=== PATIENT | female | born 1935 | race Caucasian/White ===

== ENCOUNTER 2016-11-11 18:53 | Emergency (ER) | payer OTHER ==
[2016-11-11] MEDS ORDERED: Bacitracin 500 Units/gm Oint Foilpak UD ONE ×2 (19:14→19:21)
[2016-11-11] MEDS ORDERED: Bacitracin 500 Units/gm Oint Foilpak UD TOP ONE (19:16)
--- NOTE | 2016-11-11 19:16 | C.PDOC ---
Chief Complaint (Nursing): Lower Extremity Problem/Injury Past Medical History Vital Signs: Last Vital Signs Temp 98.1 F 11/11/16 18:56 Pulse 83 11/11/16 18:56 Resp 18 11/11/16 18:56 BP 174/55 H 11/11/16 18:56 Pulse Ox 94 L 11/11/16 18:56 - Medical History PMH: Asthma, Dementia, Diabetes, HTN, Parkinson's Disease - [facility] Procedures TETANUS TOXOID ADMINIST (07/25/14) Family History: States: Unknown Family Hx - Social History Hx Tobacco Use: No Hx Alcohol Use: No Hx Substance Use: No - Immunization History Hx Tetanus Toxoid Vaccination: Yes Hx Influenza Vaccination: Yes Hx Pneumococcal Vaccination: Yes ED Course And Treatment O2 Sat by Pulse Oximetry: 94
--- NOTE | 2016-11-11 19:17 | C.PDOC ---
History Of Present Illness 81 y/o female presents to ED with complaints of pain and swelling to left foot. Patient states a frozen chicken fell on top of left foot and sustained a laceration to 2nd toe. Patient denies fever, chills, n/v/d, weakness, numbness or any other complaints at this time. Chief Complaint (Nursing): Lower Extremity Problem/Injury History Per: Patient History/Exam Limitations: no limitations Onset/Duration Of Symptoms: Hrs Current Symptoms Are (Timing): Still Present - Knee Description Of Injury: Struck With Object Past Medical History Reviewed: Historical Data, Nursing Documentation, Vital Signs Vital Signs: Last Vital Signs Temp 98.1 F 11/11/16 18:56 Pulse 83 11/11/16 18:56 Resp 18 11/11/16 18:56 BP 174/55 H 11/11/16 18:56 Pulse Ox 94 L 11/11/16 19:20 - Medical History PMH: Asthma, Dementia, Diabetes, HTN, Parkinson's Disease - [facility] Procedures TETANUS TOXOID ADMINIST (07/25/14) Family History: States: Unknown Family Hx - Social History Hx Tobacco Use: No Hx Alcohol Use: No Hx Substance Use: No - Immunization History Hx Tetanus Toxoid Vaccination: Yes Hx Influenza Vaccination: Yes Hx Pneumococcal Vaccination: Yes Review Of Systems Except As Marked, All Systems Reviewed And Found Negative. Constitutional: Negative for: Fever, Chills Gastrointestinal: Negative for: Nausea, Vomiting, Diarrhea Musculoskeletal: Positive for: Foot Pain Skin: Negative for: Rash Neurological: Negative for: Weakness, Numbness Physical Exam - Physical Exam Appears: Non-toxic, No Acute Distress Skin: Normal Color, Warm Head: Atraumatic, Normacephalic Oral Mucosa: Moist Extremity: Capillary Refill (<2 seconds), Swelling (left 2nd toe swelling), Other (laceration to left 2nd toe ) Neurological/Psych: Oriented x3, Normal Motor, Normal Sensation, Normal Reflexes ED Course And Treatment O2 Sat by Pulse Oximetry: 94 (RA) Disposition Counseled Patient/Family Regarding: Diagnosis - Disposition Referrals: Edna Boo MD [Staff Provider] - [facility] [Outside] Disposition: HOME/ ROUTINE Disposition Time: 20:05 Condition: STABLE Additional Instructions: HEEL WALK. ELEVATION Prescriptions: Amoxicillin [Amoxil 500 mg Cap] 500 mg PO TID #20 cap Ibuprofen [Motrin] 1 tab PO TIDPC PRN #30 tab PRN Reason: Pain Instructions: Toe Fracture (ED), Crush Injury (ED) - POA Present On Arrival: None - Clinical Impression Clinical Impression: Crush injury, toe, Injury of toe on left foot - Scribe Statement The provider has reviewed the documentation as recorded by the Scribhelen Lau All medical record entries made by the Hungibe were at my direction and personally dictated by me. I have reviewed the chart and agree that the record accurately reflects my personal performance of the history, physical exam, medical decision making, and the department course for this patient. I have also personally directed, reviewed, and agree with the discharge instructions and disposition.
[2016-11-11] MEDS ORDERED: Amoxicillin-Clav 500-125 mg Tab PO ONE (20:08)
[2016-11-11 20:29] VITALS: BP 160/84; PULSE 79; RESP 20; TEMP 97; O2SAT 96
--- NOTE | 2016-11-12 09:07 | RAD ---
PROCEDURE: Left Foot Radiographs. HISTORY: injury/ bleeding COMPARISON: None. FINDINGS: BONES: No suspect fracture. The medial sesamoid appears bipartite- developmental variant type. Posterior calcaneal spur - Achilles tendon insertional enthesophyte JOINTS: First metatarsal-phalangeal joint osteoarthrosis with subchondral cystic changes SOFT TISSUES: Diffuse soft tissue swelling lower leg and foot- at minimum lymphedema. Atherosclerotic vascular calcifications OTHER FINDINGS: None. IMPRESSION: No fracture. Diffuse soft tissue swelling. Lymphedema (inferred) and atherosclerotic vascular disease
== END 2016-11-11 20:28 | disposition home or self-care (01) ==
LOC: C.ER 18:53
DX: S97.122A Crushing injury of left lesser toe(s), initial encounter (principal); W22.8XXA Striking against or struck by other objects, initial encounter

== ENCOUNTER 2018-07-12 10:19 | Inpatient (IN) | payer OTHER ==
[2018-07-12] MEDS ORDERED: Sodium Chloride 0.9% 1,000 ML IV SCH (11:00)
--- NOTE | 2018-07-12 11:30 | C.PDOC ---
History Of Present Illness 82 y/o female,w/ PMhx of HTN, diabetes, HLD, and b/l LE edema, presents to the ER for evaluation of productive cough with clear sputum, chills, body aches, night sweats which have been present for the past 3 days. Patient is also com plaining of nausea and vomiting for the past 3 days. Patient states that she had 2 episodes of non-bilious non-bloody vomiting. Denies having fever,sore throat, neck stiffness, CP, SOB, abdominal pain, back pain, dark/bloody stools, diarrhea, constipation, dysuria and hematuria. Time Seen by Provider: 07/12/18 10:34 Chief Complaint (Nursing): GI Problem History Per: Patient History/Exam Limitations: no limitations Onset/Duration Of Symptoms: Days Current Symptoms Are (Timing): Still Present Severity: Moderate Past Medical History Reviewed: Historical Data, Nursing Documentation, Vital Signs Vital Signs: Last Vital Signs Temp 99.1 F 07/12/18 10:21 Pulse 85 07/12/18 10:21 Resp 20 07/12/18 10:21 BP 122/71 07/12/18 10:21 Pulse Ox 96 07/12/18 10:21 - Medical History PMH: Asthma, Dementia, Diabetes, HTN, Parkinson's Disease Other Surgeries: Hx of surgeries - [facility] Procedures TETANUS TOXOID ADMINIST (07/25/14) Family History: States: No Known Family Hx - Social History Hx Tobacco Use: No Hx Alcohol Use: No Hx Substance Use: No - Immunization History Hx Tetanus Toxoid Vaccination: Yes Hx Influenza Vaccination: Yes Hx Pneumococcal Vaccination: Yes Review Of Systems Constitutional: Positive for: Chills, Sweats, Malaise. Negative for: Fever Eyes: Negative for: Pain, Vision Change, Conjunctivae Inflammation ENT: Negative for: Ear Pain, Ear Discharge, Nose Pain, Nose Discharge, Nose Congestion, Mouth Pain, Throat Pain Cardiovascular: Negative for: Chest Pain, Palpitations, Orthopnea, Paroxysmal Noc. Dyspnea, Edema, Light Headedness Respiratory: Positive for: Cough. Negative for: Shortness of Breath, Hemoptysis, SOB with Excertion, Pleuritic Pain, Sputum Gastrointestinal: Positive for: Nausea, Vomiting. Negative for: Abdominal Pain, Diarrhea, Constipation, Melena, Hematochezia Genitourinary: Negative for: Dysuria, Hematuria Musculoskeletal: Negative for: Neck Pain Skin: Negative for: Rash, Lesions, Jaundice Neurological: Negative for: Weakness, Numbness, Incoordination, Change in Speech, Confusion, Altered Mental Status Physical Exam - Physical Exam Appears: Non-toxic, No Acute Distress Skin: Warm, Dry Head: Atraumatic, Normacephalic Eye(s): bilateral: Normal Inspection, PERRL, EOMI Ear(s): Bilateral: Normal Nose: Normal Oral Mucosa: Moist Tongue: Normal Appearing Lips: Normal Appearing Teeth: Normal Dentition Gingiva: Normal Appearing Throat: Normal, No Erythema, No Exudate Neck: Trachea Midline, Supple, Other (no meningeal signs) Chest: Symmetrical Cardiovascular: Rhythm Regular, No Rhythm Irregular, No Murmur, No JVD Respiratory: Normal Breath Sounds, No Decreased Breath Sounds, No Accessory Muscle Use, No Rales, No Rhonchi, No Wheezing Gastrointestinal/Abdominal: Normal Exam, Soft, No Tenderness, No Mass, No Distention, No Guarding, No Rebound Back: Normal Inspection, No CVA Tenderness, No Vertebral Tenderness Extremity: Normal ROM, No Tenderness, No Pedal Edema, No Swelling Extremity: Bilateral: Atraumatic, Normal Color And Temperature Neurological/Psych: Oriented x3, Normal Speech, Normal Cognition, No Cerebellar Signs, Normal Motor Gait: Steady ED Course And Treatment - Laboratory Results Result Diagrams: 07/12/18 11:28 07/12/18 11:28 O2 Sat by Pulse Oximetry: 96 (RA) Pulse Ox Interpretation: Normal Medical Decision Making Medical Decision Makin82 y/o female,w/PMhx of HTN, diabetes, hypercholesterolemia, and lower extremity lymph edema, presents to the ER for evaluation of productive cough with clear sputum,chills, body aches, night sweats which have been present for the past 3 days. Likely viral uri vs flu vs PNA. Pending imaging and labs Impression: Pneumonia vs. Viral URI Plan: --Labs --UA --ECG --CXR --IV Fluids --Zofran UV EKG: NSR 81 bpm no STEMI 1151 edema vs pna on XRay pending labs, pt in nad fluids d/c no crackles on exam. No LE edema 1229 MARY, no baseline creatnine Given CURB65 of 2 and DM, will likely obs avelox ordered UA unremarkable appreciate consult w/ Dr. Boo, to obs to his service pt agreeable ti plan abd remains non-ttp Disposition - Disposition Disposition: HOSPITALIZED Disposition Time: 12:28 Condition: STABLE - Clinical Impression Clinical Impression: Pneumonia, MARY (acute kidney injury) - Scribe Statement The provider has reviewed the documentation as recorded by the Scribe Corina Kaur Provider Attestation: All medical record entries made by the Scribe were at my direction and personally dictated by me. I have reviewed the chart and agree that the record accurately reflects my personal performance of the history, physical exam, medical decision making, and the department course for this patient. I have also personally directed, reviewed, and agree with the discharge instructions and disposition.
[2018-07-12] MEDS ORDERED: Sodium Chloride 0.9% 1,000 ML ONE (11:31)
[2018-07-12 11:33] LABS: BASO % 0.4 % (0.0-2.0); EOS # 0.4 K/uL (0.0-0.7); EOS % 4.5 % (0.0-4.0); HEMOGLOBIN 13.1 g/dL (11.0-16.0); LYMPH # 1.2 K/uL (1.0-4.3); LYMPH % 13.6 % (20.0-40.0); MEAN CELL VOLUME 89.8 fL (81.0-99.0); MEAN CORPUSCULAR HEMOGLOBIN 29.5 pg (27.0-31.0); MEAN CORPUSCULAR HGB CONC 32.9 g/dL (33.0-37.0); MEAN PLATELET VOLUME 9.7 fL (7.2-11.7); MONO # 0.8 K/uL (0.0-0.8); MONO % 9.5 % (0.0-10.0); NEUT # 6.2 K/uL (1.8-7.0); RBC 4.42 Mil/uL (3.80-5.20); WHITE BLOOD COUNT 8.7 K/uL (4.8-10.8)
[2018-07-12 11:38] LABS: VENOUS BLOOD GAS BASE EXCESS 7.7 mmol/L (0.0-2.0); VENOUS BLOOD GAS PCO2 46 mmHg (40-60); VENOUS BLOOD GAS PO2 44 mm/Hg (30-55); VENOUS BLOOD PH 7.46 (7.32-7.43)
--- NOTE | 2018-07-12 11:45 | RAD ---
HISTORY: cough, chills COMPARISON: Chest x-ray performed 01/16/16 TECHNIQUE: Chest PA and lateral FINDINGS: Examination limited by habitus. LUNGS: Biapical pleural thickening. Suspect mild superimposed infection or edema in the setting of chronic interstitial prominence. Patchy left lower lobe atelectasis or pneumonia. PLEURA: No significant pleural effusion identified. No definite pneumothorax . CARDIOVASCULAR: Cardiomegaly. Dense atherosclerotic calcifications of the aorta. OSSEOUS STRUCTURES: Degenerative changes. Kyphosis. Osseous demineralization. VISUALIZED UPPER ABDOMEN: Unremarkable. OTHER FINDINGS: None. IMPRESSION: Biapical pleural thickening. Suspect mild superimposed infection or edema in the setting of chronic interstitial prominence. Patchy left lower lobe atelectasis or pneumonia.
[2018-07-12 11:54] LABS: CALCIUM 9.5 mg/dl (8.6-10.4)
[2018-07-12 12:08] LABS: ALBUMIN 4.4 g/dL (3.5-5.0); TROPONIN I 0.02 ng/mL (0.00-0.120)
[2018-07-12 12:18] LABS: SQUAMOUS EPITHIAL 1 /hpf (0-5); URINE BILIRUBIN NEGATIVE (NEGATIVE); URINE BLOOD NEGATIVE (NEGATIVE); URINE CLARITY Clear (Clear); URINE COLOR Yellow (YELLOW); URINE GLUCOSE (UA) NORMAL (Normal); URINE LEUKOCYTE ESTERASE NEG Leu/uL (Negative); URINE PROTEIN NEGATIVE (NEGATIVE); URINE UROBILINOGEN NORMAL mg/dL (0.2-1.0)
[2018-07-12] MEDS ORDERED: Moxifloxacin IV 400mg/250ml NS 400 MG/250 ML BAG IVPB ONE ×2 (12:26→12:47)
--- NOTE | 2018-07-12 12:36 | CP.PCM.HP ---
History of Present Illness - History of Present Illness History of Present Illness: COMPREHENSIVE CONSULT HPI82 y/o female,w/ PMhx of HTN, diabetes, hypercholesterolemia, and lower extremity lymph edema, presents to the ER for evaluation of productive cough wi th clear sputum, chills, body aches, night sweats which have been present for the past 3 days. Patient is also complaining of nausea and vomiting for the past 3 days. Patient states that she had 2 episodes of non-bilious non-bloody vomiting. PAST HIST. H/O T2DM , NOT CONTROLLED DUE TO NON COMPLIANT DIET , RENAL INSUFFICIENCY , ANXIETY AND TREMORS PERSONAL HIST: Smoking. N Alcohol. N Allergy N Travel_- . FAMILY HIST : ROS : Constitutional:POS FOR FEVER CHILLS AND MALAISE Eyes: Negative for redness, swelling, itching, discharge, vision changes, blurry vision, double vision, glaucoma, cataracts, Ears: Negative for hearing loss, ringing, , tinnitus, vertigo Nose: POS: URT CONGESTION Throat: Negative for throat clearing, sore throat, hoarseness, difficulty swallowing and difficulty speaking. Respiratory: Negative for hemoptysis, snoring at night, Cardiovascular: Negative for chest pain, palpitations, orthopnea, PND, Edema of legs, leg cramps, angina, claudication, , irregular heartbeat, Neurology: Negative for irritability, muscle weakness, numbness and tingling, seizures, tremors, migraines, slurred speech, syncope, memory loss, mood art es, recurrent headaches Gastrointestinal: Negative for difficulty swallowing, diarrhea, constipation, black stools, rectal bleeding, changes in bowel habits, abdominal pain Genitourinary: Negative for frequent urination, hematuria, discharge, incontinence, urinary retention, frequent UTI, Psychiatric: Negative for depression, anxiety/panic, suicidal tendencies, Musculoskeletal: Negative for swollen joints, back pain, , neck pain, morning stiffness of joints, . Skin: Negative for rash, ulcers, itching, dry skin and pigmented lesions. P/E: Constitutional: Appears stated age and in no apparent distress. Head: Normocephalic. Ears: External ear canals patent without inflammation. Tympanic membranes intact with normal light reflex and landmark. Eyes: Pupils are central, bilaterally equal, symmetrical and reacts to light with normal movements and no icterus or pallor. Nose: External nares are patent. Mucosa is pink Mouth-Throat: Good general appearance and condition. No post-pharyngeal/oropharyngeal erythema and tonsillar hypertrophy. Good dental hygiene. Neck-Lymphatic: Neck is supple with normal ROM, no thyromegaly, lymph nodes or masses. JVD is normal with no carotid bruit. Lungs SONDRA CREPTS Cardiovascular: S1 and S2 are normal with no murmurs, gallops and rub. GI Exam: No hepatomegaly. Abdomen is soft and non-tender. No Organomegaly , masses or hernias are evident and bowel sounds are normal and active. Neurology: Higher function and all cranial nerves intact, with no gross motor or sensory deficit. Superficial and deep reflexes are normal with downwards planters. No cerebellar deficit with normal gait. Musculoskeletal: No tender spots with normal curvature of the spine with no swelling or restricted ROM of the small and large joints. Extremities: Homans sign absent. Intact pulses with no pitting edema, calf tenderness or skin color changes. Skin: No rash, eruptions or abnormal skin pigmentation LAB/RADIOLOGY: ASSESMENT : SONDRA PNEUMONIA T2DM DEHYDRATION PLAN: IV AB /FLUIDS Past Patient History - Past Social History Smoking Status: Never Smoked - CARDIAC Hx Hypertension: Yes - PULMONARY Hx Asthma: Yes - NEUROLOGICAL Hx Dementia: Yes Hx Parkinson's Disease: Yes - ENDOCRINE/METABOLIC Hx Endocrine Disorders: Yes Hx Diabetes Mellitus Type 1: Yes - PSYCHIATRIC Hx Substance Use: No - SURGICAL HISTORY Hx Surgeries: Yes Hx Cataract Extraction: Yes Hx Eye Surgery: Yes - ANESTHESIA Hx Anesthesia: No Hx Anesthesia Reactions: No Meds Allergies/Adverse Reactions: Allergies Allergy/AdvReac Type Severity Reaction Status Date / Time No Known Allergies Allergy Verified 07/12/18 10:23 Results - Vital Signs Recent Vital Signs: Last Vital Signs Temp 99.1 F 07/12/18 10:21 Pulse 85 07/12/18 10:21 Resp 20 07/12/18 10:21 BP 122/71 07/12/18 10:21 Pulse Ox 96 07/12/18 12:30 - Labs Result Diagrams: 07/12/18 11:28 07/12/18 11:28 Labs: Laboratory Results - last 24 hr 07/12/18 07/12/18 07/12/18 11:28 11:28 11:28 WBC 8.7 RBC 4.42 Hgb 13.1 Hct 39.7 MCV 89.8 MCH 29.5 MCHC 32.9 L RDW 14.0 Plt Count 202 MPV 9.7 Neut % (Auto) 72.0 Lymph % (Auto) 13.6 L [place] % (Auto) 9.5 Eos % (Auto) 4.5 H Baso % (Auto) 0.4 Neut # (Auto) 6.2 Lymph # (Auto) 1.2 [place] # (Auto) 0.8 Eos # (Auto) 0.4 Baso # (Auto) 0.0 pO2 VBG pH VBG pCO2 VBG HCO3 VBG Total CO2 VBG O2 Sat (Calc) VBG Base Excess VBG Potassium Glucose Lactate Sodium 137 Potassium 4.9 Chloride 97 L Carbon Dioxide 26 Anion Gap 19 BUN 50 H Creatinine 1.5 H Est GFR ( Amer) 40 Est GFR (Non-Af Amer) 33 Random Glucose 209 H Calcium 9.5 Magnesium 1.9 Total Bilirubin 1.2 AST 61 H ALT 14 Alkaline Phosphatase 59 Total Creatine Kinase 156 H Troponin I 0.0200 NT-Pro-B Natriuret Pep 169 Total Protein 8.7 H Albumin 4.4 Globulin 4.3 H Albumin/Globulin Ratio 1.0 Lipase 35 Venous Blood Potassium Urine Color Urine Clarity Urine pH Ur Specific [place] Urine Protein Urine Glucose (UA) Urine Ketones Urine Blood Urine Nitrate Urine Bilirubin Urine Urobilinogen Ur Leukocyte Esterase Urine WBC (Auto) Urine RBC (Auto) Ur Squamous Epith Cells Hyaline Casts Influenza Typ A,B (EIA) Negative for flu a/b 07/12/18 07/12/18 11:30 11:55 WBC RBC Hgb Hct MCV MCH MCHC RDW Plt Count MPV Neut % (Auto) Lymph % (Auto) [place] % (Auto) Eos % (Auto) Baso % (Auto) Neut # (Auto) Lymph # (Auto) [place] # (Auto) Eos # (Auto) Baso # (Auto) pO2 44 VBG pH 7.46 H VBG pCO2 46 VBG HCO3 30.5 VBG Total CO2 34.1 H VBG O2 Sat (Calc) 84.6 H VBG Base Excess 7.7 H VBG Potassium 3.8 Glucose 201 H Lactate 1.8 Sodium 139.0 Potassium Chloride 101.0 Carbon Dioxide Anion Gap BUN Creatinine Est GFR ( Amer) Est GFR (Non-Af Amer) Random Glucose Calcium Magnesium Total Bilirubin AST ALT Alkaline Phosphatase Total Creatine Kinase Troponin I NT-Pro-B Natriuret Pep Total Protein Albumin Globulin Albumin/Globulin Ratio Lipase Venous Blood Potassium 3.8 Urine Color Yellow Urine Clarity Clear Urine pH 6.0 Ur Specific [place] 1.009 Urine Protein Negative Urine Glucose (UA) Normal Urine Ketones Negative Urine Blood Negative Urine Nitrate Negative Urine Bilirubin Negative Urine Urobilinogen Normal Ur Leukocyte Esterase Neg Urine WBC (Auto) 1 Urine RBC (Auto) 1 Ur Squamous Epith Cells 1 Hyaline Casts 6-10 H Influenza Typ A,B (EIA)
[2018-07-12] MEDS: Sodium Chloride 0.45% 1,000 ML IV SCH (13:00)
[2018-07-12] MEDS: (Novolin R) Insulin Human Regular 100 units/ml vial SC SCH ×2 (17:30→21:36)
[2018-07-12] MEDS: Albuterol-Ipratrop 3 mg / 0.5 (3 ml) UD INH SCH (19:44)
[2018-07-13] MEDS: Albuterol-Ipratrop 3 mg / 0.5 (3 ml) UD INH SCH ×4 (03:18→19:54)
[2018-07-13] MEDS: Sodium Chloride 0.45% 1,000 ML IV SCH ×3 (03:59→23:01)
[2018-07-13] MEDS: (Novolin R) Insulin Human Regular 100 units/ml vial SC SCH ×4 (08:27→21:32)
[2018-07-13 09:16] VITALS: RESP 20
[2018-07-13] MEDS: Aspirin 325 mg EC Tablets PO SCH (10:16)
--- NOTE | 2018-07-13 11:55 | CP.PCM.PN ---
Subjective - Date & Time of Evaluation Date of Evaluation: 07/13/18 Time of Evaluation: 11:53 - Subjective Subjective: CHIEF COMPLAINTS TODAY : MILD COUGH AND WHITE EXPECTORATION ROS. HEENT : N. Resp : No hemoptysis Cardio : No anginal CP, PND, orthopnea, palpitation GI : No abd.pain, n/v ,diarrhea or GI bleeding . PROJECT ANALYST : No headache, vertigo, focal deficit. Musculoskel : No joint swelling , Derm : No rash Psych : Normal affect. Ext : No swelling ,calf pain PE. Pt. is alert awake in no distress. V.S As noted in the chart Head ,ear nose,throat and eyes : Normal. Neck : Supple with normal carotids. Lungs: Clear air entry. BASAL CRACKLES Heart : S1 & S2 normal with S4. No murmur. Abd : Soft non tender with normal bowel sounds. Neuro : Moves all ext. with no localized deficit. Ext : No edema with intact pulses.Non tender calves Derm : No rashes or decubitus ulcer. LABS/RADIOLOGY: ASSESSMENT/PLAN : IV AB ID EVAL Objective - Vital Signs/Intake and Output Vital Signs (last 24 hours): Temp Pulse Resp BP Pulse Ox 97.8 F 81 20 129/61 95 07/13/18 08:00 07/13/18 08:00 07/13/18 08:00 07/13/18 08:00 07/13/18 08:00 - Medications Medications: Current Medications Albuterol/Ipratropium (Duoneb 3 Mg/0.5 Mg (3 Ml) Ud) 3 ml INH RQ6 [facility] Last Admin: 07/13/18 07:37 Dose: 3 ml Aspirin (Ecotrin) 325 mg PO DAILY [facility] Last Admin: 07/13/18 10:16 Dose: 325 mg Carbidopa/Levodopa (Sinemet) 1 tab PO BID [facility] Last Admin: 07/13/18 10:16 Dose: 1 tab Heparin Sodium (Porcine) (Heparin) 5,000 units SC Q12 [facility] Last Admin: 07/13/18 10:17 Dose: 5,000 units Sodium Chloride (Sodium Chloride 0.45%) 1,000 mls @ 80 mls/hr IV .[id number] [facility] Last Admin: 07/13/18 03:59 Dose: 80 mls/hr Ceftriaxone Sodium 1 gm/ (Sodium Chloride) 100 mls @ 100 mls/hr IVPB DAILY [facility]; Protocol Last Admin: 07/13/18 10:14 Dose: 100 mls/hr Insulin Human Regular (Novolin R) 0 unit SC ACHS [facility]; Protocol Last Admin: 07/13/18 08:27 Dose: 3 units Lisinopril (Zestril) 2.5 mg PO DAILY [facility] Last Admin: 07/13/18 10:16 Dose: 2.5 mg Pregabalin (Lyrica) 75 mg PO BID [facility] Last Admin: 07/13/18 10:16 Dose: 75 mg Rosuvastatin Calcium (Crestor) 5 mg PO HS [facility] Last Admin: 07/12/18 21:35 Dose: 5 mg Sitagliptin Phosphate (Januvia) 50 mg PO DAILY [facility] Last Admin: 07/13/18 10:16 Dose: 50 mg - Labs Labs: 07/12/18 11:28 07/12/18 11:28
--- NOTE | 2018-07-13 12:43 | CARD ---
APPROVED REPORT Date of service: 07/12/2018 EKG Measurement Heart [id number] <Conclusion> Normal sinus rhythm Left axis deviation Minimal voltage criteria for LVH, may be normal variant Abnormal ECG
--- NOTE | 2018-07-13 14:16 | CP.PCM.CON ---
History of Present Illness - History of Present Illness History of Present Illness: INFECTIOUS DISEASE CONSULT; HPI; 82-year-old [place]orran-speaking female with history of bronchial asthma, hypertension, diabetes mellitus, hypercholesterolemia , parkinsonism was admitted on 07/12/18 by the emergency room because of increasing productive cough with clear sputum, chills body aches and night sweats which have been present for the past 3 days prior to admission. Patient also complained of nausea and vomiting for the past 3 days. She had episodes off nonbilious nonbloody vomiting. A rapid flu antigen test was negative. Patient was placed on IV ceftriaxone by the private M.Brinda and received one dose off Zosyn in the ER. Patient still congested and unable to complete full sentences. She has cough while speaking short sentences. Infectious disease consultation requested by PMD for pneumonia /and exacerbation of bronchial asthma. NO HISTORY OF TRAVEL OR SICK CONTACTS. PATIENT UP-TO-DATE ON VACCINATION PER CHART. PMH: Asthma, Dementia, Diabetes, HTN, Parkinson's Disease Other Surgeries: Hx of surgeries - [facility] Procedures TETANUS TOXOID ADMINIST (07/25/14) Family History: States: No Known Family Hx - Social History Hx Tobacco Use: No Hx Alcohol Use: No Hx Substance Use: No - Immunization History Hx Tetanus Toxoid Vaccination: Yes Hx Influenza Vaccination: Yes Hx Pneumococcal Vaccination: Yes ALLERGY; NKA Review of Systems - Constitutional Constitutional: Chills, Malaise, Night Sweats, Weakness. absent: Fever - EENT Eyes: absent: Change in Vision Ears: absent: Ear Discharge, Ear Pain Nose/Mouth/Throat: absent: Hoarsness, Mouth Lesions, Odynophagia - Cardiovascular Cardiovascular: Edema (LOWER EXTREMITIES). absent: Chest Pain - Respiratory Respiratory: Cough (PRODUCTIVE, WHITISH SPUTUM). absent: Hemoptysis, Pain with Coughing - Gastrointestinal Gastrointestinal: Nausea. absent: Abdominal Pain - Genitourinary Genitourinary: absent: Dysuria, Freq UTI - Integumentary Integumentary: absent: Rash - Neurological Neurological: absent: Headaches - Endocrine Endocrine: Excessive Sweating - Hematologic/Lymphatic Hematologic: As Per HPI. absent: Easy Bruising, Lymphadenopathy Past Patient History - Past Social History Smoking Status: Never Smoked - CARDIAC Hx Hypertension: Yes - PULMONARY Hx Asthma: Yes - NEUROLOGICAL Hx Dementia: Yes Hx Parkinson's Disease: Yes - ENDOCRINE/METABOLIC Hx Endocrine Disorders: Yes Hx Diabetes Mellitus Type 1: Yes - PSYCHIATRIC Hx Substance Use: No - SURGICAL HISTORY Hx Surgeries: Yes Hx Cataract Extraction: Yes Hx Eye Surgery: Yes - ANESTHESIA Hx Anesthesia: No Hx Anesthesia Reactions: No Meds Allergies/Adverse Reactions: Allergies Allergy/AdvReac Type Severity Reaction Status Date / Time No Known Allergies Allergy Verified 07/12/18 10:23 - Medications Medications: Current Medications Albuterol/Ipratropium (Duoneb 3 Mg/0.5 Mg (3 Ml) Ud) 3 ml INH RQ6 [facility] Last Admin: 07/13/18 14:09 Dose: 3 ml Aspirin (Ecotrin) 325 mg PO DAILY [facility] Last Admin: 07/13/18 10:16 Dose: 325 mg Carbidopa/Levodopa (Sinemet) 1 tab PO BID [facility] Last Admin: 07/13/18 10:16 Dose: 1 tab Heparin Sodium (Porcine) (Heparin) 5,000 units SC Q12 [facility] Last Admin: 07/13/18 10:17 Dose: 5,000 units Sodium Chloride (Sodium Chloride 0.45%) 1,000 mls @ 80 mls/hr IV .[id number] [facility] Last Admin: 07/13/18 03:59 Dose: 80 mls/hr Ceftriaxone Sodium 1 gm/ (Sodium Chloride) 100 mls @ 100 mls/hr IVPB DAILY [facility]; Protocol Last Admin: 07/13/18 10:14 Dose: 100 mls/hr Insulin Human Regular (Novolin R) 0 unit SC ACHS [facility]; Protocol Last Admin: 07/13/18 12:22 Dose: 10 units Lisinopril (Zestril) 2.5 mg PO DAILY [facility] Last Admin: 07/13/18 10:16 Dose: 2.5 mg Pregabalin (Lyrica) 75 mg PO BID [facility] Last Admin: 07/13/18 10:16 Dose: 75 mg Rosuvastatin Calcium (Crestor) 5 mg PO HS [facility] Last Admin: 07/12/18 21:35 Dose: 5 mg Sitagliptin Phosphate (Januvia) 50 mg PO DAILY [facility] Last Admin: 07/13/18 10:16 Dose: 50 mg Physical Exam - Constitutional Appears: No Acute Distress - Head Exam Head Exam: NORMAL INSPECTION - Eye Exam Eye Exam: EOMI, PERRL - ENT Exam ENT Exam: Normal Oropharynx - Neck Exam Neck exam: Positive for: Normal Inspection. Negative for: Lymphadenopathy, Meningismus, Thyromegaly - Respiratory Exam Respiratory Exam: Prolonged Expiratory Phase, Wheezes (BILATERALLY.), NORMAL BREATHING PATTERN - Cardiovascular Exam Cardiovascular Exam: REGULAR RHYTHM, +S1, +S2 - GI/Abdominal Exam GI & Abdominal Exam: Normal Bowel Sounds, Soft. absent: Tenderness - Extremities Exam Extremities exam: Positive for: pedal edema, pedal pulses present (2+ EDEMA). Negative for: calf tenderness - Neurological Exam Neurological exam: Alert, CN II-XII Intact, Reflexes Normal - Psychiatric Exam Psychiatric exam: Normal Mood - Skin Skin Exam: Normal Color, Warm Results - Vital Signs Recent Vital Signs: Last Vital Signs Temp 97.8 F 07/13/18 08:00 Pulse 81 07/13/18 08:00 Resp 20 07/13/18 08:00 BP 129/61 07/13/18 08:00 Pulse Ox 95 07/13/18 08:00 - Labs Result Diagrams: 07/12/18 11:28 07/12/18 11:28 Labs: Laboratory Results - last 24 hr 07/12/18 07/12/18 07/13/18 16:13 21:10 07:13 POC Glucose (mg/dL) 83 180 H 246 H 07/13/18 11:09 POC Glucose (mg/dL) 417 H* - Imaging and Cardiology Chest x-ray Status: Report reviewed by me (CHRONIC INTERSTITIAL PROMINANCE WITH PATCHY LLL/PNEUMONIA VERSUS ATELECTASIS. bIAPICAL PLEURAL THICK.) Assessment & Plan (1) Pneumonia Status: Acute (2) Exacerbation of asthma Status: Acute (3) MARY (acute kidney injury) Status: Acute (4) Diabetes mellitus Status: Acute (5) Parkinsonism Status: Acute - Assessment and Plan (Free Text) Plan: PLAN; PANCULTURES ATYPICAL TITERS. INFLUENZA A AND B ANTIBODY SEROLOGY. PERTUSSIS SEROLOGY . CONTINUE ZOSYN 2.25 G iv EVERY 8 HOURLY 07/13/18 ADD iv ZITHROMAX 500 MG iv PIGGYBACK EVERY d DAILY 07/13/18. DROPLET PRECAUTIONS. fOLLOW-UP BLOOD CULTURES/SPUTUM CULTURES. WILL ADJUST ANTIBIOTICS ACCORDINGLY. WILL FOLLOW ALONG WITH YOU . THANK YOU.
--- NOTE | 2018-07-13 14:20 | CARD ---
APPROVED REPORT Date of service: 07/13/2018 EXAM: Two-dimensional and M-mode echocardiogram with Doppler and color Doppler. Other Information Quality : Technically LimitedRhythm : Technically limited study due to body habitus. INDICATION Peripheral Edema Congestive Heart Failure RISK FACTORS Hypertension Hyperlipidemia Diabetes 2D DIMENSIONS IVSd1.2 (0.7-1.1cm)LVDd4.2 (3.9-5.9cm) PWd1.4 (0.7-1.1cm)LA Rbvscp33 (18-58mL) LVDs2.3 (2.5-4.0cm)FS (%) 45.3 % LVEF (%)77.0 (>50%)LVEF (Sorto's)71.54 % M-Mode DIMENSIONS RVDd1.40 (2.1-3.2cm)Left Atrium (MM)3.79 (2.5-4.0cm) IVSd1.29 (0.7-1.1cm)Aortic Root3.09 (2.2-3.7cm) LVDd4.28 (4.0-5.6cm)Aortic Cusp Exc.1.94 (1.5-2.0cm) PWd1.33 (0.7-1.1cm)FS (%) 41 % LVDs2.54 (2.0-3.8cm)LVEF (%)72 (>50%) Mitral Valve MV E Ydkxzpmn168.1cm/sMV A Rudszgta645.8cm/sE/A ratio0.7 TDI Lateral E' Peak V5.13cm/sMedial E' Peak V5.19cm/sE/Lateral E'21.7 E/Medial E'21.4 LEFT VENTRICLE The left ventricle is normal size. There is normal left ventricular wall thickness. The left ventricular function is normal. The left ventricular ejection fraction is within the normal range. No regional wall motion abnormalities noted. The left ventricular diastolic function is normal. No left ventricle thrombus noted on this study. There is no ventricular septal defect visualized. There is no left ventricular aneurysm. There is no mass noted in the left ventricle. RIGHT VENTRICLE The right ventricle is normal size. There is normal right ventricular wall thickness. The right ventricular systolic function is normal. ATRIA The left atrium size is normal. The right atrium size is normal. The interatrial septum is intact with no evidence for an atrial septal defect. AORTIC VALVE The aortic valve is normal in structure and function. No aortic regurgitation is present. There is no aortic valvular stenosis. There is no aortic valvular vegetation. MITRAL VALVE The mitral valve is normal in structure and function. Mitral annular calcification is mild to moderate. There is no evidence of mitral valve prolapse. There is no mitral valve stenosis. Mitral regurgitation is mild. TRICUSPID VALVE The tricuspid valve is normal in structure and function. There is no tricuspid valve regurgitation noted. There is no tricuspid valve prolapse or vegetation. There is no tricuspid valve stenosis. PULMONIC VALVE The pulmonary valve is normal in structure and function. There is no pulmonic valvular regurgitation. There is no pulmonic valvular stenosis. GREAT VESSELS The aortic root is normal in size. The ascending aorta is normal in size. The pulmonary artery is normal. The IVC is normal in size and collapses >50% with inspiration. PERICARDIAL EFFUSION The pericardium appears normal. There is no pleural effusion. <Conclusion> The left ventricular function is normal. The left ventricular ejection fraction is within the normal range. No regional wall motion abnormalities noted.
[2018-07-13] MEDS: Azithromycin 500 MG in Sodium Chloride 0.9% 250 ML IVPB SCH (16:40)
[2018-07-13] MEDS: Piperacill/Tazo 2.25gm in Dex 2.25 GM/50 ML BAG IVPB SCH (17:48)
[2018-07-13] MEDS: (Lantus) Insulin Glargine, Recombinant SC SCH (21:32)
[2018-07-14] MEDS: Albuterol-Ipratrop 3 mg / 0.5 (3 ml) UD INH SCH ×3 (01:21→19:28)
[2018-07-14] MEDS: Piperacill/Tazo 2.25gm in Dex 2.25 GM/50 ML BAG IVPB SCH ×3 (01:26→17:53)
[2018-07-14] MEDS: Sodium Chloride 0.45% 1,000 ML IV SCH ×3 (03:00→16:58)
[2018-07-14 08:03] LABS: BASO # 0.1 K/uL (0.0-0.2); BASO % 1.2 % (0.0-2.0); EOS # 0.7 K/uL (0.0-0.7); EOS % 10.8 % (0.0-4.0); LYMPH # 1.1 K/uL (1.0-4.3); LYMPH % 17.2 % (20.0-40.0); MEAN CELL VOLUME 90.4 fL (81.0-99.0); MEAN CORPUSCULAR HEMOGLOBIN 30.1 pg (27.0-31.0); MEAN CORPUSCULAR HGB CONC 33.3 g/dL (33.0-37.0); MEAN PLATELET VOLUME 9.7 fL (7.2-11.7); MONO # 0.5 K/uL (0.0-0.8); MONO % 8.9 % (0.0-10.0); NEUT # 3.8 K/uL (1.8-7.0); NEUT % 61.9 % (50.0-75.0); NRBC % 0.1 % (0.0-2.0); RBC 3.99 Mil/uL (3.80-5.20); RED CELL DISTRIBUTION WIDTH 13.8 % (11.5-14.5); WHITE BLOOD COUNT 6.1 K/uL (4.8-10.8)
[2018-07-14 08:32] LABS: ALB/GLOB RATIO 1.1 (1.0-2.1); ALBUMIN 3.6 g/dL (3.5-5.0); BILIRUBIN,DIRECT 0.5 mg/dL (0.0-0.4); CALCIUM 8.7 mg/dl (8.6-10.4)
[2018-07-14] MEDS: (Novolin R) Insulin Human Regular 100 units/ml vial SC SCH ×4 (09:14→22:26)
[2018-07-14] MEDS: Aspirin 325 mg EC Tablets PO SCH (09:31)
[2018-07-14] MEDS: Azithromycin 500 MG in Sodium Chloride 0.9% 250 ML IVPB SCH (09:32)
--- NOTE | 2018-07-14 12:08 | CP.PCM.PN ---
Subjective - Date & Time of Evaluation Date of Evaluation: 07/14/18 Time of Evaluation: 12:08 - Subjective Subjective: CHIEF COMPLAINTS TODAY : MILD COUGH AND WHITE EXPECTORATION ROS. HEENT : N. Resp : No hemoptysis Cardio : No anginal CP, PND, orthopnea, palpitation GI : No abd.pain, n/v ,diarrhea or GI bleeding . 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 Musculoskel : No joint swelling , Derm : No rash Psych : Normal affect. Ext : No swelling ,calf pain PE. Pt. is alert awake in no distress. V.S As noted in the chart Head ,ear nose,throat and eyes : Normal. Neck : Supple with normal carotids. Lungs: Clear air entry. BASAL CRACKLES Heart : S1 & S2 normal with S4. No murmur. Abd : Soft non tender with normal bowel sounds. Neuro : Moves all ext. with no localized deficit. Ext : No edema with intact pulses.Non tender calves Derm : No rashes or decubitus ulcer. LABS/RADIOLOGY: ASSESSMENT/PLAN : IV AB Objective - Vital Signs/Intake and Output Vital Signs (last 24 hours): Temp Pulse Resp BP Pulse Ox 97.6 F 71 20 117/65 97 07/14/18 08:00 07/14/18 08:00 07/14/18 08:00 07/14/18 08:00 07/14/18 08:00 Intake and Output: 07/14/18 07/14/18 11:59 23:59 Intake Total 1000 Balance 1000 - Medications Medications: Current Medications Albuterol/Ipratropium (Duoneb 3 Mg/0.5 Mg (3 Ml) Ud) 3 ml INH RQ6 [facility] Last Admin: 07/14/18 07:39 Dose: 3 ml Aspirin (Ecotrin) 325 mg PO DAILY [facility] Last Admin: 07/14/18 09:31 Dose: 325 mg Carbidopa/Levodopa (Sinemet) 1 tab PO BID [facility] Last Admin: 07/14/18 09:32 Dose: 1 tab Heparin Sodium (Porcine) (Heparin) 5,000 units SC Q12 [facility] Last Admin: 07/14/18 09:32 Dose: 5,000 units Sodium Chloride (Sodium Chloride 0.45%) 1,000 mls @ 80 mls/hr IV .[id number] [facility] Last Admin: 07/14/18 03:00 Dose: Not Given Azithromycin 500 mg/ Sodium (Chloride) 250 mls @ 250 mls/hr IVPB DAILY [facility]; Protocol Last Admin: 07/14/18 09:32 Dose: 250 mls/hr Piperacillin Sod/Tazobactam Sod (Zosyn 2.25 Gm Iv Premix) 2.25 gm in 50 mls @ 100 mls/hr IVPB Q8H [facility]; Protocol Last Admin: 07/14/18 09:32 Dose: 100 mls/hr Insulin Glargine (Lantus) 20 unit SC [facility] Last Admin: 07/13/18 21:32 Dose: 20 u Insulin Human Regular (Novolin R) 0 unit SC [facility]; Protocol Last Admin: 07/14/18 09:14 Dose: 8 units Lisinopril (Zestril) 2.5 mg PO DAILY [facility] Last Admin: 07/14/18 09:32 Dose: 2.5 mg Pregabalin (Lyrica) 75 mg PO BID [facility] Last Admin: 07/14/18 09:31 Dose: 75 mg Rosuvastatin Calcium (Crestor) 5 mg PO [facility] Last Admin: 07/13/18 21:31 Dose: 5 mg Sitagliptin Phosphate (Januvia) 50 mg PO DAILY [facility] Last Admin: 07/14/18 09:31 Dose: 50 mg - Labs Labs: 07/14/18 07:33 07/14/18 07:34
--- NOTE | 2018-07-14 20:46 | CP.PCM.PN ---
Subjective - Date & Time of Evaluation Date of Evaluation: 07/14/18 Time of Evaluation: 20:46 - Subjective Subjective: CHIEF COMPLAINTS TODAY : afebrile,VSS +VE COUGH IN WHOOPS. +VE WHEEZING ROS. HEENT : N. Resp : No hemoptysis Cardio : No anginal CP, PND, orthopnea, palpitation GI : No abd.pain, n/v ,diarrhea or GI bleeding . VMWARE ARCHITECT : No headache, vertigo, focal deficit. Musculoskel : No joint swelling , Derm : No rash Psych : Normal affect. Ext : No swelling ,calf pain PE. Pt. is alert awake in no distress. V.S As noted in the chart Head ,ear nose,throat and eyes : Normal. Neck : Supple with normal carotids. Lungs: Clear air entry. BASAL CRACKLE, / EXPIRATORY WHEEZE Heart : S1 & S2 normal with S4. No murmur. Abd : Soft non tender with normal bowel sounds. Neuro : Moves all ext. with no localized deficit. Ext : No edema with intact pulses.Non tender calves Derm : No rashes or decubitus ulcer. LABS/RADIOLOGY: REVIEWED. LEGIONELLA PNEUMOBILIA ANTIGEN NEGATIVE. Objective - Vital Signs/Intake and Output Vital Signs (last 24 hours): Temp Pulse Resp BP Pulse Ox 98.2 F 79 20 116/67 97 07/14/18 16:08 07/14/18 16:08 07/14/18 16:08 07/14/18 16:08 07/14/18 16:08 Intake and Output: 07/14/18 07/15/18 18:59 06:59 Intake Total 1180 Balance 1180 - Medications Medications: Current Medications Albuterol/Ipratropium (Duoneb 3 Mg/0.5 Mg (3 Ml) Ud) 3 ml INH RQ6 [facility] Last Admin: 07/14/18 19:28 Dose: 3 ml Aspirin (Ecotrin) 325 mg PO DAILY [facility] Last Admin: 07/14/18 09:31 Dose: 325 mg Carbidopa/Levodopa (Sinemet) 1 tab PO BID [facility] Last Admin: 07/14/18 17:52 Dose: 1 tab Heparin Sodium (Porcine) (Heparin) 5,000 units SC Q12 [facility] Last Admin: 07/14/18 09:32 Dose: 5,000 units Sodium Chloride (Sodium Chloride 0.45%) 1,000 mls @ 80 mls/hr IV .[id number] [facility] Last Admin: 07/14/18 16:58 Dose: 80 mls/hr Azithromycin 500 mg/ Sodium (Chloride) 250 mls @ 250 mls/hr IVPB DAILY [facility]; Protocol Last Admin: 07/14/18 09:32 Dose: 250 mls/hr Piperacillin Sod/Tazobactam Sod (Zosyn 2.25 Gm Iv Premix) 2.25 gm in 50 mls @ 100 mls/hr IVPB Q8H [facility]; Protocol Last Admin: 07/14/18 17:53 Dose: 100 mls/hr Insulin Glargine (Lantus) 20 unit SC HS [facility] Last Admin: 07/13/18 21:32 Dose: 20 u Insulin Human Regular (Novolin R) 0 unit SC ACHS [facility]; Protocol Last Admin: 07/14/18 17:52 Dose: 2 units Lisinopril (Zestril) 2.5 mg PO DAILY [facility] Last Admin: 07/14/18 09:32 Dose: 2.5 mg Pregabalin (Lyrica) 75 mg PO BID [facility] Last Admin: 07/14/18 17:48 Dose: 75 mg Rosuvastatin Calcium (Crestor) 5 mg PO HS [facility] Last Admin: 07/13/18 21:31 Dose: 5 mg Sitagliptin Phosphate (Januvia) 50 mg PO DAILY [facility] Last Admin: 07/14/18 09:31 Dose: 50 mg - Labs Labs: 07/14/18 07:33 07/14/18 07:34 Assessment and Plan (1) Pneumonia Status: Acute (2) Exacerbation of asthma Status: Acute (3) MARY (acute kidney injury) Status: Acute (4) Diabetes mellitus Status: Acute (5) Parkinsonism Status: Acute - Assessment and Plan (Free Text) Plan: CONTINUE ZOSYN 2.25 G iv EVERY 8 HOURLY 07/13/18 ADD iv ZITHROMAX 500 MG iv PIGGYBACK EVERY d DAILY 07/13/18. F/U ATYPICAL TITERS. INFLUENZA A AND B ANTIBODY SEROLOGY.-P PERTUSSIS SEROLOGY-P DROPLET PRECAUTIONS. fOLLOW-UP BLOOD CULTURES/SPUTUM CULTURES. CASE DISCUSSED W STAFF / RN ROSSY.
[2018-07-14] MEDS: (Lantus) Insulin Glargine, Recombinant SC SCH (22:25)
[2018-07-15] MEDS: Albuterol-Ipratrop 3 mg / 0.5 (3 ml) UD INH SCH ×4 (01:10→20:59)
[2018-07-15] MEDS: Piperacill/Tazo 2.25gm in Dex 2.25 GM/50 ML BAG IVPB SCH ×3 (02:01→17:11)
[2018-07-15] MEDS: Sodium Chloride 0.45% 1,000 ML IV SCH ×2 (03:15→06:50)
[2018-07-15 08:25] LABS: BASO # 0.1 K/uL (0.0-0.2); BASO % 1.4 % (0.0-2.0); EOS # 0.8 K/uL (0.0-0.7); EOS % 13.1 % (0.0-4.0); HEMOGLOBIN 11.8 g/dL (11.0-16.0); LYMPH # 1.1 K/uL (1.0-4.3); LYMPH % 19.6 % (20.0-40.0); MEAN CELL VOLUME 90.4 fL (81.0-99.0); MEAN CORPUSCULAR HEMOGLOBIN 29.8 pg (27.0-31.0); MEAN PLATELET VOLUME 9.9 fL (7.2-11.7); MONO # 0.5 K/uL (0.0-0.8); MONO % 8.2 % (0.0-10.0); NEUT # 3.4 K/uL (1.8-7.0); NEUT % 57.7 % (50.0-75.0); RBC 3.96 Mil/uL (3.80-5.20); RED CELL DISTRIBUTION WIDTH 13.8 % (11.5-14.5); WHITE BLOOD COUNT 5.9 K/uL (4.8-10.8)
[2018-07-15 08:40] LABS: ALB/GLOB RATIO 1.1 (1.0-2.1); ALBUMIN 3.6 g/dL (3.5-5.0); CALCIUM 8.6 mg/dl (8.6-10.4)
[2018-07-15] MEDS: Aspirin 325 mg EC Tablets PO SCH (09:01)
[2018-07-15] MEDS: (Novolin R) Insulin Human Regular 100 units/ml vial SC SCH ×4 (09:02→21:11)
[2018-07-15] MEDS: Azithromycin 500 MG in Sodium Chloride 0.9% 250 ML IVPB SCH (09:03)
--- NOTE | 2018-07-15 11:00 | CP.PCM.PN ---
Subjective - Date & Time of Evaluation Date of Evaluation: 07/15/18 Time of Evaluation: 10:59 - Subjective Subjective: CHIEF COMPLAINTS TODAY : MILD COUGH AND WHITE EXPECTORATION PT. ON ISOLATION DUE TO ? PERTRUSIS ROS. HEENT : N. Resp : No hemoptysis Cardio : No anginal CP, PND, orthopnea, palpitation GI : No abd.pain, n/v ,diarrhea or GI bleeding . 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 Musculoskel : No joint swelling , Derm : No rash Psych : Normal affect. Ext : No swelling ,calf pain PE. Pt. is alert awake in no distress. V.S As noted in the chart Head ,ear nose,throat and eyes : Normal. Neck : Supple with normal carotids. Lungs: Clear air entry. BASAL CRACKLES Heart : S1 & S2 normal with S4. No murmur. Abd : Soft non tender with normal bowel sounds. Neuro : Moves all ext. with no localized deficit. Ext : No edema with intact pulses.Non tender calves Derm : No rashes or decubitus ulcer. LABS/RADIOLOGY: ASSESSMENT/PLAN : IV AB Objective - Vital Signs/Intake and Output Vital Signs (last 24 hours): Temp Pulse Resp BP Pulse Ox 97.9 F 71 20 136/70 96 07/15/18 07:59 07/15/18 07:59 07/15/18 07:59 07/15/18 07:59 07/15/18 07:59 Intake and Output: 07/14/18 07/15/18 23:59 11:59 Intake Total 2230 840 Balance 2230 840 - Medications Medications: Current Medications Albuterol/Ipratropium (Duoneb 3 Mg/0.5 Mg (3 Ml) Ud) 3 ml INH RQ6 [facility] Last Admin: 07/15/18 08:36 Dose: 3 ml Aspirin (Ecotrin) 325 mg PO DAILY [facility] Last Admin: 07/15/18 09:01 Dose: 325 mg Carbidopa/Levodopa (Sinemet) 1 tab PO BID [facility] Last Admin: 07/15/18 09:01 Dose: 1 tab Heparin Sodium (Porcine) (Heparin) 5,000 units SC Q12 [facility] Last Admin: 07/15/18 09:02 Dose: 5,000 units Sodium Chloride (Sodium Chloride 0.45%) 1,000 mls @ 80 mls/hr IV .[id number] [facility] Last Admin: 07/15/18 06:50 Dose: 80 mls/hr Azithromycin 500 mg/ Sodium (Chloride) 250 mls @ 250 mls/hr IVPB DAILY [facility]; Protocol Last Admin: 07/15/18 09:03 Dose: 250 mls/hr Piperacillin Sod/Tazobactam Sod (Zosyn 2.25 Gm Iv Premix) 2.25 gm in 50 mls @ 100 mls/hr IVPB Q8H [facility]; Protocol Last Admin: 07/15/18 02:01 Dose: 100 mls/hr Insulin Glargine (Lantus) 20 unit SC [facility] Last Admin: 07/14/18 22:25 Dose: 20 u Insulin Human Regular (Novolin R) 0 unit SC [facility]; Protocol Last Admin: 07/15/18 09:02 Dose: 4 units Lisinopril (Zestril) 2.5 mg PO DAILY [facility] Last Admin: 07/15/18 09:01 Dose: 2.5 mg Pregabalin (Lyrica) 75 mg PO BID [facility] Last Admin: 07/15/18 09:01 Dose: 75 mg Rosuvastatin Calcium (Crestor) 5 mg PO HS [facility] Last Admin: 07/14/18 22:25 Dose: 5 mg Sitagliptin Phosphate (Januvia) 50 mg PO DAILY [facility] Last Admin: 07/15/18 09:01 Dose: 50 mg - Labs Labs: 07/15/18 08:15 07/15/18 08:15
--- NOTE | 2018-07-15 20:33 | CP.PCM.PN ---
Subjective - Date & Time of Evaluation Date of Evaluation: 07/15/18 Time of Evaluation: 20:33 - Subjective Subjective: CHIEF COMPLAINTS TODAY : afebrile,VSS +VE COUGH IN WHOOPS. +VE WHEEZING ROS. HEENT : N. Resp : No hemoptysis Cardio : No anginal CP, PND, orthopnea, palpitation GI : No abd.pain, n/v ,diarrhea or GI bleeding . 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 Musculoskel : No joint swelling , Derm : No rash Psych : Normal affect. Ext : No swelling ,calf pain PE. Pt. is alert awake in no distress. V.S As noted in the chart Head ,ear nose,throat and eyes : Normal. Neck : Supple with normal carotids. Lungs: Clear air entry. BASAL CRACKLE, / EXPIRATORY WHEEZE Heart : S1 & S2 normal with S4. No murmur. Abd : Soft non tender with normal bowel sounds. Neuro : Moves all ext. with no localized deficit. Ext : No edema with intact pulses.Non tender calves Derm : No rashes or decubitus ulcer. LABS/RADIOLOGY: REVIEWED. MYCOPLASMA IGM -VE LEGIONELLA PNEUMOBILIA ANTIGEN NEGATIVE. Objective - Vital Signs/Intake and Output Vital Signs (last 24 hours): Temp Pulse Resp BP Pulse Ox 97.4 F L 77 20 125/65 97 07/15/18 16:00 07/15/18 16:00 07/15/18 16:00 07/15/18 16:00 07/15/18 16:00 - Medications Medications: Current Medications Albuterol/Ipratropium (Duoneb 3 Mg/0.5 Mg (3 Ml) Ud) 3 ml INH RQ6 [facility] Last Admin: 07/15/18 14:04 Dose: 3 ml Aspirin (Ecotrin) 325 mg PO DAILY [facility] Last Admin: 07/15/18 09:01 Dose: 325 mg Carbidopa/Levodopa (Sinemet) 1 tab PO BID [facility] Last Admin: 07/15/18 17:11 Dose: 1 tab Heparin Sodium (Porcine) (Heparin) 5,000 units SC Q12 [facility] Last Admin: 07/15/18 09:02 Dose: 5,000 units Azithromycin 500 mg/ Sodium (Chloride) 250 mls @ 250 mls/hr IVPB DAILY [facility]; Protocol Last Admin: 07/15/18 09:03 Dose: 250 mls/hr Piperacillin Sod/Tazobactam Sod (Zosyn 2.25 Gm Iv Premix) 2.25 gm in 50 mls @ 100 mls/hr IVPB Q8H [facility]; Protocol Last Admin: 07/15/18 17:11 Dose: 100 mls/hr Insulin Glargine (Lantus) 20 unit SC HS [facility] Last Admin: 07/14/18 22:25 Dose: 20 u Insulin Human Regular (Novolin R) 0 unit SC [facility]; Protocol Last Admin: 07/15/18 17:11 Dose: 3 units Lisinopril (Zestril) 2.5 mg PO DAILY [facility] Last Admin: 07/15/18 09:01 Dose: 2.5 mg Pregabalin (Lyrica) 75 mg PO BID [facility] Last Admin: 07/15/18 17:11 Dose: 75 mg Rosuvastatin Calcium (Crestor) 5 mg PO HS [facility] Last Admin: 07/14/18 22:25 Dose: 5 mg Sitagliptin Phosphate (Januvia) 50 mg PO DAILY [facility] Last Admin: 07/15/18 09:01 Dose: 50 mg - Labs Labs: 07/15/18 08:15 07/15/18 08:15 Assessment and Plan (1) Pneumonia Status: Acute (2) Exacerbation of asthma Status: Acute (3) MARY (acute kidney injury) Status: Acute (4) Diabetes mellitus Status: Acute (5) Parkinsonism Status: Acute - Assessment and Plan (Free Text) Plan: CONTINUE ZOSYN 2.25 G iv EVERY 8 HOURLY 07/13/18 CONTINUE iv ZITHROMAX 500 MG iv PIGGYBACK EVERY d DAILY 07/13/18. F/U ATYPICAL TITERS. INFLUENZA A AND B ANTIBODY SEROLOGY.-P PERTUSSIS SEROLOGY-P DROPLET PRECAUTIONS. CASE DISCUSSED WITH THE STAFF.
[2018-07-15] MEDS: (Lantus) Insulin Glargine, Recombinant SC SCH (21:19)
[2018-07-16] MEDS: Piperacill/Tazo 2.25gm in Dex 2.25 GM/50 ML BAG IVPB SCH ×3 (01:04→17:55)
[2018-07-16] MEDS: Albuterol-Ipratrop 3 mg / 0.5 (3 ml) UD INH SCH ×3 (02:24→19:37)
[2018-07-16 07:27] LABS: BASO # 0.1 K/uL (0.0-0.2); BASO % 1.1 % (0.0-2.0); EOS # 0.7 K/uL (0.0-0.7); EOS % 12.2 % (0.0-4.0); HEMOGLOBIN 11.9 g/dL (11.0-16.0); LYMPH # 1.4 K/uL (1.0-4.3); LYMPH % 23.2 % (20.0-40.0); MEAN CELL VOLUME 90.1 fL (81.0-99.0); MEAN CORPUSCULAR HEMOGLOBIN 30.6 pg (27.0-31.0); MEAN CORPUSCULAR HGB CONC 33.9 g/dL (33.0-37.0); MEAN PLATELET VOLUME 9.8 fL (7.2-11.7); MONO # 0.7 K/uL (0.0-0.8); MONO % 10.9 % (0.0-10.0); NEUT # 3.2 K/uL (1.8-7.0); NEUT % 52.6 % (50.0-75.0); RBC 3.88 Mil/uL (3.80-5.20); RED CELL DISTRIBUTION WIDTH 13.9 % (11.5-14.5)
[2018-07-16] MEDS: (Novolin R) Insulin Human Regular 100 units/ml vial SC SCH ×4 (07:30→22:13)
[2018-07-16 08:01] LABS: ALB/GLOB RATIO 1.1 (1.0-2.1); ALBUMIN 3.3 g/dL (3.5-5.0); CALCIUM 9.1 mg/dl (8.6-10.4)
[2018-07-16] MEDS: Aspirin 325 mg EC Tablets PO SCH (09:22)
[2018-07-16] MEDS: Azithromycin 500 MG in Sodium Chloride 0.9% 250 ML IVPB SCH (09:26)
--- NOTE | 2018-07-16 12:41 | CP.PCM.PN ---
Subjective - Date & Time of Evaluation Date of Evaluation: 07/16/18 Time of Evaluation: 12:41 - Subjective Subjective: CHIEF COMPLAINTS TODAY : MILD COUGH AND WHITE EXPECTORATION PT. ON ISOLATION DUE TO ? PERTRUSIS ROS. HEENT : N. Resp : No hemoptysis Cardio : No anginal CP, PND, orthopnea, palpitation GI : No abd.pain, n/v ,diarrhea or GI bleeding . 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 Musculoskel : No joint swelling , Derm : No rash Psych : Normal affect. Ext : No swelling ,calf pain PE. Pt. is alert awake in no distress. V.S As noted in the chart Head ,ear nose,throat and eyes : Normal. Neck : Supple with normal carotids. Lungs: Clear air entry. BASAL CRACKLES Heart : S1 & S2 normal with S4. No murmur. Abd : Soft non tender with normal bowel sounds. Neuro : Moves all ext. with no localized deficit. Ext : No edema with intact pulses.Non tender calves Derm : No rashes or decubitus ulcer. LABS/RADIOLOGY: ASSESSMENT/PLAN : IV AB Objective - Vital Signs/Intake and Output Vital Signs (last 24 hours): Temp Pulse Resp BP Pulse Ox 97.6 F 71 20 165/66 H 96 07/16/18 08:00 07/16/18 08:00 07/16/18 08:00 07/16/18 08:00 07/16/18 08:00 - Medications Medications: Current Medications Albuterol/Ipratropium (Duoneb 3 Mg/0.5 Mg (3 Ml) Ud) 3 ml INH RQ6 [facility] Last Admin: 07/16/18 10:00 Dose: Not Given Aspirin (Ecotrin) 325 mg PO DAILY [facility] Last Admin: 07/16/18 09:22 Dose: 325 mg Carbidopa/Levodopa (Sinemet) 1 tab PO BID [facility] Last Admin: 07/16/18 09:24 Dose: 1 tab Azithromycin 500 mg/ Sodium (Chloride) 250 mls @ 250 mls/hr IVPB DAILY [facility]; Protocol Last Admin: 07/16/18 09:26 Dose: 250 mls/hr Piperacillin Sod/Tazobactam Sod (Zosyn 2.25 Gm Iv Premix) 2.25 gm in 50 mls @ 100 mls/hr IVPB Q8H [facility]; Protocol Last Admin: 07/16/18 09:27 Dose: 100 mls/hr Insulin Glargine (Lantus) 20 unit SC HS [facility] Last Admin: 07/15/18 21:19 Dose: 20 u Insulin Human Regular (Novolin R) 0 unit SC ACHS [facility]; Protocol Last Admin: 07/16/18 07:30 Dose: 4 units Lisinopril (Zestril) 2.5 mg PO DAILY [facility] Last Admin: 07/16/18 09:25 Dose: 2.5 mg Pregabalin (Lyrica) 75 mg PO BID [facility] Last Admin: 07/16/18 09:23 Dose: 75 mg Rosuvastatin Calcium (Crestor) 5 mg PO HS [facility] Last Admin: 07/15/18 21:18 Dose: 5 mg Sitagliptin Phosphate (Januvia) 50 mg PO DAILY [facility] Last Admin: 07/16/18 09:23 Dose: 50 mg - Labs Labs: 07/16/18 07:10 07/16/18 07:10
[2018-07-16] MEDS: (Lantus) Insulin Glargine, Recombinant SC SCH (22:12)
--- NOTE | 2018-07-16 23:08 | CP.PCM.PN ---
Subjective - Date & Time of Evaluation Date of Evaluation: 07/16/18 Time of Evaluation: 23:08 - Subjective Subjective: CHIEF COMPLAINTS TODAY : afebrile,VSS LESS COUGH / AND CONGESTION +VE WHEEZING ROS. HEENT : N. Resp : No hemoptysis Cardio : No anginal CP, PND, orthopnea, palpitation GI : No abd.pain, n/v ,diarrhea or GI bleeding . TALENT AGENT : No headache, vertigo, focal deficit. Musculoskel : No joint swelling , Derm : No rash Psych : Normal affect. Ext : No swelling ,calf pain PE. Pt. is alert awake in no distress. V.S As noted in the chart Head ,ear nose,throat and eyes : Normal. Neck : Supple with normal carotids. Lungs: Clear air entry. BASAL CRACKLE, / EXPIRATORY WHEEZE Heart : S1 & S2 normal with S4. No murmur. Abd : Soft non tender with normal bowel sounds. Neuro : Moves all ext. with no localized deficit. Ext : No edema with intact pulses.Non tender calves Derm : No rashes or decubitus ulcer. LABS/RADIOLOGY: REVIEWED. MYCOPLASMA IGM -VE LEGIONELLA PNEUMOBILIA ANTIGEN NEGATIVE. Objective - Vital Signs/Intake and Output Vital Signs (last 24 hours): Temp Pulse Resp BP Pulse Ox 98.5 F 71 20 117/80 96 07/16/18 15:00 07/16/18 15:00 07/16/18 15:00 07/16/18 15:00 07/16/18 15:00 - Medications Medications: Current Medications Albuterol/Ipratropium (Duoneb 3 Mg/0.5 Mg (3 Ml) Ud) 3 ml INH RQ6 [facility] Last Admin: 07/16/18 19:37 Dose: 3 ml Aspirin (Ecotrin) 325 mg PO DAILY [facility] Last Admin: 07/16/18 09:22 Dose: 325 mg Carbidopa/Levodopa (Sinemet) 1 tab PO BID [facility] Last Admin: 07/16/18 17:52 Dose: 1 tab Azithromycin 500 mg/ Sodium (Chloride) 250 mls @ 250 mls/hr IVPB DAILY [facility]; Protocol Last Admin: 07/16/18 09:26 Dose: 250 mls/hr Piperacillin Sod/Tazobactam Sod (Zosyn 2.25 Gm Iv Premix) 2.25 gm in 50 mls @ 100 mls/hr IVPB Q8H [facility]; Protocol Last Admin: 07/16/18 17:55 Dose: 100 mls/hr Insulin Glargine (Lantus) 20 unit SC [facility] Last Admin: 07/16/18 22:12 Dose: 20 u Insulin Human Regular (Novolin R) 0 unit SC [facility]; Protocol Last Admin: 07/16/18 22:13 Dose: Not Given Lisinopril (Zestril) 2.5 mg PO DAILY [facility] Last Admin: 07/16/18 09:25 Dose: 2.5 mg Pregabalin (Lyrica) 75 mg PO BID [facility] Last Admin: 07/16/18 17:53 Dose: 75 mg Rosuvastatin Calcium (Crestor) 5 mg PO [facility] Last Admin: 07/16/18 22:12 Dose: 5 mg Sitagliptin Phosphate (Januvia) 50 mg PO DAILY [facility] Last Admin: 07/16/18 09:23 Dose: 50 mg - Labs Labs: 07/16/18 07:10 07/16/18 07:10 Assessment and Plan (1) Pneumonia Status: Acute (2) Exacerbation of asthma Status: Acute (3) MARY (acute kidney injury) Status: Acute (4) Diabetes mellitus Status: Acute (5) Parkinsonism Status: Acute - Assessment and Plan (Free Text) Plan: CONTINUE ZOSYN 2.25 G iv EVERY 8 HOURLY 07/13/18 CONTINUE iv ZITHROMAX 500 MG iv PIGGYBACK EVERY d DAILY 07/13/18. F/U ATYPICAL TITERS. INFLUENZA A AND B ANTIBODY SEROLOGY.-P PERTUSSIS SEROLOGY-P DROPLET PRECAUTIONS. CASE DISCUSSED WITH THE STAFF.
[2018-07-17] MEDS: Piperacill/Tazo 2.25gm in Dex 2.25 GM/50 ML BAG IVPB SCH ×3 (01:03→18:00)
[2018-07-17] MEDS: Albuterol-Ipratrop 3 mg / 0.5 (3 ml) UD INH SCH ×3 (02:01→19:53)
[2018-07-17] MEDS: (Novolin R) Insulin Human Regular 100 units/ml vial SC SCH ×4 (08:12→21:36)
[2018-07-17 08:51] LABS: BASO # 0.1 K/uL (0.0-0.2); BASO % 1.3 % (0.0-2.0); EOS # 0.7 K/uL (0.0-0.7); EOS % 10.2 % (0.0-4.0); HEMOGLOBIN 11.8 g/dL (11.0-16.0); LYMPH # 1.6 K/uL (1.0-4.3); MEAN CELL VOLUME 90.6 fL (81.0-99.0); MEAN CORPUSCULAR HEMOGLOBIN 30.1 pg (27.0-31.0); MEAN CORPUSCULAR HGB CONC 33.3 g/dL (33.0-37.0); MONO # 0.7 K/uL (0.0-0.8); MONO % 10.5 % (0.0-10.0); NEUT # 3.5 K/uL (1.8-7.0); RBC 3.92 Mil/uL (3.80-5.20); RED CELL DISTRIBUTION WIDTH 14.2 % (11.5-14.5); WHITE BLOOD COUNT 6.6 K/uL (4.8-10.8)
[2018-07-17 09:06] LABS: ALB/GLOB RATIO 1.2 (1.0-2.1); ALBUMIN 3.6 g/dL (3.5-5.0); CALCIUM 9.1 mg/dl (8.6-10.4)
[2018-07-17] MEDS: Aspirin 325 mg EC Tablets PO SCH (09:52)
[2018-07-17] MEDS: Azithromycin 500 MG in Sodium Chloride 0.9% 250 ML IVPB SCH (10:32)
--- NOTE | 2018-07-17 12:27 | CP.PCM.PN ---
Subjective - Date & Time of Evaluation Date of Evaluation: 07/17/18 Time of Evaluation: 12:27 - Subjective Subjective: CHIEF COMPLAINTS TODAY : MILD COUGH AND WHITE EXPECTORATION PT. ON ISOLATION DUE TO ? PERTRUSIS ROS. HEENT : N. Resp : No hemoptysis Cardio : No anginal CP, PND, orthopnea, palpitation GI : No abd.pain, n/v ,diarrhea or GI bleeding . 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 Musculoskel : No joint swelling , Derm : No rash Psych : Normal affect. Ext : No swelling ,calf pain PE. Pt. is alert awake in no distress. V.S As noted in the chart Head ,ear nose,throat and eyes : Normal. Neck : Supple with normal carotids. Lungs: Clear air entry. BASAL CRACKLES Heart : S1 & S2 normal with S4. No murmur. Abd : Soft non tender with normal bowel sounds. Neuro : Moves all ext. with no localized deficit. Ext : No edema with intact pulses.Non tender calves Derm : No rashes or decubitus ulcer. LABS/RADIOLOGY: ASSESSMENT/PLAN : IV AB Objective - Vital Signs/Intake and Output Vital Signs (last 24 hours): Temp Pulse Resp BP Pulse Ox 98.2 F 63 20 160/74 H 96 07/17/18 08:19 07/17/18 08:19 07/17/18 08:19 07/17/18 08:19 07/17/18 08:19 - Medications Medications: Current Medications Albuterol/Ipratropium (Duoneb 3 Mg/0.5 Mg (3 Ml) Ud) 3 ml INH RQ6 [facility] Last Admin: 07/17/18 08:26 Dose: 3 ml Aspirin (Ecotrin) 325 mg PO DAILY [facility] Last Admin: 07/17/18 09:52 Dose: 325 mg Carbidopa/Levodopa (Sinemet) 1 tab PO BID [facility] Last Admin: 07/17/18 09:52 Dose: 1 tab Azithromycin 500 mg/ Sodium (Chloride) 250 mls @ 250 mls/hr IVPB DAILY [facility]; Protocol Last Admin: 07/17/18 10:32 Dose: 250 mls/hr Piperacillin Sod/Tazobactam Sod (Zosyn 2.25 Gm Iv Premix) 2.25 gm in 50 mls @ 100 mls/hr IVPB Q8H [facility]; Protocol Last Admin: 07/17/18 09:49 Dose: 100 mls/hr Insulin Glargine (Lantus) 20 unit SC HS [facility] Last Admin: 07/16/18 22:12 Dose: 20 u Insulin Human Regular (Novolin R) 0 unit SC ACHS [facility]; Protocol Last Admin: 07/17/18 08:12 Dose: 3 units Lisinopril (Zestril) 2.5 mg PO DAILY [facility] Last Admin: 07/17/18 09:52 Dose: 2.5 mg Pregabalin (Lyrica) 75 mg PO BID [facility] Last Admin: 07/17/18 09:52 Dose: 75 mg Rosuvastatin Calcium (Crestor) 5 mg PO HS [facility] Last Admin: 07/16/18 22:12 Dose: 5 mg Sitagliptin Phosphate (Januvia) 50 mg PO DAILY [facility] Last Admin: 07/17/18 09:52 Dose: 50 mg - Labs Labs: 07/17/18 08:25 07/17/18 08:25
[2018-07-17] MEDS: (Lantus) Insulin Glargine, Recombinant SC SCH (21:37)
--- NOTE | 2018-07-17 22:59 | CP.PCM.PN ---
Subjective - Date & Time of Evaluation Date of Evaluation: 07/17/18 Time of Evaluation: 22:59 - Subjective Subjective: CHIEF COMPLAINTS TODAY : afebrile,VSS LESS COUGH / AND CONGESTION LESS WHEEZE PT ON DROPLET PRECAUTIONS FOR ? PERTUSSIS. ROS. HEENT : N. Resp : No hemoptysis Cardio : No anginal CP, PND, orthopnea, palpitation GI : No abd.pain, n/v ,diarrhea or GI bleeding . TECHNOLOGY DIRECTOR : No headache, vertigo, focal deficit. Musculoskel : No joint swelling , Derm : No rash Psych : Normal affect. Ext : No swelling ,calf pain PE. Pt. is alert awake in no distress. V.S As noted in the chart Head ,ear nose,throat and eyes : Normal. Neck : Supple with normal carotids. Lungs: Clear air entry. BASAL CRACKLE, / EXPIRATORY WHEEZE Heart : S1 & S2 normal with S4. No murmur. Abd : Soft non tender with normal bowel sounds. Neuro : Moves all ext. with no localized deficit. Ext : No edema with intact pulses.Non tender calves Derm : No rashes or decubitus ulcer. LABS/RADIOLOGY: REVIEWED. ALL CULTURES NEGATIVE TO DATE mrsa SCREEN NEGATIVE. MYCOPLASMA IGM -VE LEGIONELLA PNEUMOBILIA ANTIGEN NEGATIVE. Objective - Vital Signs/Intake and Output Vital Signs (last 24 hours): Temp Pulse Resp BP Pulse Ox 98.1 F 66 20 150/70 96 07/17/18 15:00 07/17/18 15:00 07/17/18 15:00 07/17/18 15:00 07/17/18 15:00 Intake and Output: 07/17/18 07/18/18 18:59 06:59 Intake Total 600 Output Total 600 Balance 0 - Medications Medications: Current Medications Aspirin (Ecotrin) 325 mg PO DAILY [facility] Last Admin: 07/17/18 09:52 Dose: 325 mg Carbidopa/Levodopa (Sinemet) 1 tab PO BID [facility] Last Admin: 07/17/18 17:28 Dose: 1 tab Azithromycin 500 mg/ Sodium (Chloride) 250 mls @ 250 mls/hr IVPB DAILY [facility]; Protocol Last Admin: 07/17/18 10:32 Dose: 250 mls/hr Piperacillin Sod/Tazobactam Sod (Zosyn 2.25 Gm Iv Premix) 2.25 gm in 50 mls @ 100 mls/hr IVPB Q8H [facility]; Protocol Last Admin: 07/17/18 18:00 Dose: 100 mls/hr Insulin Glargine (Lantus) 20 unit SC [facility] Last Admin: 07/17/18 21:37 Dose: 30 u Insulin Human Regular (Novolin R) 0 unit SC [facility]; Protocol Last Admin: 07/17/18 21:36 Dose: Not Given Lisinopril (Zestril) 2.5 mg PO DAILY [facility] Last Admin: 07/17/18 09:52 Dose: 2.5 mg Pregabalin (Lyrica) 75 mg PO BID [facility] Last Admin: 07/17/18 17:24 Dose: 75 mg Rosuvastatin Calcium (Crestor) 5 mg PO HS [facility] Last Admin: 07/17/18 21:36 Dose: 5 mg Sitagliptin Phosphate (Januvia) 50 mg PO DAILY [facility] Last Admin: 07/17/18 09:52 Dose: 50 mg - Labs Labs: 07/17/18 08:25 07/17/18 08:25 Assessment and Plan (1) Pneumonia Status: Acute (2) Exacerbation of asthma Status: Acute (3) MARY (acute kidney injury) Status: Acute (4) Diabetes mellitus Status: Acute (5) Parkinsonism Status: Acute - Assessment and Plan (Free Text) Plan: F/U CHEST X-RAY IN A.M. PORTABLE. CONTINUE ZOSYN 2.25 G iv EVERY 8 HOURLY 07/13/18 CONTINUE iv ZITHROMAX 500 MG iv PIGGYBACK EVERY d DAILY 07/13/18. F/U ATYPICAL TITERS. INFLUENZA A AND B ANTIBODY SEROLOGY.-P PERTUSSIS SEROLOGY-P PATIENT WILL NEED dtAp IN AM DROPLET PRECAUTIONS. CASE DISCUSSED WITH THE STAFF.
[2018-07-18] MEDS: Piperacill/Tazo 2.25gm in Dex 2.25 GM/50 ML BAG IVPB SCH ×3 (01:35→17:33)
[2018-07-18 07:54] LABS: ALB/GLOB RATIO 1.1 (1.0-2.1); ALBUMIN 3.3 g/dL (3.5-5.0)
[2018-07-18] MEDS: (Novolin R) Insulin Human Regular 100 units/ml vial SC SCH ×4 (08:22→21:58)
[2018-07-18] MEDS: Aspirin 325 mg EC Tablets PO SCH (09:44)
--- NOTE | 2018-07-18 10:26 | RAD ---
Date of service: 07/18/2018 HISTORY: LLL PNEUMONIA. COMPARISON: 07/12/2018 FINDINGS: LUNGS: No active pulmonary disease. PLEURA: No significant pleural effusion identified, no pneumothorax apparent. CARDIOVASCULAR: No aortic atherosclerotic calcification present. Normal cardiac size. No pulmonary vascular congestion. OSSEOUS STRUCTURES: Old healed fracture left 7th posterior rib VISUALIZED UPPER ABDOMEN: Normal. OTHER FINDINGS: None. IMPRESSION: No active disease.
[2018-07-18] MEDS ORDERED: Tdap Vaccine 0.5 ml Vial (10-64 yrs) IM ONE (10:30)
[2018-07-18] MEDS: Azithromycin 500 MG in Sodium Chloride 0.9% 250 ML IVPB SCH (11:10)
--- NOTE | 2018-07-18 11:53 | CP.PCM.PN ---
Subjective - Date & Time of Evaluation Date of Evaluation: 07/18/18 Time of Evaluation: 11:52 - Subjective Subjective: CHIEF COMPLAINTS TODAY : MILD COUGH AND WHITE EXPECTORATION ROS. HEENT : N. Resp : No hemoptysis Cardio : No anginal CP, PND, orthopnea, palpitation GI : No abd.pain, n/v ,diarrhea or GI bleeding . 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 Musculoskel : No joint swelling , Derm : No rash Psych : Normal affect. Ext : No swelling ,calf pain PE. Pt. is alert awake in no distress. V.S As noted in the chart Head ,ear nose,throat and eyes : Normal. Neck : Supple with normal carotids. Lungs: Clear air entry. BASAL CRACKLES Heart : S1 & S2 normal with S4. No murmur. Abd : Soft non tender with normal bowel sounds. Neuro : Moves all ext. with no localized deficit. Ext : No edema with intact pulses.Non tender calves Derm : No rashes or decubitus ulcer. LABS/RADIOLOGY: CXR IS NEG , H. PERTUSSIS ISNEG ASSESSMENT/PLAN : D/W ID FOR DC Objective - Vital Signs/Intake and Output Vital Signs (last 24 hours): Temp Pulse Resp BP Pulse Ox 98 F 66 20 150/64 96 07/18/18 08:10 07/18/18 08:10 07/18/18 08:10 07/18/18 08:10 07/18/18 08:10 Intake and Output: 07/17/18 07/18/18 23:59 11:59 Intake Total 600 Output Total 600 Balance 0 - Medications Medications: Current Medications Aspirin (Ecotrin) 325 mg PO DAILY [facility] Last Admin: 07/18/18 09:44 Dose: 325 mg Carbidopa/Levodopa (Sinemet) 1 tab PO BID [facility] Last Admin: 07/18/18 09:45 Dose: 1 tab Azithromycin 500 mg/ Sodium (Chloride) 250 mls @ 250 mls/hr IVPB DAILY [facility]; Protocol Last Admin: 07/18/18 11:10 Dose: 250 mls/hr Piperacillin Sod/Tazobactam Sod (Zosyn 2.25 Gm Iv Premix) 2.25 gm in 50 mls @ 100 mls/hr IVPB Q8H [facility]; Protocol Last Admin: 07/18/18 09:43 Dose: 100 mls/hr Insulin Glargine (Lantus) 20 unit SC [facility] Last Admin: 07/17/18 21:37 Dose: 30 u Insulin Human Regular (Novolin R) 0 unit SC [facility]; Protocol Last Admin: 07/18/18 11:38 Dose: 3 units Lisinopril (Zestril) 2.5 mg PO DAILY [facility] Last Admin: 07/18/18 09:44 Dose: 2.5 mg Pregabalin (Lyrica) 75 mg PO BID [facility] Last Admin: 07/18/18 09:45 Dose: 75 mg Rosuvastatin Calcium (Crestor) 5 mg PO [facility] Last Admin: 07/17/18 21:36 Dose: 5 mg Sitagliptin Phosphate (Januvia) 50 mg PO DAILY [facility] Last Admin: 07/18/18 09:45 Dose: 50 mg - Labs Labs: 07/17/18 08:25 07/18/18 07:15
[2018-07-18 12:21] LABS: BASO # 0.1 K/uL (0.0-0.2); EOS # 0.7 K/uL (0.0-0.7); EOS % 8.4 % (0.0-4.0); HEMOGLOBIN 12.1 g/dL (11.0-16.0); LYMPH # 1.3 K/uL (1.0-4.3); LYMPH % 16.5 % (20.0-40.0); MEAN CELL VOLUME 90.3 fL (81.0-99.0); MEAN CORPUSCULAR HEMOGLOBIN 30.5 pg (27.0-31.0); MEAN CORPUSCULAR HGB CONC 33.8 g/dL (33.0-37.0); MEAN PLATELET VOLUME 9.7 fL (7.2-11.7); MONO # 0.6 K/uL (0.0-0.8); MONO % 7.9 % (0.0-10.0); NEUT # 5.3 K/uL (1.8-7.0); NEUT % 66.2 % (50.0-75.0); RBC 3.95 Mil/uL (3.80-5.20); RED CELL DISTRIBUTION WIDTH 13.8 % (11.5-14.5); WHITE BLOOD COUNT 7.9 K/uL (4.8-10.8)
[2018-07-18] MEDS: (Lantus) Insulin Glargine, Recombinant SC SCH (21:56)
--- NOTE | 2018-07-18 22:21 | CP.PCM.PN ---
Subjective - Date & Time of Evaluation Date of Evaluation: 07/18/18 Time of Evaluation: 22:20 - Subjective Subjective: CHIEF COMPLAINTS TODAY : afebrile,VSS doing well ROS. HEENT : N. Resp : No hemoptysis Cardio : No anginal CP, PND, orthopnea, palpitation GI : No abd.pain, n/v ,diarrhea or GI bleeding . 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 Musculoskel : No joint swelling , Derm : No rash Psych : Normal affect. Ext : No swelling ,calf pain PE. Pt. is alert awake in no distress. V.S As noted in the chart Head ,ear nose,throat and eyes : Normal. Neck : Supple with normal carotids. Lungs: Clear air entry. Heart : S1 & S2 normal with S4. No murmur. Abd : Soft non tender with normal bowel sounds. Neuro : Moves all ext. with no localized deficit. Ext : No edema with intact pulses.Non tender calves Derm : No rashes or decubitus ulcer. LABS/RADIOLOGY: REVIEWED. bordetella -pertussis PCR -VE BORDETELLA PARAPERTUSSIS PCR -VE ALL CULTURES NEGATIVE TO DATE mrsa SCREEN NEGATIVE. MYCOPLASMA IGM -VE LEGIONELLA PNEUMOBILIA ANTIGEN NEGATIVE. Objective - Vital Signs/Intake and Output Vital Signs (last 24 hours): Temp Pulse Resp BP Pulse Ox 98.5 F 65 20 183/77 H 96 07/18/18 16:00 07/18/18 16:00 07/18/18 16:00 07/18/18 16:00 07/18/18 16:00 Intake and Output: 07/18/18 07/19/18 18:59 06:59 Intake Total 600 300 Output Total 500 Balance 600 -200 - Medications Medications: Current Medications Aspirin (Ecotrin) 325 mg PO DAILY [facility]S [facility] Last Admin: 07/18/18 09:44 Dose: 325 mg Carbidopa/Levodopa (Sinemet) 1 tab PO BID [facility] Last Admin: 07/18/18 17:33 Dose: 1 tab Azithromycin 500 mg/ Sodium (Chloride) 250 mls @ 250 mls/hr IVPB DAILY [facility]; Protocol Last Admin: 07/18/18 11:10 Dose: 250 mls/hr Piperacillin Sod/Tazobactam Sod (Zosyn 2.25 Gm Iv Premix) 2.25 gm in 50 mls @ 100 mls/hr IVPB Q8H [facility]S [facility]; Protocol Last Admin: 07/18/18 17:33 Dose: 100 mls/hr Insulin Glargine (Lantus) 20 unit SC HS [facility] Last Admin: 07/18/18 21:56 Dose: 20 u Insulin Human Regular (Novolin R) 0 unit SC ACHS [facility]S [facility]; Protocol Last Admin: 07/18/18 21:58 Dose: 2 units Lisinopril (Zestril) 2.5 mg PO DAILY [facility]S [facility] Last Admin: 07/18/18 09:44 Dose: 2.5 mg Pregabalin (Lyrica) 75 mg PO BID [facility] Last Admin: 07/18/18 17:33 Dose: 75 mg Rosuvastatin Calcium (Crestor) 5 mg PO HS [facility]S [facility] Last Admin: 07/18/18 21:56 Dose: 5 mg Sitagliptin Phosphate (Januvia) 50 mg PO DAILY [facility] Last Admin: 07/18/18 09:45 Dose: 50 mg - Labs Labs: 07/18/18 12:11 07/18/18 07:15 Assessment and Plan (1) Pneumonia Status: Acute (2) Exacerbation of asthma Status: Acute (3) MARY (acute kidney injury) Status: Acute (4) Diabetes mellitus Status: Acute (5) Parkinsonism Status: Acute - Assessment and Plan (Free Text) Plan: F/U CHEST X-RAY IN A.M. PORTABLE. CONTINUE ZOSYN 2.25 G iv EVERY 8 HOURLY 07/13/18 CONTINUE iv ZITHROMAX 500 MG iv PIGGYBACK EVERY d DAILY 07/13/18. PERTUSSIS SEROLOGY -VE PATIENT WILL NEED dtAp (ORDERED ) DC DROPLET PRECAUTIONS. IF CXR -VE MAY DC PT .
[2018-07-19 00:53] VITALS: PULSE 62; O2SAT 95
[2018-07-19] MEDS: Piperacill/Tazo 2.25gm in Dex 2.25 GM/50 ML BAG IVPB SCH ×2 (01:50→10:07)
[2018-07-19] MEDS: (Novolin R) Insulin Human Regular 100 units/ml vial SC SCH (07:32)
[2018-07-19 07:51] VITALS: BP 149/73; TEMP 98.1
[2018-07-19 07:54] LABS: BASO # 0.1 K/uL (0.0-0.2); BASO % 1.1 % (0.0-2.0); EOS # 0.7 K/uL (0.0-0.7); EOS % 9.8 % (0.0-4.0); HEMOGLOBIN 11.8 g/dL (11.0-16.0); LYMPH # 1.3 K/uL (1.0-4.3); LYMPH % 18.6 % (20.0-40.0); MEAN CELL VOLUME 89.6 fL (81.0-99.0); MEAN CORPUSCULAR HEMOGLOBIN 30.6 pg (27.0-31.0); MEAN CORPUSCULAR HGB CONC 34.2 g/dL (33.0-37.0); MEAN PLATELET VOLUME 9.9 fL (7.2-11.7); MONO # 0.6 K/uL (0.0-0.8); MONO % 8.3 % (0.0-10.0); NEUT # 4.4 K/uL (1.8-7.0); NEUT % 62.2 % (50.0-75.0); RBC 3.85 Mil/uL (3.80-5.20); RED CELL DISTRIBUTION WIDTH 13.9 % (11.5-14.5); WHITE BLOOD COUNT 7.1 K/uL (4.8-10.8)
[2018-07-19 08:28] LABS: ALB/GLOB RATIO 1.1 (1.0-2.1); ALBUMIN 3.4 g/dL (3.5-5.0); CALCIUM 9.3 mg/dl (8.6-10.4)
[2018-07-19] MEDS: Aspirin 325 mg EC Tablets PO SCH (10:10)
--- NOTE | 2018-07-19 12:17 | CP.PCM.DIS ---
Provider - Provider Date of Admission: 07/14/18 17:50 Attending physician: Edna Boo MD Consults: 07/13/18 11:52 Infectious Disease Consult Routine Comment: Consulting Provider: Natalie Augustin Consulting Physician: Natalie Augustin Reason for Consult: PNEUMONIA 07/14/18 22:19 Inpatient [facility] [facility] [employer] Referral Routine Comment: Physician Instructions: Reason For Exam: h/o copd Time Spent in preparation of Discharge (in minutes): 35 Hospital Course - Lab Results Lab Results: Micro Results 07/12/18 12:26 Blood Blood Culture - Final NO GROWTH AFTER 5 DAYS 07/12/18 12:26 Blood Gram Stain - Final TEST NOT PERFORMED 07/12/18 12:26 Blood Blood Culture - Final NO GROWTH AFTER 5 DAYS 07/12/18 12:26 Blood Gram Stain - Final TEST NOT PERFORMED 07/13/18 20:48 Naris MRSA Culture (Admit) - Final MRSA NOT DETECTED 07/12/18 14:00 Urine,Clean Catch Urine Culture - Final No Growth (<1,000 CFU/ML) Most Recent Lab Values WBC 7.1 K/uL (4.8-10.8) 07/19/18 07:46 RBC 3.85 Mil/uL (3.80-5.20) 07/19/18 07:46 Hgb 11.8 g/dL (11.0-16.0) 07/19/18 07:46 Hct 34.5 % (34.0-47.0) 07/19/18 07:46 MCV 89.6 fL (81.0-99.0) 07/19/18 07:46 MCH 30.6 pg (27.0-31.0) 07/19/18 07:46 MCHC 34.2 g/dL (33.0-37.0) 07/19/18 07:46 RDW 13.9 % (11.5-14.5) 07/19/18 07:46 Plt Count 193 K/uL (130-400) 07/19/18 07:46 MPV 9.9 fL (7.2-11.7) 07/19/18 07:46 Neut % (Auto) 62.2 % (50.0-75.0) 07/19/18 07:46 Lymph % (Auto) 18.6 % (20.0-40.0) L 07/19/18 07:46 [place] % (Auto) 8.3 % (0.0-10.0) 07/19/18 07:46 Eos % (Auto) 9.8 % (0.0-4.0) H 07/19/18 07:46 Baso % (Auto) 1.1 % (0.0-2.0) 07/19/18 07:46 Neut # (Auto) 4.4 K/uL (1.8-7.0) 07/19/18 07:46 Lymph # (Auto) 1.3 K/uL (1.0-4.3) 07/19/18 07:46 [place] # (Auto) 0.6 K/uL (0.0-0.8) 07/19/18 07:46 Eos # (Auto) 0.7 K/uL (0.0-0.7) 07/19/18 07:46 Baso # (Auto) 0.1 K/uL (0.0-0.2) 07/19/18 07:46 ESR 35 mm/hr (0-20) H 07/14/18 07:33 pO2 44 mm/Hg (30-55) 07/12/18 11:30 VBG pH 7.46 (7.32-7.43) H 07/12/18 11:30 VBG pCO2 46 mmHg (40-60) 07/12/18 11:30 VBG HCO3 30.5 mmol/L 07/12/18 11:30 VBG Total CO2 34.1 mmol/L (22-28) H 07/12/18 11:30 VBG O2 Sat (Calc) 84.6 % (40-65) H 07/12/18 11:30 VBG Base Excess 7.7 mmol/L (0.0-2.0) H 07/12/18 11:30 VBG Potassium 3.8 mmol/L (3.6-5.2) 07/12/18 11:30 Sodium 139.0 mmol/l (132-148) 07/12/18 11:30 Chloride 101.0 mmol/L (98-107) 07/12/18 11:30 Glucose 201 mg/dl (65-105) H 07/12/18 11:30 Lactate 1.8 mmol/L (0.7-2.1) 07/12/18 11:30 Sodium 137 mmol/L (132-148) 07/19/18 07:46 Potassium 4.2 mmol/L (3.6-5.2) 07/19/18 07:46 Chloride 103 mmol/L (98-107) 07/19/18 07:46 Carbon Dioxide 28 mmol/L (22-30) 07/19/18 07:46 Anion Gap 9 (10-20) L 07/19/18 07:46 BUN 23 mg/dL (7-17) H 07/19/18 07:46 Creatinine 1.4 mg/dL (0.7-1.2) H 07/19/18 07:46 Est GFR ( Amer) 44 07/19/18 07:46 Est GFR (Non-Af Amer) 36 07/19/18 07:46 POC Glucose (mg/dL) 241 mg/dL (65-110) H 07/19/18 07:08 Random Glucose 245 mg/dL (65-105) H D 07/19/18 07:46 Hemoglobin A1c 7.2 % (4.2-6.5) H 07/14/18 07:33 Calcium 9.3 mg/dl (8.6-10.4) 07/19/18 07:46 Magnesium 1.9 mg/dL (1.6-2.3) 07/12/18 11:28 Total Bilirubin 0.2 mg/dL (0.2-1.3) 07/19/18 07:46 Direct Bilirubin 0.5 mg/dL (0.0-0.4) H 07/14/18 07:34 AST 30 U/L (14-36) 07/19/18 07:46 ALT 15 U/L (9-52) 07/19/18 07:46 Alkaline Phosphatase 61 U/L (38-126) 07/19/18 07:46 Total Creatine Kinase 156 U/L (30-135) H 07/12/18 11:28 Troponin I 0.0200 ng/mL (0.00-0.120) 07/12/18 11:28 C-React Prot High Sens 3.01 mg/L (1.00-3.00) H 07/14/18 07:34 NT-Pro-B Natriuret Pep 169 pg/mL (0-900) 07/12/18 11:28 Total Protein 6.5 g/dL (6.3-8.3) 07/19/18 07:46 Albumin 3.4 g/dL (3.5-5.0) L 07/19/18 07:46 Globulin 3.1 gm/dL (2.2-3.9) 07/19/18 07:46 Albumin/Globulin Ratio 1.1 (1.0-2.1) 07/19/18 07:46 Lipase 35 U/L (23-300) 07/12/18 11:28 Venous Blood Potassium 3.8 mmol/L (3.6-5.2) 07/12/18 11:30 Urine Color Yellow (YELLOW) 07/12/18 11:55 Urine Clarity Clear (Clear) 07/12/18 11:55 Urine pH 6.0 (5.0-8.0) 07/12/18 11:55 Ur Specific White Post 1.009 (1.003-1.030) 07/12/18 11:55 Urine Protein Negative mg/dL (NEGATIVE) 07/12/18 11:55 Urine Glucose (UA) Normal mg/dL (Normal) 07/12/18 11:55 Urine Ketones Negative mg/dL (NEGATIVE) 07/12/18 11:55 Urine Blood Negative (NEGATIVE) 07/12/18 11:55 Urine Nitrate Negative (NEGATIVE) 07/12/18 11:55 Urine Bilirubin Negative (NEGATIVE) 07/12/18 11:55 Urine Urobilinogen Normal mg/dL (0.2-1.0) 07/12/18 11:55 Ur Leukocyte Esterase Neg Tano/uL (Negative) 07/12/18 11:55 Urine WBC (Auto) 1 /hpf (0-5) 07/12/18 11:55 Urine RBC (Auto) 1 /hpf (0-3) 07/12/18 11:55 Ur Squamous Epith Cells 1 /hpf (0-5) 07/12/18 11:55 Hyaline Casts 6-10 /lpf (0-2) H 07/12/18 11:55 Bordetella pertussis Spec Source Swab 07/14/18 15:00 B. pertussis DNA (PCR) Not detected (Not Detected) 07/14/18 15:00 B.parapertussis DNA PCR Not detected (Not Detected) 07/14/18 15:00 Influenza Typ A,B (EIA) Negative for flu a/b (NEGATIVE) 07/12/18 11:28 Ur L.pneumophila Ag Negative (NEGATIVE) 07/13/18 20:48 - Hospital Course Hospital Course: HPI82 y/o female,w/ PMhx of HTN, diabetes, hypercholesterolemia, and lower extremity lymph edema, presents to the ER for evaluation of productive cough with clear sputum, chills, body aches, night sweats which have been present for the past 3 days. Patient is also complaining of nausea and vomiting for the past 3 days. Patient states that she had 2 episodes of non-bilious non-bloody vomiting. ID CONSULTED ON IV ROCEPHIN PT IMPROVED AND CXR CLEARED UP H PERTUSSIS WAS NEG Discharge Exam - Head Exam Head Exam: NORMAL INSPECTION Discharge Plan - Discharge Medications Prescriptions: SITagliptin [Januvia] 50 mg PO DAILY #30 tab - Follow Up Plan Condition: STABLE Disposition: HOME/ ROUTINE Instructions: Pneumonia in Adults, Community-Acquired Pneumonia in Adults Referrals: Natalie Augustin MD [Staff Provider] - Edna Boo MD [Staff Provider] -
--- NOTE | 2018-07-19 17:05 | CP.PCM.PN ---
Subjective - Date & Time of Evaluation Date of Evaluation: 07/19/18 Time of Evaluation: 11:00 - Subjective Subjective: alert, awake, no sob or chest pains. Objective - Vital Signs/Intake and Output Vital Signs (last 24 hours): Temp Pulse Resp BP Pulse Ox 98.1 F 62 20 149/73 95 07/19/18 07:00 07/19/18 07:00 07/19/18 07:00 07/19/18 07:00 07/19/18 07:00 Intake and Output: 07/19/18 07/19/18 06:59 18:59 Intake Total 530 Output Total 500 Balance 30 - Labs Labs: 07/19/18 07:46 07/19/18 07:46 Assessment and Plan - Assessment and Plan (Free Text) Assessment: Patient admitted with cough, pneumonia, seen and examined. Alert and responsive, out of bed, ambulates with assistance. Lungs clear, no cough or congestion noted. Cleared by DR Augustin, discussed with DR Boo, plan to discharge home today. Advised to follow up with PMD in 1 week. Home care, home PT arranged.
== END 2018-07-19 11:09 | disposition home or self-care (01) | DRG 194 ==
LOC: C.ER 10:19 → C.9E 12:30 → C.3T 12:56 → OBSVTOIN 07-14 17:50
PROVIDERS: ADMIT Internal Medicine Cardiovascular Disease; ATTEND Internal Medicine Cardiovascular Disease
DX: J18.9 Pneumonia, unspecified organism (principal); J45.901 Unspecified asthma with (acute) exacerbation; N17.9 Acute kidney failure, unspecified; E78.5 Hyperlipidemia, unspecified; E86.0 Dehydration; F03.90 Unspecified dementia, unspecified severity, without behavioral disturbance, psychotic disturbance, mood disturbance, and anxiety; G20 Parkinson's disease; I10 Essential (primary) hypertension; Z79.4 Long term (current) use of insulin; Z91.19 Patient's noncompliance with other medical treatment and regimen; E10.9 Type 1 diabetes mellitus without complications

== ENCOUNTER 2018-08-30 09:14 | Inpatient (IN) | payer OTHER ==
--- NOTE | 2018-08-30 09:35 | C.PDOC ---
History Of Present Illness 82 y/o female with a PMHx of asthma and diabetes presents via ambulance for evaluation of altered mental status. Per EMS, the patient lives alone and has two home makers. Last seen normal at 4:00pm yesterday. This morning the home sharad so arrived and patient did not answer the door, so 911 was called and entry forced. winemaker and EMS found patient in bed, awake but shaking, not responding to her name. winemaker at bedside states patient is altered, and she is usually verbal and able to ambulate independently. She reports patient does not shake at baseline, only during episodes of hypoglycemia. EMS states that upon their arrival, BS was 45 and patient was given glucagon x1 (no IV access). BS then improved to 65 but patient remained altered and was given 2nd glucagon. On arrival, BS is 152. Rectal temp is 96F. Per EMS patient may have hx of dementia, neighbors on the scene stated patient is sometimes found wandering the street. Time Seen by Provider: 08/30/18 09:15 Chief Complaint (Nursing): Altered Mental Status History Per: Patient History/Exam Limitations: Clinical Condition (nonverbal) Onset Of Symptoms: Cannot Confirm Onset Current Symptoms Are (Timing): Still Present Exacerbating Factor(s): Diabetic Past Medical History Reviewed: Historical Data, Nursing Documentation, Vital Signs - Medical History PMH: Asthma, Dementia, Diabetes, HTN, Parkinson's Disease - [facility] Procedures TETANUS TOXOID ADMINIST (07/25/14) Family History: States: Unknown Family Hx - Social History Hx Tobacco Use: No Hx Alcohol Use: No Hx Substance Use: No - Immunization History Hx Tetanus Toxoid Vaccination: Yes Hx Influenza Vaccination: Yes Hx Pneumococcal Vaccination: Yes Review Of Systems Review Of Systems: ROS cannot be obtained secondary to pt's inabilty to answer questions. Physical Exam - Physical Exam Appears: Other (Awake, Nonverbal, Not following commands or responding to questions) Skin: Pale, No Rash, Other (Cool to touch) Head: Atraumatic, Normacephalic Eye(s): bilateral: Normal Inspection, PERRL Nose: Normal Oral Mucosa: Moist, Drooling Neck: Supple Chest: Symmetrical Cardiovascular: Rhythm Regular Respiratory: Other (Tachypneic, but moving air; Puffing respirations noted, +Gurgling sound in the upper airways, possibly consistent with aspiration) Gastrointestinal/Abdominal: Soft, No Tenderness, No Distention Extremity: Swelling (+1 pitting edema), Other (Resting tremor noted) Extremity: Bilateral: Atraumatic, Other (Moving all extremities) Pulses: Left Dorsalis Pedis: Normal, Right Dorsalis Pedis: Normal Neurological/Psych: Other (Aphasia, Responsive only to noxious stimuli) Gait: Unable To Assess ED Course And Treatment - Laboratory Results Result Diagrams: 08/30/18 11:25 08/30/18 10:00 - CT Scan/US Head CT Other Rad Studies (CT/US): Read By Radiologist, Radiology Report Reviewed CT/US Interpretation: PROCEDURE: CT HEAD WITHOUT CONTRAST. HISTORY: Code Stroke. COMPARISON: None available. TECHNIQUE: Axial computed tomography images were obtained through the head/brain without intravenous contrast. Radiation dose: Total exam DLP = 0.0 mGy-cm. This CT exam was performed using one or more of the following dose reduction techniques: Automated exposure contr ol, adjustment of the mA and/or kV according to patient size, and/or use of iterative reconstruction technique. FINDINGS: Images severely degraded by patient motion and streak artifact. HEMORRHAGE: No intracranial hemorrhage. BRAIN: Diffuse atrophy with prominence of the ventricles and sulci noted. No mass effect or edema. Intracranial atherosclerosis. Calcifications along the left subdural space, likely post infectious/postinflammatory. Scattered periventricular and subcortical white matter hypodensities, which are nonspecific, but often seen with chronic microvascular ischemic disease. Please note that MRI with diffusion imaging is more sensitive in the detection of acute ischemic event. VENTRICLES: No hydrocephalus. CALVARIUM: Unremarkable. PARANASAL SINUSES: Unremarkable as visualized. No significant inflammatory changes. MASTOID AIR CELLS: Unremarkable as visualized. No inflammatory changes. OTHER FINDINGS: None. IMPRESSION: Suboptimal evaluation with images severely degraded by patient motion. Generalized atrophy. Nonspecific white matter changes. Dense intracranial calcifications. Calcifications noted along the left subdural space, likely post infectious/postinflammatory. Findings discussed with Dr. Napoles on 08/30/18 at 10:39 a.m. Head/Neck CTA Other Rad Studies (CT/US): Read By Radiologist, Radiology Report Reviewed CT/US Interpretation: Accession No. : [id number]. Patient Name / ID : SALOMÓN CHAIREZ / [id number]. Exam Date : 08/30/2018 10:26:32 ( Approved ). Study Comment : Sex / Age : F / 82Y. Creator : Aiyana Mcdonnell. Dictator : Daysi Mcfarlane MD. Probate Clerk : Impregnator Operator : Daysi Mcfarlane MD. Approver2 : Report Date : 08/30/2018 10:39:58. My Comment : . Date of service: 08/30/2018. PROCEDURE: CTA HEAD AND NECK WITH CONTRAST. HISTORY: aphasia. COMPARISON: None available. TECHNIQUE: Initial noncontrast head CT was performed. Subsequently, CT angiogram of the head and neck were performed after the intravenous administration of 80 mL of Omnipaque 350. Contiguous 1.5 mm thick images were obtained in the axial plane of the neck. 2-D coronal and sagittal MPR images were obtained. Imaging postprocessing was performed with 3-D images also obtained. A delayed contrast head CT was also obtained. This CT exam was performed using one or more of the following dose reduction techniques: Automated exposure control, adjustment of the mA and/or kV according to patient size, and/or use of iterative reconstruction technique. Contrast dose: 100 mL Visipaque 320. Radiation dose: Total exam DLP = 644.54 mGy-cm. FINDINGS: HEAD: There are coarse atherosclerotic calcifications in the cavernous carotid arteries. Right: The intracranial internal carotid artery, and anterior and middle cerebral arteries are widely patent. Left: The intracranial internal carotid artery, and anterior and middle cerebral arteries are widely patent. Posterior circulation: The visualized intracranial vertebral arteries, basilar artery and posterior cerebral arteries are widely patent. There is origin of bilateral posterior cerebral arteries, an anatomic variant. There is no endoluminal filling defect to suggest thrombus. There is no intracranial saccular aneurysm. NECK: There is a 2 vessel aortic arch with common origin of the innominate and left common carotid arteries.. There is no stenosis at the origins of the great vessels at the level of the aortic arch. There are coarse atherosclerotic calcifications in the aortic arch and at the origin of the great vessels. There are coarse atherosclerotic calcifications in the carotid bulb and proximal internal carotid arteries. There are eccentric soft plaques in the left proximal internal carotid artery. Right Carotid: On the right, the common carotid, internal carotid and external carotid arteries are widely patent. There is no hemodynamically significant stenosis in the internal carotid artery by NASCET criteria. Left Carotid: On the left, the common carotid, internal carotid and external carotid arteries are widely patent. There is no hemodynamically significant stenosis in the internal carotid artery by NASCET criteria. The vertebral arteries are widely patent. The visualized soft tissues of the neck are normal. The visualized brain and cervical spine are within normal limits. The lung apices are clear. IMPRESSION: 1. No evidence of endoluminal thrombus,occlusion or definite significant stenosis in the intracranial arteries. 2. No evidence of hemodynamically significant stenosis in the internal carotid arteries. 3. Patent bilateral vertebral arteries. NIHSS Stroke Scale - Date/Time Evaluation Performed Date Performed: 08/30/18 Time Performed: 09:15 When Was NIHSS Performed: Baseline - How Severe is the Stoke Level of Consciousness: 2=Obtunded LOC to Questions: 2=Neither correct LOC to commands: 2=Neither correct Best Gaze: 0=Normal Visual: 0=No visual loss Facial: 0=Normal Motor Arm - Left: 0=No drift Motor Arm - Right: 0=No drift Motor Leg - Left: 0=No drift Motor Leg - Right: 0=No drift Limb Ataxia: 0=Absent Sensory: 0=Normal Best Language: 0=No aphasia Dysarthia: 2=Severe, near unintelligible or worse Extinction & Inattention (Neglect): 0=Normal, no object Score: 8 Medical Decision Making Medical Decision Making: Initial Impression: Altered mental status, r/o sepsis and r/o stroke Initial Plan: 9:45am Code Stroke called. Will obtain stat Head CT. Ordered blood work, VBG, EKG, CXR, CTA Head/Neck, and stroke team consult. NS IV fluids infusing at slow rate. 2 mg IV Ativan given. 10:[address] Ang, radiologist, CT limited due to patient motion. 11:00 CTA resulted, and is negative. Spoke with Dr. Disla, discussed possible seizure s/p hypoglycemic episode, recommends ordering 24 hr EEG. Patient met SIRS criteria upon arrival (with tachycardia, hypothermia, and lactate of 2.2) and was started on antibiotics. However, there is no clear indication of infection. No pneumonia, UTI, decubiti, or rash. 12:25 Rectal temp is now 101.1 F Patient is already receiving IV Rocephin. [place] Tylenol given. Discussed with Dr. Boo, who agrees to hospitalize patient. Requesting ICU evaluation as patient is still altered. Patient is obtunded, reacting only to noxious stimuli. Differential dx includes: Stroke, but unlikely due to negative CTA Seizure, most likely secondary to hypoglycemia Sepsis, patient now spiking fever and persistently altered 12:[address] Capone, who will come to evaluate the patient in the ED. Patient upgraded to the ICU as blood sugar keeps dropping. 16:00 Dr. Disla at bedside, patient appears to now have a slight facial droop on the left and slight weakness on the left. Additionally pt appears much more awake and is following some commands. Disposition Discussed With Dr.: Goran Capone Doctor Will See Patient In The: Hospital - Disposition Disposition: HOSPITALIZED Disposition Time: 14:00 Condition: GUARDED - POA Core Measure Indicators: Code Stroke - Clinical Impression Clinical Impression: Altered mental status - Scribe Statement The provider has reviewed the documentation as recorded by the Meche Peterson Provider Attestation: All medical record entries made by the Hungibhelen were at my direction and personally dictated by me. I have reviewed the chart and agree that the record accurately reflects my personal performance of the history, physical exam, me dical decision making, and the department course for this patient. I have also personally directed, reviewed, and agree with the discharge instructions and disposition. Decision To Admit - Pt Status Changed To: Hospital Disposition Of: Inpatient - Admit Certification Admit to Inpatient:: After my assessment, the patient will require hospitalization for at least two midnights. This is because of the severity of symptoms shown, intensity of services needed, and/or the medical risk in this pa tient being treated as an outpatient. - InPatient: Physician Admission Certification:: AMS, hypoglycemia, possible seizure, fever - . Bed Request Type: ICU Admitting Physician: Edna Boo Patient Diagnosis: Altered mental status
[2018-08-30] MEDS ORDERED: Sodium Chloride 0.9% 1,000 ML IV SCH (09:45)
[2018-08-30] MEDS ORDERED: Iodixanol 320 MG/ML 100 ML BOTTLE IV ONE (09:55)
[2018-08-30 10:05] LABS: VENOUS BLOOD GAS BASE EXCESS 0.4 mmol/L (0.0-2.0); VENOUS BLOOD GAS PCO2 55 mmHg (40-60); VENOUS BLOOD GAS PO2 27 mm/Hg (30-55); VENOUS BLOOD PH 7.31 (7.32-7.43)
[2018-08-30 10:19] LABS: PROTHROMBIN TIME 11.4 SECONDS (9.7-12.2)
[2018-08-30 10:30] LABS: ALB/GLOB RATIO 1.3 (1.0-2.1); ALBUMIN 4.2 g/dL (3.5-5.0); CALCIUM 9.2 mg/dl (8.6-10.4)
[2018-08-30 10:37] LABS: TROPONIN I 0.022 ng/mL (0.00-0.120)
--- NOTE | 2018-08-30 10:48 | CT ---
Date of service: 08/30/2018 PROCEDURE: CT HEAD WITHOUT CONTRAST. HISTORY: Code Stroke COMPARISON: None available. TECHNIQUE: Axial computed tomography images were obtained through the head/brain without intravenous contrast. Radiation dose: Total exam DLP = 0.0 mGy-cm. This CT exam was performed using one or more of the following dose reduction techniques: Automated exposure control, adjustment of the mA and/or kV according to patient size, and/or use of iterative reconstruction technique. FINDINGS: Images severely degraded by patient motion and streak artifact. HEMORRHAGE: No intracranial hemorrhage. BRAIN: Diffuse atrophy with prominence of the ventricles and sulci noted. No mass effect or edema. Intracranial atherosclerosis. Calcifications along the left subdural space, likely post infectious/postinflammatory. Scattered periventricular and subcortical white matter hypodensities, which are nonspecific, but often seen with chronic microvascular ischemic disease. Please note that MRI with diffusion imaging is more sensitive in the detection of acute ischemic event. VENTRICLES: No hydrocephalus. CALVARIUM: Unremarkable. PARANASAL SINUSES: Unremarkable as visualized. No significant inflammatory changes. MASTOID AIR CELLS: Unremarkable as visualized. No inflammatory changes. OTHER FINDINGS: None. IMPRESSION: Suboptimal evaluation with images severely degraded by patient motion. Generalized atrophy. Nonspecific white matter changes. Dense intracranial calcifications. Calcifications noted along the left subdural space, likely post infectious/postinflammatory. Findings discussed with Dr. Napoles on 08/30/18 at 10:39 a.m..
--- NOTE | 2018-08-30 10:59 | CT ---
Date of service: 08/30/2018 PROCEDURE: CTA HEAD AND NECK WITH CONTRAST HISTORY: aphasia COMPARISON: None available. TECHNIQUE: Initial noncontrast head CT was performed. Subsequently, CT angiogram of the head and neck were performed after the intravenous administration of 80 mL of Omnipaque 350. Contiguous 1.5mm thick images were obtained in the axial plane of the neck. 2-D coronal and sagittal MPR images were obtained. Imaging postprocessing was performed with 3-D images also obtained. A delayed contrast head CT was also obtained. This CT exam was performed using one or more of the following dose reduction techniques: Automated exposure control, adjustment of the mA and/or kV according to patient size, and/or use of iterative reconstruction technique. Contrast dose: 100 mL Visipaque 320 Radiation dose: Total exam DLP = 644.54 mGy-cm. FINDINGS: HEAD: There are coarse atherosclerotic calcifications in the cavernous carotid arteries. Right: The intracranial internal carotid artery, and anterior and middle cerebral arteries are widely patent. Left: The intracranial internal carotid artery, and anterior and middle cerebral arteries are widely patent. Posterior circulation: The visualized intracranial vertebral arteries, basilar artery and posterior cerebral arteries are widely patent. There is origin of bilateral posterior cerebral arteries, an anatomic variant. There is no endoluminal filling defect to suggest thrombus. There is no intracranial saccular aneurysm. NECK: There is a 2 vessel aortic arch with common origin of the innominate and left common carotid arteries.. There is no stenosis at the origins of the great vessels at the level of the aortic arch. There are coarse atherosclerotic calcifications in the aortic arch and at the origin of the great vessels. There are coarse atherosclerotic calcifications in the carotid bulb and proximal internal carotid arteries. There are eccentric soft plaques in the left proximal internal carotid artery. Right Carotid: On the right, the common carotid, internal carotid and external carotid arteries are widely patent. There is no hemodynamically significant stenosis in the internal carotid artery by NASCET criteria. Left Carotid: On the left, the common carotid, internal carotid and external carotid arteries are widely patent. There is no hemodynamically significant stenosis in the internal carotid artery by NASCET criteria. The vertebral arteries are widely patent. The visualized soft tissues of the neck are normal. The visualized brain and cervical spine are within normal limits. The lung apices are clear. IMPRESSION: 1. No evidence of endoluminal thrombus,occlusion or definite significant stenosis in the intracranial arteries. 2. No evidence of hemodynamically significant stenosis in the internal carotid arteries. 3. Patent bilateral vertebral arteries.
[2018-08-30 11:10] VITALS: BMI 36.1
[2018-08-30] MEDS ORDERED: Sodium Chloride 0.9% 1,000 ML ONE (11:20)
[2018-08-30] MEDS ORDERED: cefTRIAXone IV 1 gm in Dextros 50 ML IVPB STA (11:22)
[2018-08-30 11:29] LABS: BASO % 0.4 % (0.0-2.0); EOS % 0.3 % (0.0-4.0); HEMOGLOBIN 13.1 g/dL (11.0-16.0); LYMPH # 0.7 K/uL (1.0-4.3); LYMPH % 6.8 % (20.0-40.0); MEAN CELL VOLUME 90.6 fL (81.0-99.0); MEAN CORPUSCULAR HEMOGLOBIN 30.2 pg (27.0-31.0); MEAN CORPUSCULAR HGB CONC 33.3 g/dL (33.0-37.0); MEAN PLATELET VOLUME 9.6 fL (7.2-11.7); MONO # 0.5 K/uL (0.0-0.8); MONO % 4.9 % (0.0-10.0); NEUT # 9.3 K/uL (1.8-7.0); NEUT % 87.6 % (50.0-75.0); PLATELET COUNT 203 K/uL (130-400); RBC 4.33 Mil/uL (3.80-5.20); RED CELL DISTRIBUTION WIDTH 14.5 % (11.5-14.5); WHITE BLOOD COUNT 10.6 K/uL (4.8-10.8)
[2018-08-30 12:01] LABS: SQUAMOUS EPITHIAL < 1 /hpf (0-5); URINE BILIRUBIN NEGATIVE (NEGATIVE); URINE BLOOD NEGATIVE (NEGATIVE); URINE CLARITY Clear (Clear); URINE COLOR Yellow (YELLOW); URINE GLUCOSE (UA) NORMAL (Normal); URINE LEUKOCYTE ESTERASE NEG Leu/uL (Negative); URINE PROTEIN NEGATIVE (NEGATIVE); URINE UROBILINOGEN NORMAL mg/dL (0.2-1.0)
[2018-08-30 12:27] LABS: BANDS 9 % (0-2); LYMPHOCYTE 5 % (20-40); MONOCYTE 5 % (0-10); NEUTROPHIL 80 % (50-75); PLATELET ESTIMATE NORMAL (NORMAL); REACTIVE LYMPHOCYTES 1 % (0-0); TOTAL CELLS COUNTED 100
[2018-08-30 14:09] LABS: VENOUS BLOOD GAS PCO2 49 mmHg (40-60); VENOUS BLOOD GAS PO2 36 mm/Hg (30-55); VENOUS BLOOD PH 7.38 (7.32-7.43)
[2018-08-30] MEDS ORDERED: Dextrose 50% SYRINGE Inj (50 ml) IV STA ×2 (14:51→18:16)
--- NOTE | 2018-08-30 15:00 | RAD ---
Date of service: 08/30/2018 HISTORY: Code Stroke COMPARISON: 07/18/2018 and 07/12/2018 TECHNIQUE: 1 view obtained. FINDINGS: LUNGS: Left lateral pleural thickening and chronic appearing left lateral old healed rib fracture deformities. No interval dense consolidation. PLEURA: Chronic appearing left lateral pleural thickening. Some concomitant bilateral superolateral pleural thickening also suspect. No pneumothorax seen. Each costophrenic angle tip is clipped. Small minimal pleural effusions not excluded. CARDIOVASCULAR: There is presence of aortic atherosclerotic calcification on x-ray. Mild cardiomegaly mild moderate pulmonary venous congestion probably slightly increased since prior exam. OSSEOUS STRUCTURES: No significant abnormalities. VISUALIZED UPPER ABDOMEN: Normal. OTHER FINDINGS: None. IMPRESSION: Mild cardiomegaly and mild-moderate pulmonary venous congestion. Old healed left lateral rib fracture deformities. Contiguous extensive left lateral pleural thickening suspect. Additional bilateral superolateral pleural thickening
--- NOTE | 2018-08-30 15:16 | CP.PCM.HP ---
History of Present Illness - History of Present Illness History of Present Illness: PT WAS FOUND ON FLOOR AND CONFUSED WITH SUGAR OF 40 PT RESPONDED PARTIALLY WITH D50 SINCE ADMISSION PT HAS PERIODS OF AGITATION AND CONFUSION INITIAL NEURO AND CARDIAC W/U IS NEG , PENDING MRI PT HAS POORLY CONTROLLED DM DUE TO NON COMPLIANCE WITH MEDS/DIET RECENTLY ADMITTED IN FOR PNEUMONIA CARDIAC W/P IN PAST IS NEG PT HAS BASELINE TREMORS WHICH HAS RESPONDED WITH SINEMET Present on Admission - Present on Admission Any Indicators Present on Admission: No Review of Systems - Review of Systems Systems not reviewed;Unavailable: Altered Mental Status All systems: reviewed and no additional remarkable complaints except (CONFUSED) Past Patient History - Past Medical History & Family History Past Medical History?: Yes - Past Social History Smoking Status: Never Smoked - CARDIAC Hx Hypertension: Yes - PULMONARY Hx Asthma: Yes - NEUROLOGICAL Hx Dementia: Yes Hx Parkinson's Disease: Yes - ENDOCRINE/METABOLIC Hx Endocrine Disorders: Yes Hx Diabetes Mellitus Type 1: Yes - MUSCULOSKELETAL/RHEUMATOLOGICAL Hx Falls: Yes - PSYCHIATRIC Hx Substance Use: No - SURGICAL HISTORY Hx Surgeries: Yes Hx Cataract Extraction: Yes Hx Eye Surgery: Yes - ANESTHESIA Hx Anesthesia: Yes Hx Anesthesia Reactions: No Meds Allergies/Adverse Reactions: Allergies Allergy/AdvReac Type Severity Reaction Status Date / Time No Known Allergies Allergy Verified 07/12/18 10:23 Physical Exam - Constitutional Appears: Agitated, Confused - Eye Exam Eye Exam: EOMI, Normal appearance, PERRL - Neck Exam Neck exam: Positive for: Normal Inspection - Respiratory Exam Respiratory Exam: Rhonchi - Cardiovascular Exam Cardiovascular Exam: REGULAR RHYTHM - GI/Abdominal Exam GI & Abdominal Exam: Normal Bowel Sounds, Soft. absent: Tenderness - Back Exam Back exam: absent: CVA tenderness (L), CVA tenderness (R) - Neurological Exam Neurological exam: Altered - Psychiatric Exam Psychiatric exam: Agitated Results - Vital Signs Recent Vital Signs: Last Vital Signs Temp 100.2 F H 08/30/18 14:49 Pulse 82 08/30/18 14:59 Resp 13 08/30/18 14:59 BP 107/52 L 08/30/18 14:59 Pulse Ox 100 08/30/18 14:59 - Labs Result Diagrams: 08/31/18 05:41 08/31/18 05:41 Labs: Laboratory Results - last 24 hr 08/30/18 08/30/18 08/30/18 09:18 10:00 10:00 WBC RBC Hgb Hct MCV MCH MCHC RDW Plt Count MPV Neut % (Auto) Lymph % (Auto) [place] % (Auto) Eos % (Auto) Baso % (Auto) Neut # (Auto) Lymph # (Auto) [place] # (Auto) Eos # (Auto) Baso # (Auto) Neutrophils % (Manual) Band Neutrophils % Lymphocytes % (Manual) Reactive Lymphs % Monocytes % (Manual) Platelet Estimate RBC Morphology PT 11.4 INR 1.0 APTT 35.0 H pO2 VBG pH VBG pCO2 VBG HCO3 VBG Total CO2 VBG O2 Sat (Calc) VBG Base Excess VBG Potassium Glucose Lactate Sodium 140 Potassium 5.4 H Chloride 100 Carbon Dioxide 27 Anion Gap 18 BUN 41 H Creatinine 1.1 Est GFR ( Amer) 58 Est GFR (Non-Af Amer) 48 POC Glucose (mg/dL) 152 H Random Glucose 187 H D Hemoglobin A1c Calcium 9.2 Phosphorus 4.4 Magnesium 2.0 Total Bilirubin 0.4 AST 45 H D ALT 10 Alkaline Phosphatase 73 Total Creatine Kinase 139 H Troponin I 0.0220 NT-Pro-B Natriuret Pep 288 Total Protein 7.6 Albumin 4.2 Globulin 3.3 Albumin/Globulin Ratio 1.3 Triglycerides 86 Cholesterol 157 LDL Cholesterol Direct 90 HDL Cholesterol 56 Venous Blood Potassium Urine Color Urine Clarity Urine pH Ur Specific [place] Urine Protein Urine Glucose (UA) Urine Ketones Urine Blood Urine Nitrate Urine Bilirubin Urine Urobilinogen Ur Leukocyte Esterase Urine WBC (Auto) Urine RBC (Auto) Ur Squamous Epith Cells Blood Type Antibody Screen 08/30/18 08/30/18 08/30/18 10:00 10:01 10:42 WBC RBC Hgb Hct MCV MCH MCHC RDW Plt Count MPV Neut % (Auto) Lymph % (Auto) [place] % (Auto) Eos % (Auto) Baso % (Auto) Neut # (Auto) Lymph # (Auto) [place] # (Auto) Eos # (Auto) Baso # (Auto) Neutrophils % (Manual) Band Neutrophils % Lymphocytes % (Manual) Reactive Lymphs % Monocytes % (Manual) Platelet Estimate RBC Morphology PT INR APTT pO2 27 L VBG pH 7.31 L VBG pCO2 55 VBG HCO3 23.8 VBG Total CO2 29.4 H VBG O2 Sat (Calc) 53.4 VBG Base Excess 0.4 VBG Potassium 4.9 Glucose 177 H Lactate 2.2 H Sodium 139.0 Potassium Chloride 103.0 Carbon Dioxide Anion Gap BUN Creatinine Est GFR ( Amer) Est GFR (Non-Af Amer) POC Glucose (mg/dL) 218 H Random Glucose Hemoglobin A1c 7.1 H Calcium Phosphorus Magnesium Total Bilirubin AST ALT Alkaline Phosphatase Total Creatine Kinase Troponin I NT-Pro-B Natriuret Pep Total Protein Albumin Globulin Albumin/Globulin Ratio Triglycerides Cholesterol LDL Cholesterol Direct HDL Cholesterol Venous Blood Potassium 4.9 Urine Color Urine Clarity Urine pH Ur Specific [place] Urine Protein Urine Glucose (UA) Urine Ketones Urine Blood Urine Nitrate Urine Bilirubin Urine Urobilinogen Ur Leukocyte Esterase Urine WBC (Auto) Urine RBC (Auto) Ur Squamous Epith Cells Blood Type Antibody Screen 08/30/18 08/30/18 08/30/18 10:54 11:25 11:51 WBC 10.6 RBC 4.33 Hgb 13.1 Hct 39.2 MCV 90.6 MCH 30.2 MCHC 33.3 RDW 14.5 Plt Count 203 MPV 9.6 Neut % (Auto) 87.6 H Lymph % (Auto) 6.8 L [place] % (Auto) 4.9 Eos % (Auto) 0.3 Baso % (Auto) 0.4 Neut # (Auto) 9.3 H Lymph # (Auto) 0.7 L [place] # (Auto) 0.5 Eos # (Auto) 0.0 Baso # (Auto) 0.0 Neutrophils % (Manual) 80 H Band Neutrophils % 9 H Lymphocytes % (Manual) 5 L Reactive Lymphs % 1 H Monocytes % (Manual) 5 Platelet Estimate Normal RBC Morphology Normal PT INR APTT pO2 VBG pH VBG pCO2 VBG HCO3 VBG Total CO2 VBG O2 Sat (Calc) VBG Base Excess VBG Potassium Glucose Lactate Sodium Potassium Chloride Carbon Dioxide Anion Gap BUN Creatinine Est GFR ( Amer) Est GFR (Non-Af Amer) POC Glucose (mg/dL) Random Glucose Hemoglobin A1c Calcium Phosphorus Magnesium Total Bilirubin AST ALT Alkaline Phosphatase Total Creatine Kinase Troponin I NT-Pro-B Natriuret Pep Total Protein Albumin Globulin Albumin/Globulin Ratio Triglycerides Cholesterol LDL Cholesterol Direct HDL Cholesterol Venous Blood Potassium Urine Color Yellow Urine Clarity Clear Urine pH 6.0 Ur Specific [place] 1.042 H Urine Protein Negative Urine Glucose (UA) Normal Urine Ketones Trace Urine Blood Negative Urine Nitrate Negative Urine Bilirubin Negative Urine Urobilinogen Normal Ur Leukocyte Esterase Neg Urine WBC (Auto) < 1 Urine RBC (Auto) 1 Ur Squamous Epith Cells < 1 Blood Type O NEGATIVE Antibody Screen Negative 08/30/18 14:00 WBC RBC Hgb Hct MCV MCH MCHC RDW Plt Count MPV Neut % (Auto) Lymph % (Auto) [place] % (Auto) Eos % (Auto) Baso % (Auto) Neut # (Auto) Lymph # (Auto) [place] # (Auto) Eos # (Auto) Baso # (Auto) Neutrophils % (Manual) Band Neutrophils % Lymphocytes % (Manual) Reactive Lymphs % Monocytes % (Manual) Platelet Estimate RBC Morphology PT INR APTT pO2 36 VBG pH 7.38 VBG pCO2 49 VBG HCO3 26.5 VBG Total CO2 30.5 H VBG O2 Sat (Calc) 76.0 H VBG Base Excess 3.0 H VBG Potassium 4.7 Glucose 65 Lactate 0.9 Sodium 141.0 Potassium Chloride 108.0 H Carbon Dioxide Anion Gap BUN Creatinine Est GFR ( Amer) Est GFR (Non-Af Amer) POC Glucose (mg/dL) Random Glucose Hemoglobin A1c Calcium Phosphorus Magnesium Total Bilirubin AST ALT Alkaline Phosphatase Total Creatine Kinase Troponin I NT-Pro-B Natriuret Pep Total Protein Albumin Globulin Albumin/Globulin Ratio Triglycerides Cholesterol LDL Cholesterol Direct HDL Cholesterol Venous Blood Potassium 4.7 Urine Color Urine Clarity Urine pH Ur Specific [place] Urine Protein Urine Glucose (UA) Urine Ketones Urine Blood Urine Nitrate Urine Bilirubin Urine Urobilinogen Ur Leukocyte Esterase Urine WBC (Auto) Urine RBC (Auto) Ur Squamous Epith Cells Blood Type Antibody Screen Assessment & Plan (1) Acute encephalopathy Status: Acute (2) Altered mental status Status: Acute (3) Diabetes mellitus Status: Acute
--- NOTE | 2018-08-30 16:15 | CP.PCM.CON ---
History of Present Illness - History of Present Illness History of Present Illness: Neurology Consult Note: Consultation requested by Dr. Napoles Mrs. Mcdonnell is an 82-year-old woman with a past medical history of asthma, DM, blindness, who was found by her cafeteria helper yesterday morning with confusion and altered mental status. EMS was called and arrived to find her serum glucose in the low 40's. She was given glucose and brought to the ED. She continued to be lethargic and it has been difficult to control her glucose due to recurrent hypoglycemia. Today, when I saw the patient, she seems to be more alert and fo llows simple commands, but has some slight left lower extremity weakness and a subtle left facial droop. Non-contrast CT scan of the head did not show any acute findings. Review of Systems - Review of Systems Systems not reviewed;Unavailable: Altered Mental Status Past Patient History - Past Medical History & Family History Past Medical History?: Yes - Past Social History Smoking Status: Never Smoked - CARDIAC Hx Hypertension: Yes - PULMONARY Hx Asthma: Yes - NEUROLOGICAL Hx Dementia: Yes Hx Parkinson's Disease: Yes - ENDOCRINE/METABOLIC Hx Endocrine Disorders: Yes Hx Diabetes Mellitus Type 1: Yes - MUSCULOSKELETAL/RHEUMATOLOGICAL Hx Falls: Yes - PSYCHIATRIC Hx Substance Use: No - SURGICAL HISTORY Hx Surgeries: Yes Hx Cataract Extraction: Yes Hx Eye Surgery: Yes - ANESTHESIA Hx Anesthesia: Yes Hx Anesthesia Reactions: No Meds Allergies/Adverse Reactions: Allergies Allergy/AdvReac Type Severity Reaction Status Date / Time No Known Allergies Allergy Verified 07/12/18 10:23 - Medications Medications: Current Medications Sodium Chloride (Sodium Chloride 0.9%) 1,000 mls @ 100 mls/hr IV .Q10H LUIGI Last Admin: 08/30/18 11:10 Dose: 100 mls/hr Physical Exam - Constitutional Appears: Well - Head Exam Head Exam: ATRAUMATIC, NORMAL INSPECTION, NORMOCEPHALIC - Eye Exam Additional comments: Blind, difficult to assess - ENT Exam ENT Exam: Mucous Membranes Dry - Neck Exam Neck exam: Positive for: Normal Inspection - Respiratory Exam Respiratory Exam: Clear to Auscultation Bilateral, NORMAL BREATHING PATTERN - Cardiovascular Exam Cardiovascular Exam: REGULAR RHYTHM, +S1, +S2 - GI/Abdominal Exam GI & Abdominal Exam: Normal Bowel Sounds, Soft. absent: Tenderness - Extremities Exam Extremities exam: Positive for: normal inspection - Back Exam Back exam: NORMAL INSPECTION - Neurological Exam Neurological exam: Alert, Altered, CN II-XII Intact, Normal Gait, Reflexes Normal Additional comments: Non-verbal, but follows simple commands. Slight left facial droop, left arm strength is 4/5 proximally and 3/5 distally, left lower extremity drift but is antigravity, right lower extremity is normal as is right upper extremity. Reflexes are normal. - Psychiatric Exam Psychiatric exam: Normal Affect, Normal Mood - Skin Skin Exam: Dry, Intact, Normal Color, Warm Results - Vital Signs Recent Vital Signs: Last Vital Signs Temp 100.2 F H 08/30/18 14:49 Pulse 72 08/30/18 16:00 Resp 15 08/30/18 16:00 BP 116/43 L 08/30/18 16:00 Pulse Ox 98 08/30/18 16:00 - Labs Result Diagrams: 08/30/18 11:25 08/30/18 10:00 Labs: Laboratory Results - last 24 hr 08/30/18 08/30/18 08/30/18 09:18 10:00 10:00 WBC RBC Hgb Hct MCV MCH MCHC RDW Plt Count MPV Neut % (Auto) Lymph % (Auto) [place] % (Auto) Eos % (Auto) Baso % (Auto) Neut # (Auto) Lymph # (Auto) [place] # (Auto) Eos # (Auto) Baso # (Auto) Neutrophils % (Manual) Band Neutrophils % Lymphocytes % (Manual) Reactive Lymphs % Monocytes % (Manual) Platelet Estimate RBC Morphology PT 11.4 INR 1.0 APTT 35.0 H pO2 VBG pH VBG pCO2 VBG HCO3 VBG Total CO2 VBG O2 Sat (Calc) VBG Base Excess VBG Potassium Glucose Lactate Sodium 140 Potassium 5.4 H Chloride 100 Carbon Dioxide 27 Anion Gap 18 BUN 41 H Creatinine 1.1 Est GFR ( Amer) 58 Est GFR (Non-Af Amer) 48 POC Glucose (mg/dL) 152 H Random Glucose 187 H D Hemoglobin A1c Calcium 9.2 Phosphorus 4.4 Magnesium 2.0 Total Bilirubin 0.4 AST 45 H D ALT 10 Alkaline Phosphatase 73 Total Creatine Kinase 139 H Troponin I 0.0220 NT-Pro-B Natriuret Pep 288 Total Protein 7.6 Albumin 4.2 Globulin 3.3 Albumin/Globulin Ratio 1.3 Triglycerides 86 Cholesterol 157 LDL Cholesterol Direct 90 HDL Cholesterol 56 Venous Blood Potassium Urine Color Urine Clarity Urine pH Ur Specific [place] Urine Protein Urine Glucose (UA) Urine Ketones Urine Blood Urine Nitrate Urine Bilirubin Urine Urobilinogen Ur Leukocyte Esterase Urine WBC (Auto) Urine RBC (Auto) Ur Squamous Epith Cells Blood Type Antibody Screen 08/30/18 08/30/18 08/30/18 10:00 10:01 10:42 WBC RBC Hgb Hct MCV MCH MCHC RDW Plt Count MPV Neut % (Auto) Lymph % (Auto) [place] % (Auto) Eos % (Auto) Baso % (Auto) Neut # (Auto) Lymph # (Auto) [place] # (Auto) Eos # (Auto) Baso # (Auto) Neutrophils % (Manual) Band Neutrophils % Lymphocytes % (Manual) Reactive Lymphs % Monocytes % (Manual) Platelet Estimate RBC Morphology PT INR APTT pO2 27 L VBG pH 7.31 L VBG pCO2 55 VBG HCO3 23.8 VBG Total CO2 29.4 H VBG O2 Sat (Calc) 53.4 VBG Base Excess 0.4 VBG Potassium 4.9 Glucose 177 H Lactate 2.2 H Sodium 139.0 Potassium Chloride 103.0 Carbon Dioxide Anion Gap BUN Creatinine Est GFR ( Amer) Est GFR (Non-Af Amer) POC Glucose (mg/dL) 218 H Random Glucose Hemoglobin A1c 7.1 H Calcium Phosphorus Magnesium Total Bilirubin AST ALT Alkaline Phosphatase Total Creatine Kinase Troponin I NT-Pro-B Natriuret Pep Total Protein Albumin Globulin Albumin/Globulin Ratio Triglycerides Cholesterol LDL Cholesterol Direct HDL Cholesterol Venous Blood Potassium 4.9 Urine Color Urine Clarity Urine pH Ur Specific [place] Urine Protein Urine Glucose (UA) Urine Ketones Urine Blood Urine Nitrate Urine Bilirubin Urine Urobilinogen Ur Leukocyte Esterase Urine WBC (Auto) Urine RBC (Auto) Ur Squamous Epith Cells Blood Type Antibody Screen 08/30/18 08/30/18 08/30/18 10:54 11:25 11:51 WBC 10.6 RBC 4.33 Hgb 13.1 Hct 39.2 MCV 90.6 MCH 30.2 MCHC 33.3 RDW 14.5 Plt Count 203 MPV 9.6 Neut % (Auto) 87.6 H Lymph % (Auto) 6.8 L [place] % (Auto) 4.9 Eos % (Auto) 0.3 Baso % (Auto) 0.4 Neut # (Auto) 9.3 H Lymph # (Auto) 0.7 L [place] # (Auto) 0.5 Eos # (Auto) 0.0 Baso # (Auto) 0.0 Neutrophils % (Manual) 80 H Band Neutrophils % 9 H Lymphocytes % (Manual) 5 L Reactive Lymphs % 1 H Monocytes % (Manual) 5 Platelet Estimate Normal RBC Morphology Normal PT INR APTT pO2 VBG pH VBG pCO2 VBG HCO3 VBG Total CO2 VBG O2 Sat (Calc) VBG Base Excess VBG Potassium Glucose Lactate Sodium Potassium Chloride Carbon Dioxide Anion Gap BUN Creatinine Est GFR ( Amer) Est GFR (Non-Af Amer) POC Glucose (mg/dL) Random Glucose Hemoglobin A1c Calcium Phosphorus Magnesium Total Bilirubin AST ALT Alkaline Phosphatase Total Creatine Kinase Troponin I NT-Pro-B Natriuret Pep Total Protein Albumin Globulin Albumin/Globulin Ratio Triglycerides Cholesterol LDL Cholesterol Direct HDL Cholesterol Venous Blood Potassium Urine Color Yellow Urine Clarity Clear Urine pH 6.0 Ur Specific [place] 1.042 H Urine Protein Negative Urine Glucose (UA) Normal Urine Ketones Trace Urine Blood Negative Urine Nitrate Negative Urine Bilirubin Negative Urine Urobilinogen Normal Ur Leukocyte Esterase Neg Urine WBC (Auto) < 1 Urine RBC (Auto) 1 Ur Squamous Epith Cells < 1 Blood Type O NEGATIVE Antibody Screen Negative 08/30/18 08/30/18 08/30/18 14:00 14:50 15:17 WBC RBC Hgb Hct MCV MCH MCHC RDW Plt Count MPV Neut % (Auto) Lymph % (Auto) [place] % (Auto) Eos % (Auto) Baso % (Auto) Neut # (Auto) Lymph # (Auto) [place] # (Auto) Eos # (Auto) Baso # (Auto) Neutrophils % (Manual) Band Neutrophils % Lymphocytes % (Manual) Reactive Lymphs % Monocytes % (Manual) Platelet Estimate RBC Morphology PT INR APTT pO2 36 VBG pH 7.38 VBG pCO2 49 VBG HCO3 26.5 VBG Total CO2 30.5 H VBG O2 Sat (Calc) 76.0 H VBG Base Excess 3.0 H VBG Potassium 4.7 Glucose 65 Lactate 0.9 Sodium 141.0 Potassium Chloride 108.0 H Carbon Dioxide Anion Gap BUN Creatinine Est GFR ( Amer) Est GFR (Non-Af Amer) POC Glucose (mg/dL) 53 L 162 H Random Glucose Hemoglobin A1c Calcium Phosphorus Magnesium Total Bilirubin AST ALT Alkaline Phosphatase Total Creatine Kinase Troponin I NT-Pro-B Natriuret Pep Total Protein Albumin Globulin Albumin/Globulin Ratio Triglycerides Cholesterol LDL Cholesterol Direct HDL Cholesterol Venous Blood Potassium 4.7 Urine Color Urine Clarity Urine pH Ur Specific [place] Urine Protein Urine Glucose (UA) Urine Ketones Urine Blood Urine Nitrate Urine Bilirubin Urine Urobilinogen Ur Leukocyte Esterase Urine WBC (Auto) Urine RBC (Auto) Ur Squamous Epith Cells Blood Type Antibody Screen Assessment & Plan (1) Acute encephalopathy Assessment and Plan: This is likely due to hypoglycemia, but may be the result of ischemia or seizure. I recommend the followin. EEG for 1 hour as well as an MRI of the brain without contrast. 2. Echocardiogram. 3. Admit to ICU for management of serum glucose. 4. Give aspirin 300 mg FL, normal saline at 100 mL/hr, permissive HTN (only treat BP higher than 220/110 mm Hg). 5. Check serum HbA1c, lipid panel, B12, folate, vitamin D levels. 6. Case management consult Thank you for this consultation. Status: Acute NIHSS Stroke Scale - Date/Time Evaluation Performed Date Performed: 08/30/18 Time Performed: 09:15 - How Severe is the Stroke Level of Consciousness: 1=Drowsy LOC to Questions: 2=Neither correct LOC to commands: 2=Neither correct Best Gaze: 0=Normal Visual: 0=No visual loss Facial: 0=Normal Motor Arm - Left: 1=Drift noted before 10 sec Motor Arm - Right: 0=No drift Motor Leg - Left: 2=Falls before 5 sec Motor Leg - Right: 0=No drift Limb Ataxia: 0=Absent Sensory: 0=Normal Best Language: 0=No aphasia Dysarthia: 2=Severe, near unintelligible or worse Extinction & Inattention (Neglect): 0=Normal, no object Score: 10
[2018-08-30] MEDS ORDERED: Dextrose 5%/0.9% NS 1,000 ML IV ONE (17:48)
--- NOTE | 2018-08-30 18:01 | CP.PCM.CON ---
<Rancho Arevalo - Last Filed: 08/30/18 17:53> History of Present Illness - History of Present Illness History of Present Illness: PGY-1 ICU Consult Note for Dr. Capone Patient is 82 yo F with PMHx HTN, DM, HLD, and chronic LE lymphedema who presents with AMS. History obtained per ED staff as patient is not verbal/resonsive to questioning. Patient was found by homemaker to be altered and not responding. Patient usually verbal and ambulates at baseline. Patient noted in ED to be hypoglycemic and was given glucagon x2. Patient evaluated by ICU as patient continued to be altered and was continuously hypoglycemic despite d50/glucagon. Patient remained in ICU for several hours with no improvement in mental status. Further history unable to be obtained as patient is altered at present. Review of Systems - Review of Systems Systems not reviewed;Unavailable: Altered Mental Status Past Patient History - Past Medical History & Family History Past Medical History?: Yes - Past Social History Smoking Status: Never Smoked - CARDIAC Hx Hypertension: Yes - PULMONARY Hx Asthma: Yes - NEUROLOGICAL Hx Dementia: Yes Hx Parkinson's Disease: Yes - ENDOCRINE/METABOLIC Hx Endocrine Disorders: Yes Hx Diabetes Mellitus Type 1: Yes - MUSCULOSKELETAL/RHEUMATOLOGICAL Hx Falls: Yes - PSYCHIATRIC Hx Substance Use: No - SURGICAL HISTORY Hx Surgeries: Yes Hx Cataract Extraction: Yes Hx Eye Surgery: Yes - ANESTHESIA Hx Anesthesia: Yes Hx Anesthesia Reactions: No Meds Allergies/Adverse Reactions: Allergies Allergy/AdvReac Type Severity Reaction Status Date / Time No Known Allergies Allergy Verified 07/12/18 10:23 - Medications Medications: Current Medications Aspirin (Aspirin Supp) 300 mg MS DAILY LUIGI Dextrose/Sodium Chloride (Dextrose 5%/0.9% Ns 1000 Ml) 1,000 mls @ 100 mls/hr IV .Q10H ONE Stop: 08/31/18 03:47 Ceftriaxone Sodium 1 gm/ (Sodium Chloride) 100 mls @ 100 mls/hr IVPB Q12H LUIGI; Protocol Physical Exam - Constitutional Appears: No Acute Distress, Agitated, Confused - Head Exam Head Exam: ATRAUMATIC, NORMOCEPHALIC - Eye Exam Eye Exam: EOMI - ENT Exam ENT Exam: Mucous Membranes Moist - Respiratory Exam Respiratory Exam: Clear to Auscultation Bilateral. absent: Rhonchi, Wheezes - Cardiovascular Exam Cardiovascular Exam: REGULAR RHYTHM, +S1, +S2 - Neurological Exam Additional comments: confused, muttering noises but not words - Psychiatric Exam Psychiatric exam: Agitated - Skin Skin Exam: Dry, Intact Results - Vital Signs Recent Vital Signs: Last Vital Signs Temp 98.9 F 08/30/18 16:23 Pulse 72 08/30/18 16:00 Resp 15 08/30/18 16:00 BP 116/43 L 08/30/18 16:00 Pulse Ox 98 08/30/18 16:00 - Labs Result Diagrams: 08/30/18 11:25 08/30/18 10:00 Labs: Laboratory Results - last 24 hr 08/30/18 08/30/18 08/30/18 09:18 10:00 10:00 WBC RBC Hgb Hct MCV MCH MCHC RDW Plt Count MPV Neut % (Auto) Lymph % (Auto) Sac % (Auto) Eos % (Auto) Baso % (Auto) Neut # (Auto) Lymph # (Auto) Sac # (Auto) Eos # (Auto) Baso # (Auto) Neutrophils % (Manual) Band Neutrophils % Lymphocytes % (Manual) Reactive Lymphs % Monocytes % (Manual) Platelet Estimate RBC Morphology PT 11.4 INR 1.0 APTT 35.0 H pO2 VBG pH VBG pCO2 VBG HCO3 VBG Total CO2 VBG O2 Sat (Calc) VBG Base Excess VBG Potassium Glucose Lactate Sodium 140 Potassium 5.4 H Chloride 100 Carbon Dioxide 27 Anion Gap 18 BUN 41 H Creatinine 1.1 Est GFR ( Amer) 58 Est GFR (Non-Af Amer) 48 POC Glucose (mg/dL) 152 H Random Glucose 187 H D Hemoglobin A1c Calcium 9.2 Phosphorus 4.4 Magnesium 2.0 Total Bilirubin 0.4 AST 45 H D ALT 10 Alkaline Phosphatase 73 Total Creatine Kinase 139 H Troponin I 0.0220 NT-Pro-B Natriuret Pep 288 Total Protein 7.6 Albumin 4.2 Globulin 3.3 Albumin/Globulin Ratio 1.3 Triglycerides 86 Cholesterol 157 LDL Cholesterol Direct 90 HDL Cholesterol 56 Venous Blood Potassium Urine Color Urine Clarity Urine pH Ur Specific [place] Urine Protein Urine Glucose (UA) Urine Ketones Urine Blood Urine Nitrate Urine Bilirubin Urine Urobilinogen Ur Leukocyte Esterase Urine WBC (Auto) Urine RBC (Auto) Ur Squamous Epith Cells Blood Type Antibody Screen 08/30/18 08/30/18 08/30/18 10:00 10:01 10:42 WBC RBC Hgb Hct MCV MCH MCHC RDW Plt Count MPV Neut % (Auto) Lymph % (Auto) Sac % (Auto) Eos % (Auto) Baso % (Auto) Neut # (Auto) Lymph # (Auto) Sac # (Auto) Eos # (Auto) Baso # (Auto) Neutrophils % (Manual) Band Neutrophils % Lymphocytes % (Manual) Reactive Lymphs % Monocytes % (Manual) Platelet Estimate RBC Morphology PT INR APTT pO2 27 L VBG pH 7.31 L VBG pCO2 55 VBG HCO3 23.8 VBG Total CO2 29.4 H VBG O2 Sat (Calc) 53.4 VBG Base Excess 0.4 VBG Potassium 4.9 Glucose 177 H Lactate 2.2 H Sodium 139.0 Potassium Chloride 103.0 Carbon Dioxide Anion Gap BUN Creatinine Est GFR ( Amer) Est GFR (Non-Af Amer) POC Glucose (mg/dL) 218 H Random Glucose Hemoglobin A1c 7.1 H Calcium Phosphorus Magnesium Total Bilirubin AST ALT Alkaline Phosphatase Total Creatine Kinase Troponin I NT-Pro-B Natriuret Pep Total Protein Albumin Globulin Albumin/Globulin Ratio Triglycerides Cholesterol LDL Cholesterol Direct HDL Cholesterol Venous Blood Potassium 4.9 Urine Color Urine Clarity Urine pH Ur Specific [place] Urine Protein Urine Glucose (UA) Urine Ketones Urine Blood Urine Nitrate Urine Bilirubin Urine Urobilinogen Ur Leukocyte Esterase Urine WBC (Auto) Urine RBC (Auto) Ur Squamous Epith Cells Blood Type Antibody Screen 08/30/18 08/30/18 08/30/18 10:54 11:25 11:51 WBC 10.6 RBC 4.33 Hgb 13.1 Hct 39.2 MCV 90.6 MCH 30.2 MCHC 33.3 RDW 14.5 Plt Count 203 MPV 9.6 Neut % (Auto) 87.6 H Lymph % (Auto) 6.8 L Sac % (Auto) 4.9 Eos % (Auto) 0.3 Baso % (Auto) 0.4 Neut # (Auto) 9.3 H Lymph # (Auto) 0.7 L Sac # (Auto) 0.5 Eos # (Auto) 0.0 Baso # (Auto) 0.0 Neutrophils % (Manual) 80 H Band Neutrophils % 9 H Lymphocytes % (Manual) 5 L Reactive Lymphs % 1 H Monocytes % (Manual) 5 Platelet Estimate Normal RBC Morphology Normal PT INR APTT pO2 VBG pH VBG pCO2 VBG HCO3 VBG Total CO2 VBG O2 Sat (Calc) VBG Base Excess VBG Potassium Glucose Lactate Sodium Potassium Chloride Carbon Dioxide Anion Gap BUN Creatinine Est GFR ( Amer) Est GFR (Non-Af Amer) POC Glucose (mg/dL) Random Glucose Hemoglobin A1c Calcium Phosphorus Magnesium Total Bilirubin AST ALT Alkaline Phosphatase Total Creatine Kinase Troponin I NT-Pro-B Natriuret Pep Total Protein Albumin Globulin Albumin/Globulin Ratio Triglycerides Cholesterol LDL Cholesterol Direct HDL Cholesterol Venous Blood Potassium Urine Color Yellow Urine Clarity Clear Urine pH 6.0 Ur Specific [place] 1.042 H Urine Protein Negative Urine Glucose (UA) Normal Urine Ketones Trace Urine Blood Negative Urine Nitrate Negative Urine Bilirubin Negative Urine Urobilinogen Normal Ur Leukocyte Esterase Neg Urine WBC (Auto) < 1 Urine RBC (Auto) 1 Ur Squamous Epith Cells < 1 Blood Type O NEGATIVE Antibody Screen Negative 08/30/18 08/30/18 08/30/18 14:00 14:50 15:17 WBC RBC Hgb Hct MCV MCH MCHC RDW Plt Count MPV Neut % (Auto) Lymph % (Auto) Sac % (Auto) Eos % (Auto) Baso % (Auto) Neut # (Auto) Lymph # (Auto) Sac # (Auto) Eos # (Auto) Baso # (Auto) Neutrophils % (Manual) Band Neutrophils % Lymphocytes % (Manual) Reactive Lymphs % Monocytes % (Manual) Platelet Estimate RBC Morphology PT INR APTT pO2 36 VBG pH 7.38 VBG pCO2 49 VBG HCO3 26.5 VBG Total CO2 30.5 H VBG O2 Sat (Calc) 76.0 H VBG Base Excess 3.0 H VBG Potassium 4.7 Glucose 65 Lactate 0.9 Sodium 141.0 Potassium Chloride 108.0 H Carbon Dioxide Anion Gap BUN Creatinine Est GFR ( Amer) Est GFR (Non-Af Amer) POC Glucose (mg/dL) 53 L 162 H Random Glucose Hemoglobin A1c Calcium Phosphorus Magnesium Total Bilirubin AST ALT Alkaline Phosphatase Total Creatine Kinase Troponin I NT-Pro-B Natriuret Pep Total Protein Albumin Globulin Albumin/Globulin Ratio Triglycerides Cholesterol LDL Cholesterol Direct HDL Cholesterol Venous Blood Potassium 4.7 Urine Color Urine Clarity Urine pH Ur Specific [place] Urine Protein Urine Glucose (UA) Urine Ketones Urine Blood Urine Nitrate Urine Bilirubin Urine Urobilinogen Ur Leukocyte Esterase Urine WBC (Auto) Urine RBC (Auto) Ur Squamous Epith Cells Blood Type Antibody Screen 08/30/18 16:58 WBC RBC Hgb Hct MCV MCH MCHC RDW Plt Count MPV Neut % (Auto) Lymph % (Auto) Sac % (Auto) Eos % (Auto) Baso % (Auto) Neut # (Auto) Lymph # (Auto) Sac # (Auto) Eos # (Auto) Baso # (Auto) Neutrophils % (Manual) Band Neutrophils % Lymphocytes % (Manual) Reactive Lymphs % Monocytes % (Manual) Platelet Estimate RBC Morphology PT INR APTT pO2 VBG pH VBG pCO2 VBG HCO3 VBG Total CO2 VBG O2 Sat (Calc) VBG Base Excess VBG Potassium Glucose Lactate Sodium Potassium Chloride Carbon Dioxide Anion Gap BUN Creatinine Est GFR ( Amer) Est GFR (Non-Af Amer) POC Glucose (mg/dL) 75 Random Glucose Hemoglobin A1c Calcium Phosphorus Magnesium Total Bilirubin AST ALT Alkaline Phosphatase Total Creatine Kinase Troponin I NT-Pro-B Natriuret Pep Total Protein Albumin Globulin Albumin/Globulin Ratio Triglycerides Cholesterol LDL Cholesterol Direct HDL Cholesterol Venous Blood Potassium Urine Color Urine Clarity Urine pH Ur Specific [place] Urine Protein Urine Glucose (UA) Urine Ketones Urine Blood Urine Nitrate Urine Bilirubin Urine Urobilinogen Ur Leukocyte Esterase Urine WBC (Auto) Urine RBC (Auto) Ur Squamous Epith Cells Blood Type Antibody Screen Assessment & Plan - Assessment and Plan (Free Text) Assessment: 82 y/o F with PMHx asthma, DM who presents with AMS and persistent hypoglycemia Neuro -Neuro consulted, Dr. Disla --ML 2/2 hypoglycemia, but r/o seizure, ischemia --1 hour cont EEG - f/u --MRI brain w/o contrast - f/u --echo - f/u --ASA 300 pr --Fluids @ 100 --Permissive HTN --HB A1c, lipid panel, b12, folate, vit D -Ativan 2mg Q6 prn for agitation -Q2 neurochecks Endo Hypoglycemia -Accuchecks Q6 -D10 NS @ 100 -D50 prn Pulm -Maintain spO2>92% -Breathing comfortably on room air PPx -Heparin 5000 U SC Q12 -Protonix 40 mg IV daily Assessment and plan d/w Dr. Liborio Arevalo, PGY-1 <Goran Capone - Last Filed: 08/30/18 18:57> Meds - Medications Medications: Current Medications Aspirin (Aspirin Supp) 300 mg MS DAILY LUIGI Dextrose (Dextrose 50% Inj) 0 ml IV STAT PRN; Protocol PRN Reason: Hypoglycemia Protocol Dextrose (Glutose 15) 0 gm PO ONCE PRN; Protocol PRN Reason: Hypoglycemia Protocol Glucagon (Glucagen Diagnostic Kit) 0 mg IM STAT PRN; Protocol PRN Reason: Hypoglycemia Protocol Heparin Sodium (Porcine) (Heparin) 5,000 units SC Q12 LUIGI Ceftriaxone Sodium 1 gm/ (Sodium Chloride) 100 mls @ 100 mls/hr IVPB Q12H LUIGI; Protocol Dextrose (Dextrose 5% In Water 1000 Ml) 1,000 mls @ 0 mls/hr IV .Q0M PRN; Protocol PRN Reason: Hypoglycemia Protocol Dextrose (Dextrose 10% In Water) 1,000 mls @ 75 mls/hr IV .[id number] LUIGI Last Admin: 08/30/18 18:48 Dose: 75 mls/hr Pantoprazole Sodium (Protonix Inj) 40 mg IVP DAILY LUIGI Results - Vital Signs Recent Vital Signs: Last Vital Signs Temp 98.9 F 08/30/18 16:23 Pulse 77 08/30/18 17:50 Resp 10 L 08/30/18 17:50 BP 116/43 L 08/30/18 16:00 Pulse Ox 99 08/30/18 17:50 - Labs Result Diagrams: 08/30/18 11:25 08/30/18 10:00 Labs: Laboratory Results - last 24 hr 08/30/18 08/30/18 08/30/18 09:18 10:00 10:00 WBC RBC Hgb Hct MCV MCH MCHC RDW Plt Count MPV Neut % (Auto) Lymph % (Auto) Sac % (Auto) Eos % (Auto) Baso % (Auto) Neut # (Auto) Lymph # (Auto) Sac # (Auto) Eos # (Auto) Baso # (Auto) Neutrophils % (Manual) Band Neutrophils % Lymphocytes % (Manual) Reactive Lymphs % Monocytes % (Manual) Platelet Estimate RBC Morphology PT 11.4 INR 1.0 APTT 35.0 H pO2 VBG pH VBG pCO2 VBG HCO3 VBG Total CO2 VBG O2 Sat (Calc) VBG Base Excess VBG Potassium Glucose Lactate Sodium 140 Potassium 5.4 H Chloride 100 Carbon Dioxide 27 Anion Gap 18 BUN 41 H Creatinine 1.1 Est GFR ( Amer) 58 Est GFR (Non-Af Amer) 48 POC Glucose (mg/dL) 152 H Random Glucose 187 H D Hemoglobin A1c Calcium 9.2 Phosphorus 4.4 Magnesium 2.0 Total Bilirubin 0.4 AST 45 H D ALT 10 Alkaline Phosphatase 73 Total Creatine Kinase 139 H Troponin I 0.0220 NT-Pro-B Natriuret Pep 288 Total Protein 7.6 Albumin 4.2 Globulin 3.3 Albumin/Globulin Ratio 1.3 Triglycerides 86 Cholesterol 157 LDL Cholesterol Direct 90 HDL Cholesterol 56 Venous Blood Potassium Urine Color Urine Clarity Urine pH Ur Specific [place] Urine Protein Urine Glucose (UA) Urine Ketones Urine Blood Urine Nitrate Urine Bilirubin Urine Urobilinogen Ur Leukocyte Esterase Urine WBC (Auto) Urine RBC (Auto) Ur Squamous Epith Cells Blood Type Antibody Screen 08/30/18 08/30/18 08/30/18 10:00 10:01 10:42 WBC RBC Hgb Hct MCV MCH MCHC RDW Plt Count MPV Neut % (Auto) Lymph % (Auto) Sac % (Auto) Eos % (Auto) Baso % (Auto) Neut # (Auto) Lymph # (Auto) Sac # (Auto) Eos # (Auto) Baso # (Auto) Neutrophils % (Manual) Band Neutrophils % Lymphocytes % (Manual) Reactive Lymphs % Monocytes % (Manual) Platelet Estimate RBC Morphology PT INR APTT pO2 27 L VBG pH 7.31 L VBG pCO2 55 VBG HCO3 23.8 VBG Total CO2 29.4 H VBG O2 Sat (Calc) 53.4 VBG Base Excess 0.4 VBG Potassium 4.9 Glucose 177 H Lactate 2.2 H Sodium 139.0 Potassium Chloride 103.0 Carbon Dioxide Anion Gap BUN Creatinine Est GFR ( Amer) Est GFR (Non-Af Amer) POC Glucose (mg/dL) 218 H Random Glucose Hemoglobin A1c 7.1 H Calcium Phosphorus Magnesium Total Bilirubin AST ALT Alkaline Phosphatase Total Creatine Kinase Troponin I NT-Pro-B Natriuret Pep Total Protein Albumin Globulin Albumin/Globulin Ratio Triglycerides Cholesterol LDL Cholesterol Direct HDL Cholesterol Venous Blood Potassium 4.9 Urine Color Urine Clarity Urine pH Ur Specific [place] Urine Protein Urine Glucose (UA) Urine Ketones Urine Blood Urine Nitrate Urine Bilirubin Urine Urobilinogen Ur Leukocyte Esterase Urine WBC (Auto) Urine RBC (Auto) Ur Squamous Epith Cells Blood Type Antibody Screen 08/30/18 08/30/18 08/30/18 10:54 11:25 11:51 WBC 10.6 RBC 4.33 Hgb 13.1 Hct 39.2 MCV 90.6 MCH 30.2 MCHC 33.3 RDW 14.5 Plt Count 203 MPV 9.6 Neut % (Auto) 87.6 H Lymph % (Auto) 6.8 L Sac % (Auto) 4.9 Eos % (Auto) 0.3 Baso % (Auto) 0.4 Neut # (Auto) 9.3 H Lymph # (Auto) 0.7 L Sac # (Auto) 0.5 Eos # (Auto) 0.0 Baso # (Auto) 0.0 Neutrophils % (Manual) 80 H Band Neutrophils % 9 H Lymphocytes % (Manual) 5 L Reactive Lymphs % 1 H Monocytes % (Manual) 5 Platelet Estimate Normal RBC Morphology Normal PT INR APTT pO2 VBG pH VBG pCO2 VBG HCO3 VBG Total CO2 VBG O2 Sat (Calc) VBG Base Excess VBG Potassium Glucose Lactate Sodium Potassium Chloride Carbon Dioxide Anion Gap BUN Creatinine Est GFR ( Amer) Est GFR (Non-Af Amer) POC Glucose (mg/dL) Random Glucose Hemoglobin A1c Calcium Phosphorus Magnesium Total Bilirubin AST ALT Alkaline Phosphatase Total Creatine Kinase Troponin I NT-Pro-B Natriuret Pep Total Protein Albumin Globulin Albumin/Globulin Ratio Triglycerides Cholesterol LDL Cholesterol Direct HDL Cholesterol Venous Blood Potassium Urine Color Yellow Urine Clarity Clear Urine pH 6.0 Ur Specific [place] 1.042 H Urine Protein Negative Urine Glucose (UA) Normal Urine Ketones Trace Urine Blood Negative Urine Nitrate Negative Urine Bilirubin Negative Urine Urobilinogen Normal Ur Leukocyte Esterase Neg Urine WBC (Auto) < 1 Urine RBC (Auto) 1 Ur Squamous Epith Cells < 1 Blood Type O NEGATIVE Antibody Screen Negative 08/30/18 08/30/18 08/30/18 14:00 14:50 15:17 WBC RBC Hgb Hct MCV MCH MCHC RDW Plt Count MPV Neut % (Auto) Lymph % (Auto) Sac % (Auto) Eos % (Auto) Baso % (Auto) Neut # (Auto) Lymph # (Auto) Sac # (Auto) Eos # (Auto) Baso # (Auto) Neutrophils % (Manual) Band Neutrophils % Lymphocytes % (Manual) Reactive Lymphs % Monocytes % (Manual) Platelet Estimate RBC Morphology PT INR APTT pO2 36 VBG pH 7.38 VBG pCO2 49 VBG HCO3 26.5 VBG Total CO2 30.5 H VBG O2 Sat (Calc) 76.0 H VBG Base Excess 3.0 H VBG Potassium 4.7 Glucose 65 Lactate 0.9 Sodium 141.0 Potassium Chloride 108.0 H Carbon Dioxide Anion Gap BUN Creatinine Est GFR ( Amer) Est GFR (Non-Af Amer) POC Glucose (mg/dL) 53 L 162 H Random Glucose Hemoglobin A1c Calcium Phosphorus Magnesium Total Bilirubin AST ALT Alkaline Phosphatase Total Creatine Kinase Troponin I NT-Pro-B Natriuret Pep Total Protein Albumin Globulin Albumin/Globulin Ratio Triglycerides Cholesterol LDL Cholesterol Direct HDL Cholesterol Venous Blood Potassium 4.7 Urine Color Urine Clarity Urine pH Ur Specific [place] Urine Protein Urine Glucose (UA) Urine Ketones Urine Blood Urine Nitrate Urine Bilirubin Urine Urobilinogen Ur Leukocyte Esterase Urine WBC (Auto) Urine RBC (Auto) Ur Squamous Epith Cells Blood Type Antibody Screen 08/30/18 16:58 WBC RBC Hgb Hct MCV MCH MCHC RDW Plt Count MPV Neut % (Auto) Lymph % (Auto) Sac % (Auto) Eos % (Auto) Baso % (Auto) Neut # (Auto) Lymph # (Auto) Sac # (Auto) Eos # (Auto) Baso # (Auto) Neutrophils % (Manual) Band Neutrophils % Lymphocytes % (Manual) Reactive Lymphs % Monocytes % (Manual) Platelet Estimate RBC Morphology PT INR APTT pO2 VBG pH VBG pCO2 VBG HCO3 VBG Total CO2 VBG O2 Sat (Calc) VBG Base Excess VBG Potassium Glucose Lactate Sodium Potassium Chloride Carbon Dioxide Anion Gap BUN Creatinine Est GFR ( Amer) Est GFR (Non-Af Amer) POC Glucose (mg/dL) 75 Random Glucose Hemoglobin A1c Calcium Phosphorus Magnesium Total Bilirubin AST ALT Alkaline Phosphatase Total Creatine Kinase Troponin I NT-Pro-B Natriuret Pep Total Protein Albumin Globulin Albumin/Globulin Ratio Triglycerides Cholesterol LDL Cholesterol Direct HDL Cholesterol Venous Blood Potassium Urine Color Urine Clarity Urine pH Ur Specific [place] Urine Protein Urine Glucose (UA) Urine Ketones Urine Blood Urine Nitrate Urine Bilirubin Urine Urobilinogen Ur Leukocyte Esterase Urine WBC (Auto) Urine RBC (Auto) Ur Squamous Epith Cells Blood Type Antibody Screen Attending/Attestation - Attestation I have personally seen and examined this patient.: Yes I have fully participated in the care of the patient.: Yes I have reviewed all pertinent clinical information: Yes Notes (Text): 08/30/18 18:55 Patient seen and examined 82-year-old female admitted to intensive care unit for hypoglycemia and change in mental status Hypoglycemia rule out secondary to oral hypoglycemic agents Patient started on D10, Accu-Chek every 2 hours Seen by neurology MRI of head IV antibiotics for possible sepsis Culture and sensitivity Continue ICU observation
[2018-08-30] MEDS ORDERED: Dextrose 50% SYRINGE Inj (50 ml) ONE (18:15)
[2018-08-30] MEDS ORDERED: Dextrose 50% SYRINGE Inj (50 ml) IV PRN (18:16)
[2018-08-30] MEDS ORDERED: Glucagon Recombinant 1 mg Inj IM PRN (18:16)
--- NOTE | 2018-08-30 18:49 | PCM.SEPTIC ---
Sepsis Progress Note - Reassessment Type Reassessment Type: Non-invasive reassessment - Non Invasive Reassessment Were the most recent vital sign reviewed: Yes Vital Sign (Latest): Temp Pulse Resp BP Pulse Ox 98.9 F 77 10 L 116/43 L 99 08/30/18 16:23 08/30/18 17:50 08/30/18 17:50 08/30/18 16:00 08/30/18 17:50 Cardiovascular: Yes: Regular Rate, Rhythm Respiratory: Yes: Normal Breath Sounds Capillary Refill: Normal (Less than 2 sec) Pulses: Normal Radial, Normal Dorsalis Pedis, Normal Posterior Tibialis Skin: Normal Color, Dry
[2018-08-30 20:04] LABS: FOLATE > 20.0 ng/mL
[2018-08-31 05:50] LABS: BASO % 0.6 % (0.0-2.0); EOS # 0.6 K/uL (0.0-0.7); EOS % 7.1 % (0.0-4.0); HEMOGLOBIN 12.6 g/dL (11.0-16.0); LYMPH # 1.7 K/uL (1.0-4.3); LYMPH % 20.2 % (20.0-40.0); MEAN CELL VOLUME 90.7 fL (81.0-99.0); MEAN CORPUSCULAR HEMOGLOBIN 29.7 pg (27.0-31.0); MEAN CORPUSCULAR HGB CONC 32.8 g/dL (33.0-37.0); MEAN PLATELET VOLUME 9.4 fL (7.2-11.7); MONO % 12.4 % (0.0-10.0); NEUT # 4.9 K/uL (1.8-7.0); NEUT % 59.7 % (50.0-75.0); RBC 4.25 Mil/uL (3.80-5.20); RED CELL DISTRIBUTION WIDTH 14.7 % (11.5-14.5); WHITE BLOOD COUNT 8.2 K/uL (4.8-10.8)
[2018-08-31 06:10] LABS: ALB/GLOB RATIO 1.1 (1.0-2.1); ALBUMIN 3.8 g/dL (3.5-5.0); ALT/SGPT 34 U/L (9-52); AST/SGOT 71 U/L (14-36); BLOOD UREA NITROGEN 27 mg/dL (7-17); CALCIUM 9.2 mg/dl (8.6-10.4); GFR NON-AFRICAN AMERICAN 53
--- NOTE | 2018-08-31 11:30 | CARD ---
APPROVED REPORT Date of service: 08/30/2018 EKG Measurement Heart [id number] <Conclusion> sinus tach Left axis deviation Nonspecific ST and T wave abnormality Abnormal ECG
--- NOTE | 2018-08-31 12:27 | PCM.EEG ---
Electroencephalogram Report - Electroencephalogram Report Procedure Date: 08/30/18 Medication: ASA, Ceftriaxone, Haldol Interpretation: Medications: None listed Technical Information: This was a 16-channel EEG, 1-channel EKG , performed using an [employer] machine., electrodes were applied according to the 10/20 international placement system, impedances were less than 5 K Ohm. Start; 13;03 End; 13;23 Total 19 min and 56 sec. Test was of overall poor technical quality. Clinical Information: Alter mental status EEG Detail: During resting wakefulness there was a poorly developed symmetric posterior dominant rhythm at 7 Hz, 30-50 uV, which was partially reactive to eye opening and closing. Drowsiness (13;15) was associated with fragmentation of the posterior dominant rhythm and with slow roving eye movements. Sleep was not seen. Hyperventilation was not performed. Photic stimulation was performed and there were no changes in the record. ECG was associated with a normal sinus rhythm. Impression: This is an abnormal EEG record that demonstrate the presence of a mild non specific diffuse disturbance of cortical activity, this is in keeping with a diffuse forbes matter dysfunction. These findings do not support a specific etiology. No seizures, no interictal activity.
--- NOTE | 2018-08-31 12:53 | CP.PCM.PN ---
Subjective - Date & Time of Evaluation Date of Evaluation: 08/31/18 Time of Evaluation: 12:51 - Subjective Subjective: PT AGITATED AND RESTLESS MRI PENDING Objective - Vital Signs/Intake and Output Vital Signs (last 24 hours): Temp Pulse Resp BP Pulse Ox 98.8 F 88 19 116/43 L 96 08/31/18 11:44 08/31/18 11:44 08/31/18 11:44 08/31/18 11:44 08/31/18 11:44 Intake and Output: 08/31/18 08/31/18 11:59 23:59 Intake Total 250 Balance 250 - Medications Medications: Current Medications Aspirin (Aspirin Supp) 300 mg ME DAILY [facility] Last Admin: 08/31/18 09:51 Dose: 300 mg Dextrose (Dextrose 50% Inj) 0 ml IV STAT PRN; Protocol PRN Reason: Hypoglycemia Protocol Dextrose (Glutose 15) 0 gm PO ONCE PRN; Protocol PRN Reason: Hypoglycemia Protocol Glucagon (Glucagen Diagnostic Kit) 0 mg IM STAT PRN; Protocol PRN Reason: Hypoglycemia Protocol Haloperidol Lactate (Haldol) 1 mg IVP ONCE PRN PRN Reason: Agitation Heparin Sodium (Porcine) (Heparin) 5,000 units SC Q12 LUIGI Last Admin: 08/31/18 09:51 Dose: 5,000 units Ceftriaxone Sodium 1 gm/ (Sodium Chloride) 100 mls @ 100 mls/hr IVPB Q12H LUIGI; Protocol Last Admin: 08/31/18 06:50 Dose: 100 mls/hr Dextrose (Dextrose 5% In Water 1000 Ml) 1,000 mls @ 0 mls/hr IV .Q0M PRN; Protocol PRN Reason: Hypoglycemia Protocol Pantoprazole Sodium (Protonix Inj) 40 mg IVP DAILY [facility] Last Admin: 08/31/18 09:51 Dose: 40 mg - Labs Labs: 08/31/18 05:41 08/31/18 05:41 PT 11.4 SECONDS (9.7-12.2) 08/30/18 10:00 INR 1.0 08/30/18 10:00 APTT 35.0 SECONDS (21-34) H 08/30/18 10:00 Assessment and Plan (1) Acute encephalopathy Status: Acute (2) Altered mental status Status: Acute (3) Diabetes mellitus Status: Acute
--- NOTE | 2018-08-31 13:17 | CP.CCUPN ---
<Rancho Arevalo - Last Filed: 08/31/18 13:11> CCU Subjective - Physician Review Subjective (Free Text): 08/31/18 13:18 PGY-1 ICU Progress Note for Dr. Capone Patient seen and evaluated at bedside. No acute events overnight. Hypoglycemia improved however patient remains altered and agitated. Patient to go for MRI, likely will require mild sedation in order to tolerate procedure. CCU Objective - Vital Signs / Intake & Output Vital Signs (Last 4 hours): Vital Signs Temp Pulse Resp BP Pulse Ox 08/31/18 11:44 98.8 F 88 19 116/43 L 96 08/31/18 11:09 90 20 116/43 L 08/31/18 11:00 89 25 H 08/31/18 10:30 90 13 Intake and Output (Last 8hrs): Intake & Output 08/30/18 08/31/18 08/31/18 22:59 06:59 14:59 Intake Total 500 325 Balance 500 325 Weight 86 lb 189 lb 9.561 oz Intake: Intake, IV Amount 500 325 Left Forearm 100 Right Antecubital 400 325 - Physical Exam Head: Positive for: Atraumatic, Normocephalic Pupils: Positive for: PERRL Mouth: Positive for: Moist Mucous Membranes Respiratory/Chest: Positive for: Clear to Auscultation. Negative for: Respiratory Distress Cardiovascular: Positive for: Regular Rate and Rhythm, Normal S1, S2 Abdomen: Negative for: Tenderness, Distention Neurological: Positive for: Other (Confused/altered) Skin: Positive for: Warm, Dry - Medications Active Medications: Active Medications Generic Name Dose Route Start Last Admin Trade Name Freq PRN Reason Stop Dose Admin Aspirin 300 mg 08/31/18 10:00 08/31/18 09:51 Aspirin Supp [place] 300 mg DAILY LUIGI Administration Dextrose 0 ml 08/30/18 18:16 Dextrose 50% Inj IV STAT PRN Hypoglycemia Protocol Protocol Dextrose 0 gm 08/30/18 18:16 Glutose 15 PO ONCE PRN Hypoglycemia Protocol Protocol Glucagon 0 mg 08/30/18 18:16 Glucagen Diagnostic Kit IM STAT PRN Hypoglycemia Protocol Protocol Haloperidol Lactate 1 mg 08/31/18 09:11 Haldol IVP ONCE PRN Agitation Heparin Sodium (Porcine) 5,000 units 08/30/18 22:00 08/31/18 09:51 Heparin SC 5,000 units Q12 LUIGI Administration Ceftriaxone Sodium 1 gm/ 100 mls @ 100 mls/hr 08/30/18 19:00 08/31/18 06:50 Sodium Chloride IVPB 100 mls/hr Q12H LUIGI Administration Protocol Dextrose 1,000 mls @ 0 mls/hr 08/30/18 18:16 Dextrose 5% In Water 1000 Ml IV .Q0M PRN Hypoglycemia Protocol Protocol Per Protocol Pantoprazole Sodium 40 mg 08/31/18 10:00 08/31/18 09:51 Protonix Inj IVP 40 mg DAILY LUIGI Administration - Patient Studies Lab Studies: Microbiology Studies 08/30/18 11:51 Urine Culture - Final Urine,Catheterized No Growth (<1,000 CFU/ML) 08/30/18 12:05 Blood Culture - Preliminary Blood NO GROWTH AFTER 24 HOURS 08/30/18 12:05 Blood Culture - Preliminary Blood NO GROWTH AFTER 24 HOURS Lab Studies 08/31/18 08/31/18 08/31/18 Range/Units 05:48 05:41 05:41 WBC 8.2 (4.8-10.8) K/uL RBC 4.25 (3.80-5.20) Mil/uL Hgb 12.6 (11.0-16.0) g/dL Hct 38.6 (34.0-47.0) % MCV 90.7 (81.0-99.0) fL MCH 29.7 (27.0-31.0) pg MCHC 32.8 L (33.0-37.0) g/dL RDW 14.7 H (11.5-14.5) % Plt Count 185 (130-400) K/uL MPV 9.4 (7.2-11.7) fL Neut % (Auto) 59.7 (50.0-75.0) % Lymph % (Auto) 20.2 (20.0-40.0) % [place] % (Auto) 12.4 H (0.0-10.0) % Eos % (Auto) 7.1 H (0.0-4.0) % Baso % (Auto) 0.6 (0.0-2.0) % Neut # (Auto) 4.9 (1.8-7.0) K/uL Lymph # (Auto) 1.7 (1.0-4.3) K/uL [place] # (Auto) 1.0 H (0.0-0.8) K/uL Eos # (Auto) 0.6 (0.0-0.7) K/uL Baso # (Auto) 0.0 (0.0-0.2) K/uL pO2 (30-55) mm/Hg VBG pH (7.32-7.43) VBG pCO2 (40-60) mmHg VBG HCO3 mmol/L VBG Total CO2 (22-28) mmol/L VBG O2 Sat (Calc) (40-65) % VBG Base Excess (0.0-2.0) mmol/L VBG Potassium (3.6-5.2) mmol/L Sodium 141 (132-148) mmol/l Chloride 105 (98-107) mmol/L Glucose (65-105) mg/dl Lactate (0.7-2.1) mmol/L Potassium 4.5 (3.6-5.2) mmol/L Carbon Dioxide 29 (22-30) mmol/L Anion Gap 12 (10-20) BUN 27 H (7-17) mg/dL Creatinine 1.0 (0.7-1.2) mg/dL Est GFR ( Amer) > 60 Est GFR (Non-Af Amer) 53 POC Glucose (mg/dL) 170 H (65-110) mg/dL Random Glucose 158 H (65-105) mg/dL Calcium 9.2 (8.6-10.4) mg/dl Phosphorus 2.9 (2.5-4.5) mg/dL Magnesium 2.1 (1.6-2.3) mg/dL Total Bilirubin 0.6 (0.2-1.3) mg/dL AST 71 H D (14-36) U/L ALT 34 (9-52) U/L Alkaline Phosphatase 61 (38-126) U/L Total Protein 7.2 (6.3-8.3) g/dL Albumin 3.8 (3.5-5.0) g/dL Globulin 3.4 (2.2-3.9) gm/dL Albumin/Globulin Ratio 1.1 (1.0-2.1) Vitamin B12 (239-931) pg/mL Folate ng/mL Venous Blood Potassium (3.6-5.2) mmol/L 08/31/18 08/31/18 08/30/18 Range/Units 03:59 02:10 23:49 WBC (4.8-10.8) K/uL RBC (3.80-5.20) Mil/uL Hgb (11.0-16.0) g/dL Hct (34.0-47.0) % MCV (81.0-99.0) fL MCH (27.0-31.0) pg MCHC (33.0-37.0) g/dL RDW (11.5-14.5) % Plt Count (130-400) K/uL MPV (7.2-11.7) fL Neut % (Auto) (50.0-75.0) % Lymph % (Auto) (20.0-40.0) % [place] % (Auto) (0.0-10.0) % Eos % (Auto) (0.0-4.0) % Baso % (Auto) (0.0-2.0) % Neut # (Auto) (1.8-7.0) K/uL Lymph # (Auto) (1.0-4.3) K/uL [place] # (Auto) (0.0-0.8) K/uL Eos # (Auto) (0.0-0.7) K/uL Baso # (Auto) (0.0-0.2) K/uL pO2 (30-55) mm/Hg VBG pH (7.32-7.43) VBG pCO2 (40-60) mmHg VBG HCO3 mmol/L VBG Total CO2 (22-28) mmol/L VBG O2 Sat (Calc) (40-65) % VBG Base Excess (0.0-2.0) mmol/L VBG Potassium (3.6-5.2) mmol/L Sodium (132-148) mmol/l Chloride (98-107) mmol/L Glucose (65-105) mg/dl Lactate (0.7-2.1) mmol/L Potassium (3.6-5.2) mmol/L Carbon Dioxide (22-30) mmol/L Anion Gap (10-20) BUN (7-17) mg/dL Creatinine (0.7-1.2) mg/dL Est GFR ( Amer) Est GFR (Non-Af Amer) POC Glucose (mg/dL) 194 H 195 H 161 H (65-110) mg/dL Random Glucose (65-105) mg/dL Calcium (8.6-10.4) mg/dl Phosphorus (2.5-4.5) mg/dL Magnesium (1.6-2.3) mg/dL Total Bilirubin (0.2-1.3) mg/dL AST (14-36) U/L ALT (9-52) U/L Alkaline Phosphatase (38-126) U/L Total Protein (6.3-8.3) g/dL Albumin (3.5-5.0) g/dL Globulin (2.2-3.9) gm/dL Albumin/Globulin Ratio (1.0-2.1) Vitamin B12 (239-931) pg/mL Folate ng/mL Venous Blood Potassium (3.6-5.2) mmol/L 08/30/18 08/30/18 08/30/18 Range/Units 21:50 19:31 18:47 WBC (4.8-10.8) K/uL RBC (3.80-5.20) Mil/uL Hgb (11.0-16.0) g/dL Hct (34.0-47.0) % MCV (81.0-99.0) fL MCH (27.0-31.0) pg MCHC (33.0-37.0) g/dL RDW (11.5-14.5) % Plt Count (130-400) K/uL MPV (7.2-11.7) fL Neut % (Auto) (50.0-75.0) % Lymph % (Auto) (20.0-40.0) % [place] % (Auto) (0.0-10.0) % Eos % (Auto) (0.0-4.0) % Baso % (Auto) (0.0-2.0) % Neut # (Auto) (1.8-7.0) K/uL Lymph # (Auto) (1.0-4.3) K/uL [place] # (Auto) (0.0-0.8) K/uL Eos # (Auto) (0.0-0.7) K/uL Baso # (Auto) (0.0-0.2) K/uL pO2 (30-55) mm/Hg VBG pH (7.32-7.43) VBG pCO2 (40-60) mmHg VBG HCO3 mmol/L VBG Total CO2 (22-28) mmol/L VBG O2 Sat (Calc) (40-65) % VBG Base Excess (0.0-2.0) mmol/L VBG Potassium (3.6-5.2) mmol/L Sodium (132-148) mmol/l Chloride (98-107) mmol/L Glucose (65-105) mg/dl Lactate (0.7-2.1) mmol/L Potassium (3.6-5.2) mmol/L Carbon Dioxide (22-30) mmol/L Anion Gap (10-20) BUN (7-17) mg/dL Creatinine (0.7-1.2) mg/dL Est GFR ( Amer) Est GFR (Non-Af Amer) POC Glucose (mg/dL) 164 H 159 H (65-110) mg/dL Random Glucose (65-105) mg/dL Calcium (8.6-10.4) mg/dl Phosphorus (2.5-4.5) mg/dL Magnesium (1.6-2.3) mg/dL Total Bilirubin (0.2-1.3) mg/dL AST (14-36) U/L ALT (9-52) U/L Alkaline Phosphatase (38-126) U/L Total Protein (6.3-8.3) g/dL Albumin (3.5-5.0) g/dL Globulin (2.2-3.9) gm/dL Albumin/Globulin Ratio (1.0-2.1) Vitamin B12 324 (239-931) pg/mL Folate > 20.0 ng/mL Venous Blood Potassium (3.6-5.2) mmol/L 08/30/18 08/30/18 08/30/18 Range/Units 18:34 18:05 18:02 WBC (4.8-10.8) K/uL RBC (3.80-5.20) Mil/uL Hgb (11.0-16.0) g/dL Hct (34.0-47.0) % MCV (81.0-99.0) fL MCH (27.0-31.0) pg MCHC (33.0-37.0) g/dL RDW (11.5-14.5) % Plt Count (130-400) K/uL MPV (7.2-11.7) fL Neut % (Auto) (50.0-75.0) % Lymph % (Auto) (20.0-40.0) % [place] % (Auto) (0.0-10.0) % Eos % (Auto) (0.0-4.0) % Baso % (Auto) (0.0-2.0) % Neut # (Auto) (1.8-7.0) K/uL Lymph # (Auto) (1.0-4.3) K/uL [place] # (Auto) (0.0-0.8) K/uL Eos # (Auto) (0.0-0.7) K/uL Baso # (Auto) (0.0-0.2) K/uL pO2 (30-55) mm/Hg VBG pH (7.32-7.43) VBG pCO2 (40-60) mmHg VBG HCO3 mmol/L VBG Total CO2 (22-28) mmol/L VBG O2 Sat (Calc) (40-65) % VBG Base Excess (0.0-2.0) mmol/L VBG Potassium (3.6-5.2) mmol/L Sodium (132-148) mmol/l Chloride (98-107) mmol/L Glucose (65-105) mg/dl Lactate (0.7-2.1) mmol/L Potassium (3.6-5.2) mmol/L Carbon Dioxide (22-30) mmol/L Anion Gap (10-20) BUN (7-17) mg/dL Creatinine (0.7-1.2) mg/dL Est GFR ( Amer) Est GFR (Non-Af Amer) POC Glucose (mg/dL) 170 H 51 L 49 L (65-110) mg/dL Random Glucose (65-105) mg/dL Calcium (8.6-10.4) mg/dl Phosphorus (2.5-4.5) mg/dL Magnesium (1.6-2.3) mg/dL Total Bilirubin (0.2-1.3) mg/dL AST (14-36) U/L ALT (9-52) U/L Alkaline Phosphatase (38-126) U/L Total Protein (6.3-8.3) g/dL Albumin (3.5-5.0) g/dL Globulin (2.2-3.9) gm/dL Albumin/Globulin Ratio (1.0-2.1) Vitamin B12 (239-931) pg/mL Folate ng/mL Venous Blood Potassium (3.6-5.2) mmol/L 08/30/18 08/30/18 08/30/18 Range/Units 16:58 15:17 14:50 WBC (4.8-10.8) K/uL RBC (3.80-5.20) Mil/uL Hgb (11.0-16.0) g/dL Hct (34.0-47.0) % MCV (81.0-99.0) fL MCH (27.0-31.0) pg MCHC (33.0-37.0) g/dL RDW (11.5-14.5) % Plt Count (130-400) K/uL MPV (7.2-11.7) fL Neut % (Auto) (50.0-75.0) % Lymph % (Auto) (20.0-40.0) % [place] % (Auto) (0.0-10.0) % Eos % (Auto) (0.0-4.0) % Baso % (Auto) (0.0-2.0) % Neut # (Auto) (1.8-7.0) K/uL Lymph # (Auto) (1.0-4.3) K/uL [place] # (Auto) (0.0-0.8) K/uL Eos # (Auto) (0.0-0.7) K/uL Baso # (Auto) (0.0-0.2) K/uL pO2 (30-55) mm/Hg VBG pH (7.32-7.43) VBG pCO2 (40-60) mmHg VBG HCO3 mmol/L VBG Total CO2 (22-28) mmol/L VBG O2 Sat (Calc) (40-65) % VBG Base Excess (0.0-2.0) mmol/L VBG Potassium (3.6-5.2) mmol/L Sodium (132-148) mmol/l Chloride (98-107) mmol/L Glucose (65-105) mg/dl Lactate (0.7-2.1) mmol/L Potassium (3.6-5.2) mmol/L Carbon Dioxide (22-30) mmol/L Anion Gap (10-20) BUN (7-17) mg/dL Creatinine (0.7-1.2) mg/dL Est GFR ( Amer) Est GFR (Non-Af Amer) POC Glucose (mg/dL) 75 162 H 53 L (65-110) mg/dL Random Glucose (65-105) mg/dL Calcium (8.6-10.4) mg/dl Phosphorus (2.5-4.5) mg/dL Magnesium (1.6-2.3) mg/dL Total Bilirubin (0.2-1.3) mg/dL AST (14-36) U/L ALT (9-52) U/L Alkaline Phosphatase (38-126) U/L Total Protein (6.3-8.3) g/dL Albumin (3.5-5.0) g/dL Globulin (2.2-3.9) gm/dL Albumin/Globulin Ratio (1.0-2.1) Vitamin B12 (239-931) pg/mL Folate ng/mL Venous Blood Potassium (3.6-5.2) mmol/L 08/30/18 08/30/18 Range/Units 14:00 10:42 WBC (4.8-10.8) K/uL RBC (3.80-5.20) Mil/uL Hgb (11.0-16.0) g/dL Hct (34.0-47.0) % MCV (81.0-99.0) fL MCH (27.0-31.0) pg MCHC (33.0-37.0) g/dL RDW (11.5-14.5) % Plt Count (130-400) K/uL MPV (7.2-11.7) fL Neut % (Auto) (50.0-75.0) % Lymph % (Auto) (20.0-40.0) % [place] % (Auto) (0.0-10.0) % Eos % (Auto) (0.0-4.0) % Baso % (Auto) (0.0-2.0) % Neut # (Auto) (1.8-7.0) K/uL Lymph # (Auto) (1.0-4.3) K/uL [place] # (Auto) (0.0-0.8) K/uL Eos # (Auto) (0.0-0.7) K/uL Baso # (Auto) (0.0-0.2) K/uL pO2 36 (30-55) mm/Hg VBG pH 7.38 (7.32-7.43) VBG pCO2 49 (40-60) mmHg VBG HCO3 26.5 mmol/L VBG Total CO2 30.5 H (22-28) mmol/L VBG O2 Sat (Calc) 76.0 H (40-65) % VBG Base Excess 3.0 H (0.0-2.0) mmol/L VBG Potassium 4.7 (3.6-5.2) mmol/L Sodium 141.0 (132-148) mmol/l Chloride 108.0 H (98-107) mmol/L Glucose 65 (65-105) mg/dl Lactate 0.9 (0.7-2.1) mmol/L Potassium (3.6-5.2) mmol/L Carbon Dioxide (22-30) mmol/L Anion Gap (10-20) BUN (7-17) mg/dL Creatinine (0.7-1.2) mg/dL Est GFR ( Amer) Est GFR (Non-Af Amer) POC Glucose (mg/dL) 218 H (65-110) mg/dL Random Glucose (65-105) mg/dL Calcium (8.6-10.4) mg/dl Phosphorus (2.5-4.5) mg/dL Magnesium (1.6-2.3) mg/dL Total Bilirubin (0.2-1.3) mg/dL AST (14-36) U/L ALT (9-52) U/L Alkaline Phosphatase (38-126) U/L Total Protein (6.3-8.3) g/dL Albumin (3.5-5.0) g/dL Globulin (2.2-3.9) gm/dL Albumin/Globulin Ratio (1.0-2.1) Vitamin B12 (239-931) pg/mL Folate ng/mL Venous Blood Potassium 4.7 (3.6-5.2) mmol/L Laboratory Results - last 24 hr 08/30/18 08/30/18 08/30/18 10:42 14:00 14:50 WBC RBC Hgb Hct MCV MCH MCHC RDW Plt Count MPV Neut % (Auto) Lymph % (Auto) [place] % (Auto) Eos % (Auto) Baso % (Auto) Neut # (Auto) Lymph # (Auto) [place] # (Auto) Eos # (Auto) Baso # (Auto) pO2 36 VBG pH 7.38 VBG pCO2 49 VBG HCO3 26.5 VBG Total CO2 30.5 H VBG O2 Sat (Calc) 76.0 H VBG Base Excess 3.0 H VBG Potassium 4.7 Sodium 141.0 Chloride 108.0 H Glucose 65 Lactate 0.9 Potassium Carbon Dioxide Anion Gap BUN Creatinine Est GFR ( Amer) Est GFR (Non-Af Amer) POC Glucose (mg/dL) 218 H 53 L Random Glucose Calcium Phosphorus Magnesium Total Bilirubin AST ALT Alkaline Phosphatase Total Protein Albumin Globulin Albumin/Globulin Ratio Vitamin B12 Folate Venous Blood Potassium 4.7 08/30/18 08/30/18 08/30/18 15:17 16:58 18:02 WBC RBC Hgb Hct MCV MCH MCHC RDW Plt Count MPV Neut % (Auto) Lymph % (Auto) [place] % (Auto) Eos % (Auto) Baso % (Auto) Neut # (Auto) Lymph # (Auto) [place] # (Auto) Eos # (Auto) Baso # (Auto) pO2 VBG pH VBG pCO2 VBG HCO3 VBG Total CO2 VBG O2 Sat (Calc) VBG Base Excess VBG Potassium Sodium Chloride Glucose Lactate Potassium Carbon Dioxide Anion Gap BUN Creatinine Est GFR ( Amer) Est GFR (Non-Af Amer) POC Glucose (mg/dL) 162 H 75 49 L Random Glucose Calcium Phosphorus Magnesium Total Bilirubin AST ALT Alkaline Phosphatase Total Protein Albumin Globulin Albumin/Globulin Ratio Vitamin B12 Folate Venous Blood Potassium 08/30/18 08/30/18 08/30/18 18:05 18:34 18:47 WBC RBC Hgb Hct MCV MCH MCHC RDW Plt Count MPV Neut % (Auto) Lymph % (Auto) [place] % (Auto) Eos % (Auto) Baso % (Auto) Neut # (Auto) Lymph # (Auto) [place] # (Auto) Eos # (Auto) Baso # (Auto) pO2 VBG pH VBG pCO2 VBG HCO3 VBG Total CO2 VBG O2 Sat (Calc) VBG Base Excess VBG Potassium Sodium Chloride Glucose Lactate Potassium Carbon Dioxide Anion Gap BUN Creatinine Est GFR ( Amer) Est GFR (Non-Af Amer) POC Glucose (mg/dL) 51 L 170 H Random Glucose Calcium Phosphorus Magnesium Total Bilirubin AST ALT Alkaline Phosphatase Total Protein Albumin Globulin Albumin/Globulin Ratio Vitamin B12 324 Folate > 20.0 Venous Blood Potassium 08/30/18 08/30/18 08/30/18 19:31 21:50 23:49 WBC RBC Hgb Hct MCV MCH MCHC RDW Plt Count MPV Neut % (Auto) Lymph % (Auto) [place] % (Auto) Eos % (Auto) Baso % (Auto) Neut # (Auto) Lymph # (Auto) [place] # (Auto) Eos # (Auto) Baso # (Auto) pO2 VBG pH VBG pCO2 VBG HCO3 VBG Total CO2 VBG O2 Sat (Calc) VBG Base Excess VBG Potassium Sodium Chloride Glucose Lactate Potassium Carbon Dioxide Anion Gap BUN Creatinine Est GFR ( Amer) Est GFR (Non-Af Amer) POC Glucose (mg/dL) 159 H 164 H 161 H Random Glucose Calcium Phosphorus Magnesium Total Bilirubin AST ALT Alkaline Phosphatase Total Protein Albumin Globulin Albumin/Globulin Ratio Vitamin B12 Folate Venous Blood Potassium 08/31/18 08/31/18 08/31/18 02:10 03:59 05:41 WBC 8.2 RBC 4.25 Hgb 12.6 Hct 38.6 MCV 90.7 MCH 29.7 MCHC 32.8 L RDW 14.7 H Plt Count 185 MPV 9.4 Neut % (Auto) 59.7 Lymph % (Auto) 20.2 [place] % (Auto) 12.4 H Eos % (Auto) 7.1 H Baso % (Auto) 0.6 Neut # (Auto) 4.9 Lymph # (Auto) 1.7 [place] # (Auto) 1.0 H Eos # (Auto) 0.6 Baso # (Auto) 0.0 pO2 VBG pH VBG pCO2 VBG HCO3 VBG Total CO2 VBG O2 Sat (Calc) VBG Base Excess VBG Potassium Sodium Chloride Glucose Lactate Potassium Carbon Dioxide Anion Gap BUN Creatinine Est GFR ( Amer) Est GFR (Non-Af Amer) POC Glucose (mg/dL) 195 H 194 H Random Glucose Calcium Phosphorus Magnesium Total Bilirubin AST ALT Alkaline Phosphatase Total Protein Albumin Globulin Albumin/Globulin Ratio Vitamin B12 Folate Venous Blood Potassium 08/31/18 08/31/18 05:41 05:48 WBC RBC Hgb Hct MCV MCH MCHC RDW Plt Count MPV Neut % (Auto) Lymph % (Auto) [place] % (Auto) Eos % (Auto) Baso % (Auto) Neut # (Auto) Lymph # (Auto) [place] # (Auto) Eos # (Auto) Baso # (Auto) pO2 VBG pH VBG pCO2 VBG HCO3 VBG Total CO2 VBG O2 Sat (Calc) VBG Base Excess VBG Potassium Sodium 141 Chloride 105 Glucose Lactate Potassium 4.5 Carbon Dioxide 29 Anion Gap 12 BUN 27 H Creatinine 1.0 Est GFR ( Amer) > 60 Est GFR (Non-Af Amer) 53 POC Glucose (mg/dL) 170 H Random Glucose 158 H Calcium 9.2 Phosphorus 2.9 Magnesium 2.1 Total Bilirubin 0.6 AST 71 H D ALT 34 Alkaline Phosphatase 61 Total Protein 7.2 Albumin 3.8 Globulin 3.4 Albumin/Globulin Ratio 1.1 Vitamin B12 Folate Venous Blood Potassium Radiology Impressions: Radiology Impressions Chest X-Ray 08/30/18 09:45 IMPRESSION: Mild cardiomegaly and mild-moderate pulmonary venous congestion. Old healed left lateral rib fracture deformities. Contiguous extensive left lateral pleural thickening suspect. Additional bilateral superolateral pleural thickening Fingerstick Blood Sugar Results: 173 Review of Systems - Review of Systems Systems not reviewed;Unavailable: Altered Mental Status Assessment/Plan - Assessment and Plan (Free Text) Assessment: 82 y/o F with PMHx asthma, DM who presents with AMS and persistent hypoglycemia Neuro -Neuro consulted, Dr. 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 No seizure activity. --MRI brain w/o contrast - f/u --echo - f/u --ASA 300 pr --Fluids @ 100 --Permissive HTN --HB A1c, lipid panel, b12, folate, vit D ----A1C 7.1 ----Lipid panel, b12, folate WNL -Ativan 2mg Q6 prn for agitation -Q2 neurochecks -CTA H/N 08/30 - No evidence of thrombus or significant stenosis. Patent carotids and vertebral Aa. -CT head w/o 08/30 - Nonspecific white matter changes, diffuse atrophy, subdural calcifications suspect post-infectious. Endo Hypoglycemia -Accuchecks Q8 -D10 NS @ 100 -D50 prn -A1C 7.1 Pulm -Maintain spO2>92% -Breathing comfortably on room air PPx -Heparin 5000 U SC Q12 -Protonix 40 mg IV daily Assessment and plan d/w Dr. Liborio Arevalo, PGY-1 <Goran Capone S - Last Filed: 08/31/18 16:04> CCU Subjective - Physician Review Critical Care Time Spent (in minutes): 35 CCU Objective - Vital Signs / Intake & Output Intake and Output (Last 8hrs): Intake & Output 08/31/18 08/31/18 08/31/18 06:59 14:59 22:59 Intake Total 325 Balance 325 Weight 189 lb 9.561 oz Intake: Intake, IV Amount 325 Right Antecubital 325 - Medications Active Medications: Active Medications Generic Name Dose Route Start Last Admin Trade Name Freq PRN Reason Stop Dose Admin Aspirin 300 mg 08/31/18 10:00 08/31/18 09:51 Aspirin Supp [place] 300 mg DAILY LUIGI Administration Dextrose 0 ml 08/30/18 18:16 Dextrose 50% Inj IV STAT PRN Hypoglycemia Protocol Protocol Dextrose 0 gm 08/30/18 18:16 Glutose 15 PO ONCE PRN Hypoglycemia Protocol Protocol Glucagon 0 mg 08/30/18 18:16 Glucagen Diagnostic Kit IM STAT PRN Hypoglycemia Protocol Protocol Haloperidol Lactate 1 mg 08/31/18 09:11 Haldol IVP ONCE PRN Agitation Heparin Sodium (Porcine) 5,000 units 08/30/18 22:00 08/31/18 09:51 Heparin SC 5,000 units Q12 LUIGI Administration Ceftriaxone Sodium 1 gm/ 100 mls @ 100 mls/hr 08/30/18 19:00 08/31/18 06:50 Sodium Chloride IVPB 100 mls/hr Q12H LUIGI Administration Protocol Dextrose 1,000 mls @ 0 mls/hr 08/30/18 18:16 Dextrose 5% In Water 1000 Ml IV .Q0M PRN Hypoglycemia Protocol Protocol Per Protocol Dextrose/Sodium Chloride 1,000 mls @ 100 mls/hr 08/31/18 16:00 Dextrose 5%/0.45% Ns 1000 Ml IV .Q10H LUIGI Pantoprazole Sodium 40 mg 08/31/18 10:00 08/31/18 09:51 Protonix Inj IVP 40 mg DAILY LUIGI Administration - Patient Studies Lab Studies: Microbiology Studies 08/30/18 11:51 Urine Culture - Final Urine,Catheterized No Growth (<1,000 CFU/ML) 08/30/18 12:05 Blood Culture - Preliminary Blood NO GROWTH AFTER 24 HOURS 08/30/18 12:05 Blood Culture - Preliminary Blood NO GROWTH AFTER 24 HOURS Lab Studies 08/31/18 08/31/18 08/31/18 Range/Units 05:48 05:41 05:41 WBC 8.2 (4.8-10.8) K/uL RBC 4.25 (3.80-5.20) Mil/uL Hgb 12.6 (11.0-16.0) g/dL Hct 38.6 (34.0-47.0) % MCV 90.7 (81.0-99.0) fL MCH 29.7 (27.0-31.0) pg MCHC 32.8 L (33.0-37.0) g/dL RDW 14.7 H (11.5-14.5) % Plt Count 185 (130-400) K/uL MPV 9.4 (7.2-11.7) fL Neut % (Auto) 59.7 (50.0-75.0) % Lymph % (Auto) 20.2 (20.0-40.0) % [place] % (Auto) 12.4 H (0.0-10.0) % Eos % (Auto) 7.1 H (0.0-4.0) % Baso % (Auto) 0.6 (0.0-2.0) % Neut # (Auto) 4.9 (1.8-7.0) K/uL Lymph # (Auto) 1.7 (1.0-4.3) K/uL [place] # (Auto) 1.0 H (0.0-0.8) K/uL Eos # (Auto) 0.6 (0.0-0.7) K/uL Baso # (Auto) 0.0 (0.0-0.2) K/uL Sodium 141 (132-148) mmol/L Potassium 4.5 (3.6-5.2) mmol/L Chloride 105 (98-107) mmol/L Carbon Dioxide 29 (22-30) mmol/L Anion Gap 12 (10-20) BUN 27 H (7-17) mg/dL Creatinine 1.0 (0.7-1.2) mg/dL Est GFR ( Amer) > 60 Est GFR (Non-Af Amer) 53 POC Glucose (mg/dL) 170 H (65-110) mg/dL Random Glucose 158 H (65-105) mg/dL Calcium 9.2 (8.6-10.4) mg/dl Phosphorus 2.9 (2.5-4.5) mg/dL Magnesium 2.1 (1.6-2.3) mg/dL Total Bilirubin 0.6 (0.2-1.3) mg/dL AST 71 H D (14-36) U/L ALT 34 (9-52) U/L Alkaline Phosphatase 61 (38-126) U/L Total Protein 7.2 (6.3-8.3) g/dL Albumin 3.8 (3.5-5.0) g/dL Globulin 3.4 (2.2-3.9) gm/dL Albumin/Globulin Ratio 1.1 (1.0-2.1) Vitamin B12 (239-931) pg/mL Folate ng/mL 08/31/18 08/31/18 08/30/18 Range/Units 03:59 02:10 23:49 WBC (4.8-10.8) K/uL RBC (3.80-5.20) Mil/uL Hgb (11.0-16.0) g/dL Hct (34.0-47.0) % MCV (81.0-99.0) fL MCH (27.0-31.0) pg MCHC (33.0-37.0) g/dL RDW (11.5-14.5) % Plt Count (130-400) K/uL MPV (7.2-11.7) fL Neut % (Auto) (50.0-75.0) % Lymph % (Auto) (20.0-40.0) % [place] % (Auto) (0.0-10.0) % Eos % (Auto) (0.0-4.0) % Baso % (Auto) (0.0-2.0) % Neut # (Auto) (1.8-7.0) K/uL Lymph # (Auto) (1.0-4.3) K/uL [place] # (Auto) (0.0-0.8) K/uL Eos # (Auto) (0.0-0.7) K/uL Baso # (Auto) (0.0-0.2) K/uL Sodium (132-148) mmol/L Potassium (3.6-5.2) mmol/L Chloride (98-107) mmol/L Carbon Dioxide (22-30) mmol/L Anion Gap (10-20) BUN (7-17) mg/dL Creatinine (0.7-1.2) mg/dL Est GFR ( Amer) Est GFR (Non-Af Amer) POC Glucose (mg/dL) 194 H 195 H 161 H (65-110) mg/dL Random Glucose (65-105) mg/dL Calcium (8.6-10.4) mg/dl Phosphorus (2.5-4.5) mg/dL Magnesium (1.6-2.3) mg/dL Total Bilirubin (0.2-1.3) mg/dL AST (14-36) U/L ALT (9-52) U/L Alkaline Phosphatase (38-126) U/L Total Protein (6.3-8.3) g/dL Albumin (3.5-5.0) g/dL Globulin (2.2-3.9) gm/dL Albumin/Globulin Ratio (1.0-2.1) Vitamin B12 (239-931) pg/mL Folate ng/mL 08/30/18 08/30/18 08/30/18 Range/Units 21:50 19:31 18:47 WBC (4.8-10.8) K/uL RBC (3.80-5.20) Mil/uL Hgb (11.0-16.0) g/dL Hct (34.0-47.0) % MCV (81.0-99.0) fL MCH (27.0-31.0) pg MCHC (33.0-37.0) g/dL RDW (11.5-14.5) % Plt Count (130-400) K/uL MPV (7.2-11.7) fL Neut % (Auto) (50.0-75.0) % Lymph % (Auto) (20.0-40.0) % [place] % (Auto) (0.0-10.0) % Eos % (Auto) (0.0-4.0) % Baso % (Auto) (0.0-2.0) % Neut # (Auto) (1.8-7.0) K/uL Lymph # (Auto) (1.0-4.3) K/uL [place] # (Auto) (0.0-0.8) K/uL Eos # (Auto) (0.0-0.7) K/uL Baso # (Auto) (0.0-0.2) K/uL Sodium (132-148) mmol/L Potassium (3.6-5.2) mmol/L Chloride (98-107) mmol/L Carbon Dioxide (22-30) mmol/L Anion Gap (10-20) BUN (7-17) mg/dL Creatinine (0.7-1.2) mg/dL Est GFR ( Amer) Est GFR (Non-Af Amer) POC Glucose (mg/dL) 164 H 159 H (65-110) mg/dL Random Glucose (65-105) mg/dL Calcium (8.6-10.4) mg/dl Phosphorus (2.5-4.5) mg/dL Magnesium (1.6-2.3) mg/dL Total Bilirubin (0.2-1.3) mg/dL AST (14-36) U/L ALT (9-52) U/L Alkaline Phosphatase (38-126) U/L Total Protein (6.3-8.3) g/dL Albumin (3.5-5.0) g/dL Globulin (2.2-3.9) gm/dL Albumin/Globulin Ratio (1.0-2.1) Vitamin B12 324 (239-931) pg/mL Folate > 20.0 ng/mL 04/30/19 04/30/19 04/30/19 Range/Units 18:34 18:05 18:02 WBC (4.8-10.8) K/uL RBC (3.80-5.20) Mil/uL Hgb (11.0-16.0) g/dL Hct (34.0-47.0) % MCV (81.0-99.0) fL MCH (27.0-31.0) pg MCHC (33.0-37.0) g/dL RDW (11.5-14.5) % Plt Count (130-400) K/uL MPV (7.2-11.7) fL Neut % (Auto) (50.0-75.0) % Lymph % (Auto) (20.0-40.0) % [place] % (Auto) (0.0-10.0) % Eos % (Auto) (0.0-4.0) % Baso % (Auto) (0.0-2.0) % Neut # (Auto) (1.8-7.0) K/uL Lymph # (Auto) (1.0-4.3) K/uL [place] # (Auto) (0.0-0.8) K/uL Eos # (Auto) (0.0-0.7) K/uL Baso # (Auto) (0.0-0.2) K/uL Sodium (132-148) mmol/L Potassium (3.6-5.2) mmol/L Chloride (98-107) mmol/L Carbon Dioxide (22-30) mmol/L Anion Gap (10-20) BUN (7-17) mg/dL Creatinine (0.7-1.2) mg/dL Est GFR ( Amer) Est GFR (Non-Af Amer) POC Glucose (mg/dL) 170 H 51 L 49 L (65-110) mg/dL Random Glucose (65-105) mg/dL Calcium (8.6-10.4) mg/dl Phosphorus (2.5-4.5) mg/dL Magnesium (1.6-2.3) mg/dL Total Bilirubin (0.2-1.3) mg/dL AST (14-36) U/L ALT (9-52) U/L Alkaline Phosphatase (38-126) U/L Total Protein (6.3-8.3) g/dL Albumin (3.5-5.0) g/dL Globulin (2.2-3.9) gm/dL Albumin/Globulin Ratio (1.0-2.1) Vitamin B12 (239-931) pg/mL Folate ng/mL 08/30/18 Range/Units 16:58 WBC (4.8-10.8) K/uL RBC (3.80-5.20) Mil/uL Hgb (11.0-16.0) g/dL Hct (34.0-47.0) % MCV (81.0-99.0) fL MCH (27.0-31.0) pg MCHC (33.0-37.0) g/dL RDW (11.5-14.5) % Plt Count (130-400) K/uL MPV (7.2-11.7) fL Neut % (Auto) (50.0-75.0) % Lymph % (Auto) (20.0-40.0) % King[place]isher % (Auto) (0.0-10.0) % Eos % (Auto) (0.0-4.0) % Baso % (Auto) (0.0-2.0) % Neut # (Auto) (1.8-7.0) K/uL Lymph # (Auto) (1.0-4.3) K/uL [place]isher # (Auto) (0.0-0.8) K/uL Eos # (Auto) (0.0-0.7) K/uL Baso # (Auto) (0.0-0.2) K/uL Sodium (132-148) mmol/L Potassium (3.6-5.2) mmol/L Chloride (98-107) mmol/L Carbon Dioxide (22-30) mmol/L Anion Gap (10-20) BUN (7-17) mg/dL Creatinine (0.7-1.2) mg/dL Est GFR ( Amer) Est GFR (Non-Af Amer) POC Glucose (mg/dL) 75 (65-110) mg/dL Random Glucose (65-105) mg/dL Calcium (8.6-10.4) mg/dl Phosphorus (2.5-4.5) mg/dL Magnesium (1.6-2.3) mg/dL Total Bilirubin (0.2-1.3) mg/dL AST (14-36) U/L ALT (9-52) U/L Alkaline Phosphatase (38-126) U/L Total Protein (6.3-8.3) g/dL Albumin (3.5-5.0) g/dL Globulin (2.2-3.9) gm/dL Albumin/Globulin Ratio (1.0-2.1) Vitamin B12 (239-931) pg/mL Folate ng/mL Laboratory Results - last 24 hr 08/30/18 08/30/18 08/30/18 16:58 18:02 18:05 WBC RBC Hgb Hct MCV MCH MCHC RDW Plt Count MPV Neut % (Auto) Lymph % (Auto) King[place]isher % (Auto) Eos % (Auto) Baso % (Auto) Neut # (Auto) Lymph # (Auto) [place] # (Auto) Eos # (Auto) Baso # (Auto) Sodium Potassium Chloride Carbon Dioxide Anion Gap BUN Creatinine Est GFR ( Amer) Est GFR (Non-Af Amer) POC Glucose (mg/dL) 75 49 L 51 L Random Glucose Calcium Phosphorus Magnesium Total Bilirubin AST ALT Alkaline Phosphatase Total Protein Albumin Globulin Albumin/Globulin Ratio Vitamin B12 Folate 08/30/18 08/30/18 08/30/18 18:34 18:47 19:31 WBC RBC Hgb Hct MCV MCH MCHC RDW Plt Count MPV Neut % (Auto) Lymph % (Auto) [place] % (Auto) Eos % (Auto) Baso % (Auto) Neut # (Auto) Lymph # (Auto) [place] # (Auto) Eos # (Auto) Baso # (Auto) Sodium Potassium Chloride Carbon Dioxide Anion Gap BUN Creatinine Est GFR ( Amer) Est GFR (Non-Af Amer) POC Glucose (mg/dL) 170 H 159 H Random Glucose Calcium Phosphorus Magnesium Total Bilirubin AST ALT Alkaline Phosphatase Total Protein Albumin Globulin Albumin/Globulin Ratio Vitamin B12 324 Folate > 20.0 08/30/18 08/30/18 08/31/18 21:50 23:49 02:10 WBC RBC Hgb Hct MCV MCH MCHC RDW Plt Count MPV Neut % (Auto) Lymph % (Auto) [place] % (Auto) Eos % (Auto) Baso % (Auto) Neut # (Auto) Lymph # (Auto) [place] # (Auto) Eos # (Auto) Baso # (Auto) Sodium Potassium Chloride Carbon Dioxide Anion Gap BUN Creatinine Est GFR ( Amer) Est GFR (Non-Af Amer) POC Glucose (mg/dL) 164 H 161 H 195 H Random Glucose Calcium Phosphorus Magnesium Total Bilirubin AST ALT Alkaline Phosphatase Total Protein Albumin Globulin Albumin/Globulin Ratio Vitamin B12 Folate 08/31/18 08/31/18 08/31/18 03:59 05:41 05:41 WBC 8.2 RBC 4.25 Hgb 12.6 Hct 38.6 MCV 90.7 MCH 29.7 MCHC 32.8 L RDW 14.7 H Plt Count 185 MPV 9.4 Neut % (Auto) 59.7 Lymph % (Auto) 20.2 King[place]isher % (Auto) 12.4 H Eos % (Auto) 7.1 H Baso % (Auto) 0.6 Neut # (Auto) 4.9 Lymph # (Auto) 1.7 [place] # (Auto) 1.0 H Eos # (Auto) 0.6 Baso # (Auto) 0.0 Sodium 141 Potassium 4.5 Chloride 105 Carbon Dioxide 29 Anion Gap 12 BUN 27 H Creatinine 1.0 Est GFR ( Amer) > 60 Est GFR (Non-Af Amer) 53 POC Glucose (mg/dL) 194 H Random Glucose 158 H Calcium 9.2 Phosphorus 2.9 Magnesium 2.1 Total Bilirubin 0.6 AST 71 H D ALT 34 Alkaline Phosphatase 61 Total Protein 7.2 Albumin 3.8 Globulin 3.4 Albumin/Globulin Ratio 1.1 Vitamin B12 Folate 08/31/18 05:48 WBC RBC Hgb Hct MCV MCH MCHC RDW Plt Count MPV Neut % (Auto) Lymph % (Auto) King[place]isher % (Auto) Eos % (Auto) Baso % (Auto) Neut # (Auto) Lymph # (Auto) [place] # (Auto) Eos # (Auto) Baso # (Auto) Sodium Potassium Chloride Carbon Dioxide Anion Gap BUN Creatinine Est GFR ( Amer) Est GFR (Non-Af Amer) POC Glucose (mg/dL) 170 H Random Glucose Calcium Phosphorus Magnesium Total Bilirubin AST ALT Alkaline Phosphatase Total Protein Albumin Globulin Albumin/Globulin Ratio Vitamin B12 Folate Attending/Attestation - Attestation I have personally seen and examined this patient.: Yes I have fully participated in the care of the patient.: Yes I have reviewed all pertinent clinical information: Yes Notes (Text): 08/31/18 16:03 Patient seen and examined in the intensive care unit. Case discussed with housestaff in the morning rounds. Patient remains agitated and restless Received Ativan last night Repeat CAT scan of the head tomorrow Off D10 with normoglycemia Seen by neurology Continue antibiotics
--- NOTE | 2018-08-31 14:13 | CP.PCM.PN ---
Subjective - Date & Time of Evaluation Date of Evaluation: 08/31/18 Time of Evaluation: 14:12 - Subjective Subjective: Neuro Follow-Up Note: Mrs. Mcdonnell was evaluated this afternoon in the ICU. Son present at bedside. Pt is awake but is agitated; rolling back and forth in the bed and mumbling incomprehensible words/sounds. Pt is moving all extremities today. Able to follow only 1 command during my exam. ROS is unobtainable 2/2 pt's current condition. Objective - Vital Signs/Intake and Output Vital Signs (last 24 hours): Temp Pulse Resp BP Pulse Ox 98.8 F 88 19 116/43 L 96 08/31/18 11:44 08/31/18 11:44 08/31/18 11:44 08/31/18 11:44 08/31/18 11:44 Intake and Output: 08/31/18 08/31/18 06:59 18:59 Intake Total 725 Balance 725 - Medications Medications: Current Medications Aspirin (Aspirin Supp) 300 mg [place] DAILY [facility] Last Admin: 08/31/18 09:51 Dose: 300 mg Dextrose (Dextrose 50% Inj) 0 ml IV STAT PRN; Protocol PRN Reason: Hypoglycemia Protocol Dextrose (Glutose 15) 0 gm PO ONCE PRN; Protocol PRN Reason: Hypoglycemia Protocol Glucagon (Glucagen Diagnostic Kit) 0 mg IM STAT PRN; Protocol PRN Reason: Hypoglycemia Protocol Haloperidol Lactate (Haldol) 1 mg IVP ONCE PRN PRN Reason: Agitation Heparin Sodium (Porcine) (Heparin) 5,000 units SC Q12 [facility] Last Admin: 08/31/18 09:51 Dose: 5,000 units Ceftriaxone Sodium 1 gm/ (Sodium Chloride) 100 mls @ 100 mls/hr IVPB Q12H [facility]; Protocol Last Admin: 08/31/18 06:50 Dose: 100 mls/hr Dextrose (Dextrose 5% In Water 1000 Ml) 1,000 mls @ 0 mls/hr IV .Q0M PRN; Protocol PRN Reason: Hypoglycemia Protocol Pantoprazole Sodium (Protonix Inj) 40 mg IVP DAILY [facility] Last Admin: 08/31/18 09:51 Dose: 40 mg - Labs Labs: 08/31/18 05:41 08/31/18 05:41 PT 11.4 SECONDS (9.7-12.2) 08/30/18 10:00 INR 1.0 08/30/18 10:00 APTT 35.0 SECONDS (21-34) H 08/30/18 10:00 - Constitutional Appears: Agitated - Head Exam Head Exam: ATRAUMATIC, NORMAL INSPECTION, NORMOCEPHALIC - Eye Exam Eye Exam: EOMI, Normal appearance, PERRL. absent: Nystagmus Pupil Exam: NORMAL ACCOMODATION, PERRL - ENT Exam ENT Exam: Mucous Membranes Moist - Neck Exam Neck Exam: Full ROM, Normal Inspection - Respiratory Exam Respiratory Exam: NORMAL BREATHING PATTERN - Cardiovascular Exam Cardiovascular Exam: REGULAR RHYTHM - GI/Abdominal Exam GI & Abdominal Exam: Soft. absent: Tenderness - Extremities Exam Extremities Exam: Full ROM. absent: Calf Tenderness, Pedal Edema Additional comments: moves all extremities; equal strength b/l - Back Exam Back Exam: Full ROM, NORMAL INSPECTION - Neurological Exam Neurological Exam: Altered, Awake. absent: Oriented x3 Neuro motor strength exam: Left Upper Extremity: 5 (distal 5/5), Right Upper Extremity: 5 (distal 5/5), Left Lower Extremity: 5 (distal 5/5), Right Lower Extremity: 5 (distal 5/5) Additional comments: Pt is awake; agitated; disoriented; mumbles incomprehensible words/noises. There is a slight left facial droop. Pt is only able to follow 1 command: mother tester hands. Motor: able to move all extremities, equal strength throughout. Unable to accurately assess sensation, though seems to be intact. No tremors or abnormal movements. Toes upgoing b/l Reflexes +1 b/l - Psychiatric Exam Psychiatric exam: Agitated. absent: Normal Affect, Normal Mood Additional comments: only follows 1 command mumbles incomprehensible words - Skin Additional comments: multiple bruises on BUE Assessment and Plan (1) Acute encephalopathy Assessment & Plan: Imaging reviewed: -CTA Head and Neck (08/30/18): 1. No evidence of endoluminal thrombus,occlusion or definite significant stenosis in the intracranial arteries. 2. No evidence of hemodynamically significant stenosis in the internal carotid arteries. 3. Patent bilateral vertebral arteries. -EEG (08/31/18): This is an abnormal EEG record that demonstrate the presence of a mild non specific diffuse disturbance of cortical activity, this is in keeping with a diffuse forbes matter dysfunction. These findings do not support a specific etiology. No seizures, no interictal activity. -CT Head (08/30/18): Suboptimal evaluation with images severely degraded by patient motion. Generalized atrophy. Nonspecific white matter changes. Dense intracranial calcifications. Calcifications noted along the left subdural space, likely post infectious/post inflammatory. -MRI Brain ordered---pt may not be able to tolerate this procedure due to agitation. -Repeat non-contrast CT Head tomorrow morning to re-evaluate for possible stroke or other acute intracranial changes--will f/u with results. -ECHO ordered---will f/u with results. -Continue ASA as ordered. -Continue BS control. -Discussed with ICU team and pt's son. -Notify neuro team of any acute changes in pt's condition. Grisel Quinn, KUNAL, BRIDGE WORKER d/w Dr. Disla Status: Acute
[2018-08-31] MEDS: Dextrose 5%/0.45% NS 1,000 ML IV SCH (16:00)
[2018-09-01] MEDS: Dextrose 5%/0.45% NS 1,000 ML IV SCH ×2 (03:00→12:00)
[2018-09-01 06:13] LABS: BASO # 0.1 K/uL (0.0-0.2); BASO % 0.8 % (0.0-2.0); EOS # 0.4 K/uL (0.0-0.7); EOS % 6.1 % (0.0-4.0); HEMOGLOBIN 12.1 g/dL (11.0-16.0); LYMPH % 14.1 % (20.0-40.0); MEAN CELL VOLUME 90.7 fL (81.0-99.0); MEAN CORPUSCULAR HEMOGLOBIN 30.9 pg (27.0-31.0); MEAN PLATELET VOLUME 9.6 fL (7.2-11.7); MONO # 0.8 K/uL (0.0-0.8); MONO % 10.3 % (0.0-10.0); NEUT % 68.7 % (50.0-75.0); NRBC % 0.1 % (0.0-2.0); RBC 3.9 Mil/uL (3.80-5.20); RED CELL DISTRIBUTION WIDTH 14.2 % (11.5-14.5); WHITE BLOOD COUNT 7.3 K/uL (4.8-10.8)
[2018-09-01 06:24] LABS: ALB/GLOB RATIO 1.2 (1.0-2.1); ALBUMIN 3.9 g/dL (3.5-5.0); ALT/SGPT 34 U/L (9-52); AST/SGOT 89 U/L (14-36); BLOOD UREA NITROGEN 23 mg/dL (7-17); CALCIUM 9.1 mg/dl (8.6-10.4); GFR NON-AFRICAN AMERICAN 53
--- NOTE | 2018-09-01 09:32 | CT ---
Date of service: 09/01/2018 PROCEDURE: CT HEAD WITHOUT CONTRAST. HISTORY: re-eval for stroke/other intracranial changes; AMS COMPARISON: 08/30/2018 TECHNIQUE: Axial computed tomography images were obtained through the head/brain without intravenous contrast. Radiation dose: Total exam DLP = 2023.01 mGy-cm. This CT exam was performed using one or more of the following dose reduction techniques: Automated exposure control, adjustment of the mA and/or kV according to patient size, and/or use of iterative reconstruction technique. FINDINGS: Examination limited due to patient motion artifact despite repeated attempts at imaging. The posterior fossa is particularly obscured. HEMORRHAGE: No intracranial hemorrhage. BRAIN: No mass effect or edema. Moderate patchy and confluent periventricular and deep white matter lucency consistent with chronic microvascular white matter ischemic change. No evidence of acute infarct. Please note that there is calcification along the left frontal dura possibly the result of prior hemorrhage or infection. This does not represent an acute process. VENTRICLES: Unremarkable. No hydrocephalus. CALVARIUM: Unremarkable. PARANASAL SINUSES: Unremarkable as visualized. No significant inflammatory changes. MASTOID AIR CELLS: Unremarkable as visualized. No inflammatory changes. OTHER FINDINGS: None. IMPRESSION: No evidence of acute infarct. Chronic white matter ischemic change. Left frontal dural calcification, likely post infectious/inflammatory or post hemorrhagic. Limited examination.
--- NOTE | 2018-09-01 12:51 | CP.PCM.PN ---
Subjective - Date & Time of Evaluation Date of Evaluation: 09/01/18 Time of Evaluation: 12:50 - Subjective Subjective: RESTLESS AND AGITED RESISTANT TO SEDATIVES MOVES ALL EXT AFEBRILE . SEPTIC W/U NEG WILL ATTEMPT MRI Objective - Vital Signs/Intake and Output Vital Signs (last 24 hours): Temp Pulse Resp BP Pulse Ox 99.1 F 89 17 146/51 L 91 L 09/01/18 07:35 09/01/18 10:18 09/01/18 10:18 09/01/18 10:18 09/01/18 10:18 Intake and Output: 09/01/18 09/01/18 11:59 23:59 Intake Total 400 Balance 400 - Medications Medications: Current Medications Aspirin (Aspirin Supp) 300 mg [place] DAILY [facility] Last Admin: 09/01/18 10:11 Dose: 300 mg Dextrose (Dextrose 50% Inj) 0 ml IV STAT PRN; Protocol PRN Reason: Hypoglycemia Protocol Dextrose (Glutose 15) 0 gm PO ONCE PRN; Protocol PRN Reason: Hypoglycemia Protocol Glucagon (Glucagen Diagnostic Kit) 0 mg IM STAT PRN; Protocol PRN Reason: Hypoglycemia Protocol Haloperidol Lactate (Haldol) 1 mg IVP ONCE PRN PRN Reason: Agitation Last Admin: 09/01/18 08:40 Dose: 1 mg Heparin Sodium (Porcine) (Heparin) 5,000 units SC Q12 [facility] Last Admin: 09/01/18 10:11 Dose: 5,000 units Ceftriaxone Sodium 1 gm/ (Sodium Chloride) 100 mls @ 100 mls/hr IVPB Q12H [facility]; Protocol Last Admin: 09/01/18 06:30 Dose: 100 mls/hr Dextrose (Dextrose 5% In Water 1000 Ml) 1,000 mls @ 0 mls/hr IV .Q0M PRN; Protocol PRN Reason: Hypoglycemia Protocol Dextrose/Sodium Chloride (Dextrose 5%/0.45% Ns 1000 Ml) 1,000 mls @ 100 mls/hr IV .Q10H [facility] Last Admin: 09/01/18 03:00 Dose: Not Given Pantoprazole Sodium (Protonix Inj) 40 mg IVP DAILY [facility] Last Admin: 09/01/18 10:10 Dose: 40 mg - Labs Labs: 09/01/18 06:06 09/01/18 06:06 PT 11.4 SECONDS (9.7-12.2) 08/30/18 10:00 INR 1.0 08/30/18 10:00 APTT 35.0 SECONDS (21-34) H 08/30/18 10:00 Assessment and Plan (1) Acute encephalopathy Status: Acute (2) Altered mental status Status: Acute (3) Diabetes mellitus Status: Acute
--- NOTE | 2018-09-01 15:01 | CP.PCM.PN ---
Subjective - Date & Time of Evaluation Date of Evaluation: 09/01/18 Time of Evaluation: 14:59 - Subjective Subjective: Neuro Follow-Up Note: Mrs. Mcdonnell was evaluated this afternoon at bedside. Today she is awake, alert, able to respond to me by shaking and nodding her head, and follows commands. She does not appear confused, though unable to accurately assess orientation due to her not being verbal with me. She mumbles a few incomprehensible words during my time with her. She denies any pain or complaints. ROS is unremarkable. Objective - Vital Signs/Intake and Output Vital Signs (last 24 hours): Temp Pulse Resp BP Pulse Ox 99.0 F 90 16 149/64 95 09/01/18 12:00 09/01/18 14:17 09/01/18 14:17 09/01/18 14:18 09/01/18 14:17 Intake and Output: 09/01/18 09/01/18 06:59 18:59 Intake Total 150 750 Output Total 1 Balance 149 750 - Medications Medications: Current Medications Aspirin (Aspirin Supp) 300 mg IN DAILY [facility] Last Admin: 09/01/18 10:11 Dose: 300 mg Dextrose (Dextrose 50% Inj) 0 ml IV STAT PRN; Protocol PRN Reason: Hypoglycemia Protocol Dextrose (Glutose 15) 0 gm PO ONCE PRN; Protocol PRN Reason: Hypoglycemia Protocol Glucagon (Glucagen Diagnostic Kit) 0 mg IM STAT PRN; Protocol PRN Reason: Hypoglycemia Protocol Haloperidol Lactate (Haldol) 1 mg IVP ONCE PRN PRN Reason: Agitation Last Admin: 09/01/18 08:40 Dose: 1 mg Heparin Sodium (Porcine) (Heparin) 5,000 units SC Q12 [facility] Last Admin: 09/01/18 10:11 Dose: 5,000 units Ceftriaxone Sodium 1 gm/ (Sodium Chloride) 100 mls @ 100 mls/hr IVPB Q12H [facility]; Protocol Last Admin: 09/01/18 06:30 Dose: 100 mls/hr Dextrose (Dextrose 5% In Water 1000 Ml) 1,000 mls @ 0 mls/hr IV .Q0M PRN; Prot ocol PRN Reason: Hypoglycemia Protocol Dextrose/Sodium Chloride (Dextrose 5%/0.45% Ns 1000 Ml) 1,000 mls @ 100 mls/hr IV .Q10H [facility] Last Admin: 09/01/18 12:00 Dose: Not Given Pantoprazole Sodium (Protonix Inj) 40 mg IVP DAILY [facility] Last Admin: 09/01/18 10:10 Dose: 40 mg - Labs Labs: 09/01/18 06:06 09/01/18 06:06 PT 11.4 SECONDS (9.7-12.2) 08/30/18 10:00 INR 1.0 08/30/18 10:00 APTT 35.0 SECONDS (21-34) H 08/30/18 10:00 - Constitutional Appears: No Acute Distress - Head Exam Head Exam: ATRAUMATIC, NORMAL INSPECTION, NORMOCEPHALIC - Eye Exam Eye Exam: EOMI, Normal appearance. absent: Nystagmus Pupil Exam: NORMAL ACCOMODATION - ENT Exam ENT Exam: Mucous Membranes Moist - Neck Exam Neck Exam: Full ROM, Normal Inspection - Respiratory Exam Respiratory Exam: NORMAL BREATHING PATTERN - GI/Abdominal Exam GI & Abdominal Exam: Soft. absent: Tenderness - Extremities Exam Extremities Exam: Full ROM. absent: Calf Tenderness, Pedal Edema - Back Exam Back Exam: Full ROM - Neurological Exam Neurological Exam: Alert, Awake, Reflexes Normal Neuro motor strength exam: Left Upper Extremity: 5 (distal 5/5), Right Upper Extremity: 5 (distal 5/5), Left Lower Extremity: 5 (distal 5/5), Right Lower Extremity: 5 (distal 5/5) Additional comments: Pt is awake, alert; unable to assess orientation; she is able to follow commands and nods/shakes her head in response to questions; mumbles a few incomprehensible words to me. There is still a slight left facial droop. No motor or sensory deficits. No tremors or abnormal movements. Reflexes +1 b/l - Psychiatric Exam Additional comments: not agitated today - Skin Additional comments: multiple bruises on BUE Assessment and Plan (1) Acute encephalopathy Assessment & Plan: Imaging reviewed: -CT head (repeat; 09/01/18): No evidence of acute infarct. Chronic white matter ischemic change. Left frontal dural calcification, likely post infectious/inflammatory or post hemorrhagic. Limited examination. -CTA Head and Neck (08/30/18): 1. No evidence of endoluminal thrombus,occlusion or definite significant stenosis in the intracranial arteries. 2. No evidence of hemodynamically significant stenosis in the internal carotid arteries. 3. Patent bilateral vertebral arteries. -EEG (5/1/19): This is an abnormal EEG record that demonstrate the presence of a mild non specific diffuse disturbance of cortical activity, this is in keeping with a diffuse forbes matter dysfunction. These findings do not support a specific etiology. No seizures, no interictal activity. -CT Head (08/30/18): Suboptimal evaluation with images severely degraded by patient motion. Generalized atrophy. Nonspecific white matter changes. Dense intracranial calcifications. Calcifications noted along the left subdural space, likely post infectious/post inflammatory. -MRI Brain recommended but was unable to be completed 2/2 pt's agitation. -ECHO ordered---will f/u with results. -Continue ASA as ordered. -Continue BS control. -Notify neuro team of any acute changes in pt's condition. Grisel Quinn, KUNAL, SLEEPING CAR SERVICE ATTENDANT d/w Dr. Disla Status: Acute
[2018-09-01] MEDS: Sodium Chloride 0.45% 1,000 ML IV SCH (23:49)
[2018-09-02 09:45] LABS: BASO # 0.1 K/uL (0.0-0.2); EOS # 0.6 K/uL (0.0-0.7); EOS % 7.3 % (0.0-4.0); HEMOGLOBIN 11.8 g/dL (11.0-16.0); LYMPH # 1.2 K/uL (1.0-4.3); MEAN CELL VOLUME 90.7 fL (81.0-99.0); MEAN CORPUSCULAR HEMOGLOBIN 31.4 pg (27.0-31.0); MEAN CORPUSCULAR HGB CONC 34.7 g/dL (33.0-37.0); MONO # 0.8 K/uL (0.0-0.8); MONO % 9.8 % (0.0-10.0); NEUT # 5.4 K/uL (1.8-7.0); NEUT % 66.9 % (50.0-75.0); NRBC % 0.3 % (0.0-2.0); RBC 3.75 Mil/uL (3.80-5.20); RED CELL DISTRIBUTION WIDTH 14.4 % (11.5-14.5); WHITE BLOOD COUNT 8.1 K/uL (4.8-10.8)
[2018-09-02] MEDS: (Novolin R) Insulin Human Regular 100 units/ml vial SC SCH ×4 (10:14→22:06)
--- NOTE | 2018-09-02 11:14 | CP.PCM.PN ---
Subjective - Date & Time of Evaluation Date of Evaluation: 09/02/18 Time of Evaluation: 11:13 - Subjective Subjective: PT'S MENTAL STATUS IS CLEARING UP WITH NO NEURO DEFICIT WILL ATTEMPT MRI HEAD WHEN FULLY LUCID SEPTIC W/U NEG Objective - Vital Signs/Intake and Output Vital Signs (last 24 hours): Temp Pulse Resp BP Pulse Ox 98.5 F 88 20 182/76 H 95 09/02/18 07:00 09/02/18 07:00 09/02/18 07:00 09/02/18 07:00 09/02/18 07:00 Intake and Output: 09/01/18 09/02/18 23:59 11:59 Intake Total 1100 800 Balance 1100 800 - Medications Medications: Current Medications Aspirin (Aspirin Supp) 300 mg [place] DAILY [facility] Last Admin: 09/02/18 10:14 Dose: 300 mg Dextrose (Dextrose 50% Inj) 0 ml IV STAT PRN; Protocol PRN Reason: Hypoglycemia Protocol Dextrose (Glutose 15) 0 gm PO ONCE PRN; Protocol PRN Reason: Hypoglycemia Protocol Glucagon (Glucagen Diagnostic Kit) 0 mg IM STAT PRN; Protocol PRN Reason: Hypoglycemia Protocol Haloperidol Lactate (Haldol) 1 mg IVP ONCE PRN PRN Reason: Agitation Last Admin: 09/01/18 08:40 Dose: 1 mg Heparin Sodium (Porcine) (Heparin) 5,000 units SC Q12 [facility] Last Admin: 09/02/18 10:14 Dose: 5,000 units Ceftriaxone Sodium 1 gm/ (Sodium Chloride) 100 mls @ 100 mls/hr IVPB Q12H [facility]; Protocol Last Admin: 09/02/18 06:34 Dose: 100 mls/hr Dextrose (Dextrose 5% In Water 1000 Ml) 1,000 mls @ 0 mls/hr IV .Q0M PRN; Protocol PRN Reason: Hypoglycemia Protocol Sodium Chloride (Sodium Chloride 0.45%) 1,000 mls @ 50 mls/hr IV .Q20H [facility] Last Admin: 09/01/18 23:49 Dose: 50 mls/hr Insulin Human Regular (Novolin R) 0 unit SC ACHS [facility]; Protocol Last Admin: 09/02/18 10:14 Dose: Not Given Pantoprazole Sodium (Protonix Inj) 40 mg IVP DAILY [facility] Last Admin: 09/02/18 10:13 Dose: 40 mg - Labs Labs: 09/02/18 09:42 09/01/18 06:06 PT 11.4 SECONDS (9.7-12.2) 08/30/18 10:00 INR 1.0 08/30/18 10:00 APTT 35.0 SECONDS (21-34) H 08/30/18 10:00 Assessment and Plan (1) Acute encephalopathy Status: Acute (2) Altered mental status Status: Acute (3) Diabetes mellitus Status: Acute
--- NOTE | 2018-09-02 15:29 | CP.PCM.PN ---
Subjective - Date & Time of Evaluation Date of Evaluation: 09/02/18 Time of Evaluation: 15:26 - Subjective Subjective: Neuro Follow-Up Note: Mrs. Mcdonnell was evaluated this afternoon at bedside. She was asleep but easily arousable to voice and light touch. She is still able to follow commands. She was able to verbally respond to some of my questions today, though speech is still not clear. I still had difficulty assessing her orientation x3; unsure if she is confused at this time. Pe rmy conversation with her son on Wednesday, she is not confused and able to hold a conversation normally. She denies any pain or complaints. ROS is unremarkable. Objective - Vital Signs/Intake and Output Vital Signs (last 24 hours): Temp Pulse Resp BP Pulse Ox 98.5 F 88 20 182/76 H 95 09/02/18 07:00 09/02/18 07:00 09/02/18 07:00 09/02/18 07:00 09/02/18 07:00 Intake and Output: 09/02/18 09/02/18 06:59 18:59 Intake Total 1600 900 Balance 1600 900 - Medications Medications: Current Medications Aspirin (Aspirin Supp) 300 mg LA DAILY [facility] Last Admin: 09/02/18 10:14 Dose: 300 mg Dextrose (Dextrose 50% Inj) 0 ml IV STAT PRN; Protocol PRN Reason: Hypoglycemia Protocol Dextrose (Glutose 15) 0 gm PO ONCE PRN; Protocol PRN Reason: Hypoglycemia Protocol Glucagon (Glucagen Diagnostic Kit) 0 mg IM STAT PRN; Protocol PRN Reason: Hypoglycemia Protocol Haloperidol Lactate (Haldol) 1 mg IVP ONCE PRN PRN Reason: Agitation Last Admin: 09/01/18 08:40 Dose: 1 mg Heparin Sodium (Porcine) (Heparin) 5,000 units SC Q12 [facility] Last Admin: 09/02/18 10:14 Dose: 5,000 units Ceftriaxone Sodium 1 gm/ (Sodium Chloride) 100 mls @ 100 mls/hr IVPB Q12H [facility]; Protocol Last Admin: 09/02/18 06:34 Dose: 100 mls/hr Dextrose (Dextrose 5% In Water 1000 Ml) 1,000 mls @ 0 mls/hr IV .Q0M PRN; Pro tocol PRN Reason: Hypoglycemia Protocol Sodium Chloride (Sodium Chloride 0.45%) 1,000 mls @ 50 mls/hr IV .Q20H [facility] Last Admin: 09/01/18 23:49 Dose: 50 mls/hr Insulin Human Regular (Novolin R) 0 unit SC ACHS [facility]; Protocol Last Admin: 09/02/18 11:55 Dose: Not Given Pantoprazole Sodium (Protonix Inj) 40 mg IVP DAILY [facility] Last Admin: 09/02/18 10:13 Dose: 40 mg - Labs Labs: 09/02/18 09:42 09/01/18 06:06 PT 11.4 SECONDS (9.7-12.2) 08/30/18 10:00 INR 1.0 08/30/18 10:00 APTT 35.0 SECONDS (21-34) H 08/30/18 10:00 - Constitutional Appears: No Acute Distress - Head Exam Head Exam: ATRAUMATIC, NORMAL INSPECTION, NORMOCEPHALIC - Eye Exam Eye Exam: EOMI, Normal appearance, PERRL. absent: Nystagmus Pupil Exam: NORMAL ACCOMODATION, PERRL - ENT Exam ENT Exam: Mucous Membranes Moist - Neck Exam Neck Exam: Full ROM, Normal Inspection - Respiratory Exam Respiratory Exam: NORMAL BREATHING PATTERN - GI/Abdominal Exam GI & Abdominal Exam: Soft. absent: Tenderness - Extremities Exam Extremities Exam: Full ROM. absent: Calf Tenderness, Pedal Edema - Back Exam Back Exam: Full ROM - Neurological Exam Neurological Exam: Altered Neuro motor strength exam: Left Upper Extremity: 5, Right Upper Extremity: 5, Left Lower Extremity: 5, Right Lower Extremity: 5 Additional comments: Pt was asleep but easily arousable to voice and light touch. Follows commands though did not answer my questions regarding time, place, person. She was able to verbally respond to some of my questions today but her speech was still not clear. There is still a slight left facial droop. No motor or sensory deficits. Moves all extremities well. No tremors or abnormal movements. Reflexes +1 b/l - Psychiatric Exam Psychiatric exam: absent: Agitated - Skin Additional comments: Multiple healing bruises to BUE Assessment and Plan (1) Acute encephalopathy Assessment & Plan: Imaging reviewed: -CT head (repeat; 09/01/18): No evidence of acute infarct. Chronic white matter ischemic change. Left frontal dural calcification, likely post infectious/inflammatory or post hemorrhagic. Limited examination. -CTA Head and Neck (08/30/18): 1. No evidence of endoluminal thrombus,occlusion or definite significant stenosis in the intracranial arteries. 2. No evidence of hemodynamically significant stenosis in the internal carotid arteries. 3. Patent bilateral vertebral arteries. -EEG (08/31/18): This is an abnormal EEG record that demonstrate the presence of a mild non specific diffuse disturbance of cortical activity, this is in keeping with a diffuse forbes matter dysfunction. These findings do not support a specific etiology. No seizures, no interictal activity. -CT Head (08/30/18): Suboptimal evaluation with images severely degraded by patient motion. Generalized atrophy. Nonspecific white matter changes. Dense intracranial calcifications. Calcifications noted along the left subdural space, likely post infectious/post inflammatory. -MRI Brain recommended but was unable to be completed 2/2 pt's agitation. If pt remains in this encephalopathic state, it may be beneficial to have it completed. -ECHO ordered and cancelled, as it was completed in July 2018. No wall abnormalities detected then and EF was within normal ranges 9see report in [facility]). -Continue ASA as ordered. May switch to PO once pt is able to safely tolerate PO. -Continue risk factor management. -Continue rehab services. -Notify neuro team of any acute changes in pt's condition. Grisel Quinn, KUNAL, [employer] d/w Dr. Disla Status: Acute
[2018-09-02] MEDS: Dextrose 5%/0.45% NS 1,000 ML IV SCH (17:20)
[2018-09-02] MEDS: Sodium Chloride 0.45% 1,000 ML IV SCH (19:50)
[2018-09-03 08:45] LABS: BASO # 0.1 K/uL (0.0-0.2); BASO % 0.9 % (0.0-2.0); EOS # 0.4 K/uL (0.0-0.7); HEMOGLOBIN 11.7 g/dL (11.0-16.0); LYMPH # 1.1 K/uL (1.0-4.3); LYMPH % 12.8 % (20.0-40.0); MEAN CELL VOLUME 90.4 fL (81.0-99.0); MEAN CORPUSCULAR HEMOGLOBIN 31.3 pg (27.0-31.0); MEAN CORPUSCULAR HGB CONC 34.6 g/dL (33.0-37.0); MONO # 0.7 K/uL (0.0-0.8); MONO % 8.9 % (0.0-10.0); NEUT % 72.4 % (50.0-75.0); NRBC % 0.1 % (0.0-2.0); RBC 3.75 Mil/uL (3.80-5.20); RED CELL DISTRIBUTION WIDTH 14.1 % (11.5-14.5); WHITE BLOOD COUNT 8.3 K/uL (4.8-10.8)
[2018-09-03 09:01] LABS: ALB/GLOB RATIO 1.1 (1.0-2.1); ALBUMIN 3.4 g/dL (3.5-5.0); ALT/SGPT 33 U/L (9-52); AST/SGOT 49 U/L (14-36); BLOOD UREA NITROGEN 19 mg/dL (7-17); GFR NON-AFRICAN AMERICAN > 60
[2018-09-03] MEDS: (Novolin R) Insulin Human Regular 100 units/ml vial SC SCH ×4 (10:03→22:00)
--- NOTE | 2018-09-03 11:59 | CP.PCM.PN ---
Subjective - Date & Time of Evaluation Date of Evaluation: 09/03/18 Time of Evaluation: 11:59 - Subjective Subjective: PT'S MENTAL STATUS IS CLEARING UP WITH NO NEURO DEFICIT WILL ATTEMPT MRI HEAD WHEN FULLY LUCID SEPTIC W/U NEG Objective - Vital Signs/Intake and Output Vital Signs (last 24 hours): Temp Pulse Resp BP Pulse Ox 98.1 F 76 20 170/74 H 96 09/03/18 07:30 09/03/18 07:30 09/03/18 07:30 09/03/18 07:30 09/03/18 07:30 Intake and Output: 09/02/18 09/03/18 23:59 11:59 Intake Total 2100 400 Output Total 200 Balance 2100 200 - Medications Medications: Current Medications Acetaminophen (Tylenol 650mg/20.3ml Solution Ud) 650 mg PO Q6 PRN PRN Reason: Pain, moderate (4-7) Aspirin (Aspirin) 325 mg PO DAILY [facility] Last Admin: 09/03/18 10:03 Dose: 325 mg Dextrose (Dextrose 50% Inj) 0 ml IV STAT PRN; Protocol PRN Reason: Hypoglycemia Protocol Dextrose (Glutose 15) 0 gm PO ONCE PRN; Protocol PRN Reason: Hypoglycemia Protocol Glucagon (Glucagen Diagnostic Kit) 0 mg IM STAT PRN; Protocol PRN Reason: Hypoglycemia Protocol Haloperidol Lactate (Haldol) 1 mg IVP ONCE PRN PRN Reason: Agitation Last Admin: 09/01/18 08:40 Dose: 1 mg Heparin Sodium (Porcine) (Heparin) 5,000 units SC Q12 [facility] Last Admin: 09/03/18 10:03 Dose: 5,000 units Ceftriaxone Sodium 1 gm/ (Sodium Chloride) 100 mls @ 100 mls/hr IVPB Q12H [facility]; Protocol Last Admin: 09/03/18 06:05 Dose: 100 mls/hr Sodium Chloride (Sodium Chloride 0.45%) 1,000 mls @ 50 mls/hr IV .Q20H [facility] Last Admin: 09/02/18 19:50 Dose: 50 mls/hr Insulin Human Regular (Novolin R) 0 unit SC ACHS [facility]; Protocol Last Admin: 09/03/18 10:03 Dose: 4 units Pantoprazole Sodium (Protonix Inj) 40 mg IVP DAILY [facility] Last Admin: 09/03/18 10:03 Dose: 40 mg - Labs Labs: 09/03/18 08:30 09/03/18 08:30 PT 11.4 SECONDS (9.7-12.2) 08/30/18 10:00 INR 1.0 08/30/18 10:00 APTT 35.0 SECONDS (21-34) H 08/30/18 10:00 Assessment and Plan (1) Acute encephalopathy Status: Acute (2) Altered mental status Status: Acute (3) Diabetes mellitus Status: Acute
[2018-09-03] MEDS ORDERED: Acetaminophen 160 mg/5 ml UD PO SCH (12:00)
[2018-09-03] MEDS: Acetaminophen 650mg/20.3ml solution UD PO PRN (12:13)
[2018-09-03] MEDS: Sodium Chloride 0.45% 1,000 ML IV SCH ×2 (15:10→18:03)
[2018-09-04] MEDS: Acetaminophen 650mg/20.3ml solution UD PO PRN (03:35)
[2018-09-04 07:50] LABS: BASO # 0.1 K/uL (0.0-0.2); BASO % 0.7 % (0.0-2.0); EOS # 0.4 K/uL (0.0-0.7); EOS % 5.8 % (0.0-4.0); HEMOGLOBIN 11.5 g/dL (11.0-16.0); LYMPH # 1.4 K/uL (1.0-4.3); LYMPH % 18.9 % (20.0-40.0); MEAN CORPUSCULAR HEMOGLOBIN 30.9 pg (27.0-31.0); MEAN CORPUSCULAR HGB CONC 34.4 g/dL (33.0-37.0); MEAN PLATELET VOLUME 9.5 fL (7.2-11.7); MONO # 0.7 K/uL (0.0-0.8); MONO % 9.7 % (0.0-10.0); NEUT # 4.8 K/uL (1.8-7.0); NEUT % 64.9 % (50.0-75.0); RBC 3.7 Mil/uL (3.80-5.20); WHITE BLOOD COUNT 7.5 K/uL (4.8-10.8)
[2018-09-04 08:01] LABS: ALB/GLOB RATIO 1.1 (1.0-2.1); ALBUMIN 3.3 g/dL (3.5-5.0); ALT/SGPT 34 U/L (9-52); AST/SGOT 36 U/L (14-36); BLOOD UREA NITROGEN 16 mg/dL (7-17); CALCIUM 8.8 mg/dl (8.6-10.4); GFR NON-AFRICAN AMERICAN 60
[2018-09-04] MEDS: (Novolin R) Insulin Human Regular 100 units/ml vial SC SCH ×4 (08:35→21:49)
[2018-09-04] MEDS: Sodium Chloride 0.45% 1,000 ML IV SCH ×2 (11:21→18:52)
--- NOTE | 2018-09-04 12:26 | CP.PCM.PN ---
Subjective - Date & Time of Evaluation Date of Evaluation: 09/04/18 Time of Evaluation: 12:26 - Subjective Subjective: PT'S MENTAL STATUS IS CLEARING UP WITH NO NEURO DEFICIT WILL ATTEMPT MRI HEAD WHEN FULLY LUCID P/E REMAINS SAME SEPTIC W/U NEG SUGARS ARE GOING UP Objective - Vital Signs/Intake and Output Vital Signs (last 24 hours): Temp Pulse Resp BP Pulse Ox 98.7 F 68 18 175/65 H 98 09/04/18 07:56 09/04/18 11:49 09/04/18 07:56 09/04/18 07:56 09/04/18 11:49 Intake and Output: 09/04/18 09/04/18 11:59 23:59 Intake Total 900 Output Total 1 Balance 899 - Medications Medications: Current Medications Acetaminophen (Tylenol 650mg/20.3ml Solution Ud) 650 mg PO Q6 PRN PRN Reason: Pain, moderate (4-7) Last Admin: 09/04/18 03:35 Dose: 650 mg Aspirin (Aspirin) 325 mg PO DAILY [facility] Last Admin: 09/04/18 10:29 Dose: 325 mg Dextrose (Dextrose 50% Inj) 0 ml IV STAT PRN; Protocol PRN Reason: Hypoglycemia Protocol Dextrose (Glutose 15) 0 gm PO ONCE PRN; Protocol PRN Reason: Hypoglycemia Protocol Glucagon (Glucagen Diagnostic Kit) 0 mg IM STAT PRN; Protocol PRN Reason: Hypoglycemia Protocol Haloperidol Lactate (Haldol) 1 mg IVP ONCE PRN PRN Reason: Agitation Last Admin: 09/01/18 08:40 Dose: 1 mg Heparin Sodium (Porcine) (Heparin) 5,000 units SC Q12 [facility] Last Admin: 09/04/18 10:29 Dose: 5,000 units Ceftriaxone Sodium 1 gm/ (Sodium Chloride) 100 mls @ 100 mls/hr IVPB Q12H [facility]; Protocol Last Admin: 09/04/18 05:59 Dose: 100 mls/hr Sodium Chloride (Sodium Chloride 0.45%) 1,000 mls @ 50 mls/hr IV .Q20H [facility] Last Admin: 09/04/18 11:21 Dose: Not Given Insulin Human Regular (Novolin R) 0 unit SC ACHS [facility]; Protocol Last Admin: 09/04/18 08:35 Dose: 4 units Pantoprazole Sodium (Protonix Inj) 40 mg IVP DAILY [facility] Last Admin: 09/04/18 10:30 Dose: 40 mg - Labs Labs: 09/04/18 07:33 09/04/18 07:33 PT 11.4 SECONDS (9.7-12.2) 08/30/18 10:00 INR 1.0 08/30/18 10:00 APTT 35.0 SECONDS (21-34) H 08/30/18 10:00 Assessment and Plan (1) Acute encephalopathy Status: Acute (2) Altered mental status Status: Acute (3) Diabetes mellitus Status: Acute
[2018-09-05] MEDS: (Novolin R) Insulin Human Regular 100 units/ml vial SC SCH ×4 (08:48→22:01)
--- NOTE | 2018-09-05 10:12 | CP.PCM.PN ---
Subjective - Date & Time of Evaluation Date of Evaluation: 09/05/18 Time of Evaluation: 10:11 - Subjective Subjective: MENTAL STATUS IMPROVING VS STABLE ,AFEBRILE P/E REMAINS SAME WILL D/W NEURO IF MRI IS NEEDED Objective - Vital Signs/Intake and Output Vital Signs (last 24 hours): Temp Pulse Resp BP Pulse Ox 97.3 F L 84 20 160/64 H 94 L 09/05/18 08:00 09/05/18 08:00 09/05/18 08:00 09/05/18 08:00 09/05/18 08:00 Intake and Output: 09/04/18 09/05/18 23:59 11:59 Intake Total 1170 400 Balance 1170 400 - Medications Medications: Current Medications Acetaminophen (Tylenol 650mg/20.3ml Solution Ud) 650 mg PO Q6 PRN PRN Reason: Pain, moderate (4-7) Last Admin: 09/04/18 03:35 Dose: 650 mg Aspirin (Aspirin) 325 mg PO DAILY [facility] Last Admin: 09/04/18 10:29 Dose: 325 mg Dextrose (Dextrose 50% Inj) 0 ml IV STAT PRN; Protocol PRN Reason: Hypoglycemia Protocol Dextrose (Glutose 15) 0 gm PO ONCE PRN; Protocol PRN Reason: Hypoglycemia Protocol Glucagon (Glucagen Diagnostic Kit) 0 mg IM STAT PRN; Protocol PRN Reason: Hypoglycemia Protocol Haloperidol Lactate (Haldol) 1 mg IVP ONCE PRN PRN Reason: Agitation Last Admin: 09/01/18 08:40 Dose: 1 mg Insulin Human Regular (Novolin R) 0 unit SC ACHS [facility]; Protocol Last Admin: 09/05/18 08:48 Dose: Not Given Pantoprazole Sodium (Protonix Inj) 40 mg IVP DAILY [facility] Last Admin: 09/04/18 10:30 Dose: 40 mg - Labs Labs: 09/04/18 07:33 09/04/18 07:33 PT 11.4 SECONDS (9.7-12.2) 08/30/18 10:00 INR 1.0 08/30/18 10:00 APTT 35.0 SECONDS (21-34) H 08/30/18 10:00 Assessment and Plan (1) Acute encephalopathy Status: Acute (2) Altered mental status Status: Acute (3) Diabetes mellitus Status: Acute
[2018-09-06 07:56] VITALS: BP 170/63; PULSE 79; RESP 18; TEMP 98.1; O2SAT 95
[2018-09-06] MEDS: (Novolin R) Insulin Human Regular 100 units/ml vial SC SCH ×2 (09:00→12:45)
--- NOTE | 2018-09-06 12:17 | CP.PCM.DIS ---
Provider - Provider Date of Admission: 08/30/18 14:01 Attending physician: Edna Boo MD Consults: 08/30/18 09:45 Stroke Team Consult Stat Comment: Consulting Provider: Neurohospitalist Consulting Physician: NEUROHOSP Neurohospitalist for Consult: Xavier Disla Neurohospitalist for Consult: Libby Acuña Reason for Consult: aphasia 08/30/18 14:04 Critical Care Consult Stat Comment: Consulting Provider: Goran Capone Consulting Physician: Goarn Capone Reason for Consult: AMS, hypoglycemia, possible seizure, fever Neurology Consult Stat Comment: Consulting Provider: Xavier Disla Consulting Physician: Xavier Disla Reason for Consult: AMS, hypoglycemia, possible seizure, fever 08/30/18 19:24 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 Physician Instructions: Reason For Exam: discharge planning Time Spent in preparation of Discharge (in minutes): 35 Diagnosis - Discharge Diagnosis (1) Acute encephalopathy Status: Acute (2) Altered mental status Status: Acute (3) Diabetes mellitus Status: Acute Hospital Course - Lab Results Lab Results: Micro Results 08/30/18 12:05 Blood Blood Culture - Final NO GROWTH AFTER 5 DAYS 08/30/18 12:05 Blood Gram Stain - Final TEST NOT PERFORMED 08/30/18 12:05 Blood Blood Culture - Final NO GROWTH AFTER 5 DAYS 08/30/18 12:05 Blood Gram Stain - Final TEST NOT PERFORMED 09/01/18 16:04 Naris MRSA Culture - Final MRSA NOT DETECTED 08/31/18 05:41 Naris MRSA Culture (Admit) - Final MRSA NOT DETECTED 08/30/18 11:51 Urine,Catheterized Urine Culture - Final No Growth (<1,000 CFU/ML) Most Recent Lab Values WBC 7.5 K/uL (4.8-10.8) 09/04/18 07:33 RBC 3.70 Mil/uL (3.80-5.20) L 09/04/18 07:33 Hgb 11.5 g/dL (11.0-16.0) 09/04/18 07:33 Hct 33.3 % (34.0-47.0) L 09/04/18 07:33 MCV 90.0 fL (81.0-99.0) 09/04/18 07:33 MCH 30.9 pg (27.0-31.0) 09/04/18 07:33 MCHC 34.4 g/dL (33.0-37.0) 09/04/18 07:33 RDW 14.0 % (11.5-14.5) 09/04/18 07:33 Plt Count 185 K/uL (130-400) 09/04/18 07:33 MPV 9.5 fL (7.2-11.7) 09/04/18 07:33 Neut % (Auto) 64.9 % (50.0-75.0) 09/04/18 07:33 Lymph % (Auto) 18.9 % (20.0-40.0) L 09/04/18 07:33 Hale % (Auto) 9.7 % (0.0-10.0) 09/04/18 07:33 Eos % (Auto) 5.8 % (0.0-4.0) H 09/04/18 07:33 Baso % (Auto) 0.7 % (0.0-2.0) 09/04/18 07:33 Neut # (Auto) 4.8 K/uL (1.8-7.0) 09/04/18 07:33 Lymph # (Auto) 1.4 K/uL (1.0-4.3) 09/04/18 07:33 Hale # (Auto) 0.7 K/uL (0.0-0.8) 09/04/18 07:33 Eos # (Auto) 0.4 K/uL (0.0-0.7) 09/04/18 07:33 Baso # (Auto) 0.1 K/uL (0.0-0.2) 09/04/18 07:33 Neutrophils % (Manual) 80 % (50-75) H 08/30/18 11:25 Band Neutrophils % 9 % (0-2) H 08/30/18 11:25 Lymphocytes % (Manual) 5 % (20-40) L 08/30/18 11:25 Reactive Lymphs % 1 % (0-0) H 08/30/18 11:25 Monocytes % (Manual) 5 % (0-10) 08/30/18 11:25 Platelet Estimate Normal (NORMAL) 08/30/18 11:25 RBC Morphology Normal 08/30/18 11:25 PT 11.4 SECONDS (9.7-12.2) 08/30/18 10:00 INR 1.0 08/30/18 10:00 APTT 35.0 SECONDS (21-34) H 08/30/18 10:00 pO2 36 mm/Hg (30-55) 08/30/18 14:00 VBG pH 7.38 (7.32-7.43) 08/30/18 14:00 VBG pCO2 49 mmHg (40-60) 08/30/18 14:00 VBG HCO3 26.5 mmol/L 08/30/18 14:00 VBG Total CO2 30.5 mmol/L (22-28) H 08/30/18 14:00 VBG O2 Sat (Calc) 76.0 % (40-65) H 08/30/18 14:00 VBG Base Excess 3.0 mmol/L (0.0-2.0) H 08/30/18 14:00 VBG Potassium 4.7 mmol/L (3.6-5.2) 08/30/18 14:00 Sodium 141.0 mmol/l (132-148) 08/30/18 14:00 Chloride 108.0 mmol/L (98-107) H 08/30/18 14:00 Glucose 65 mg/dl (65-105) 08/30/18 14:00 Lactate 0.9 mmol/L (0.7-2.1) 08/30/18 14:00 Sodium 141 mmol/L (132-148) 09/04/18 07:33 Potassium 4.1 mmol/L (3.6-5.2) 09/04/18 07:33 Chloride 106 mmol/L (98-107) 09/04/18 07:33 Carbon Dioxide 26 mmol/L (22-30) 09/04/18 07:33 Anion Gap 14 (10-20) 09/04/18 07:33 BUN 16 mg/dL (7-17) 09/04/18 07:33 Creatinine 0.9 mg/dL (0.7-1.2) 09/04/18 07:33 Est GFR ( Amer) > 60 09/04/18 07:33 Est GFR (Non-Af Amer) 60 09/04/18 07:33 POC Glucose (mg/dL) 283 mg/dL (65-110) H 09/06/18 10:47 Random Glucose 266 mg/dL (65-105) H 09/04/18 07:33 Hemoglobin A1c 7.1 % (4.2-6.5) H 08/30/18 10:00 Calcium 8.8 mg/dl (8.6-10.4) 09/04/18 07:33 Phosphorus 2.9 mg/dL (2.5-4.5) 09/04/18 07:33 Magnesium 1.8 mg/dL (1.6-2.3) 09/04/18 07:33 Total Bilirubin 0.5 mg/dL (0.2-1.3) 09/04/18 07:33 AST 36 U/L (14-36) D 09/04/18 07:33 ALT 34 U/L (9-52) 09/04/18 07:33 Alkaline Phosphatase 58 U/L (38-126) 09/04/18 07:33 Total Creatine Kinase 139 U/L (30-135) H 08/30/18 10:00 Troponin I 0.0220 ng/mL (0.00-0.120) 08/30/18 10:00 NT-Pro-B Natriuret Pep 288 pg/mL (0-900) 08/30/18 10:00 Total Protein 6.4 g/dL (6.3-8.3) 09/04/18 07:33 Albumin 3.3 g/dL (3.5-5.0) L 09/04/18 07:33 Globulin 3.1 gm/dL (2.2-3.9) 09/04/18 07:33 Albumin/Globulin Ratio 1.1 (1.0-2.1) 09/04/18 07:33 Triglycerides 86 mg/dL (0-149) 08/30/18 10:00 Cholesterol 157 mg/dL (0-199) 08/30/18 10:00 LDL Cholesterol Direct 90 mg/dL (0-129) 08/30/18 10:00 HDL Cholesterol 56 mg/dL (30-70) 08/30/18 10:00 Vitamin B12 324 pg/mL (239-931) 08/30/18 18:47 Folate > 20.0 ng/mL 08/30/18 18:47 Venous Blood Potassium 4.7 mmol/L (3.6-5.2) 08/30/18 14:00 Urine Color Yellow (YELLOW) 08/30/18 11:51 Urine Clarity Clear (Clear) 08/30/18 11:51 Urine pH 6.0 (5.0-8.0) 08/30/18 11:51 Ur Specific [place] 1.042 (1.003-1.030) H 08/30/18 11:51 Urine Protein Negative mg/dL (NEGATIVE) 08/30/18 11:51 Urine Glucose (UA) Normal mg/dL (Normal) 08/30/18 11:51 Urine Ketones Trace mg/dL (NEGATIVE) 08/30/18 11:51 Urine Blood Negative (NEGATIVE) 08/30/18 11:51 Urine Nitrate Negative (NEGATIVE) 08/30/18 11:51 Urine Bilirubin Negative (NEGATIVE) 08/30/18 11:51 Urine Urobilinogen Normal mg/dL (0.2-1.0) 08/30/18 11:51 Ur Leukocyte Esterase Neg [place]/uL (Negative) 08/30/18 11:51 Urine WBC (Auto) < 1 /hpf (0-5) 08/30/18 11:51 Urine RBC (Auto) 1 /hpf (0-3) 08/30/18 11:51 Ur Squamous Epith Cells < 1 /hpf (0-5) 08/30/18 11:51 Blood Type O NEGATIVE 08/30/18 10:54 Antibody Screen Negative 08/30/18 10:54 - Hospital Course Hospital Course: PT WAS FOUND ON FLOOR AND CONFUSED WITH SUGAR OF 40 PT RESPONDED PARTIALLY WITH D50 SINCE ADMISSION PT HAS PERIODS OF AGITATION AND CONFUSION INITIAL NEURO AND CARDIAC W/U IS NEG , PENDING MRI PT HAS POORLY CONTROLLED DM DUE TO NON COMPLIANCE WITH MEDS/DIET RECENTLY ADMITTED IN FOR PNEUMONIA CARDIAC W/P IN PAST IS NEG PT HAS BASELINE TREMORS WHICH HAS RESPONDED WITH SINEMET SEPTIC W/P NEG . EURO W/P NEG MRI COULDNOT BE DONE PT'S MENTAL STATUS IMPROVED REF TO REHAB Discharge Exam - Head Exam Head Exam: ATRAUMATIC, NORMAL INSPECTION, NORMOCEPHALIC Discharge Plan - Follow Up Plan Condition: GUARDED Disposition: HOME/ ROUTINE Instructions: Altered Mental Status (DC) Referrals: Goran Capone MD [Staff Provider] - Xavier Disla MD [Staff Provider] - Edna Boo MD [Staff Provider] - Libby Acuña MD [Staff Provider] -
== END 2018-09-06 16:25 | DRG 638 ==
LOC: C.ER 09:14 → OBSVTOIN 14:01 → C.5S 14:01 → C.9E 14:21 → C.5S 14:34 → C.9E 15:33 → C.9I 15:46 → C.5S 09-01 14:51
PROVIDERS: ADMIT Internal Medicine Cardiovascular Disease; ATTEND Internal Medicine Cardiovascular Disease
DX: E10.649 Type 1 diabetes mellitus with hypoglycemia without coma (principal); G93.40 Encephalopathy, unspecified; E78.5 Hyperlipidemia, unspecified; Z79.4 Long term (current) use of insulin; I10 Essential (primary) hypertension; H54.7 Unspecified visual loss; J45.909 Unspecified asthma, uncomplicated; G20 Parkinson's disease; F02.80 Dementia in other diseases classified elsewhere, unspecified severity, without behavioral disturbance, psychotic disturbance, mood disturbance, and anxiety; Z91.14 Patient's other noncompliance with medication regimen; Z91.83 Wandering in diseases classified elsewhere

== ENCOUNTER 2018-09-13 13:49 | Inpatient (IN) | payer OTHER ==
[2018-09-13 13:49] VITALS: BMI 36.1
[2018-09-13] MEDS ORDERED: Sodium Chloride 0.9% 500 ML IV ONE ×3 (14:06→15:30)
[2018-09-13] MEDS ORDERED: Pantoprazole 80 MG in Sodium Chloride 0.9% 100 ML IVP STA (14:11)
[2018-09-13] MEDS ORDERED: Pantoprazole 80 MG in Sodium Chloride 0.9% 100 ML IVPB STA (14:19)
--- NOTE | 2018-09-13 14:21 | RAD ---
Date of service: 09/13/2018 PROCEDURE: CHEST RADIOGRAPH, 1 VIEW HISTORY: SOB COMPARISON: 08/30/2018 FINDINGS: LUNGS: Clear. PLEURA: No pneumothorax or pleural fluid seen. CARDIOVASCULAR: No aortic atherosclerotic calcification present. Normal. OSSEOUS STRUCTURES: No significant abnormalities. VISUALIZED UPPER ABDOMEN: Normal. OTHER FINDINGS: None. IMPRESSION: No active disease.
[2018-09-13] MEDS ORDERED: Sodium Chloride 0.9% 1,000 ML ONE (14:28)
[2018-09-13 14:35] LABS: BASO % 0.6 % (0.0-2.0); EOS % 0.5 % (0.0-4.0); LYMPH # 0.9 K/uL (1.0-4.3); LYMPH % 10.7 % (20.0-40.0); MEAN CELL VOLUME 91.1 fL (81.0-99.0); MEAN PLATELET VOLUME 10.4 fL (7.2-11.7); MONO # 0.8 K/uL (0.0-0.8); MONO % 10.3 % (0.0-10.0); NEUT # 6.3 K/uL (1.8-7.0); NEUT % 77.9 % (50.0-75.0); NRBC % 0.1 % (0.0-2.0); RBC 4.55 Mil/uL (3.80-5.20); RED CELL DISTRIBUTION WIDTH 14.4 % (11.5-14.5); WHITE BLOOD COUNT 8.1 K/uL (4.8-10.8)
[2018-09-13 14:36] LABS: HEMOGLOBIN 14.1 g/dL (11.0-16.0)
[2018-09-13 14:45] LABS: INR 1.1; PROTHROMBIN TIME 12.2 SECONDS (9.7-12.2)
[2018-09-13 15:02] LABS: ALBUMIN 3.8 g/dL (3.5-5.0); CALCIUM 9.7 mg/dl (8.6-10.4)
[2018-09-13] MEDS ORDERED: (Novolin R) Insulin Human Regular 100 units/ml vial IVP ONE (15:11)
[2018-09-13] MEDS ORDERED: (Novolin R) Insulin Human Regular 100 units/ml vial ONE ×2 (15:22→19:31)
--- NOTE | 2018-09-13 15:51 | C.PDOC ---
History Of Present Illness Patient ZOEY from [place] for evaluation after several episodes of coffee ground emesis today. As per EMS, there was a lot of coffee ground staining on patient's sheets. History is limited as patient is confused currently. As per [place] records, patient has PMHx of Parkinson's disease, DM, HTN, asthma. Time Seen by Provider: 09/13/18 13:51 Chief Complaint (Nursing): GI Problem History Per: EMS, Other ([place] records) History/Exam Limitations: clinical condition Onset/Duration Of Symptoms: Unknown Current Symptoms Are (Timing): Still Present Past Medical History Reviewed: Historical Data, Nursing Documentation, Vital Signs Vital Signs: Last Vital Signs Temp 97.9 F 09/13/18 13:50 Pulse 82 09/13/18 13:50 Resp 18 09/13/18 13:50 BP 118/43 L 09/13/18 13:50 Pulse Ox 94 L 09/13/18 13:50 Primary Care Provider: Edna Boo - Medical History PMH: Asthma, Dementia, Diabetes, HTN, Parkinson's Disease - [facility] Procedures TETANUS TOXOID ADMINIST (07/25/14) Family History: States: No Known Family Hx - Social History Hx Tobacco Use: No Hx Alcohol Use: No Hx Substance Use: No - Immunization History Hx Tetanus Toxoid Vaccination: Yes Hx Influenza Vaccination: Yes Hx Pneumococcal Vaccination: Yes Review Of Systems Review Of Systems: ROS cannot be obtained secondary to pt's inabilty to answer questions. Physical Exam - Physical Exam Appears: Non-toxic, No Acute Distress, Chronically Ill, Other (dried coffee ground emesis on gown) Skin: Normal Color, Warm, Dry Head: Normacephalic Eye(s): bilateral: Normal Inspection Oral Mucosa: Moist Cardiovascular: Rhythm Regular Respiratory: Normal Breath Sounds, No Rales, No Rhonchi, No Wheezing Gastrointestinal/Abdominal: Bowel Sounds, Soft, No Tenderness, Other (obese ) Extremity: Normal ROM, No Deformity, No Swelling Neurological/Psych: Other (awake, alert, confused) ED Course And Treatment - Laboratory Results Result Diagrams: 09/26/18 07:50 09/26/18 07:50 Lab Results: PT 12.2 SECONDS (9.7-12.2) 09/13/18 14:32 INR 1.1 09/13/18 14:32 APTT 34.0 SECONDS (21-34) 09/13/18 14:32 Total Bilirubin 0.8 mg/dL (0.2-1.3) 09/13/18 14:32 AST 26 U/L (14-36) 09/13/18 14:32 ALT 11 U/L (9-52) 09/13/18 14:32 Alkaline Phosphatase 73 U/L (38-126) 09/13/18 14:32 Total Protein 7.5 g/dL (6.3-8.3) 09/13/18 14:32 Albumin 3.8 g/dL (3.5-5.0) 09/13/18 14:32 Globulin 3.7 gm/dL (2.2-3.9) 09/13/18 14:32 Albumin/Globulin Ratio 1.0 (1.0-2.1) 09/13/18 14:32 ECG: Interpreted By Me, Viewed By Me (NSR 81 bpm, left axis deviation, LAFB, no acute ST/T wave changes) ECG Interpretation: Abnormal O2 Sat by Pulse Oximetry: 94 (RA) Pulse Ox Interpretation: Normal - Radiology CXR: Interpreted by Me, Viewed By Me CXR Interpretation: Yes: No Acute Disease. No: Infiltrates Progress Note: Blood work, EKG, CXR, UA ordered and reviewed. Patient given multiple smaller IV NS boluses, IV insulin, IV protonix bolus + drip. IV rocephin given for UTI. - Physician Consult Information Physician Contacted: Edna Boo Outcome Of Conversation: Discussed patient with PMD, agrees with admission for coffee ground emesis, dehydration, hyperglycemia, UTI. Critical Care Time - Critical Care Note Total Time (in mins): 50 Documented critical care: time excludes all time spent performing seperately billable procedures. Disposition - Disposition Disposition: HOSPITALIZED Disposition Time: 17:28 Condition: STABLE - Clinical Impression Clinical Impression: Hyperglycemia, Coffee ground emesis, Dehydration, UTI (urinary tract infection), Diabetes mellitus type 2, uncontrolled Decision To Admit - Pt Status Changed To: Hospital Disposition Of: Inpatient - Admit Certification Admit to Inpatient:: After my assessment, the patient will require hospitalization for at least two midnights. This is because of the severity of symptoms shown, intensity of services needed, and/or the medical risk in this patient being treated as an outpatient. - InPatient: Physician Admission Certification:: see notes - . Bed Request Type: Telemetry Admitting Physician: Edna Boo Patient Diagnosis: Hyperglycemia, UTI (urinary tract infection), Diabetes mellitus type 2, uncontrolled, Coffee ground emesis, Dehydration
[2018-09-13] MEDS ORDERED: Sodium Chloride 0.9% 1,000 ML IV ONE (16:51)
[2018-09-13 17:12] LABS: URINE BACTERIA FEW (<OCC); URINE BILIRUBIN NEGATIVE (NEGATIVE); URINE BLOOD 1+ (NEGATIVE); URINE CLARITY Hazy (Clear); URINE COLOR Yellow (YELLOW); URINE GLUCOSE (UA) 3+ mg/dL (Normal); URINE LEUKOCYTE ESTERASE 3+ Leu/uL (Negative); URINE PROTEIN NEGATIVE (NEGATIVE); URINE UROBILINOGEN NORMAL mg/dL (0.2-1.0)
[2018-09-13] MEDS ORDERED: cefTRIAXone IV 1 gm in Dextros 50 ML IV ONE (17:20)
[2018-09-13] MEDS ORDERED: (Novolin R) Insulin Human Regular 100 units/ml vial SC STA (19:22)
[2018-09-13] MEDS: (Novolog) Insulin Aspart, Recombinant 100 u/ml 10 ml vial SC SCH (21:21)
[2018-09-13] MEDS: Ciprofloxacin 400mg/200ml D5W 400 MG/200 ML BAG IVPB SCH (21:22)
--- NOTE | 2018-09-13 23:09 | CP.PCM.HP ---
History of Present Illness - History of Present Illness History of Present Illness: PT. TRANSFERRED FROM REHAB AFTER COFFEE GROUND EMESIS PT HAS PERIODS OF CONFUSION AND EXACT DETAILS NOT AVAILABLE THE NURSES IN REHAB NOTICED COFFEE GROUND VOMITUS ON THE BED SHEET . IT WAS MODERATE AMOUNT PT WAS RECENTLY ADMITTED WITH HYPOGLYCEMIA AND CONTINUED TO HAVE CONFUSION WITH NO CLEAR CUT ETIOLOGY H/O COPD T2 DM Present on Admission - Present on Admission Any Indicators Present on Admission: No Review of Systems - Review of Systems All systems: reviewed and no additional remarkable complaints except (PT CONFUSED) Past Patient History - Past Medical History & Family History Past Medical History?: Yes - Past Social History Smoking Status: Never Smoked - CARDIAC Hx Hypertension: Yes - PULMONARY Hx Asthma: Yes - NEUROLOGICAL Hx Dementia: Yes Hx Parkinson's Disease: Yes - HEENT Hx Blind: Yes Hx Cataracts: Yes (Cataract sugery) - RENAL Hx Chronic Kidney Disease: No - ENDOCRINE/METABOLIC Hx Diabetes Mellitus Type 2: Yes - HEMATOLOGICAL/ONCOLOGICAL Hx Blood Disorders: No - MUSCULOSKELETAL/RHEUMATOLOGICAL Hx Falls: Yes - PSYCHIATRIC Hx Substance Use: No - SURGICAL HISTORY Hx Surgeries: Yes Hx Cataract Extraction: Yes Hx Eye Surgery: Yes - ANESTHESIA Hx Anesthesia: Yes Hx Anesthesia Reactions: No Meds Allergies/Adverse Reactions: Allergies Allergy/AdvReac Type Severity Reaction Status Date / Time No Known Allergies Allergy Verified 07/12/18 10:23 Physical Exam - Constitutional Appears: Confused - Head Exam Head Exam: ATRAUMATIC, NORMAL INSPECTION, NORMOCEPHALIC - Eye Exam Eye Exam: EOMI, Normal appearance, PERRL - ENT Exam ENT Exam: Mucous Membranes Dry - Neck Exam Neck exam: Positive for: Normal Inspection - Respiratory Exam Respiratory Exam: Clear to Auscultation Bilateral, NORMAL BREATHING PATTERN - GI/Abdominal Exam GI & Abdominal Exam: Soft. absent: Tenderness - Extremities Exam Extremities exam: Negative for: pedal edema - Back Exam Back exam: absent: CVA tenderness (L) - Neurological Exam Neurological exam: Altered - Psychiatric Exam Psychiatric exam: Agitated, Anxious Results - Vital Signs Recent Vital Signs: Last Vital Signs Temp 97.9 F 09/13/18 13:50 Pulse 70 09/13/18 18:41 Resp 16 09/13/18 18:41 BP 160/46 H 09/13/18 18:41 Pulse Ox 99 09/13/18 18:41 - Labs Result Diagrams: 09/13/18 14:32 09/13/18 14:32 Labs: Laboratory Results - last 24 hr 09/13/18 09/13/18 09/13/18 14:32 14:32 14:32 WBC 8.1 RBC 4.55 Hgb 14.1 D Hct 41.5 MCV 91.1 MCH 31.0 MCHC 34.0 RDW 14.4 Plt Count 233 MPV 10.4 Neut % (Auto) 77.9 H Lymph % (Auto) 10.7 L [place] % (Auto) 10.3 H Eos % (Auto) 0.5 Baso % (Auto) 0.6 Neut # (Auto) 6.3 Lymph # (Auto) 0.9 L [place] # (Auto) 0.8 Eos # (Auto) 0.0 Baso # (Auto) 0.0 PT 12.2 INR 1.1 APTT 34.0 Sodium 134 Potassium 5.4 H Chloride 91 L Carbon Dioxide 31 H Anion Gap 18 BUN 66 H Creatinine 1.5 H Est GFR ( Amer) 40 Est GFR (Non-Af Amer) 33 POC Glucose (mg/dL) Random Glucose 576 H* D Calcium 9.7 Total Bilirubin 0.8 AST 26 ALT 11 Alkaline Phosphatase 73 Total Protein 7.5 Albumin 3.8 Globulin 3.7 Albumin/Globulin Ratio 1.0 Urine Color Urine Clarity Urine pH Ur Specific [place] Urine Protein Urine Glucose (UA) Urine Ketones Urine Blood Urine Nitrate Urine Bilirubin Urine Urobilinogen Ur Leukocyte Esterase Urine WBC (Auto) Urine RBC (Auto) Urine Bacteria 09/13/18 09/13/18 09/13/18 14:42 14:44 16:49 WBC RBC Hgb Hct MCV MCH MCHC RDW Plt Count MPV Neut % (Auto) Lymph % (Auto) [place] % (Auto) Eos % (Auto) Baso % (Auto) Neut # (Auto) Lymph # (Auto) [place] # (Auto) Eos # (Auto) Baso # (Auto) PT INR APTT Sodium Potassium Chloride Carbon Dioxide Anion Gap BUN Creatinine Est GFR ( Amer) Est GFR (Non-Af Amer) POC Glucose (mg/dL) > 500 H* > 500 H* 461 H* Random Glucose Calcium Total Bilirubin AST ALT Alkaline Phosphatase Total Protein Albumin Globulin Albumin/Globulin Ratio Urine Color Urine Clarity Urine pH Ur Specific [place] Urine Protein Urine Glucose (UA) Urine Ketones Urine Blood Urine Nitrate Urine Bilirubin Urine Urobilinogen Ur Leukocyte Esterase Urine WBC (Auto) Urine RBC (Auto) Urine Bacteria 09/13/18 09/13/18 09/13/18 17:03 18:57 20:33 WBC RBC Hgb Hct MCV MCH MCHC RDW Plt Count MPV Neut % (Auto) Lymph % (Auto) [place] % (Auto) Eos % (Auto) Baso % (Auto) Neut # (Auto) Lymph # (Auto) [place] # (Auto) Eos # (Auto) Baso # (Auto) PT INR APTT Sodium Potassium Chloride Carbon Dioxide Anion Gap BUN Creatinine Est GFR ( Amer) Est GFR (Non-Af Amer) POC Glucose (mg/dL) 405 H* 386 H Random Glucose Calcium Total Bilirubin AST ALT Alkaline Phosphatase Total Protein Albumin Globulin Albumin/Globulin Ratio Urine Color Yellow Urine Clarity Hazy Urine pH 6.0 Ur Specific [place] 1.013 Urine Protein Negative Urine Glucose (UA) 3+ H Urine Ketones Trace Urine Blood 1+ H Urine Nitrate Negative Urine Bilirubin Negative Urine Urobilinogen Normal Ur Leukocyte Esterase 3+ H Urine WBC (Auto) 542 H Urine RBC (Auto) 4 H Urine Bacteria Few H Assessment & Plan (1) GI bleed Status: Acute Comment: MAY NEED EGD (2) Altered mental status Status: Acute (3) Diabetes mellitus Status: Acute
[2018-09-14] MEDS: Ciprofloxacin 400mg/200ml D5W 400 MG/200 ML BAG IVPB SCH (06:54)
[2018-09-14] MEDS: (Novolog) Insulin Aspart, Recombinant 100 u/ml 10 ml vial SC SCH ×3 (07:25→21:46)
--- NOTE | 2018-09-14 07:32 | CP.PCM.CON ---
<Broderick,Isi - Last Filed: 09/14/18 10:25> History of Present Illness - History of Present Illness History of Present Illness: GI Fellow PGY5 Consult Note This is an 82-year-old woman with a past medical history of asthma, DM, blindness, Dementia who was [facility] the [facility] for coffee ground emesis found on her bed sheet. She was recently discharged earlier in the month for confusion and altered mental status. Neuro workup was negative for CVA. Prior cardiac workup has been negative. Pt is currently on plavix and aspirin with no PPI therapy as reviewed in EMR. Pt is a poor historian, per nursing overnight slept fine with no emesis or rectal bleeding. No records on EGD/Colonoscopy in EMR. ROS: A 12pt ROS was unable to be obtained due to dementia PmHx: as stated in HPI PsHx: unable to be obtained due to dementia SH: unable to be obtained due to dementia FH: unable to be obtained due to dementia Past Patient History - Past Medical History & Family History Past Medical History?: Yes - Past Social History Smoking Status: Never Smoked - CARDIAC Hx Hypertension: Yes - PULMONARY Hx Asthma: Yes - NEUROLOGICAL Hx Dementia: Yes Hx Parkinson's Disease: Yes - HEENT Hx Blind: Yes Hx Cataracts: Yes (Cataract sugery) - RENAL Hx Chronic Kidney Disease: No - ENDOCRINE/METABOLIC Hx Diabetes Mellitus Type 2: Yes - HEMATOLOGICAL/ONCOLOGICAL Hx Blood Disorders: No - MUSCULOSKELETAL/RHEUMATOLOGICAL Hx Falls: Yes - PSYCHIATRIC Hx Substance Use: No - SURGICAL HISTORY Hx Surgeries: Yes Hx Cataract Extraction: Yes Hx Eye Surgery: Yes - ANESTHESIA Hx Anesthesia: Yes Hx Anesthesia Reactions: No Meds Allergies/Adverse Reactions: Allergies Allergy/AdvReac Type Severity Reaction Status Date / Time No Known Allergies Allergy Verified 07/12/18 10:23 - Medications Medications: Current Medications Ciprofloxacin (Cipro 400mg/200ml Dsw) 400 mg in 200 mls @ 133 mls/hr IVPB Q12H [facility]; Protocol Last Admin: 09/14/18 06:54 Dose: 133 mls/hr Insulin Aspart (Novolog) 0 unit SC ACHS [facility]; Protocol Last Admin: 09/14/18 07:25 Dose: Not Given Pantoprazole Sodium (Protonix Inj) 40 mg IVP Q12H [facility] Physical Exam - Constitutional Appears: Confused - Head Exam Head Exam: ATRAUMATIC, NORMAL INSPECTION, NORMOCEPHALIC - ENT Exam ENT Exam: Mucous Membranes Dry - Neck Exam Neck exam: Positive for: Full Rom, Normal Inspection - Respiratory Exam Respiratory Exam: Decreased Breath Sounds, NORMAL BREATHING PATTERN - Cardiovascular Exam Cardiovascular Exam: REGULAR RHYTHM, RRR, +S1, +S2 - GI/Abdominal Exam GI & Abdominal Exam: Normal Bowel Sounds, Soft. absent: Distended, Firm, Guarding, Tenderness - Rectal Exam Rectal Exam: Deferred - Extremities Exam Extremities exam: Positive for: full ROM, normal inspection - Psychiatric Exam Psychiatric exam: Flat Affect - Skin Skin Exam: Dry, Intact, Normal Color, Warm Results - Vital Signs Recent Vital Signs: Last Vital Signs Temp 97.7 F 09/13/18 23:25 Pulse 78 09/13/18 23:25 Resp 20 09/13/18 23:25 BP 128/56 L 09/13/18 23:25 Pulse Ox 97 09/13/18 23:25 - Labs Result Diagrams: 09/14/18 07:35 09/14/18 07:35 Labs: Laboratory Results - last 24 hr 09/13/18 09/13/18 09/13/18 14:32 14:32 14:32 WBC 8.1 RBC 4.55 Hgb 14.1 D Hct 41.5 MCV 91.1 MCH 31.0 MCHC 34.0 RDW 14.4 Plt Count 233 MPV 10.4 Neut % (Auto) 77.9 H Lymph % (Auto) 10.7 L [place] % (Auto) 10.3 H Eos % (Auto) 0.5 Baso % (Auto) 0.6 Neut # (Auto) 6.3 Lymph # (Auto) 0.9 L [place] # (Auto) 0.8 Eos # (Auto) 0.0 Baso # (Auto) 0.0 PT 12.2 INR 1.1 APTT 34.0 Sodium 134 Potassium 5.4 H Chloride 91 L Carbon Dioxide 31 H Anion Gap 18 BUN 66 H Creatinine 1.5 H Est GFR ( Amer) 40 Est GFR (Non-Af Amer) 33 POC Glucose (mg/dL) Random Glucose 576 H* D Calcium 9.7 Total Bilirubin 0.8 AST 26 ALT 11 Alkaline Phosphatase 73 Total Protein 7.5 Albumin 3.8 Globulin 3.7 Albumin/Globulin Ratio 1.0 Urine Color Urine Clarity Urine pH Ur Specific [place] Urine Protein Urine Glucose (UA) Urine Ketones Urine Blood Urine Nitrate Urine Bilirubin Urine Urobilinogen Ur Leukocyte Esterase Urine WBC (Auto) Urine RBC (Auto) Urine Bacteria 09/13/18 09/13/18 09/13/18 14:42 14:44 16:49 WBC RBC Hgb Hct MCV MCH MCHC RDW Plt Count MPV Neut % (Auto) Lymph % (Auto) [place] % (Auto) Eos % (Auto) Baso % (Auto) Neut # (Auto) Lymph # (Auto) [place] # (Auto) Eos # (Auto) Baso # (Auto) PT INR APTT Sodium Potassium Chloride Carbon Dioxide Anion Gap BUN Creatinine Est GFR ( Amer) Est GFR (Non-Af Amer) POC Glucose (mg/dL) > 500 H* > 500 H* 461 H* Random Glucose Calcium Total Bilirubin AST ALT Alkaline Phosphatase Total Protein Albumin Globulin Albumin/Globulin Ratio Urine Color Urine Clarity Urine pH Ur Specific [place] Urine Protein Urine Glucose (UA) Urine Ketones Urine Blood Urine Nitrate Urine Bilirubin Urine Urobilinogen Ur Leukocyte Esterase Urine WBC (Auto) Urine RBC (Auto) Urine Bacteria 09/13/18 09/13/18 09/13/18 17:03 18:57 20:33 WBC RBC Hgb Hct MCV MCH MCHC RDW Plt Count MPV Neut % (Auto) Lymph % (Auto) [place] % (Auto) Eos % (Auto) Baso % (Auto) Neut # (Auto) Lymph # (Auto) [place] # (Auto) Eos # (Auto) Baso # (Auto) PT INR APTT Sodium Potassium Chloride Carbon Dioxide Anion Gap BUN Creatinine Est GFR ( Amer) Est GFR (Non-Af Amer) POC Glucose (mg/dL) 405 H* 386 H Random Glucose Calcium Total Bilirubin AST ALT Alkaline Phosphatase Total Protein Albumin Globulin Albumin/Globulin Ratio Urine Color Yellow Urine Clarity Hazy Urine pH 6.0 Ur Specific [place] 1.013 Urine Protein Negative Urine Glucose (UA) 3+ H Urine Ketones Trace Urine Blood 1+ H Urine Nitrate Negative Urine Bilirubin Negative Urine Urobilinogen Normal Ur Leukocyte Esterase 3+ H Urine WBC (Auto) 542 H Urine RBC (Auto) 4 H Urine Bacteria Few H 09/14/18 09/14/18 01:59 06:07 WBC RBC Hgb Hct MCV MCH MCHC RDW Plt Count MPV Neut % (Auto) Lymph % (Auto) [place] % (Auto) Eos % (Auto) Baso % (Auto) Neut # (Auto) Lymph # (Auto) [place] # (Auto) Eos # (Auto) Baso # (Auto) PT INR APTT Sodium Potassium Chloride Carbon Dioxide Anion Gap BUN Creatinine Est GFR ( Amer) Est GFR (Non-Af Amer) POC Glucose (mg/dL) 296 H 276 H Random Glucose Calcium Total Bilirubin AST ALT Alkaline Phosphatase Total Protein Albumin Globulin Albumin/Globulin Ratio Urine Color Urine Clarity Urine pH Ur Specific [place] Urine Protein Urine Glucose (UA) Urine Ketones Urine Blood Urine Nitrate Urine Bilirubin Urine Urobilinogen Ur Leukocyte Esterase Urine WBC (Auto) Urine RBC (Auto) Urine Bacteria Assessment & Plan - Assessment and Plan (Free Text) Assessment: 1. Coffee ground emesis 2. Dementia 3. DM 4. HTN Plan: -Continue supportive care with IVF hydration -Advance to Clear liquid diet -Monitor H/H and transfuse if <7 -No active bleeding at this time, hemodynamically stable -IV PPI BID -Will discuss with primary team about need for plavix/aspirin as an outpatient with no hx of CVA or CAD? -Will plan for endoscopic evaluation at this time, discussed with pt's son and consent obtained -Will continue to follow closely <Asael Martinez - Last Filed: 09/14/18 11:35> Meds - Medications Medications: Current Medications Ciprofloxacin (Cipro 400mg/200ml Dsw) 400 mg in 200 mls @ 133 mls/hr IVPB Q24H [facility]; Protocol Insulin Aspart (Novolog) 0 unit SC ACHS [facility]; Protocol Last Admin: 09/14/18 07:25 Dose: Not Given Pantoprazole Sodium (Protonix Inj) 40 mg IVP Q12H [facility] Last Admin: 09/14/18 08:59 Dose: 40 mg Pneumococcal Polyvalent Vaccine (Pneumovax 23 Vaccine) 0.5 ml IM .ONCE ONE Stop: 09/15/18 10:01 Results - Vital Signs Recent Vital Signs: Last Vital Signs Temp 98.7 F 09/14/18 08:05 Pulse 81 09/14/18 08:50 Resp 20 09/14/18 08:05 BP 101/62 09/14/18 08:05 Pulse Ox 96 09/14/18 08:05 - Labs Result Diagrams: 09/14/18 07:35 09/14/18 07:35 Labs: Laboratory Results - last 24 hr 09/13/18 09/13/18 09/13/18 14:32 14:32 14:32 WBC 8.1 RBC 4.55 Hgb 14.1 D Hct 41.5 MCV 91.1 MCH 31.0 MCHC 34.0 RDW 14.4 Plt Count 233 MPV 10.4 Neut % (Auto) 77.9 H Lymph % (Auto) 10.7 L [place] % (Auto) 10.3 H Eos % (Auto) 0.5 Baso % (Auto) 0.6 Neut # (Auto) 6.3 Lymph # (Auto) 0.9 L [place] # (Auto) 0.8 Eos # (Auto) 0.0 Baso # (Auto) 0.0 PT 12.2 INR 1.1 APTT 34.0 Sodium 134 Potassium 5.4 H Chloride 91 L Carbon Dioxide 31 H Anion Gap 18 BUN 66 H Creatinine 1.5 H Est GFR ( Amer) 40 Est GFR (Non-Af Amer) 33 POC Glucose (mg/dL) Random Glucose 576 H* D Calcium 9.7 Total Bilirubin 0.8 AST 26 ALT 11 Alkaline Phosphatase 73 Total Protein 7.5 Albumin 3.8 Globulin 3.7 Albumin/Globulin Ratio 1.0 Urine Color Urine Clarity Urine pH Ur Specific [place] Urine Protein Urine Glucose (UA) Urine Ketones Urine Blood Urine Nitrate Urine Bilirubin Urine Urobilinogen Ur Leukocyte Esterase Urine WBC (Auto) Urine RBC (Auto) Urine Bacteria 09/13/18 09/13/18 09/13/18 14:42 14:44 16:49 WBC RBC Hgb Hct MCV MCH MCHC RDW Plt Count MPV Neut % (Auto) Lymph % (Auto) [place] % (Auto) Eos % (Auto) Baso % (Auto) Neut # (Auto) Lymph # (Auto) [place] # (Auto) Eos # (Auto) Baso # (Auto) PT INR APTT Sodium Potassium Chloride Carbon Dioxide Anion Gap BUN Creatinine Est GFR ( Amer) Est GFR (Non-Af Amer) POC Glucose (mg/dL) > 500 H* > 500 H* 461 H* Random Glucose Calcium Total Bilirubin AST ALT Alkaline Phosphatase Total Protein Albumin Globulin Albumin/Globulin Ratio Urine Color Urine Clarity Urine pH Ur Specific [place] Urine Protein Urine Glucose (UA) Urine Ketones Urine Blood Urine Nitrate Urine Bilirubin Urine Urobilinogen Ur Leukocyte Esterase Urine WBC (Auto) Urine RBC (Auto) Urine Bacteria 09/13/18 09/13/18 09/13/18 17:03 18:57 20:33 WBC RBC Hgb Hct MCV MCH MCHC RDW Plt Count MPV Neut % (Auto) Lymph % (Auto) [place] % (Auto) Eos % (Auto) Baso % (Auto) Neut # (Auto) Lymph # (Auto) [place] # (Auto) Eos # (Auto) Baso # (Auto) PT INR APTT Sodium Potassium Chloride Carbon Dioxide Anion Gap BUN Creatinine Est GFR ( Amer) Est GFR (Non-Af Amer) POC Glucose (mg/dL) 405 H* 386 H Random Glucose Calcium Total Bilirubin AST ALT Alkaline Phosphatase Total Protein Albumin Globulin Albumin/Globulin Ratio Urine Color Yellow Urine Clarity Hazy Urine pH 6.0 Ur Specific [place] 1.013 Urine Protein Negative Urine Glucose (UA) 3+ H Urine Ketones Trace Urine Blood 1+ H Urine Nitrate Negative Urine Bilirubin Negative Urine Urobilinogen Normal Ur Leukocyte Esterase 3+ H Urine WBC (Auto) 542 H Urine RBC (Auto) 4 H Urine Bacteria Few H 09/14/18 09/14/18 09/14/18 01:59 06:07 07:35 WBC 10.1 RBC 4.07 Hgb 12.3 Hct 36.9 MCV 90.9 MCH 30.3 MCHC 33.4 RDW 14.8 H Plt Count 212 MPV 10.3 Neut % (Auto) 65.0 Lymph % (Auto) 16.1 L [place] % (Auto) 13.2 H Eos % (Auto) 4.4 H Baso % (Auto) 1.3 Neut # (Auto) 6.5 Lymph # (Auto) 1.6 [place] # (Auto) 1.3 H Eos # (Auto) 0.4 Baso # (Auto) 0.1 PT INR APTT Sodium Potassium Chloride Carbon Dioxide Anion Gap BUN Creatinine Est GFR ( Amer) Est GFR (Non-Af Amer) POC Glucose (mg/dL) 296 H 276 H Random Glucose Calcium Total Bilirubin AST ALT Alkaline Phosphatase Total Protein Albumin Globulin Albumin/Globulin Ratio Urine Color Urine Clarity Urine pH Ur Specific [place] Urine Protein Urine Glucose (UA) Urine Ketones Urine Blood Urine Nitrate Urine Bilirubin Urine Urobilinogen Ur Leukocyte Esterase Urine WBC (Auto) Urine RBC (Auto) Urine Bacteria 09/14/18 09/14/18 07:35 11:12 WBC RBC Hgb Hct MCV MCH MCHC RDW Plt Count MPV Neut % (Auto) Lymph % (Auto) [place] % (Auto) Eos % (Auto) Baso % (Auto) Neut # (Auto) Lymph # (Auto) [place] # (Auto) Eos # (Auto) Baso # (Auto) PT INR APTT Sodium 138 Potassium 4.7 Chloride 101 Carbon Dioxide 30 Anion Gap 13 BUN 55 H Creatinine 1.5 H Est GFR ( Amer) 40 Est GFR (Non-Af Amer) 33 POC Glucose (mg/dL) 436 H* Random Glucose 280 H D Calcium 9.0 Total Bilirubin 0.5 AST 35 ALT 21 Alkaline Phosphatase 60 Total Protein 6.6 Albumin 3.3 L Globulin 3.3 Albumin/Globulin Ratio 1.0 Urine Color Urine Clarity Urine pH Ur Specific [place] Urine Protein Urine Glucose (UA) Urine Ketones Urine Blood Urine Nitrate Urine Bilirubin Urine Urobilinogen Ur Leukocyte Esterase Urine WBC (Auto) Urine RBC (Auto) Urine Bacteria Attending/Attestation - Attestation I have personally seen and examined this patient.: Yes I have fully participated in the care of the patient.: Yes I have reviewed all pertinent clinical information: Yes Notes (Text): 09/14/18 11:30 I have seen and examined patient with GI fellow. Agree with above documentation with the following additions. In brief, this is an 82 year old female with history of dementia, asthma, DM, legally blind, sent from [facility] for evaluation of dark colored emesis. Patient is not able to participate in meaningful discussion, additional information obtained via chart review, discussion with nursing staff and patient family member (son). She is on dual anti platelet therapy for unclear reasons and apparently yesterday developed an episode of coffee ground emesis. There is no reported abdominal pain, fever/chills, weight loss, or similar prior episodes. No further vomiting since arrival to hospital. No prior endoscopic history. Additional physical exam: Abdomen: no palpable hepato/splenomegaly Dementia Asthma Legally blind Coffee ground emesis on dual anti-platelet therapy - NPO - Continue with IV PPI therapy - H/H stable, continue to monitor - Anti-emetic therapy PRN - Will need to clarify reason why patient on anti-platelet therapy with medical team - Will plan for EGD evaluation today to rule out upper GI bleeding source. Further recommendations following endoscopic procedure.
[2018-09-14 07:42] LABS: BASO # 0.1 K/uL (0.0-0.2); BASO % 1.3 % (0.0-2.0); EOS # 0.4 K/uL (0.0-0.7); EOS % 4.4 % (0.0-4.0); HEMOGLOBIN 12.3 g/dL (11.0-16.0); LYMPH # 1.6 K/uL (1.0-4.3); LYMPH % 16.1 % (20.0-40.0); MEAN CELL VOLUME 90.9 fL (81.0-99.0); MEAN CORPUSCULAR HEMOGLOBIN 30.3 pg (27.0-31.0); MEAN CORPUSCULAR HGB CONC 33.4 g/dL (33.0-37.0); MEAN PLATELET VOLUME 10.3 fL (7.2-11.7); MONO # 1.3 K/uL (0.0-0.8); MONO % 13.2 % (0.0-10.0); NEUT # 6.5 K/uL (1.8-7.0); RBC 4.07 Mil/uL (3.80-5.20); RED CELL DISTRIBUTION WIDTH 14.8 % (11.5-14.5); WHITE BLOOD COUNT 10.1 K/uL (4.8-10.8)
[2018-09-14 08:05] LABS: ALBUMIN 3.3 g/dL (3.5-5.0)
--- NOTE | 2018-09-14 11:43 | CP.PCM.PN ---
Subjective - Date & Time of Evaluation Date of Evaluation: 09/14/18 Time of Evaluation: 11:41 - Subjective Subjective: CONFUSED NO FURTHER VOMITING P/E SAME FOR EGD PT IS ON DAPT FOR MANY YEARS FOR TIA /CVA Objective - Vital Signs/Intake and Output Vital Signs (last 24 hours): Temp Pulse Resp BP Pulse Ox 98.7 F 81 20 101/62 96 09/14/18 08:05 09/14/18 08:50 09/14/18 08:05 09/14/18 08:05 09/14/18 08:05 - Medications Medications: Current Medications Ciprofloxacin (Cipro 400mg/200ml Dsw) 400 mg in 200 mls @ 133 mls/hr IVPB Q24H [facility]; Protocol Insulin Aspart (Novolog) 0 unit SC ACHS [facility]; Protocol Last Admin: 09/14/18 07:25 Dose: Not Given Pantoprazole Sodium (Protonix Inj) 40 mg IVP Q12H [facility] Last Admin: 09/14/18 08:59 Dose: 40 mg Pneumococcal Polyvalent Vaccine (Pneumovax 23 Vaccine) 0.5 ml IM .ONCE ONE Stop: 09/15/18 10:01 - Labs Labs: 09/14/18 07:35 09/14/18 07:35 PT 12.2 SECONDS (9.7-12.2) 09/13/18 14:32 INR 1.1 09/13/18 14:32 APTT 34.0 SECONDS (21-34) 09/13/18 14:32 Assessment and Plan (1) GI bleed Status: Acute (2) Altered mental status Status: Acute (3) Diabetes mellitus Status: Acute
--- NOTE | 2018-09-14 12:05 | CARD ---
APPROVED REPORT Date of service: 09/13/2018 EKG Measurement Heart [id number] <Conclusion> Normal sinus rhythm Left anterior fascicular block Moderate voltage criteria for LVH, may be normal variant Abnormal ECG
[2018-09-14] MEDS: (Lantus) Insulin Glargine, Recombinant SC SCH (21:46)
[2018-09-15 07:20] LABS: HEMOGLOBIN 12.8 g/dL (11.0-16.0); MEAN CELL VOLUME 89.9 fL (81.0-99.0); MEAN CORPUSCULAR HEMOGLOBIN 30.9 pg (27.0-31.0); MEAN CORPUSCULAR HGB CONC 34.3 g/dL (33.0-37.0); MEAN PLATELET VOLUME 10.8 fL (7.2-11.7); RBC 4.15 Mil/uL (3.80-5.20); RED CELL DISTRIBUTION WIDTH 14.7 % (11.5-14.5); WHITE BLOOD COUNT 10.1 K/uL (4.8-10.8)
[2018-09-15 07:34] LABS: CALCIUM 9.3 mg/dl (8.6-10.4)
[2018-09-15] MEDS: (Novolog) Insulin Aspart, Recombinant 100 u/ml 10 ml vial SC SCH ×4 (08:35→21:25)
[2018-09-15] MEDS: Ciprofloxacin 400mg/200ml D5W 400 MG/200 ML BAG IVPB SCH (08:51)
[2018-09-15] MEDS ORDERED: Pneumococcal 23-Valent Vaccine IM ONE (10:00)
--- NOTE | 2018-09-15 11:52 | CP.PCM.PN ---
Subjective - Date & Time of Evaluation Date of Evaluation: 09/15/18 Time of Evaluation: 11:51 - Subjective Subjective: CONFUSED NO FURTHER VOMITING P/E SAME FOR EGD SUGARS ARE UP, ADJUSTMENT DONE Objective - Vital Signs/Intake and Output Vital Signs (last 24 hours): Temp Pulse Resp BP Pulse Ox 98.7 F 84 20 144/72 95 09/15/18 07:00 09/15/18 08:17 09/15/18 07:00 09/15/18 07:00 09/15/18 07:00 Intake and Output: 09/14/18 09/15/18 23:59 11:59 Intake Total 480 400 Output Total 300 700 Balance 180 -300 - Medications Medications: Current Medications Acetaminophen (Tylenol 325mg Tab) 325 mg PO Q4H PRN PRN Reason: Pain, Mild (1-3) Carbidopa/Levodopa (Sinemet) 1 tab PO BID [facility] Ciprofloxacin (Cipro 400mg/200ml Dsw) 400 mg in 200 mls @ 133 mls/hr IVPB Q24H [facility]; Protocol Last Admin: 09/15/18 08:51 Dose: 133 mls/hr Insulin Aspart (Novolog) 0 unit SC ACHS [facility]; Protocol Last Admin: 09/15/18 11:49 Dose: 10 units Insulin Glargine (Lantus) 25 unit SC HS [facility] Last Admin: 09/14/18 21:46 Dose: 25 u Lisinopril (Zestril) 2.5 mg PO DAILY [facility] Metolazone (Zaroxolyn) 10 mg PO DAILY [facility] Mirtazapine (Remeron) 15 mg PO HS [facility] Last Admin: 09/14/18 21:46 Dose: 15 mg Pantoprazole Sodium (Protonix Inj) 40 mg IVP Q12H [facility] Last Admin: 09/15/18 08:51 Dose: 40 mg Pregabalin (Lyrica) 75 mg PO DAILY [facility] Rosuvastatin Calcium (Crestor) 5 mg PO HS [facility] Last Admin: 09/14/18 21:45 Dose: 5 mg Sitagliptin Phosphate (Januvia) 50 mg PO DAILY [facility] - Labs Labs: 09/15/18 07:01 09/15/18 07:01 PT 12.2 SECONDS (9.7-12.2) 09/13/18 14:32 INR 1.1 09/13/18 14:32 APTT 34.0 SECONDS (21-34) 09/13/18 14:32 Assessment and Plan (1) GI bleed Status: Acute (2) Altered mental status Status: Acute (3) Diabetes mellitus Status: Acute
[2018-09-15] MEDS ORDERED: Propofol 10 mg/ml Inj (20 ML) ONE (13:12)
[2018-09-15] MEDS ORDERED: Lidocaine Hydrochloride 5 ML INJ ONE (13:13)
[2018-09-15] MEDS ORDERED: ePHEDrine 50 mg/ml Inj ONE (13:27)
[2018-09-15] MEDS: metOLazone 5 MG TAB PO SCH (15:29)
[2018-09-15] MEDS: (Lantus) Insulin Glargine, Recombinant SC SCH (21:41)
[2018-09-16] MEDS: (Novolog) Insulin Aspart, Recombinant 100 u/ml 10 ml vial SC SCH ×4 (08:30→22:01)
[2018-09-16] MEDS: Ciprofloxacin 400mg/200ml D5W 400 MG/200 ML BAG IVPB SCH (08:48)
[2018-09-16] MEDS: Pantoprazole 40 mg EC Tab PO SCH ×2 (09:42→18:20)
[2018-09-16] MEDS: metOLazone 5 MG TAB PO SCH (09:42)
[2018-09-16] MEDS ORDERED: Pneumococcal 23-Valent Vaccine IM ONE (10:00)
--- NOTE | 2018-09-16 10:16 | CP.PCM.PN ---
Subjective - Date & Time of Evaluation Date of Evaluation: 09/16/18 Time of Evaluation: 10:15 - Subjective Subjective: PERIODS OF CONFUSION S/P EGD , NO ACTIVE BLEEDING ON IV AB ID EVAL Objective - Vital Signs/Intake and Output Vital Signs (last 24 hours): Temp Pulse Resp BP Pulse Ox 98.5 F 72 20 116/59 L 95 09/16/18 07:00 09/16/18 07:00 09/16/18 07:00 09/16/18 07:00 09/16/18 07:00 Intake and Output: 09/15/18 09/16/18 23:59 11:59 Intake Total 400 Output Total 300 Balance 400 -300 - Medications Medications: Current Medications Acetaminophen (Tylenol 325mg Tab) 325 mg PO Q4H PRN PRN Reason: Pain, Mild (1-3) Carbidopa/Levodopa (Sinemet) 1 tab PO BID [facility] Last Admin: 09/16/18 09:41 Dose: 1 tab Ciprofloxacin (Cipro 400mg/200ml Dsw) 400 mg in 200 mls @ 133 mls/hr IVPB Q24H [facility]; Protocol Last Admin: 09/16/18 08:48 Dose: 133 mls/hr Insulin Aspart (Novolog) 0 unit SC ACHS [facility]; Protocol Last Admin: 09/16/18 08:30 Dose: 10 units Insulin Glargine (Lantus) 25 unit SC HS [facility] Last Admin: 09/15/18 21:41 Dose: 25 u Lisinopril (Zestril) 2.5 mg PO DAILY [facility] Last Admin: 09/16/18 09:42 Dose: 2.5 mg Metolazone (Zaroxolyn) 10 mg PO DAILY [facility] Last Admin: 09/16/18 09:42 Dose: 10 mg Mirtazapine (Remeron) 15 mg PO HS [facility] Last Admin: 09/15/18 21:41 Dose: 15 mg Pantoprazole Sodium (Protonix Ec Tab) 40 mg PO BID [facility] Last Admin: 09/16/18 09:42 Dose: 40 mg Pregabalin (Lyrica) 75 mg PO DAILY [facility] Last Admin: 09/16/18 09:41 Dose: 75 mg Rosuvastatin Calcium (Crestor) 5 mg PO HS [facility] Last Admin: 09/15/18 21:41 Dose: 5 mg Sitagliptin Phosphate (Januvia) 50 mg PO DAILY [facility] Last Admin: 09/16/18 09:42 Dose: 50 mg - Labs Labs: 09/15/18 07:01 09/15/18 07:01 PT 12.2 SECONDS (9.7-12.2) 09/13/18 14:32 INR 1.1 09/13/18 14:32 APTT 34.0 SECONDS (21-34) 09/13/18 14:32 Assessment and Plan (1) GI bleed Status: Acute (2) Altered mental status Status: Acute (3) Diabetes mellitus Status: Acute
--- NOTE | 2018-09-16 12:13 | CP.PCM.CON ---
History of Present Illness - History of Present Illness History of Present Illness: INFECTIOUS DISEASE CONSULT; HPI; 82-year-old woman with a past medical history of asthma, DM, blindness, Dementia who was [facility]18 for coffee ground emesis found on her bed sheet. She was recently discharged earlier in the month for confusion and altered mental status. Neuro workup was negative for CVA. Prior cardiac workup has been negative. Pt was on plavix and aspirin with no PPI therapy. Patient underwent EGD ON 09/15/18 as per GI for evaluation of her emesis and upper GI bleed and was found to have LGDE/GASTRITIS AND DUODENITIS. Patient septic workup showed urinary tract infection with 50 - 100,000 organisms per mL. multiple bacteria, ? contaminant vs real. Patient was placed on IV Cipro 400 mg every 24 hourly by PMD. Infectious disease consult requested by PMD for evaluation of UTI/ r/o sepsis. Pt is a poor historian. Patient unable to give any details. ROS: A 12pt ROS was unable to be obtained due to dementia PmHx: as stated in HPI PsHx: unable to be obtained due to dementia SH: unable to be obtained due to dementia FH: unable to be obtained due to dementia Past Patient History - Past Medical History & Family History Past Medical History?: Yes - Past Social History Smoking Status: Never Smoked - CARDIAC Hx Hypertension: Yes - PULMONARY Hx Asthma: Yes - NEUROLOGICAL Hx Dementia: Yes Hx Parkinson's Disease: Yes - HEENT Hx Blind: Yes Hx Cataracts: Yes (Cataract sugery) - RENAL Hx Chronic Kidney Disease: No - ENDOCRINE/METABOLIC Hx Diabetes Mellitus Type 2: Yes - HEMATOLOGICAL/ONCOLOGICAL Hx Blood Disorders: No - MUSCULOSKELETAL/RHEUMATOLOGICAL Hx Falls: Yes - PSYCHIATRIC Hx Substance Use: No - SURGICAL HISTORY Hx Surgeries: Yes Hx Cataract Extraction: Yes Hx Eye Surgery: Yes - ANESTHESIA Hx Anesthesia: Yes Hx Anesthesia Reactions: No Meds Allergies/Adverse Reactions: Allergies Allergy/AdvReac Type Severity Reaction Status Date / Time No Known Allergies Allergy Verified 07/12/18 10:23 - Medications Medications: Current Medications Acetaminophen (Tylenol 325mg Tab) 325 mg PO Q4H PRN PRN Reason: Pain, Mild (1-3) Carbidopa/Levodopa (Sinemet) 1 tab PO BID [facility] Last Admin: 09/16/18 09:41 Dose: 1 tab Ciprofloxacin (Cipro 400mg/200ml Dsw) 400 mg in 200 mls @ 133 mls/hr IVPB Q24H [facility]; Protocol Last Admin: 09/16/18 08:48 Dose: 133 mls/hr Insulin Aspart (Novolog) 0 unit SC [facility]; Protocol Last Admin: 09/16/18 11:43 Dose: 10 units Insulin Glargine (Lantus) 25 unit SC [facility] Last Admin: 09/15/18 21:41 Dose: 25 u Lisinopril (Zestril) 2.5 mg PO DAILY [facility] Last Admin: 09/16/18 09:42 Dose: 2.5 mg Metolazone (Zaroxolyn) 10 mg PO DAILY [facility] Last Admin: 09/16/18 09:42 Dose: 10 mg Mirtazapine (Remeron) 15 mg PO [facility] Last Admin: 09/15/18 21:41 Dose: 15 mg Pantoprazole Sodium (Protonix Ec Tab) 40 mg PO BID [facility] Last Admin: 09/16/18 09:42 Dose: 40 mg Pregabalin (Lyrica) 75 mg PO DAILY [facility] Last Admin: 09/16/18 09:41 Dose: 75 mg Rosuvastatin Calcium (Crestor) 5 mg PO [facility] Last Admin: 09/15/18 21:41 Dose: 5 mg Sitagliptin Phosphate (Januvia) 50 mg PO DAILY [facility] Last Admin: 09/16/18 09:42 Dose: 50 mg Physical Exam - Constitutional Appears: No Acute Distress, Confused - Head Exam Head Exam: NORMAL INSPECTION - Eye Exam Additional comments: PATIENT LEGALLY BLIND - ENT Exam ENT Exam: Normal Oropharynx - Neck Exam Neck exam: Positive for: Normal Inspection. Negative for: Meningismus - Respiratory Exam Respiratory Exam: Decreased Breath Sounds, NORMAL BREATHING PATTERN - Cardiovascular Exam Cardiovascular Exam: REGULAR RHYTHM, +S1, +S2 - GI/Abdominal Exam GI & Abdominal Exam: Normal Bowel Sounds, Soft. absent: Distended, Guarding - Extremities Exam Extremities exam: Positive for: pedal pulses present. Negative for: calf tenderness, pedal edema - Neurological Exam Neurological exam: Altered - Psychiatric Exam Psychiatric exam: Flat Affect - Skin Skin Exam: Warm Results - Vital Signs Recent Vital Signs: Last Vital Signs Temp 98.5 F 09/16/18 07:00 Pulse 72 09/16/18 07:00 Resp 20 09/16/18 07:00 BP 116/59 L 09/16/18 07:00 Pulse Ox 95 09/16/18 07:00 - Labs Result Diagrams: 09/15/18 07:01 09/15/18 07:01 Labs: Laboratory Results - last 24 hr 09/15/18 09/15/18 09/16/18 16:14 21:00 06:40 POC Glucose (mg/dL) 256 H 283 H 389 H 09/16/18 11:20 POC Glucose (mg/dL) 392 H Assessment & Plan (1) Altered mental status Status: Acute (2) UTI (urinary tract infection) Assessment and Plan: REPEAT UA. AND URINE CULTURE BY ST. CATHETERIZATION STAT. CONTINUE iv CIPRO 400 MG ONCE A DAY DAILY FOR NOW.09/13/18 WILL ADJUST ANTIBIOTICS AFTER APPROPRIATE CULTURES. BLOOD CULTURES -VE TO DATE. F/U CBC/BMP IN AM. Status: Acute (3) GI bleed Assessment and Plan: S/P EGD 09/15/18 LGDE/ GASTRITIS/DUODENITIS. PER GI. Status: Acute (4) Diabetes mellitus type 2, uncontrolled Assessment and Plan: PATIENT'S BLOOD SUGARS PRESENTLY UNCONTROLLED.- > 300 mONITOR SUGARS CLOSELY. cHECK HEMOGLOBIN A1C. Status: Acute
--- NOTE | 2018-09-16 15:22 | CP.PCM.PN ---
<Broderick,Isi - Last Filed: 09/16/18 15:18> Subjective - Date & Time of Evaluation Date of Evaluation: 09/16/18 Time of Evaluation: 15:00 - Subjective Subjective: GI Fellow PGY5 Progress Note Pt seen and examined at bedside, no issues per nursing overnight. Per nursing aid pt eating full liquid diet with no issues. No emesis/no coffee ground emesis. ROS: A 12pt ROS was negative except as above Objective - Vital Signs/Intake and Output Vital Signs (last 24 hours): Temp Pulse Resp BP Pulse Ox 98.5 F 72 20 120/67 95 09/16/18 07:00 09/16/18 13:11 09/16/18 07:00 09/16/18 13:11 09/16/18 07:00 Intake and Output: 09/16/18 09/16/18 06:59 18:59 Output Total 300 Balance -300 - Medications Medications: Current Medications Acetaminophen (Tylenol 325mg Tab) 325 mg PO Q4H PRN PRN Reason: Pain, Mild (1-3) Carbidopa/Levodopa (Sinemet) 1 tab PO BID [facility] Last Admin: 09/16/18 09:41 Dose: 1 tab Ciprofloxacin (Cipro 400mg/200ml Dsw) 400 mg in 200 mls @ 133 mls/hr IVPB Q24H [facility]; Protocol Last Admin: 09/16/18 08:48 Dose: 133 mls/hr Insulin Aspart (Novolog) 0 unit SC [facility]; Protocol Last Admin: 09/16/18 11:43 Dose: 10 units Insulin Glargine (Lantus) 25 unit SC [facility] Last Admin: 09/15/18 21:41 Dose: 25 u Lisinopril (Zestril) 2.5 mg PO DAILY [facility] Last Admin: 09/16/18 09:42 Dose: 2.5 mg Metolazone (Zaroxolyn) 10 mg PO DAILY [facility] Last Admin: 09/16/18 09:42 Dose: 10 mg Mirtazapine (Remeron) 15 mg PO HS [facility] Last Admin: 09/15/18 21:41 Dose: 15 mg Pantoprazole Sodium (Protonix Ec Tab) 40 mg PO BID [facility] Last Admin: 09/16/18 09:42 Dose: 40 mg Pregabalin (Lyrica) 75 mg PO DAILY [facility] Last Admin: 09/16/18 09:41 Dose: 75 mg Rosuvastatin Calcium (Crestor) 5 mg PO HS [facility] Last Admin: 09/15/18 21:41 Dose: 5 mg Sitagliptin Phosphate (Januvia) 50 mg PO DAILY [facility] Last Admin: 09/16/18 09:42 Dose: 50 mg - Labs Labs: 09/15/18 07:01 09/15/18 07:01 PT 12.2 SECONDS (9.7-12.2) 09/13/18 14:32 INR 1.1 09/13/18 14:32 APTT 34.0 SECONDS (21-34) 09/13/18 14:32 - Constitutional Appears: Non-toxic, No Acute Distress, Confused - Head Exam Head Exam: ATRAUMATIC, NORMAL INSPECTION, NORMOCEPHALIC - Eye Exam Eye Exam: EOMI, Normal appearance, PERRL - ENT Exam ENT Exam: Mucous Membranes Moist, Normal Exam - Neck Exam Neck Exam: Full ROM, Normal Inspection - Respiratory Exam Respiratory Exam: Clear to Ausculation Bilateral, NORMAL BREATHING PATTERN - Cardiovascular Exam Cardiovascular Exam: REGULAR RHYTHM, RRR, +S1, +S2 - GI/Abdominal Exam GI & Abdominal Exam: Soft, Normal Bowel Sounds. absent: Tenderness - Extremities Exam Extremities Exam: Full ROM, Normal Inspection - Neurological Exam Neurological Exam: Alert - Psychiatric Exam Psychiatric exam: Normal Affect, Normal Mood - Skin Skin Exam: Dry, Intact, Normal Color, Warm Assessment and Plan - Assessment and Plan (Free Text) Assessment: 1. Coffee ground emesis s/p EGD LAGD esophagitis 2. Dementia 3. DM 4. HTN Plan: -Continue supportive care, no further bleeding -Advance to Pureed diet -Monitor H/H and transfuse if <7 -No active bleeding at this time, hemodynamically stable -PO PPI BID for LAGD esophagitis -Please call with any questions or concerns <Asael Martinez - Last Filed: 09/16/18 16:56> Objective - Vital Signs/Intake and Output Vital Signs (last 24 hours): Temp Pulse Resp BP Pulse Ox 98.7 F 60 20 117/71 95 09/16/18 15:23 09/16/18 16:42 09/16/18 15:23 09/16/18 15:23 09/16/18 15:23 Intake and Output: 09/16/18 09/16/18 06:59 18:59 Output Total 300 Balance -300 - Medications Medications: Current Medications Acetaminophen (Tylenol 325mg Tab) 325 mg PO Q4H PRN PRN Reason: Pain, Mild (1-3) Carbidopa/Levodopa (Sinemet) 1 tab PO BID [facility] Last Admin: 09/16/18 09:41 Dose: 1 tab Ciprofloxacin (Cipro 400mg/200ml Dsw) 400 mg in 200 mls @ 133 mls/hr IVPB Q24H [facility]; Protocol Last Admin: 09/16/18 08:48 Dose: 133 mls/hr Insulin Aspart (Novolog) 0 unit SC A[facility]; Protocol Last Admin: 09/16/18 11:43 Dose: 10 units Insulin Glargine (Lantus) 25 unit SC HS [facility] Last Admin: 09/15/18 21:41 Dose: 25 u Lisinopril (Zestril) 2.5 mg PO DAILY [facility] Last Admin: 09/16/18 09:42 Dose: 2.5 mg Metolazone (Zaroxolyn) 10 mg PO DAILY [facility] Last Admin: 09/16/18 09:42 Dose: 10 mg Mirtazapine (Remeron) 15 mg PO HS [facility] Last Admin: 09/15/18 21:41 Dose: 15 mg Pantoprazole Sodium (Protonix Ec Tab) 40 mg PO BID [facility] Last Admin: 09/16/18 09:42 Dose: 40 mg Pregabalin (Lyrica) 75 mg PO DAILY [facility] Last Admin: 09/16/18 09:41 Dose: 75 mg Rosuvastatin Calcium (Crestor) 5 mg PO HS [facility] Last Admin: 09/15/18 21:41 Dose: 5 mg Sitagliptin Phosphate (Januvia) 50 mg PO DAILY [facility] Last Admin: 09/16/18 09:42 Dose: 50 mg - Labs Labs: 09/15/18 07:01 09/15/18 07:01 PT 12.2 SECONDS (9.7-12.2) 09/13/18 14:32 INR 1.1 09/13/18 14:32 APTT 34.0 SECONDS (21-34) 09/13/18 14:32 Attending/Attestation - Attestation I have personally seen and examined this patient.: Yes I have fully participated in the care of the patient.: Yes I have reviewed all pertinent clinical information, including history, physical exam and plan: Yes Notes (Text): 09/16/18 16:54 I have seen and examined patient with GI fellow. No acute events overnight, she is seen resting in bed comfortably. No reported abdominal pain, nausea, vomiting, melena as per nursing staff. Tolerating PO liquids without difficulty. DM - uncontrolled HTN Dementia CVA on plavix (held) UTI Vomiting -resolved, s/p EGD yesterday showing severe distal erosive esophagitis without evidence of active bleeding - Advance to puree diet as tolerated - Continue with antibiotic therapy as per ID - Continue with PPI therapy twice daily - Anti-emetic therapy PRN - Continue to monitor H/H - No further planned GI interventions at this time, will sign off case. Please reconsult as necessary, thank you
[2018-09-16] MEDS: (Lantus) Insulin Glargine, Recombinant SC SCH (22:00)
[2018-09-16 22:06] LABS: URINE BACTERIA OCC (<OCC); URINE BILIRUBIN NEGATIVE (NEGATIVE); URINE BLOOD 1+ (NEGATIVE); URINE CLARITY Hazy (Clear); URINE COLOR Yellow (YELLOW); URINE GLUCOSE (UA) 3+ mg/dL (Normal); URINE LEUKOCYTE ESTERASE 3+ Leu/uL (Negative); URINE PROTEIN 1+ mg/dL (NEGATIVE); URINE UROBILINOGEN NORMAL mg/dL (0.2-1.0); WBC CLUMPS MANY /hpf
[2018-09-17 07:56] LABS: BASO # 0.1 K/uL (0.0-0.2); BASO % 0.8 % (0.0-2.0); EOS # 0.5 K/uL (0.0-0.7); EOS % 6.1 % (0.0-4.0); HEMOGLOBIN 12.4 g/dL (11.0-16.0); LYMPH # 1.6 K/uL (1.0-4.3); LYMPH % 20.5 % (20.0-40.0); MEAN CELL VOLUME 90.2 fL (81.0-99.0); MEAN CORPUSCULAR HEMOGLOBIN 30.3 pg (27.0-31.0); MEAN CORPUSCULAR HGB CONC 33.6 g/dL (33.0-37.0); MEAN PLATELET VOLUME 10.7 fL (7.2-11.7); MONO # 0.9 K/uL (0.0-0.8); MONO % 11.3 % (0.0-10.0); NEUT # 4.8 K/uL (1.8-7.0); NEUT % 61.3 % (50.0-75.0); NRBC % 0.5 % (0.0-2.0); RBC 4.1 Mil/uL (3.80-5.20); RED CELL DISTRIBUTION WIDTH 14.5 % (11.5-14.5); WHITE BLOOD COUNT 7.8 K/uL (4.8-10.8)
[2018-09-17 07:58] LABS: ALBUMIN 3.2 g/dL (3.5-5.0); CALCIUM 9.3 mg/dl (8.6-10.4)
[2018-09-17] MEDS: (Novolog) Insulin Aspart, Recombinant 100 u/ml 10 ml vial SC SCH ×4 (08:53→21:36)
[2018-09-17] MEDS: Ciprofloxacin 400mg/200ml D5W 400 MG/200 ML BAG IVPB SCH (08:54)
[2018-09-17] MEDS: metOLazone 5 MG TAB PO SCH (09:02)
[2018-09-17] MEDS: Pantoprazole 40 mg EC Tab PO SCH ×2 (09:02→17:26)
--- NOTE | 2018-09-17 11:56 | CP.PCM.PN ---
Subjective - Date & Time of Evaluation Date of Evaluation: 09/17/18 Time of Evaluation: 11:55 - Subjective Subjective: PERIODS OF CONFUSION AFEBRILE ON IV AB FOR UTI NO FURTHER GI BLEEDING D/W GI/ EGD FINDINGS D/W SON Objective - Vital Signs/Intake and Output Vital Signs (last 24 hours): Temp Pulse Resp BP Pulse Ox 98.6 F 69 20 132/77 99 09/17/18 08:19 09/17/18 08:19 09/17/18 08:19 09/17/18 08:19 09/17/18 08:19 Intake and Output: 09/16/18 09/17/18 23:59 11:59 Output Total 400 Balance -400 - Medications Medications: Current Medications Acetaminophen (Tylenol 325mg Tab) 325 mg PO Q4H PRN PRN Reason: Pain, Mild (1-3) Carbidopa/Levodopa (Sinemet) 1 tab PO BID [facility] Last Admin: 09/17/18 09:02 Dose: 1 tab Ciprofloxacin (Cipro 400mg/200ml Dsw) 400 mg in 200 mls @ 133 mls/hr IVPB Q24H [facility]; Protocol Last Admin: 09/17/18 08:54 Dose: 133 mls/hr Insulin Aspart (Novolog) 0 unit SC ACHS [facility]; Protocol Last Admin: 09/17/18 08:53 Dose: 4 units Insulin Glargine (Lantus) 25 unit SC HS [facility] Last Admin: 09/16/18 22:00 Dose: 25 u Lisinopril (Zestril) 2.5 mg PO DAILY [facility] Last Admin: 09/17/18 09:46 Dose: 2.5 mg Metolazone (Zaroxolyn) 10 mg PO DAILY [facility] Last Admin: 09/17/18 09:02 Dose: 10 mg Mirtazapine (Remeron) 15 mg PO HS [facility] Last Admin: 09/16/18 22:01 Dose: 15 mg Pantoprazole Sodium (Protonix Ec Tab) 40 mg PO BID [facility] Last Admin: 09/17/18 09:02 Dose: 40 mg Pregabalin (Lyrica) 75 mg PO DAILY [facility] Last Admin: 09/17/18 09:02 Dose: 75 mg Rosuvastatin Calcium (Crestor) 5 mg PO [facility] Last Admin: 09/16/18 22:00 Dose: 5 mg Sitagliptin Phosphate (Januvia) 50 mg PO DAILY [facility] Last Admin: 09/17/18 09:01 Dose: 50 mg - Labs Labs: 09/17/18 07:01 09/17/18 07:01 PT 12.2 SECONDS (9.7-12.2) 09/13/18 14:32 INR 1.1 09/13/18 14:32 APTT 34.0 SECONDS (21-34) 09/13/18 14:32 Assessment and Plan (1) GI bleed Status: Acute (2) Altered mental status Status: Acute (3) Diabetes mellitus Status: Acute
--- NOTE | 2018-09-17 12:23 | CP.PCM.PN ---
Subjective - Date & Time of Evaluation Date of Evaluation: 09/17/18 Time of Evaluation: 12:23 - Subjective Subjective: AFEBRILE, NO ACUTE EVENTS OVERNIGHT. NO FURTHER VOMITING OR GI -BLEED. LABS REVIEWED U/A- STRAIGHT CATHETER CLUMPS OF WBC. INCREASING EOSINOPHILIA NOTED 6.1% ? CIPRO. Objective - Vital Signs/Intake and Output Vital Signs (last 24 hours): Temp Pulse Resp BP Pulse Ox 98.6 F 69 20 132/77 99 09/17/18 08:19 09/17/18 08:19 09/17/18 08:19 09/17/18 08:19 09/17/18 08:19 Intake and Output: 09/17/18 09/17/18 06:59 18:59 Output Total 400 Balance -400 - Medications Medications: Current Medications Acetaminophen (Tylenol 325mg Tab) 325 mg PO Q4H PRN PRN Reason: Pain, Mild (1-3) Carbidopa/Levodopa (Sinemet) 1 tab PO BID [facility] Last Admin: 09/17/18 09:02 Dose: 1 tab Ciprofloxacin (Cipro 400mg/200ml Dsw) 400 mg in 200 mls @ 133 mls/hr IVPB Q24H [facility]; Protocol Last Admin: 09/17/18 08:54 Dose: 133 mls/hr Insulin Aspart (Novolog) 0 unit SC ACHS [facility]; Protocol Last Admin: 09/17/18 08:53 Dose: 4 units Insulin Glargine (Lantus) 25 unit SC HS [facility] Last Admin: 09/16/18 22:00 Dose: 25 u Lactulose (Enulose) 20 gm PO Q4 [facility] Stop: 09/17/18 20:01 Lisinopril (Zestril) 2.5 mg PO DAILY [facility] Last Admin: 09/17/18 09:46 Dose: 2.5 mg Metolazone (Zaroxolyn) 10 mg PO DAILY [facility] Last Admin: 09/17/18 09:02 Dose: 10 mg Mirtazapine (Remeron) 15 mg PO HS [facility] Last Admin: 09/16/18 22:01 Dose: 15 mg Pantoprazole Sodium (Protonix Ec Tab) 40 mg PO BID [facility] Last Admin: 09/17/18 09:02 Dose: 40 mg Pregabalin (Lyrica) 75 mg PO DAILY [facility] Last Admin: 09/17/18 09:02 Dose: 75 mg Rosuvastatin Calcium (Crestor) 5 mg PO HS [facility] Last Admin: 09/16/18 22:00 Dose: 5 mg Sitagliptin Phosphate (Januvia) 50 mg PO DAILY [facility] Last Admin: 09/17/18 09:01 Dose: 50 mg - Labs Labs: 09/17/18 07:01 09/17/18 07:01 PT 12.2 SECONDS (9.7-12.2) 09/13/18 14:32 INR 1.1 09/13/18 14:32 APTT 34.0 SECONDS (21-34) 09/13/18 14:32 - Constitutional Appears: No Acute Distress - Head Exam Head Exam: NORMAL INSPECTION - Eye Exam Additional comments: PATIENT LEGALLY BLIND. - ENT Exam ENT Exam: Mucous Membranes Moist, Normal Oropharynx - Neck Exam Neck Exam: Normal Inspection. absent: Meningismus - Respiratory Exam Respiratory Exam: Decreased Breath Sounds, NORMAL BREATHING PATTERN - Cardiovascular Exam Cardiovascular Exam: REGULAR RHYTHM, +S1, +S2 - GI/Abdominal Exam GI & Abdominal Exam: Soft (OBESE), Normal Bowel Sounds. absent: Tenderness - Extremities Exam Extremities Exam: Normal Capillary Refill. absent: Calf Tenderness, Pedal Edema - Neurological Exam Neurological Exam: Awake, CN II-XII Intact - Psychiatric Exam Psychiatric exam: Flat Affect - Skin Skin Exam: Normal Color, Warm Assessment and Plan (1) Altered mental status Assessment & Plan: . PERIODS OF CONFUSION. RECENT NEURO WORKUP NEGATIVE. --pROBABLE DEMENTIA Status: Acute (2) UTI (urinary tract infection) Assessment & Plan: FOLLOW-UP URINE CULTURES. DC IV CIPRO. START IV CEFEPIME 1 G ONCE A DAY DAILY 09/17/18. F/U CULTURES TO ADJUST ANTIBIOTICS. WILL GET ct OF THE ABDOMEN AND PELVIS WITHOUT CONTRAST R/O NEPHROLITHIASIS/VS HYDRONEPHROSIS. Status: Acute (3) GI bleed Assessment & Plan: NO FURTHER EPISODES OF COFFEE-GROUND EMESIS. T.OLERATING DIET Status: Acute (4) Diabetes mellitus type 2, uncontrolled Status: Acute
--- NOTE | 2018-09-17 15:03 | US ---
Date of service: 09/17/2018 PROCEDURE: Ultrasound of the Kidneys HISTORY: urinary retention COMPARISON: None available. TECHNIQUE: Sonogram of the kidneys. FINDINGS: Examination markedly limited by patient condition and bowel gas. RIGHT KIDNEY: Measures: 8.4 x 4.1 x 3.9 cm. No obstructing calculus, hydronephrosis, or renal cyst identified. LEFT KIDNEY: Measures: 10.1 x 4.9 x 5.0 cm. Lobulated renal contour. No obstructing calculus, hydronephrosis, or renal cyst identified. OTHER FINDINGS: Prevoid urinary bladder measures 11.1 x 5.5 x 9.4 cm, calculated volume 297.4 mL. Bilateral ureteral jets were not identified. Please note patient unable to void precluding evaluation of postvoid residual. Thick-walled urinary bladder. Indeterminate hypoechoic region within the posterior urinary bladder, possibly debris measuring 3.7 x 2.5 x 4.3 cm. Incidental note is made of echogenic hepatic parenchyma. IMPRESSION: Limited study. Lobulated left renal contour. No obstructing calculus, hydronephrosis, or renal cyst identified. Prevoid urinary bladder measures 11.1 x 5.5 x 9.4 cm, calculated volume 297.4 mL. Bilateral ureteral jets were not identified. Please note patient unable to void precluding evaluation of postvoid residual. Thick-walled urinary bladder. Indeterminate hypoechoic region within the posterior urinary bladder, possibly debris measuring 3.7 x 2.5 x 4.3 cm. Incidental note is made of echogenic hepatic parenchyma. Echogenic liver may be seen in setting of hepatic parenchymal disease or fatty infiltration.
[2018-09-17] MEDS: (Lantus) Insulin Glargine, Recombinant SC SCH (21:36)
[2018-09-18] MEDS: (Novolog) Insulin Aspart, Recombinant 100 u/ml 10 ml vial SC SCH ×4 (08:54→21:34)
[2018-09-18] MEDS: Pantoprazole 40 mg EC Tab PO SCH ×2 (09:05→17:30)
[2018-09-18] MEDS: metOLazone 5 MG TAB PO SCH (09:05)
--- NOTE | 2018-09-18 12:00 | CP.PCM.PN ---
Subjective - Date & Time of Evaluation Date of Evaluation: 09/18/18 Time of Evaluation: 11:59 - Subjective Subjective: PERIODS OF CONFUSION AFEBRILE ON IV AB FOR UTI NO FURTHER GI BLEEDING D/W GI/ EGD FINDINGS D/W SON CONSTIPATION URINE TURING DARK U/S BLADDER NOTED CT PELVIS CR 1.7 Objective - Vital Signs/Intake and Output Vital Signs (last 24 hours): Temp Pulse Resp BP Pulse Ox 97.9 F 80 20 128/54 L 95 09/18/18 08:00 09/18/18 08:00 09/18/18 08:00 09/18/18 08:00 09/18/18 08:00 Intake and Output: 09/17/18 09/18/18 23:59 11:59 Intake Total 850 Output Total 400 600 Balance 450 -600 - Medications Medications: Current Medications Acetaminophen (Tylenol 325mg Tab) 325 mg PO Q4H PRN PRN Reason: Pain, Mild (1-3) Carbidopa/Levodopa (Sinemet) 1 tab PO BID [facility] Last Admin: 09/18/18 09:05 Dose: 1 tab Cefepime HCl 1 gm/ Dextrose 50 mls @ 100 mls/hr IVPB Q24H [facility]; Protocol Last Admin: 09/17/18 16:15 Dose: 100 mls/hr Insulin Aspart (Novolog) 0 unit SC [facility]; Protocol Last Admin: 09/18/18 08:54 Dose: 10 units Insulin Glargine (Lantus) 25 unit SC [facility] Last Admin: 09/17/18 21:36 Dose: 25 u Lisinopril (Zestril) 2.5 mg PO DAILY [facility] Last Admin: 09/18/18 09:05 Dose: 2.5 mg Metolazone (Zaroxolyn) 10 mg PO DAILY [facility] Last Admin: 09/18/18 09:05 Dose: 10 mg Mirtazapine (Remeron) 15 mg PO [facility] Last Admin: 09/17/18 21:29 Dose: 15 mg Pantoprazole Sodium (Protonix Ec Tab) 40 mg PO BID [facility] Last Admin: 09/18/18 09:05 Dose: 40 mg Pregabalin (Lyrica) 75 mg PO DAILY [facility] Last Admin: 09/18/18 09:05 Dose: 75 mg Rosuvastatin Calcium (Crestor) 5 mg PO [facility] Last Admin: 09/17/18 21:29 Dose: 5 mg Sitagliptin Phosphate (Januvia) 50 mg PO DAILY [facility] Last Admin: 09/18/18 09:04 Dose: 50 mg - Labs Labs: 09/17/18 07:01 09/17/18 07:01 PT 12.2 SECONDS (9.7-12.2) 09/13/18 14:32 INR 1.1 09/13/18 14:32 APTT 34.0 SECONDS (21-34) 09/13/18 14:32 Assessment and Plan (1) GI bleed Status: Acute (2) Altered mental status Status: Acute (3) Diabetes mellitus Status: Acute
--- NOTE | 2018-09-18 12:34 | CP.PCM.PN ---
Subjective - Date & Time of Evaluation Date of Evaluation: 09/18/18 Time of Evaluation: 12:34 - Subjective Subjective: AFEBRILE, VSS PERIODS OF CONFUSION, S/P FOLYS INSERTION.09/17/18 PT NOT VOIDING RESIDUAL URINE 300CC URINE THICK/CLOUDY. BLADDER US -REVIEWED PT FOR CT ABDOMEN TODAY. LABS; REVIEWED Objective - Vital Signs/Intake and Output Vital Signs (last 24 hours): Temp Pulse Resp BP Pulse Ox 97.9 F 80 20 128/54 L 95 09/18/18 08:00 09/18/18 08:00 09/18/18 08:00 09/18/18 08:00 09/18/18 08:00 Intake and Output: 09/18/18 09/18/18 06:59 18:59 Intake Total 200 Output Total 600 Balance -400 - Medications Medications: Current Medications Acetaminophen (Tylenol 325mg Tab) 325 mg PO Q4H PRN PRN Reason: Pain, Mild (1-3) Carbidopa/Levodopa (Sinemet) 1 tab PO BID [facility] Last Admin: 09/18/18 09:05 Dose: 1 tab Cefepime HCl 1 gm/ Dextrose 50 mls @ 100 mls/hr IVPB Q24H [facility]; Protocol Last Admin: 09/17/18 16:15 Dose: 100 mls/hr Insulin Aspart (Novolog) 0 unit SC [facility]; Protocol Last Admin: 09/18/18 08:54 Dose: 10 units Insulin Glargine (Lantus) 25 unit SC [facility] Last Admin: 09/17/18 21:36 Dose: 25 u Lisinopril (Zestril) 2.5 mg PO DAILY [facility] Last Admin: 09/18/18 09:05 Dose: 2.5 mg Metolazone (Zaroxolyn) 10 mg PO DAILY [facility] Last Admin: 09/18/18 09:05 Dose: 10 mg Mirtazapine (Remeron) 15 mg PO [facility] Last Admin: 09/17/18 21:29 Dose: 15 mg Pantoprazole Sodium (Protonix Ec Tab) 40 mg PO BID [facility] Last Admin: 09/18/18 09:05 Dose: 40 mg Pregabalin (Lyrica) 75 mg PO DAILY [facility] Last Admin: 09/18/18 09:05 Dose: 75 mg Rosuvastatin Calcium (Crestor) 5 mg PO [facility] Last Admin: 09/17/18 21:29 Dose: 5 mg Sitagliptin Phosphate (Januvia) 50 mg PO DAILY [facility] Last Admin: 09/18/18 09:04 Dose: 50 mg - Labs Labs: 09/17/18 07:01 09/17/18 07:01 PT 12.2 SECONDS (9.7-12.2) 09/13/18 14:32 INR 1.1 09/13/18 14:32 APTT 34.0 SECONDS (21-34) 09/13/18 14:32 - Constitutional Appears: Confused - Head Exam Head Exam: NORMAL INSPECTION - Eye Exam Additional comments: PT LEGALLY BLIND. - ENT Exam ENT Exam: Normal Oropharynx - Neck Exam Neck Exam: Normal Inspection - Respiratory Exam Respiratory Exam: Decreased Breath Sounds, NORMAL BREATHING PATTERN - Cardiovascular Exam Cardiovascular Exam: REGULAR RHYTHM, +S1, +S2 - GI/Abdominal Exam GI & Abdominal Exam: Soft, Normal Bowel Sounds. absent: Guarding, Tenderness - Extremities Exam Extremities Exam: Normal Capillary Refill. absent: Calf Tenderness, Pedal Edema - Neurological Exam Neurological Exam: Awake - Psychiatric Exam Psychiatric exam: Flat Affect - Skin Skin Exam: Dry, Warm Assessment and Plan (1) Altered mental status Status: Acute (2) UTI (urinary tract infection) Assessment & Plan: CONTINUE IV CEFEPIME 1 G ONCE A DAY DAILY 09/17/18. F/U CULTURES TO ADJUST ANTIBIOTICS. FOR ct OF THE ABDOMEN AND PELVIS WITHOUT CONTRAST R/O NEPHROLITHIASIS/VS HYDRONEPHROSIS. CONSIDER EVAL FOR CYSTOSCOPY. WILL DISCUSS WITH PMD. Status: Acute (3) GI bleed Assessment & Plan: NO MORE COFFEE GROUND VOMITUS. PER RN TOLERATING DIET. Status: Acute (4) Diabetes mellitus type 2, uncontrolled Status: Acute
--- NOTE | 2018-09-18 14:53 | CT ---
PROCEDURE: CT Abdomen and Pelvis without Oral or IV contrast. HISTORY: R/O NEPHROLITHIASIS/MASS VS HYDRONEPHROSIS COMPARISON: Renal/urinary bladder ultrasound performed 09/17/18 TECHNIQUE: Contiguous axial images of the abdomen and pelvis. No oral or IV contrast administered. Coronal and Sagittal reformats generated and reviewed. Radiation dose: Total exam DLP = 1024.52 mGy-cm. This CT exam was performed using one or more of the following dose reduction techniques: Automated exposure control, adjustment of the mA and/or kV according to patient size, and/or use of iterative reconstruction technique. FINDINGS: There is limited evaluation of the solid organs without the administration of IV contrast. LOWER THORAX: Small right and trace left pleural effusions and associated consolidations. No visible pneumothorax. Dense mitral annulus calcifications. Distal esophageal wall thickening/small hiatal hernia. LIVER: Unremarkable unenhanced appearance. GALLBLADDER AND BILE DUCTS: Gallbladder distension. PANCREAS: Unremarkable unenhanced appearance. SPLEEN: Unremarkable unenhanced appearance. ADRENALS: Unremarkable unenhanced appearance. KIDNEYS AND URETERS: No hydronephrosis or obstructing renal calculus. BLADDER: Trejo catheter within a thick-walled urinary bladder which contains evidence of internal debris. Associated inflammatory changes. REPRODUCTIVE: Uterus is present. APPENDIX: No secondary signs of acute appendicitis. BOWEL: The stomach is nondistended. Lack of oral contrast limits evaluation for bowel pathology. The bowel loops appear within normal limits of caliber without evidence of intestinal obstruction. Diverticulosis without CT evidence of acute diverticulitis. Moderate to severe diffuse constipation. PERITONEUM: No significant free fluid. No definite free air. LYMPH NODES: No bulky lymphadenopathy identified. VASCULATURE: Dense atherosclerotic calcifications of the aorta and branches. No aortic aneurysm. BONES: Degenerative changes. OTHER FINDINGS: None. IMPRESSION: Trejo catheter within a thick-walled urinary bladder which contains evidence of internal debris. Neoplasm cannot be excluded. Associated inflammatory changes. Correlate clinically. Diverticulosis without CT evidence of acute diverticulitis. Moderate to severe diffuse constipation. Gallbladder distension. Right upper quadrant ultrasound may be considered for further evaluation. Small right and trace left pleural effusions and associated consolidations. Dense mitral annulus calcifications. Distal esophageal wall thickening/small hiatal hernia.
[2018-09-18] MEDS: POLYETHYLENE GLYCOL 3350 17 GM/Dose PACKET PO SCH (17:30)
[2018-09-18] MEDS: (Lantus) Insulin Glargine, Recombinant SC SCH (21:35)
[2018-09-19] MEDS: (Novolog) Insulin Aspart, Recombinant 100 u/ml 10 ml vial SC SCH ×5 (02:28→21:34)
[2018-09-19 08:01] LABS: BASO # 0.1 K/uL (0.0-0.2); BASO % 0.7 % (0.0-2.0); EOS # 0.4 K/uL (0.0-0.7); EOS % 4.2 % (0.0-4.0); HEMOGLOBIN 12.1 g/dL (11.0-16.0); LYMPH # 1.6 K/uL (1.0-4.3); LYMPH % 17.2 % (20.0-40.0); MEAN CELL VOLUME 88.5 fL (81.0-99.0); MEAN CORPUSCULAR HEMOGLOBIN 30.5 pg (27.0-31.0); MEAN CORPUSCULAR HGB CONC 34.5 g/dL (33.0-37.0); MEAN PLATELET VOLUME 10.2 fL (7.2-11.7); MONO # 0.9 K/uL (0.0-0.8); MONO % 9.9 % (0.0-10.0); NEUT # 6.2 K/uL (1.8-7.0); NRBC % 0.2 % (0.0-2.0); RBC 3.97 Mil/uL (3.80-5.20); WHITE BLOOD COUNT 9.2 K/uL (4.8-10.8)
[2018-09-19 08:14] LABS: ALBUMIN 3.2 g/dL (3.5-5.0); CALCIUM 9.2 mg/dl (8.6-10.4)
[2018-09-19] MEDS: POLYETHYLENE GLYCOL 3350 17 GM/Dose PACKET PO SCH ×2 (09:13→17:09)
[2018-09-19] MEDS: Pantoprazole 40 mg EC Tab PO SCH ×2 (09:14→17:06)
[2018-09-19] MEDS: metOLazone 5 MG TAB PO SCH (09:14)
--- NOTE | 2018-09-19 10:31 | CP.PCM.PN ---
Subjective - Date & Time of Evaluation Date of Evaluation: 09/19/18 Time of Evaluation: 10:27 - Subjective Subjective: PT WAS AGITATED LAST NITE DUE TO SEVERE CONSTIPATION TODAY MOVED BM vs stable p/e remains same ct and u/s noted will consulate urology Objective - Vital Signs/Intake and Output Vital Signs (last 24 hours): Temp Pulse Resp BP Pulse Ox 98.6 F 84 20 147/77 98 09/19/18 08:20 09/19/18 08:20 09/19/18 08:20 09/19/18 08:20 09/19/18 08:20 Intake and Output: 09/18/18 09/19/18 23:59 11:59 Intake Total 490 Output Total 700 500 Balance -210 -500 - Medications Medications: Current Medications Acetaminophen (Tylenol 325mg Tab) 325 mg PO Q4H PRN PRN Reason: Pain, Mild (1-3) Carbidopa/Levodopa (Sinemet) 1 tab PO BID [facility] Last Admin: 09/19/18 09:13 Dose: 1 tab Cefepime HCl 1 gm/ Dextrose 50 mls @ 100 mls/hr IVPB Q24H [facility]; Protocol Last Admin: 09/18/18 15:57 Dose: 100 mls/hr Insulin Aspart (Novolog) 0 unit SC [facility]; Protocol Last Admin: 09/19/18 09:14 Dose: 10 units Insulin Glargine (Lantus) 25 unit SC HS [facility] Last Admin: 09/18/18 21:35 Dose: 25 u Lactulose (Enulose) 20 gm PO Q12H [facility] Last Admin: 09/19/18 01:52 Dose: 20 gm Lisinopril (Zestril) 2.5 mg PO DAILY [facility] Last Admin: 09/19/18 09:14 Dose: 2.5 mg Metolazone (Zaroxolyn) 10 mg PO DAILY [facility] Last Admin: 09/19/18 09:14 Dose: 10 mg Mirtazapine (Remeron) 15 mg PO HS [facility] Last Admin: 09/18/18 21:32 Dose: 15 mg Pantoprazole Sodium (Protonix Ec Tab) 40 mg PO BID [facility] Last Admin: 09/19/18 09:14 Dose: 40 mg Polyethylene Glycol (Miralax) 17 gm PO BID [facility] Last Admin: 09/19/18 09:13 Dose: 17 gm Pregabalin (Lyrica) 75 mg PO DAILY [facility] Last Admin: 09/19/18 09:14 Dose: 75 mg Rosuvastatin Calcium (Crestor) 5 mg PO [facility] Last Admin: 09/18/18 21:34 Dose: 5 mg Sitagliptin Phosphate (Januvia) 50 mg PO DAILY [facility] Last Admin: 09/19/18 09:14 Dose: 50 mg - Labs Labs: 09/19/18 07:39 09/19/18 07:39 PT 12.2 SECONDS (9.7-12.2) 09/13/18 14:32 INR 1.1 09/13/18 14:32 APTT 34.0 SECONDS (21-34) 09/13/18 14:32 Assessment and Plan (1) GI bleed Status: Acute (2) Altered mental status Status: Acute (3) Diabetes mellitus Status: Acute
--- NOTE | 2018-09-19 19:28 | CP.PCM.PN ---
Subjective - Date & Time of Evaluation Date of Evaluation: 09/19/18 Time of Evaluation: 19:28 - Subjective Subjective: EVENTS NOTED. AFEBRILE, RESPONDS TO NAME, SEEN BY FOR URINARY HESITANCY AND ABN CT ABDOMEN ? SUSPICIOUS FOR NEOPLASM BLADDER VS DEBRIS. SEVERE CONSTIPATION. GALL BLADDER DISTENSION. PLAN CONTINUE IV ABX, GB US R/O STONES VS DILATED CBD PER . CONTINUE LAXATIVES PER PMD Objective - Vital Signs/Intake and Output Vital Signs (last 24 hours): Temp Pulse Resp BP Pulse Ox 98.2 F 68 18 93/56 L 95 09/19/18 15:23 09/19/18 15:33 09/19/18 15:23 09/19/18 15:23 09/19/18 15:23 - Medications Medications: Current Medications Acetaminophen (Tylenol 325mg Tab) 325 mg PO Q4H PRN PRN Reason: Pain, Mild (1-3) Carbidopa/Levodopa (Sinemet) 1 tab PO BID [facility] Last Admin: 09/19/18 17:06 Dose: 1 tab Cefepime HCl 1 gm/ Dextrose 50 mls @ 100 mls/hr IVPB Q24H [facility]; Protocol Last Admin: 09/19/18 17:08 Dose: 100 mls/hr Insulin Aspart (Novolog) 0 unit SC ACHS [facility]; Protocol Last Admin: 09/19/18 17:06 Dose: 6 units Insulin Glargine (Lantus) 25 unit SC HS [facility] Last Admin: 09/18/18 21:35 Dose: 25 u Lactulose (Enulose) 20 gm PO Q12H [facility] Last Admin: 09/19/18 13:04 Dose: Not Given Lisinopril (Zestril) 2.5 mg PO DAILY [facility] Last Admin: 09/19/18 09:14 Dose: 2.5 mg Metolazone (Zaroxolyn) 10 mg PO DAILY [facility] Last Admin: 09/19/18 09:14 Dose: 10 mg Mirtazapine (Remeron) 15 mg PO HS [facility] Last Admin: 09/18/18 21:32 Dose: 15 mg Pantoprazole Sodium (Protonix Ec Tab) 40 mg PO BID [facility] Last Admin: 09/19/18 17:06 Dose: 40 mg Polyethylene Glycol (Miralax) 17 gm PO BID [facility] Last Admin: 09/19/18 17:09 Dose: Not Given Pregabalin (Lyrica) 75 mg PO DAILY [facility] Last Admin: 09/19/18 09:14 Dose: 75 mg Rosuvastatin Calcium (Crestor) 5 mg PO HS [facility] Last Admin: 09/18/18 21:34 Dose: 5 mg Sitagliptin Phosphate (Januvia) 50 mg PO DAILY [facility] Last Admin: 09/19/18 09:14 Dose: 50 mg - Labs Labs: 09/19/18 07:39 09/19/18 07:39 PT 12.2 SECONDS (9.7-12.2) 09/13/18 14:32 INR 1.1 09/13/18 14:32 APTT 34.0 SECONDS (21-34) 09/13/18 14:32 - Constitutional Appears: No Acute Distress - Head Exam Head Exam: NORMAL INSPECTION - Eye Exam Additional comments: PT LEGALLY BLIND. - ENT Exam ENT Exam: Normal Oropharynx - Neck Exam Neck Exam: Normal Inspection - Respiratory Exam Respiratory Exam: Decreased Breath Sounds (BASES), NORMAL BREATHING PATTERN - Cardiovascular Exam Cardiovascular Exam: REGULAR RHYTHM, +S1, +S2 - GI/Abdominal Exam GI & Abdominal Exam: Soft, Tenderness (MILD TENDERNESS ON PALPATION RUQ.), Hypoactive Bowel Sounds - Extremities Exam Extremities Exam: Normal Capillary Refill. absent: Calf Tenderness, Pedal Edema - Psychiatric Exam Psychiatric exam: Flat Affect - Skin Skin Exam: Normal Color, Warm Assessment and Plan (1) Altered mental status Status: Acute (2) UTI (urinary tract infection) Assessment & Plan: CONTINUE IV CEFEPIME 1 G ONCE A DAY DAILY 09/17/18. F/U CULTURES TO ADJUST ANTIBIOTICS. ON BOARD ! ? CYSTOSCOPY AND BX Status: Acute (3) GI bleed Status: Acute (4) Diabetes mellitus type 2, uncontrolled Status: Acute (5) Abdominal pain determined by examination Assessment & Plan: GB US R/O CHOLYCYSTITIS Status: Acute (6) Constipation Assessment & Plan: ON LAXATIVES. MOVED BOWELS TODAY. Status: Acute
[2018-09-19] MEDS: (Lantus) Insulin Glargine, Recombinant SC SCH (21:31)
--- NOTE | 2018-09-19 23:11 | CP.PCM.CON ---
History of Present Illness - History of Present Illness History of Present Illness: Urology Consutation Past Patient History - Past Medical History & Family History Past Medical History?: Yes - Past Social History Smoking Status: Never Smoked - CARDIAC Hx Hypertension: Yes - PULMONARY Hx Asthma: Yes - NEUROLOGICAL Hx Dementia: Yes Hx Parkinson's Disease: Yes - HEENT Hx Blind: Yes Hx Cataracts: Yes (Cataract sugery) - RENAL Hx Chronic Kidney Disease: No - ENDOCRINE/METABOLIC Hx Diabetes Mellitus Type 2: Yes - HEMATOLOGICAL/ONCOLOGICAL Hx Blood Disorders: No - MUSCULOSKELETAL/RHEUMATOLOGICAL Hx Falls: Yes - PSYCHIATRIC Hx Substance Use: No - SURGICAL HISTORY Hx Surgeries: Yes Hx Cataract Extraction: Yes Hx Eye Surgery: Yes - ANESTHESIA Hx Anesthesia: Yes Hx Anesthesia Reactions: No Meds Allergies/Adverse Reactions: Allergies Allergy/AdvReac Type Severity Reaction Status Date / Time No Known Allergies Allergy Verified 07/12/18 10:23 - Medications Medications: Current Medications Acetaminophen (Tylenol 325mg Tab) 325 mg PO Q4H PRN PRN Reason: Pain, Mild (1-3) Carbidopa/Levodopa (Sinemet) 1 tab PO BID [facility] Last Admin: 09/19/18 17:06 Dose: 1 tab Cefepime HCl 1 gm/ Dextrose 50 mls @ 100 mls/hr IVPB Q24H [facility]; Protocol Last Admin: 09/19/18 17:08 Dose: 100 mls/hr Insulin Aspart (Novolog) 0 unit SC [facility]; Protocol Last Admin: 09/19/18 21:34 Dose: 2 units Insulin Glargine (Lantus) 25 unit SC [facility] Last Admin: 09/19/18 21:31 Dose: 25 u Lactulose (Enulose) 20 gm PO Q12H [facility] Last Admin: 09/19/18 13:04 Dose: Not Given Lisinopril (Zestril) 2.5 mg PO DAILY [facility] Last Admin: 09/19/18 09:14 Dose: 2.5 mg Metolazone (Zaroxolyn) 10 mg PO DAILY [facility] Last Admin: 09/19/18 09:14 Dose: 10 mg Mirtazapine (Remeron) 15 mg PO HS [facility] Last Admin: 09/19/18 21:31 Dose: 15 mg Pantoprazole Sodium (Protonix Ec Tab) 40 mg PO BID [facility] Last Admin: 09/19/18 17:06 Dose: 40 mg Polyethylene Glycol (Miralax) 17 gm PO BID [facility] Last Admin: 09/19/18 17:09 Dose: Not Given Pregabalin (Lyrica) 75 mg PO DAILY [facility] Last Admin: 09/19/18 09:14 Dose: 75 mg Rosuvastatin Calcium (Crestor) 5 mg PO HS [facility] Last Admin: 09/19/18 21:31 Dose: 5 mg Sitagliptin Phosphate (Januvia) 50 mg PO DAILY [facility] Last Admin: 09/19/18 09:14 Dose: 50 mg Results - Vital Signs Recent Vital Signs: Last Vital Signs Temp 98.2 F 09/19/18 15:23 Pulse 68 09/19/18 15:33 Resp 18 09/19/18 15:23 BP 93/56 L 09/19/18 15:23 Pulse Ox 95 09/19/18 15:23 - Labs Result Diagrams: 09/19/18 07:39 09/19/18 07:39 Labs: Laboratory Results - last 24 hr 09/19/18 09/19/18 09/19/18 02:22 06:17 07:39 WBC 9.2 RBC 3.97 Hgb 12.1 Hct 35.1 MCV 88.5 MCH 30.5 MCHC 34.5 RDW 14.0 Plt Count 219 MPV 10.2 Neut % (Auto) 68.0 Lymph % (Auto) 17.2 L [place] % (Auto) 9.9 Eos % (Auto) 4.2 H Baso % (Auto) 0.7 Neut # (Auto) 6.2 Lymph # (Auto) 1.6 [place] # (Auto) 0.9 H Eos # (Auto) 0.4 Baso # (Auto) 0.1 Sodium Potassium Chloride Carbon Dioxide Anion Gap BUN Creatinine Est GFR ( Amer) Est GFR (Non-Af Amer) POC Glucose (mg/dL) 424 H* 368 H Random Glucose Calcium Total Bilirubin AST ALT Alkaline Phosphatase Total Protein Albumin Globulin Albumin/Globulin Ratio 09/19/18 09/19/18 09/19/18 07:39 11:22 16:12 WBC RBC Hgb Hct MCV MCH MCHC RDW Plt Count MPV Neut % (Auto) Lymph % (Auto) [place] % (Auto) Eos % (Auto) Baso % (Auto) Neut # (Auto) Lymph # (Auto) [place] # (Auto) Eos # (Auto) Baso # (Auto) Sodium 135 Potassium 4.0 Chloride 97 L Carbon Dioxide 29 Anion Gap 14 BUN 28 H Creatinine 1.3 H Est GFR ( Amer) 47 Est GFR (Non-Af Amer) 39 POC Glucose (mg/dL) 425 H* 296 H Random Glucose 377 H D Calcium 9.2 Total Bilirubin 0.5 AST 28 ALT 16 Alkaline Phosphatase 76 Total Protein 6.5 Albumin 3.2 L Globulin 3.3 Albumin/Globulin Ratio 1.0 09/19/18 21:03 WBC RBC Hgb Hct MCV MCH MCHC RDW Plt Count MPV Neut % (Auto) Lymph % (Auto) [place] % (Auto) Eos % (Auto) Baso % (Auto) Neut # (Auto) Lymph # (Auto) [place] # (Auto) Eos # (Auto) Baso # (Auto) Sodium Potassium Chloride Carbon Dioxide Anion Gap BUN Creatinine Est GFR ( Amer) Est GFR (Non-Af Amer) POC Glucose (mg/dL) 314 H Random Glucose Calcium Total Bilirubin AST ALT Alkaline Phosphatase Total Protein Albumin Globulin Albumin/Globulin Ratio Assessment & Plan - Assessment and Plan (Free Text) Assessment: IMP: UTI retention/ incomplete bladder emptying Hematemesis Organic Mental Syndrome Deydration Thank you. YS - Date & Time Date: 09/19/18 Time: 12:20
[2018-09-20] MEDS: (Novolog) Insulin Aspart, Recombinant 100 u/ml 10 ml vial SC SCH ×4 (08:25→21:36)
[2018-09-20] MEDS: POLYETHYLENE GLYCOL 3350 17 GM/Dose PACKET PO SCH ×2 (09:47→18:14)
[2018-09-20] MEDS: Pantoprazole 40 mg EC Tab PO SCH ×2 (09:48→18:13)
[2018-09-20] MEDS: metOLazone 5 MG TAB PO SCH (09:48)
--- NOTE | 2018-09-20 11:48 | CP.PCM.PN ---
Subjective - Date & Time of Evaluation Date of Evaluation: 09/20/18 Time of Evaluation: 11:47 - Subjective Subjective: CONFUSED ALERT SLEEPING ALL THE TIME VS STABLE P/E NO CHANGE UROLOGY ON BOARD ? CYSTO Objective - Vital Signs/Intake and Output Vital Signs (last 24 hours): Temp Pulse Resp BP Pulse Ox 97.8 F 56 L 18 135/74 97 09/20/18 07:00 09/20/18 07:00 09/20/18 07:00 09/20/18 07:00 09/20/18 07:00 Intake and Output: 09/19/18 09/20/18 23:59 11:59 Output Total 325 Balance -325 - Medications Medications: Current Medications Acetaminophen (Tylenol 325mg Tab) 325 mg PO Q4H PRN PRN Reason: Pain, Mild (1-3) Carbidopa/Levodopa (Sinemet) 1 tab PO BID [facility] Last Admin: 09/20/18 09:47 Dose: 1 tab Cefepime HCl 1 gm/ Dextrose 50 mls @ 100 mls/hr IVPB Q24H [facility]; Protocol Last Admin: 09/19/18 17:08 Dose: 100 mls/hr Insulin Aspart (Novolog) 0 unit SC ACHS [facility]; Protocol Last Admin: 09/20/18 08:25 Dose: 8 units Insulin Glargine (Lantus) 25 unit SC HS [facility] Last Admin: 09/19/18 21:31 Dose: 25 u Lactulose (Enulose) 20 gm PO Q12H [facility] Last Admin: 09/20/18 01:45 Dose: Not Given Lisinopril (Zestril) 2.5 mg PO DAILY [facility] Last Admin: 09/20/18 09:48 Dose: 2.5 mg Metolazone (Zaroxolyn) 10 mg PO DAILY [facility] Last Admin: 09/20/18 09:48 Dose: 10 mg Mirtazapine (Remeron) 15 mg PO HS [facility] Last Admin: 09/19/18 21:31 Dose: 15 mg Pantoprazole Sodium (Protonix Ec Tab) 40 mg PO BID [facility] Last Admin: 09/20/18 09:48 Dose: 40 mg Polyethylene Glycol (Miralax) 17 gm PO BID [facility] Last Admin: 09/20/18 09:47 Dose: 17 gm Pregabalin (Lyrica) 75 mg PO DAILY [facility] Last Admin: 09/20/18 09:48 Dose: 75 mg Rosuvastatin Calcium (Crestor) 5 mg PO HS [facility] Last Admin: 09/19/18 21:31 Dose: 5 mg Sitagliptin Phosphate (Januvia) 50 mg PO DAILY [facility] Last Admin: 09/20/18 09:48 Dose: 50 mg - Labs Labs: 09/19/18 07:39 09/19/18 07:39 PT 12.2 SECONDS (9.7-12.2) 09/13/18 14:32 INR 1.1 09/13/18 14:32 APTT 34.0 SECONDS (21-34) 09/13/18 14:32 Assessment and Plan (1) GI bleed Status: Acute (2) Altered mental status Status: Acute (3) Diabetes mellitus Status: Acute
--- NOTE | 2018-09-20 13:25 | US ---
Right upper quadrant abdominal ultrasound HISTORY: Right upper quadrant abdominal pain. COMPARISON: CT scan dated 09/18/2018 TECHNIQUE: Real-time sonography was performed through the right upper quadrant of the abdomen. FINDINGS: Liver: Enlarged measuring 18.1 centimeters in length. Increased echogenicity of the hepatic parenchymal cortex suggestive for fatty infiltration versus hepatic parenchymal disease. Clinical correlation. Gallbladder: Distended. Layering echogenic debris suggestive for sludge. Normal wall thickness of 1.9 millimeters. No gross wall edema. Negative sonographic Landon's sign. Common bile duct is dilated measuring up to 9 millimeters. Limited visualization of the pancreas. Visualized aorta and IVC are preserved. Right kidney: 9.8 x 5.0 x 4.8 centimeters. No calculi or hydronephrosis. Impression: Limited study as the patient was unable to move. 1. Enlarged liver measuring 18.1 centimeters in length with associated increased echogenicity of the hepatic parenchymal cortex suggestive for fatty infiltration versus hepatic parenchymal disease. Clinical correlation. 2. Echogenic layering foci noted within the gallbladder suggestive for sludge. Normal wall thickness of 1.9 millimeters. No gross wall edema. Negative sonographic Landon's sign. 3. Dilated common bile duct measuring up to 9 millimeters. Clinical correlation. Correlation with MRCP may be helpful if clinically indicated. 4. Limited visualization of the pancreas.
[2018-09-20] MEDS: (Lantus) Insulin Glargine, Recombinant SC SCH (21:37)
[2018-09-20] MEDS: Sodium Chloride 0.45% 1,000 ML IV SCH (22:15)
--- NOTE | 2018-09-20 23:35 | CP.PCM.PN ---
Subjective - Date & Time of Evaluation Date of Evaluation: 09/20/18 Time of Evaluation: 23:35 - Subjective Subjective: AFEBRILE, VSS DROWSY . S/P FOLYS INSERTION URINE CLOUDY. ON IV ABX LABS/RADIOLOGY REVIEWED. GB US NOTED. DILATED CBD ? MRCP PLAN GI RE-EVAL CASE DISCUSSED WITH PMD. ON BOARD FOR SUSPICIOUS BLADDER MALIGNANCY Objective - Vital Signs/Intake and Output Vital Signs (last 24 hours): Temp Pulse Resp BP Pulse Ox 98.0 F 65 20 123/62 94 L 09/20/18 15:00 09/20/18 15:00 09/20/18 15:00 09/20/18 15:00 09/20/18 15:00 Intake and Output: 09/20/18 09/21/18 18:59 06:59 Intake Total 168 Output Total 50 Balance 118 - Medications Medications: Current Medications Acetaminophen (Tylenol 325mg Tab) 325 mg PO Q4H PRN PRN Reason: Pain, Mild (1-3) Carbidopa/Levodopa (Sinemet) 1 tab PO BID [facility] Last Admin: 09/20/18 18:14 Dose: 1 tab Heparin Sodium (Porcine) (Heparin) 5,000 units SC Q12H [facility] Last Admin: 09/20/18 14:18 Dose: 5,000 units Cefepime HCl 1 gm/ Dextrose 50 mls @ 100 mls/hr IVPB Q24H [facility]; Protocol Last Admin: 09/20/18 16:45 Dose: 100 mls/hr Sodium Chloride (Sodium Chloride 0.45%) 1,000 mls @ 100 mls/hr IV .Q10H [facility] Insulin Aspart (Novolog) 0 unit SC ACHS [facility]; Protocol Last Admin: 09/20/18 21:36 Dose: 2 units Insulin Glargine (Lantus) 25 unit SC HS [facility] Last Admin: 09/20/18 21:37 Dose: 25 u Lactulose (Enulose) 20 gm PO Q12H [facility] Last Admin: 09/20/18 13:01 Dose: 20 gm Lisinopril (Zestril) 2.5 mg PO DAILY [facility] Last Admin: 09/20/18 09:48 Dose: 2.5 mg Metolazone (Zaroxolyn) 10 mg PO DAILY [facility] Last Admin: 09/20/18 09:48 Dose: 10 mg Mirtazapine (Remeron) 15 mg PO HS [facility] Last Admin: 09/20/18 21:37 Dose: 15 mg Pantoprazole Sodium (Protonix Ec Tab) 40 mg PO BID [facility] Last Admin: 09/20/18 18:13 Dose: 40 mg Polyethylene Glycol (Miralax) 17 gm PO BID [facility] Last Admin: 09/20/18 18:14 Dose: 17 gm Pregabalin (Lyrica) 75 mg PO DAILY [facility] Last Admin: 09/20/18 09:48 Dose: 75 mg Rosuvastatin Calcium (Crestor) 5 mg PO HS [facility] Last Admin: 09/19/18 21:31 Dose: 5 mg Sitagliptin Phosphate (Januvia) 50 mg PO DAILY [facility] Last Admin: 09/20/18 09:48 Dose: 50 mg - Labs Labs: 09/19/18 07:39 09/19/18 07:39 PT 12.2 SECONDS (9.7-12.2) 09/13/18 14:32 INR 1.1 09/13/18 14:32 APTT 34.0 SECONDS (21-34) 09/13/18 14:32 - Constitutional Appears: No Acute Distress, Confused - Head Exam Head Exam: NORMAL INSPECTION - Eye Exam Additional comments: PT LEGALLY BLIND. - ENT Exam ENT Exam: Normal Oropharynx - Neck Exam Neck Exam: Normal Inspection - Respiratory Exam Respiratory Exam: Clear to Ausculation Bilateral, NORMAL BREATHING PATTERN - Cardiovascular Exam Cardiovascular Exam: REGULAR RHYTHM, +S1, +S2 - GI/Abdominal Exam GI & Abdominal Exam: Soft, Hypoactive Bowel Sounds. absent: Distended - Extremities Exam Extremities Exam: Normal Capillary Refill. absent: Calf Tenderness, Pedal Edema - Neurological Exam Neurological Exam: Altered - Psychiatric Exam Psychiatric exam: Flat Affect - Skin Skin Exam: Normal Color, Warm Assessment and Plan (1) Altered mental status Status: Acute (2) UTI (urinary tract infection) Status: Acute (3) GI bleed Status: Acute (4) Diabetes mellitus type 2, uncontrolled Status: Acute (5) Abdominal pain determined by examination Status: Acute (6) Constipation Status: Acute - Assessment and Plan (Free Text) Plan: CONTINUE IV ABX, ABN GB US GI RE EVAL ?MRCP PER . CONTINUE LAXATIVES PER PMD. CASE DISCUSSED WITH STAFF/PMD.
[2018-09-21 08:15] LABS: BASO # 0.1 K/uL (0.0-0.2); BASO % 0.8 % (0.0-2.0); EOS # 0.5 K/uL (0.0-0.7); EOS % 4.8 % (0.0-4.0); HEMOGLOBIN 12.6 g/dL (11.0-16.0); LYMPH % 19.8 % (20.0-40.0); MEAN CELL VOLUME 88.5 fL (81.0-99.0); MEAN CORPUSCULAR HEMOGLOBIN 30.8 pg (27.0-31.0); MEAN CORPUSCULAR HGB CONC 34.8 g/dL (33.0-37.0); MEAN PLATELET VOLUME 10.1 fL (7.2-11.7); MONO # 0.8 K/uL (0.0-0.8); MONO % 7.7 % (0.0-10.0); NEUT # 6.6 K/uL (1.8-7.0); NEUT % 66.9 % (50.0-75.0); RBC 4.07 Mil/uL (3.80-5.20); RED CELL DISTRIBUTION WIDTH 14.1 % (11.5-14.5); WHITE BLOOD COUNT 9.9 K/uL (4.8-10.8)
[2018-09-21] MEDS: (Novolog) Insulin Aspart, Recombinant 100 u/ml 10 ml vial SC SCH ×4 (08:21→21:55)
--- NOTE | 2018-09-21 08:25 | CP.PCM.PN ---
<BroderickIsi bateman - Last Filed: 09/21/18 08:25> Subjective - Date & Time of Evaluation Date of Evaluation: 09/21/18 Time of Evaluation: 07:00 - Subjective Subjective: GI Fellow PGY5 Progress Note Pt seen and examined at bedside, no issues per nursing overnight. Per nursing aid pt eating full liquid diet with no issues. No emesis/no coffee ground emesis. ROS: A 12pt ROS was negative except as above Objective - Vital Signs/Intake and Output Vital Signs (last 24 hours): Temp Pulse Resp BP Pulse Ox 98.3 F 79 20 124/57 L 96 09/20/18 23:35 09/20/18 23:35 09/20/18 23:35 09/20/18 23:35 09/20/18 23:35 Intake and Output: 09/21/18 09/21/18 06:59 18:59 Intake Total 968 Output Total 450 Balance 518 - Medications Medications: Current Medications Acetaminophen (Tylenol 325mg Tab) 325 mg PO Q4H PRN PRN Reason: Pain, Mild (1-3) Carbidopa/Levodopa (Sinemet) 1 tab PO BID [facility] Last Admin: 09/20/18 18:14 Dose: 1 tab Heparin Sodium (Porcine) (Heparin) 5,000 units SC Q12H [facility] Last Admin: 09/21/18 02:10 Dose: 5,000 units Cefepime HCl 1 gm/ Dextrose 50 mls @ 100 mls/hr IVPB Q24H [facility]; Protocol Last Admin: 09/20/18 16:45 Dose: 100 mls/hr Sodium Chloride (Sodium Chloride 0.45%) 1,000 mls @ 100 mls/hr IV .Q10H [facility] Last Admin: 09/20/18 22:15 Dose: 100 mls/hr Insulin Aspart (Novolog) 0 unit SC ACHS [facility]; Protocol Last Admin: 09/20/18 21:36 Dose: 2 units Insulin Glargine (Lantus) 25 unit SC HS [facility] Last Admin: 09/20/18 21:37 Dose: 25 u Lactulose (Enulose) 20 gm PO Q12H [facility] Last Admin: 09/21/18 00:51 Dose: Not Given Lisinopril (Zestril) 2.5 mg PO DAILY [facility] Last Admin: 09/20/18 09:48 Dose: 2.5 mg Metolazone (Zaroxolyn) 10 mg PO DAILY [facility] Last Admin: 09/20/18 09:48 Dose: 10 mg Mirtazapine (Remeron) 15 mg PO HS [facility] Last Admin: 09/20/18 21:37 Dose: 15 mg Pantoprazole Sodium (Protonix Ec Tab) 40 mg PO BID [facility] Last Admin: 09/20/18 18:13 Dose: 40 mg Polyethylene Glycol (Miralax) 17 gm PO BID [facility] Last Admin: 09/20/18 18:14 Dose: 17 gm Pregabalin (Lyrica) 75 mg PO DAILY [facility] Last Admin: 09/20/18 09:48 Dose: 75 mg Rosuvastatin Calcium (Crestor) 5 mg PO HS [facility] Last Admin: 09/21/18 00:52 Dose: Not Given Sitagliptin Phosphate (Januvia) 50 mg PO DAILY [facility] Last Admin: 09/20/18 09:48 Dose: 50 mg - Labs Labs: 09/21/18 07:51 09/19/18 07:39 PT 12.2 SECONDS (9.7-12.2) 09/13/18 14:32 INR 1.1 09/13/18 14:32 APTT 34.0 SECONDS (21-34) 09/13/18 14:32 - Constitutional Appears: Non-toxic, No Acute Distress, Confused - Head Exam Head Exam: ATRAUMATIC, NORMAL INSPECTION, NORMOCEPHALIC - ENT Exam ENT Exam: Mucous Membranes Moist - Neck Exam Neck Exam: Full ROM, Normal Inspection - Respiratory Exam Respiratory Exam: Clear to Ausculation Bilateral, NORMAL BREATHING PATTERN - Cardiovascular Exam Cardiovascular Exam: RRR, +S1, +S2 - GI/Abdominal Exam GI & Abdominal Exam: Soft, Normal Bowel Sounds. absent: Distended, Firm, Guarding, Tenderness - Extremities Exam Extremities Exam: Full ROM, Normal Inspection - Back Exam Back Exam: Full ROM, NORMAL INSPECTION - Neurological Exam Neurological Exam: Alert, Awake, Oriented x3 - Psychiatric Exam Psychiatric exam: Normal Affect, Normal Mood - Skin Skin Exam: Dry, Intact, Normal Color, Warm Assessment and Plan - Assessment and Plan (Free Text) Assessment: 1. Coffee ground emesis s/p EGD LAGD esophagitis 2. Dementia 3. DM 4. HTN 5. Hx of CVA 6. Dilated CBD 9mm 7. Fatty Liver Plan: -Continue supportive care, no further bleeding -Diet as tolerated -s/p EGD, PO PPI BID for LAGD esophagitis -Abd US reviewed with gallbladder sludge and CBD 9mm, prior LFTs wnl -Primary team ordered MRCP will await results -CMP pending for today -Will continue to monitor <Asael Martinez - Last Filed: 09/21/18 15:14> Objective - Vital Signs/Intake and Output Vital Signs (last 24 hours): Temp Pulse Resp BP Pulse Ox 98.3 F 79 20 124/57 L 96 09/20/18 23:35 09/20/18 23:35 09/20/18 23:35 09/20/18 23:35 09/20/18 23:35 Intake and Output: 09/21/18 09/21/18 06:59 18:59 Intake Total 968 Output Total 450 Balance 518 - Medications Medications: Current Medications Acetaminophen (Tylenol 325mg Tab) 325 mg PO Q4H PRN PRN Reason: Pain, Mild (1-3) Carbidopa/Levodopa (Sinemet) 1 tab PO BID [facility] Last Admin: 09/21/18 10:22 Dose: 1 tab Glimepiride (Amaryl) 4 mg PO BIDCC [facility] Heparin Sodium (Porcine) (Heparin) 5,000 units SC Q12H [facility] Last Admin: 09/21/18 13:25 Dose: 5,000 units Cefepime HCl 1 gm/ Dextrose 50 mls @ 100 mls/hr IVPB Q24H [facility]; Protocol Last Admin: 09/20/18 16:45 Dose: 100 mls/hr Sodium Chloride (Sodium Chloride 0.45%) 1,000 mls @ 100 mls/hr IV .Q10H [facility] Last Admin: 09/20/18 22:15 Dose: 100 mls/hr Insulin Aspart (Novolog) 0 unit SC ACHS [facility]; Protocol Last Admin: 09/21/18 12:30 Dose: 12 units Insulin Glargine (Lantus) 25 unit SC HS [facility] Last Admin: 09/20/18 21:37 Dose: 25 u Lactulose (Enulose) 20 gm PO Q12H [facility] Last Admin: 09/21/18 13:25 Dose: 20 gm Lisinopril (Zestril) 2.5 mg PO DAILY [facility] Last Admin: 09/21/18 10:23 Dose: 2.5 mg Metolazone (Zaroxolyn) 10 mg PO DAILY [facility] Last Admin: 09/21/18 10:22 Dose: 10 mg Mirtazapine (Remeron) 15 mg PO HS [facility] Last Admin: 09/20/18 21:37 Dose: 15 mg Pantoprazole Sodium (Protonix Ec Tab) 40 mg PO BID [facility] Last Admin: 09/21/18 10:22 Dose: 40 mg Polyethylene Glycol (Miralax) 17 gm PO BID [facility] Last Admin: 09/21/18 10:22 Dose: 17 gm Pregabalin (Lyrica) 75 mg PO DAILY [facility] Last Admin: 09/21/18 10:22 Dose: 75 mg Rosuvastatin Calcium (Crestor) 5 mg PO HS [facility] Last Admin: 09/21/18 00:52 Dose: Not Given Sitagliptin Phosphate (Januvia) 50 mg PO DAILY [facility] Last Admin: 09/21/18 10:21 Dose: 50 mg - Labs Labs: 09/21/18 07:51 09/21/18 07:51 PT 12.2 SECONDS (9.7-12.2) 09/13/18 14:32 INR 1.1 09/13/18 14:32 APTT 34.0 SECONDS (21-34) 09/13/18 14:32 Attending/Attestation - Attestation I have personally seen and examined this patient.: Yes I have fully participated in the care of the patient.: Yes I have reviewed all pertinent clinical information, including history, physical exam and plan: Yes Notes (Text): 09/21/18 15:11 I have seen and examined patient with GI fellow. No acute events overnight. As per doctor of nursing practice, patient with complaint of abdominal pain overnight and this morning with noted straining during attempted defection. No reported nausea, vomiting, fever/chills. She was able to tolerate PO diet for breakfast today without difficulty. DM/HTN Dementia Erosive esophagitis CVA Abdominal pain - abdominal US reviewed by me showing GB sludge and dilation of CBD to 9 mm - Diet as tolerated - Maintain bowel regimen to prevent constipation - LFTs normal, continue to monitor - MRCP ordered by medical team, follow up results - Will continue to monitor patient clinical course
[2018-09-21 08:35] LABS: ALB/GLOB RATIO 1.1 (1.0-2.1); ALBUMIN 3.4 g/dL (3.5-5.0); CALCIUM 8.6 mg/dl (8.6-10.4)
[2018-09-21] MEDS: POLYETHYLENE GLYCOL 3350 17 GM/Dose PACKET PO SCH ×2 (10:22→17:41)
[2018-09-21] MEDS: metOLazone 5 MG TAB PO SCH (10:22)
[2018-09-21] MEDS: Pantoprazole 40 mg EC Tab PO SCH ×2 (10:22→17:40)
--- NOTE | 2018-09-21 11:01 | CP.PCM.PN ---
Subjective - Date & Time of Evaluation Date of Evaluation: 09/21/18 Time of Evaluation: 11:00 - Subjective Subjective: CONFUSED , SOMETIMES AGITATED ROS , CONFUSED P/E ABD , NON TENDER REST N CHECK MRCP Objective - Vital Signs/Intake and Output Vital Signs (last 24 hours): Temp Pulse Resp BP Pulse Ox 98.3 F 79 20 124/57 L 96 09/20/18 23:35 09/20/18 23:35 09/20/18 23:35 09/20/18 23:35 09/20/18 23:35 Intake and Output: 09/20/18 09/21/18 23:59 11:59 Intake Total 168 800 Output Total 50 400 Balance 118 400 - Medications Medications: Current Medications Acetaminophen (Tylenol 325mg Tab) 325 mg PO Q4H PRN PRN Reason: Pain, Mild (1-3) Carbidopa/Levodopa (Sinemet) 1 tab PO BID [facility] Last Admin: 09/21/18 10:22 Dose: 1 tab Heparin Sodium (Porcine) (Heparin) 5,000 units SC Q12H [facility] Last Admin: 09/21/18 02:10 Dose: 5,000 units Cefepime HCl 1 gm/ Dextrose 50 mls @ 100 mls/hr IVPB Q24H [facility]; Protocol Last Admin: 09/20/18 16:45 Dose: 100 mls/hr Sodium Chloride (Sodium Chloride 0.45%) 1,000 mls @ 100 mls/hr IV .Q10H [facility] Last Admin: 09/20/18 22:15 Dose: 100 mls/hr Insulin Aspart (Novolog) 0 unit SC ACHS [facility]; Protocol Last Admin: 09/21/18 08:21 Dose: 8 units Insulin Glargine (Lantus) 25 unit SC [facility] Last Admin: 09/20/18 21:37 Dose: 25 u Lactulose (Enulose) 20 gm PO Q12H [facility] Last Admin: 09/21/18 00:51 Dose: Not Given Lisinopril (Zestril) 2.5 mg PO DAILY [facility] Last Admin: 09/21/18 10:23 Dose: 2.5 mg Metolazone (Zaroxolyn) 10 mg PO DAILY [facility] Last Admin: 09/21/18 10:22 Dose: 10 mg Mirtazapine (Remeron) 15 mg PO [facility] Last Admin: 09/20/18 21:37 Dose: 15 mg Pantoprazole Sodium (Protonix Ec Tab) 40 mg PO BID [facility] Last Admin: 09/21/18 10:22 Dose: 40 mg Polyethylene Glycol (Miralax) 17 gm PO BID [facility] Last Admin: 09/21/18 10:22 Dose: 17 gm Pregabalin (Lyrica) 75 mg PO DAILY [facility] Last Admin: 09/21/18 10:22 Dose: 75 mg Rosuvastatin Calcium (Crestor) 5 mg PO [facility] Last Admin: 09/21/18 00:52 Dose: Not Given Sitagliptin Phosphate (Januvia) 50 mg PO DAILY [facility] Last Admin: 09/21/18 10:21 Dose: 50 mg - Labs Labs: 09/21/18 07:51 09/21/18 07:51 PT 12.2 SECONDS (9.7-12.2) 09/13/18 14:32 INR 1.1 09/13/18 14:32 APTT 34.0 SECONDS (21-34) 09/13/18 14:32 Assessment and Plan (1) GI bleed Status: Acute (2) Altered mental status Status: Acute (3) Diabetes mellitus Status: Acute
--- NOTE | 2018-09-21 20:52 | PCM.URO ---
Urology Progress Note - General General: No Complaints, Tolerating Diet (MORE AWAKE) - Subjective Abdominal Pain: No Voiding Well: No Hematuria: No Stone Passed: No Chest Pain: No Fever & Chills: No - Objective Lab Studies: Reviewed (hyperglycemia) Lab Results Last 24 Hours: Laboratory Results - last 24 hr 09/20/18 09/21/18 09/21/18 21:29 06:15 07:51 WBC 9.9 RBC 4.07 Hgb 12.6 Hct 36.1 MCV 88.5 MCH 30.8 MCHC 34.8 RDW 14.1 Plt Count 214 MPV 10.1 Neut % (Auto) 66.9 Lymph % (Auto) 19.8 L Bulloch % (Auto) 7.7 Eos % (Auto) 4.8 H Baso % (Auto) 0.8 Neut # (Auto) 6.6 Lymph # (Auto) 2.0 Bulloch # (Auto) 0.8 Eos # (Auto) 0.5 Baso # (Auto) 0.1 Sodium Potassium Chloride Carbon Dioxide Anion Gap BUN Creatinine Est GFR ( Amer) Est GFR (Non-Af Amer) POC Glucose (mg/dL) 313 H 335 H Random Glucose Calcium Total Bilirubin AST ALT Alkaline Phosphatase Total Protein Albumin Globulin Albumin/Globulin Ratio 09/21/18 09/21/18 09/21/18 07:51 11:12 16:01 WBC RBC Hgb Hct MCV MCH MCHC RDW Plt Count MPV Neut % (Auto) Lymph % (Auto) Bulloch % (Auto) Eos % (Auto) Baso % (Auto) Neut # (Auto) Lymph # (Auto) Bulloch # (Auto) Eos # (Auto) Baso # (Auto) Sodium 132 Potassium 4.4 Chloride 96 L Carbon Dioxide 28 Anion Gap 13 BUN 46 H Creatinine 1.6 H Est GFR ( Amer) 37 Est GFR (Non-Af Amer) 31 POC Glucose (mg/dL) 425 H* 313 H Random Glucose 327 H Calcium 8.6 Total Bilirubin 0.4 AST 21 ALT 9 D Alkaline Phosphatase 74 Total Protein 6.5 Albumin 3.4 L Globulin 3.1 Albumin/Globulin Ratio 1.1 Intake & Output: Intake & Output 09/21/18 09/21/18 09/22/18 06:59 18:59 06:59 Intake Total 968 1150 Output Total 450 600 Balance 518 550 Intake: Intake, IV Amount 850 800 Left Hand 850 800 Oral 118 350 Output: Urine 450 600 Urethral (Trejo) 450 600 Other: # Bowel Movements 0 0 Vital Signs: Vital Signs - 24 hr 09/20/18 09/21/18 23:35 15:00 Temperature 98.3 F 98.1 F Pulse Rate 79 65 Respiratory 20 18 Rate Blood Pressure 124/57 L 111/60 O2 Sat by Pulse 96 97 Oximetry - Physical Exam Abdominal Exam: Soft, Non-Tender. absent: Non-Distended Back: No CVA Tenderness Urinary Catheter Draining Well: Yes Urine Color: Clear, Yellow - Plan Catheter Care: Yes Ambulation - Out of Bed: Yes Intake & Output: Yes (previous oligura) Additional Information: Rec'p;. CONSIDER TRIAL OF VOIDING. OOB, PHYSICAL THERAPY - Date & Time of Note Date: 09/21/18 Time: 14:35
[2018-09-21] MEDS: (Lantus) Insulin Glargine, Recombinant SC SCH (21:54)
[2018-09-22] MEDS: Sodium Chloride 0.45% 1,000 ML IV SCH ×4 (04:38→14:37)
--- NOTE | 2018-09-22 07:35 | CON ---
DATE: 09/21/2018 ENDOCRINOLOGY CONSULTATION LOCATION: The patient is seen on [address] [place] [address], room #558 A. HISTORY OF PRESENT ILLNESS: Ms. Mcdonnell is an 82-year-old patient who [facility] with gastrointestinal complaints. She has had multiple abnormalities on GI workup so far leading to focusing on gallbladder and bile drainage system which already so far for that followed by GI and also urinary retention followed by . Endocrine consultation is called due to diabetes mellitus which seems to be out of control. This patient has been on diabetic medication, also hypertensive medication, previously on Levemir insulin 25 units once a day and also Januvia 50 mg once a day. At the moment, the patient is given pureed soft diet, and she is tolerating three meals a day. She has been placed on low-dose Novolog insulin coverage. Her glucose level has been maintained anywhere from 200 to 300 range despite usage of that insulin treatment. PHYSICAL EXAMINATION: GENERAL: The patient is noted to be in no acute distress. She is resting, just finished her dinner. VITAL SIGNS: Stable. She is afebrile. Blood pressure is 120/70, heart rate is 70. HEAD AND NECK: Unremarkable. CHEST: Clear. ABDOMEN: Soft. There is no focal tenderness noted. EXTREMITIES: Lower extremities, there is no edema. Pedal pulses are well palpated bilaterally. LABORATORY DATA: Basic blood work is unremarkable except as mentioned glucose levels to be in the range of 200 plus. There is also GI workup to rule out GI bleed as she actually presented with coffee-ground emesis upon admission. IMPRESSION: At the present moment, the impression is diabetes mellitus poorly controlled in elderly patient who is presenting with gastrointestinal symptoms. At this moment, she is actually tolerating pureed diet as her glucose is rising to over 200 range. PLAN: The plan of therapy would be to introduce low-dose Novolog rather than regular insulin scale. Obtain hemoglobin A1c level. Observe the patient for the following 24 hours and follow up basic labs for the next 24 hours and observe her pureed intake for another day before adjusting her diabetic treatment any further. Again, because of her GI symptomatology, the patient is being sent for a test. She is being placed on n.p.o. orders as well which overall multiple that is why diabetic treatment at this time should be in progress. Safety of hypoglycemia would be primary concern in this elderly patient. Thank you so much for this consultation. I will follow this patient along with you. Karlee Stauffer MD
--- NOTE | 2018-09-22 08:08 | CON ---
DATE: 09/21/2018 UROLOGY CONSULTATION REQUESTED BY: Edna Boo MD FILLED BY: iL Gomez MD REASON FOR CONSULTATION: Urinary tract infection. HISTORY OF PRESENT ILLNESS: The patient is an 82-year-old female, admitted with hematemesis. The [facility] The patient has history of Parkinson's disease. She has history of hypertension. History of diabetes. History of asthma. The patient has also had some confusion during this admission. The patient had apparently difficulty voiding. She has a Trejo catheter in place. There is evidence of urinary tract infection. Urology consultation is thus obtained. The patient is unable to give further history regarding her voiding symptoms. She reports no abdominal pain. She reports no flank pain. There is no report of hematuria. There has been no recent fever or rigors. PHYSICAL EXAMINATION: GENERAL: The patient is a well-developed well-developed, well-nourished female. The patient is lethargic. VITAL SIGNS: Stable. See attached. The patient is afebrile. ABDOMEN: Soft, nontender, nondistended. Abdomen is protuberant. The urine is shannon via the Trejo catheter. BACK: No CVA tenderness. LABORATORY DATA: White blood count is 7800 on 09/17. Hematocrit is 37. BUN is 47, creatinine 1.7. Urine culture revealed 50,000 to 100,000 colonies per milliliter multiple species. Blood culture negative. Repeat urine culture revealed less than calories per milliliter multiple species. Further laboratory data included a bladder ultrasound and a CT scan. The renal ultrasound revealed a prevoid bladder volume of 297 mL. Thick-walled urinary bladder. Possible debris within the bladder. The patient recently had a CT scan of the abdomen which revealed a normal bladder with debris. Trejo catheter is in place. Kidneys demonstrated no obstruction, no tumor, and no stone. Of note, CT scan was performed without contrast. IMPRESSION: An 82-year-old female with possible urinary tract infection. The patient was also admitted for hematemesis. The patient has organic mental syndrome. The patient has history of diabetes and hypertension and Parkinson's disease. 1. Possible urinary tract infection. 2. Possible neurogenic bladder related to Parkinson's disease. PLAN: Trejo catheter in place. Antibiotic therapy. Urine culture. Urine cytology. Possible need for cystoscopy. Possible trial of voiding. Further therapy to follow according to the patient's clinical course. Li MD Patricia cc: MD Natalie Atkinson MD
[2018-09-22] MEDS: (Novolog) Insulin Aspart, Recombinant 100 u/ml 10 ml vial SC SCH ×4 (09:00→21:32)
--- NOTE | 2018-09-22 09:03 | CP.PCM.PN ---
<Isi Villafana - Last Filed: 09/22/18 08:59> Subjective - Date & Time of Evaluation Date of Evaluation: 09/22/18 Time of Evaluation: 07:00 - Subjective Subjective: GI Fellow PGY5 Progress Note Pt seen and evaluated at bedside, doing the same, no ruq pain on palpation. ROS: A 12pt ROS was negative except as above. Objective - Vital Signs/Intake and Output Vital Signs (last 24 hours): Temp Pulse Resp BP Pulse Ox 97.9 F 76 20 150/55 L 94 L 09/22/18 07:59 09/22/18 07:59 09/22/18 07:59 09/22/18 07:59 09/22/18 07:59 Intake and Output: 09/22/18 09/22/18 06:59 18:59 Intake Total 1600 Output Total 1650 Balance -50 - Medications Medications: Current Medications Acetaminophen (Tylenol 325mg Tab) 325 mg PO Q4H PRN PRN Reason: Pain, Mild (1-3) Carbidopa/Levodopa (Sinemet) 1 tab PO BID [facility] Last Admin: 09/21/18 17:40 Dose: 1 tab Glimepiride (Amaryl) 4 mg PO BIDCC [facility] Last Admin: 09/21/18 17:40 Dose: 4 mg Heparin Sodium (Porcine) (Heparin) 5,000 units SC Q12H [facility] Last Admin: 09/22/18 02:27 Dose: 5,000 units Cefepime HCl 1 gm/ Dextrose 50 mls @ 100 mls/hr IVPB Q24H [facility]; Protocol Last Admin: 09/21/18 17:40 Dose: 100 mls/hr Sodium Chloride (Sodium Chloride 0.45%) 1,000 mls @ 100 mls/hr IV .Q10H [facility] Last Admin: 09/22/18 06:38 Dose: 100 mls/hr Insulin Aspart (Novolog) 0 unit SC ACHS [facility]; Protocol Last Admin: 09/21/18 21:55 Dose: Not Given Insulin Glargine (Lantus) 25 unit SC HS [facility] Last Admin: 09/21/18 21:54 Dose: 25 u Lactulose (Enulose) 20 gm PO Q12H [facility] Last Admin: 09/22/18 01:14 Dose: Not Given Lisinopril (Zestril) 2.5 mg PO DAILY [facility] Last Admin: 09/21/18 10:23 Dose: 2.5 mg Metolazone (Zaroxolyn) 10 mg PO DAILY [facility] Last Admin: 09/21/18 10:22 Dose: 10 mg Mirtazapine (Remeron) 15 mg PO HS [facility] Last Admin: 09/21/18 21:55 Dose: 15 mg Pantoprazole Sodium (Protonix Ec Tab) 40 mg PO BID [facility] Last Admin: 09/21/18 17:40 Dose: 40 mg Polyethylene Glycol (Miralax) 17 gm PO BID [facility] Last Admin: 09/21/18 17:41 Dose: 17 gm Pregabalin (Lyrica) 75 mg PO DAILY [facility] Last Admin: 09/21/18 10:22 Dose: 75 mg Rosuvastatin Calcium (Crestor) 5 mg PO HS [facility] Last Admin: 09/21/18 21:55 Dose: 5 mg Sitagliptin Phosphate (Januvia) 50 mg PO DAILY [facility] Last Admin: 09/21/18 10:21 Dose: 50 mg - Labs Labs: 09/21/18 07:51 09/21/18 07:51 PT 12.2 SECONDS (9.7-12.2) 09/13/18 14:32 INR 1.1 09/13/18 14:32 APTT 34.0 SECONDS (21-34) 09/13/18 14:32 - Constitutional Appears: Non-toxic, No Acute Distress - Head Exam Head Exam: ATRAUMATIC, NORMAL INSPECTION, NORMOCEPHALIC - Eye Exam Eye Exam: EOMI, Normal appearance, PERRL Pupil Exam: PERRL - ENT Exam ENT Exam: Mucous Membranes Moist - Neck Exam Neck Exam: Full ROM, Normal Inspection - Respiratory Exam Respiratory Exam: Clear to Ausculation Bilateral, NORMAL BREATHING PATTERN - Cardiovascular Exam Cardiovascular Exam: REGULAR RHYTHM, RRR, +S1, +S2 - GI/Abdominal Exam GI & Abdominal Exam: Soft, Normal Bowel Sounds - Extremities Exam Extremities Exam: Full ROM, Normal Inspection - Back Exam Back Exam: Full ROM, NORMAL INSPECTION - Neurological Exam Neurological Exam: Alert, Awake, Oriented x3 - Psychiatric Exam Psychiatric exam: Normal Affect, Normal Mood - Skin Skin Exam: Dry, Intact, Normal Color, Warm Assessment and Plan - Assessment and Plan (Free Text) Assessment: 1. Coffee ground emesis s/p EGD LAGD esophagitis 2. Dementia 3. DM 4. HTN 5. Hx of CVA 6. Dilated CBD 9mm 7. Fatty Liver Plan: -Continue supportive care, no further bleeding -Diet as tolerated -s/p EGD, PO PPI BID for LAGD esophagitis -Abd US reviewed with gallbladder sludge and CBD 9mm, -LFTs wnl -Primary team ordered MRCP will await results -Unlikely any biliary etiology <Asael Martinez - Last Filed: 09/22/18 17:26> Objective - Vital Signs/Intake and Output Vital Signs (last 24 hours): Temp Pulse Resp BP Pulse Ox 97.9 F 67 20 129/70 95 09/22/18 15:00 09/22/18 15:00 09/22/18 15:00 09/22/18 15:00 09/22/18 15:00 Intake and Output: 09/22/18 09/22/18 06:59 18:59 Intake Total 1600 800 Output Total 1650 1000 Balance -50 -200 - Medications Medications: Current Medications Acetaminophen (Tylenol 325mg Tab) 325 mg PO Q4H PRN PRN Reason: Pain, Mild (1-3) Carbidopa/Levodopa (Sinemet) 1 tab PO BID [facility] Last Admin: 09/22/18 17:18 Dose: 1 tab Glimepiride (Amaryl) 4 mg PO BIDCC [facility] Last Admin: 09/22/18 16:33 Dose: 4 mg Heparin Sodium (Porcine) (Heparin) 5,000 units SC Q12H [facility] Last Admin: 09/22/18 13:05 Dose: 5,000 units Cefepime HCl 1 gm/ Dextrose 50 mls @ 100 mls/hr IVPB Q24H [facility]; Protocol Last Admin: 09/22/18 16:33 Dose: 100 mls/hr Sodium Chloride (Sodium Chloride 0.45%) 1,000 mls @ 100 mls/hr IV .Q10H [facility] Last Admin: 09/22/18 14:30 Dose: 100 mls/hr Insulin Aspart (Novolog) 0 unit SC ACHS [facility]; Protocol Last Admin: 09/22/18 12:24 Dose: 10 units Insulin Glargine (Lantus) 25 unit SC HS [facility] Last Admin: 09/21/18 21:54 Dose: 25 u Lactulose (Enulose) 20 gm PO Q12H [facility] Last Admin: 09/22/18 14:32 Dose: 20 gm Lisinopril (Zestril) 2.5 mg PO DAILY [facility] Last Admin: 09/22/18 09:59 Dose: 2.5 mg Metolazone (Zaroxolyn) 10 mg PO DAILY [facility] Last Admin: 09/22/18 09:58 Dose: 10 mg Mirtazapine (Remeron) 15 mg PO HS [facility] Last Admin: 09/21/18 21:55 Dose: 15 mg Pantoprazole Sodium (Protonix Ec Tab) 40 mg PO BID [facility] Last Admin: 09/22/18 17:18 Dose: 40 mg Polyethylene Glycol (Miralax) 17 gm PO BID [facility] Last Admin: 09/22/18 17:19 Dose: 17 gm Pregabalin (Lyrica) 75 mg PO DAILY [facility] Last Admin: 09/22/18 09:58 Dose: 75 mg Rosuvastatin Calcium (Crestor) 5 mg PO HS [facility] Last Admin: 09/21/18 21:55 Dose: 5 mg Sitagliptin Phosphate (Januvia) 50 mg PO DAILY [facility] Last Admin: 09/22/18 09:59 Dose: 50 mg - Labs Labs: 09/21/18 07:51 09/21/18 07:51 PT 12.2 SECONDS (9.7-12.2) 09/13/18 14:32 INR 1.1 09/13/18 14:32 APTT 34.0 SECONDS (21-34) 09/13/18 14:32 Attending/Attestation - Attestation I have personally seen and examined this patient.: Yes I have fully participated in the care of the patient.: Yes I have reviewed all pertinent clinical information, including history, physical exam and plan: Yes Notes (Text): 09/22/18 17:22 I have seen and examined patient with GI fellow. No acute events overnight, she is seen resting in bed comfortably. No reported nausea, vomiting, fever/chills. Review of vitals from today are normal. DM/HTN Dementia Vomiting - resolved, presence of esophagitis on recent EGD CVA Dilated CBD noted on abdominal US, though normal LFTs over past several days - Diet as tolerated - Continue with PPI therapy - Suggest discontinuation of plavix unless clinically indicated - Patient unable to perform MRI given inability to hold breath. Given normal LFTs, advanced patient age and medical comorbidities, would not aggressively pursue this unless clinical condition changes - Maintain aggressive bowel regimen to prevent constipation - No further planned GI intervention, will sign off case. Please reconsult as necessary, thank you.
[2018-09-22] MEDS: metOLazone 5 MG TAB PO SCH (09:58)
[2018-09-22] MEDS: POLYETHYLENE GLYCOL 3350 17 GM/Dose PACKET PO SCH ×2 (09:58→17:19)
[2018-09-22] MEDS: Pantoprazole 40 mg EC Tab PO SCH ×2 (09:59→17:18)
--- NOTE | 2018-09-22 11:13 | CP.PCM.PN ---
Subjective - Date & Time of Evaluation Date of Evaluation: 09/22/18 Time of Evaluation: 11:12 - Subjective Subjective: CONFUSED P/E REMAINS SAME MRCP COULD NOT BE DONE AWAITING F/U Objective - Vital Signs/Intake and Output Vital Signs (last 24 hours): Temp Pulse Resp BP Pulse Ox 97.9 F 76 20 150/55 L 94 L 09/22/18 07:59 09/22/18 07:59 09/22/18 07:59 09/22/18 07:59 09/22/18 07:59 Intake and Output: 09/21/18 09/22/18 23:59 11:59 Intake Total 1950 800 Output Total 950 1300 Balance 1000 -500 - Medications Medications: Current Medications Acetaminophen (Tylenol 325mg Tab) 325 mg PO Q4H PRN PRN Reason: Pain, Mild (1-3) Carbidopa/Levodopa (Sinemet) 1 tab PO BID [facility] Last Admin: 09/22/18 09:59 Dose: 1 tab Glimepiride (Amaryl) 4 mg PO BIDCC [facility] Last Admin: 09/21/18 17:40 Dose: 4 mg Heparin Sodium (Porcine) (Heparin) 5,000 units SC Q12H [facility] Last Admin: 09/22/18 02:27 Dose: 5,000 units Cefepime HCl 1 gm/ Dextrose 50 mls @ 100 mls/hr IVPB Q24H [facility]; Protocol Last Admin: 09/21/18 17:40 Dose: 100 mls/hr Sodium Chloride (Sodium Chloride 0.45%) 1,000 mls @ 100 mls/hr IV .Q10H [facility] Last Admin: 09/22/18 06:38 Dose: 100 mls/hr Insulin Aspart (Novolog) 0 unit SC ACHS [facility]; Protocol Last Admin: 09/22/18 09:00 Dose: 2 units Insulin Glargine (Lantus) 25 unit SC HS [facility] Last Admin: 09/21/18 21:54 Dose: 25 u Lactulose (Enulose) 20 gm PO Q12H [facility] Last Admin: 09/22/18 01:14 Dose: Not Given Lisinopril (Zestril) 2.5 mg PO DAILY [facility] Last Admin: 09/22/18 09:59 Dose: 2.5 mg Metolazone (Zaroxolyn) 10 mg PO DAILY [facility] Last Admin: 09/22/18 09:58 Dose: 10 mg Mirtazapine (Remeron) 15 mg PO HS [facility] Last Admin: 09/21/18 21:55 Dose: 15 mg Pantoprazole Sodium (Protonix Ec Tab) 40 mg PO BID [facility] Last Admin: 09/22/18 09:59 Dose: 40 mg Polyethylene Glycol (Miralax) 17 gm PO BID [facility] Last Admin: 09/22/18 09:58 Dose: 17 gm Pregabalin (Lyrica) 75 mg PO DAILY [facility] Last Admin: 09/22/18 09:58 Dose: 75 mg Rosuvastatin Calcium (Crestor) 5 mg PO HS [facility] Last Admin: 09/21/18 21:55 Dose: 5 mg Sitagliptin Phosphate (Januvia) 50 mg PO DAILY [facility] Last Admin: 09/22/18 09:59 Dose: 50 mg - Labs Labs: 09/21/18 07:51 09/21/18 07:51 PT 12.2 SECONDS (9.7-12.2) 09/13/18 14:32 INR 1.1 09/13/18 14:32 APTT 34.0 SECONDS (21-34) 09/13/18 14:32 Assessment and Plan (1) GI bleed Status: Acute (2) Altered mental status Status: Acute (3) Diabetes mellitus Status: Acute
--- NOTE | 2018-09-22 19:13 | CP.PCM.PN ---
Subjective - Date & Time of Evaluation Date of Evaluation: 09/22/18 Time of Evaluation: 19:13 - Subjective Subjective: AFEBRILE, MORE AWAKE AND RESPONSIVE. AGITATED TOLERATING DIET. mrcp COULD NOT BE DONE. SEEN BY GI/ ON IV ABX. PER RN PT NOW MOVING BOWELS Objective - Vital Signs/Intake and Output Vital Signs (last 24 hours): Temp Pulse Resp BP Pulse Ox 97.9 F 67 20 129/70 95 09/22/18 15:00 09/22/18 15:00 09/22/18 15:00 09/22/18 15:00 09/22/18 15:00 Intake and Output: 09/22/18 09/23/18 18:59 06:59 Intake Total 1680 Output Total 1400 Balance 280 - Medications Medications: Current Medications Acetaminophen (Tylenol 325mg Tab) 325 mg PO Q4H PRN PRN Reason: Pain, Mild (1-3) Carbidopa/Levodopa (Sinemet) 1 tab PO BID [facility] Last Admin: 09/22/18 17:18 Dose: 1 tab Glimepiride (Amaryl) 4 mg PO BIDCC [facility] Last Admin: 09/22/18 16:33 Dose: 4 mg Heparin Sodium (Porcine) (Heparin) 5,000 units SC Q12H [facility] Last Admin: 09/22/18 13:05 Dose: 5,000 units Cefepime HCl 1 gm/ Dextrose 50 mls @ 100 mls/hr IVPB Q24H [facility]; Protocol Last Admin: 09/22/18 16:33 Dose: 100 mls/hr Sodium Chloride (Sodium Chloride 0.45%) 1,000 mls @ 100 mls/hr IV .Q10H [facility] Last Admin: 09/22/18 14:30 Dose: 100 mls/hr Insulin Aspart (Novolog) 0 unit SC ACHS [facility]; Protocol Last Admin: 09/22/18 17:23 Dose: 10 units Insulin Glargine (Lantus) 25 unit SC HS [facility] Last Admin: 09/21/18 21:54 Dose: 25 u Lactulose (Enulose) 20 gm PO Q12H [facility] Last Admin: 09/22/18 14:32 Dose: 20 gm Lisinopril (Zestril) 2.5 mg PO DAILY [facility] Last Admin: 09/22/18 09:59 Dose: 2.5 mg Metolazone (Zaroxolyn) 10 mg PO DAILY [facility] Last Admin: 09/22/18 09:58 Dose: 10 mg Mirtazapine (Remeron) 15 mg PO HS [facility] Last Admin: 09/21/18 21:55 Dose: 15 mg Pantoprazole Sodium (Protonix Ec Tab) 40 mg PO BID [facility] Last Admin: 09/22/18 17:18 Dose: 40 mg Polyethylene Glycol (Miralax) 17 gm PO BID [facility] Last Admin: 09/22/18 17:19 Dose: 17 gm Pregabalin (Lyrica) 75 mg PO DAILY [facility] Last Admin: 09/22/18 09:58 Dose: 75 mg Rosuvastatin Calcium (Crestor) 5 mg PO HS [facility] Last Admin: 09/21/18 21:55 Dose: 5 mg Sitagliptin Phosphate (Januvia) 50 mg PO DAILY [facility] Last Admin: 09/22/18 09:59 Dose: 50 mg - Labs Labs: 09/21/18 07:51 09/21/18 07:51 PT 12.2 SECONDS (9.7-12.2) 09/13/18 14:32 INR 1.1 09/13/18 14:32 APTT 34.0 SECONDS (21-34) 09/13/18 14:32 - Constitutional Appears: No Acute Distress, Confused - Head Exam Head Exam: NORMAL INSPECTION - Eye Exam Eye Exam: PERRL (PT LEGALLY BLIND.) - ENT Exam ENT Exam: Normal Oropharynx - Neck Exam Neck Exam: Normal Inspection - Respiratory Exam Respiratory Exam: Clear to Ausculation Bilateral, NORMAL BREATHING PATTERN - Cardiovascular Exam Cardiovascular Exam: REGULAR RHYTHM, +S1, +S2 - GI/Abdominal Exam GI & Abdominal Exam: Soft, Normal Bowel Sounds. absent: Tenderness - Extremities Exam Extremities Exam: Normal Capillary Refill, Pedal Edema (ONE PLUS). absent: Calf Tenderness - Neurological Exam Neurological Exam: Altered, Awake, Reflexes Normal - Psychiatric Exam Psychiatric exam: Anxious - Skin Skin Exam: Normal Color, Warm Assessment and Plan (1) Altered mental status Status: Acute (2) UTI (urinary tract infection) Status: Acute (3) GI bleed Status: Acute (4) Diabetes mellitus type 2, uncontrolled Status: Acute (5) Abdominal pain determined by examination Status: Acute (6) Constipation Status: Acute - Assessment and Plan (Free Text) Plan: CONTINUE IV ABX, ABN GB US GI -DOES NOT THINK IT'S GALLBLADDER lftS NORMAL. lIKE TO OBSERVE.. PER . CONTINUE LAXATIVES PER PMD/GI CASE DISCUSSED WITH STAFF/PM
[2018-09-22] MEDS: (Lantus) Insulin Glargine, Recombinant SC SCH (21:29)
[2018-09-23] MEDS: Sodium Chloride 0.45% 1,000 ML IV SCH ×2 (02:57→21:15)
[2018-09-23] MEDS: (Novolog) Insulin Aspart, Recombinant 100 u/ml 10 ml vial SC SCH ×4 (08:30→21:35)
[2018-09-23] MEDS: Pantoprazole 40 mg EC Tab PO SCH ×2 (09:42→17:14)
[2018-09-23] MEDS: metOLazone 5 MG TAB PO SCH (09:42)
[2018-09-23] MEDS: POLYETHYLENE GLYCOL 3350 17 GM/Dose PACKET PO SCH ×2 (09:45→17:15)
--- NOTE | 2018-09-23 10:53 | CP.PCM.PN ---
Subjective - Date & Time of Evaluation Date of Evaluation: 09/23/18 Time of Evaluation: 10:51 - Subjective Subjective: PT. CLINICALLY REMAINS SAME MRCP COULD NOT BE DONE PERIODS OF CONFUSION AND AGITATION D/W UROLOGY FOR CYSTO Objective - Vital Signs/Intake and Output Vital Signs (last 24 hours): Temp Pulse Resp BP Pulse Ox 98.4 F 74 20 130/72 94 L 09/23/18 08:00 09/23/18 09:40 09/23/18 08:00 09/23/18 09:40 09/23/18 08:00 Intake and Output: 09/22/18 09/23/18 23:59 11:59 Intake Total 1780 1540 Output Total 1400 1350 Balance 380 190 - Medications Medications: Current Medications Acetaminophen (Tylenol 325mg Tab) 325 mg PO Q4H PRN PRN Reason: Pain, Mild (1-3) Last Admin: 09/22/18 20:25 Dose: 325 mg Carbidopa/Levodopa (Sinemet) 1 tab PO BID [facility] Last Admin: 09/23/18 09:44 Dose: Not Given Glimepiride (Amaryl) 4 mg PO BIDCC [facility] Last Admin: 09/23/18 08:57 Dose: 4 mg Heparin Sodium (Porcine) (Heparin) 5,000 units SC Q12H [facility] Last Admin: 09/23/18 09:43 Dose: 5,000 units Cefepime HCl 1 gm/ Dextrose 50 mls @ 100 mls/hr IVPB Q24H [facility]; Protocol Last Admin: 09/22/18 16:33 Dose: 100 mls/hr Sodium Chloride (Sodium Chloride 0.45%) 1,000 mls @ 100 mls/hr IV .Q10H [facility] Last Admin: 09/23/18 02:57 Dose: 100 mls/hr Insulin Aspart (Novolog) 0 unit SC ACHS [facility]; Protocol Last Admin: 09/23/18 08:30 Dose: 4 units Insulin Glargine (Lantus) 25 unit SC HS [facility] Last Admin: 09/22/18 21:29 Dose: 25 u Lactulose (Enulose) 20 gm PO Q12H [facility] Last Admin: 09/23/18 01:48 Dose: Not Given Lisinopril (Zestril) 2.5 mg PO DAILY [facility] Last Admin: 09/23/18 09:41 Dose: 2.5 mg Metolazone (Zaroxolyn) 10 mg PO DAILY [facility] Last Admin: 09/23/18 09:42 Dose: 10 mg Mirtazapine (Remeron) 15 mg PO HS [facility] Last Admin: 09/22/18 21:28 Dose: 15 mg Pantoprazole Sodium (Protonix Ec Tab) 40 mg PO BID [facility] Last Admin: 09/23/18 09:42 Dose: 40 mg Polyethylene Glycol (Miralax) 17 gm PO BID [facility] Last Admin: 09/23/18 09:45 Dose: Not Given Pregabalin (Lyrica) 75 mg PO DAILY [facility] Last Admin: 09/23/18 09:42 Dose: 75 mg Rosuvastatin Calcium (Crestor) 5 mg PO HS [facility] Last Admin: 09/22/18 21:29 Dose: 5 mg Sitagliptin Phosphate (Januvia) 50 mg PO DAILY [facility] Last Admin: 09/23/18 09:42 Dose: 50 mg - Labs Labs: 09/21/18 07:51 09/21/18 07:51 PT 12.2 SECONDS (9.7-12.2) 09/13/18 14:32 INR 1.1 09/13/18 14:32 APTT 34.0 SECONDS (21-34) 09/13/18 14:32 Assessment and Plan (1) GI bleed Status: Acute (2) Altered mental status Status: Acute (3) Diabetes mellitus Status: Acute
--- NOTE | 2018-09-23 13:50 | CP.PCM.PN ---
Subjective - Date & Time of Evaluation Date of Evaluation: 09/23/18 Time of Evaluation: 13:50 - Subjective Subjective: AFEBRILE MORE AWAKE , ANXIOUS TO GO HOME MOVING HER BOWELS 4X TODAY NOTED. LACTULOSE HELD TODAY ALL CULTURES -VE. PLAN ON IV CEFEPIME. 09/17/18 DC IV CEFEPIME IN AM Objective - Vital Signs/Intake and Output Vital Signs (last 24 hours): Temp Pulse Resp BP Pulse Ox 98.4 F 74 20 130/72 94 L 09/23/18 08:00 09/23/18 09:40 09/23/18 08:00 09/23/18 09:40 09/23/18 08:00 Intake and Output: 09/23/18 09/23/18 06:59 18:59 Intake Total 1540 100 Output Total 1350 Balance 190 100 - Medications Medications: Current Medications Acetaminophen (Tylenol 325mg Tab) 325 mg PO Q4H PRN PRN Reason: Pain, Mild (1-3) Last Admin: 09/22/18 20:25 Dose: 325 mg Carbidopa/Levodopa (Sinemet) 1 tab PO BID [facility] Last Admin: 09/23/18 09:44 Dose: Not Given Glimepiride (Amaryl) 4 mg PO BIDCC [facility] Last Admin: 09/23/18 08:57 Dose: 4 mg Heparin Sodium (Porcine) (Heparin) 5,000 units SC Q12H [facility] Last Admin: 09/23/18 09:43 Dose: 5,000 units Cefepime HCl 1 gm/ Dextrose 50 mls @ 100 mls/hr IVPB Q24H [facility]; Protocol Last Admin: 09/22/18 16:33 Dose: 100 mls/hr Sodium Chloride (Sodium Chloride 0.45%) 1,000 mls @ 100 mls/hr IV .Q10H [facility] Last Admin: 09/23/18 02:57 Dose: 100 mls/hr Insulin Aspart (Novolog) 0 unit SC ACHS [facility]; Protocol Last Admin: 09/23/18 12:30 Dose: 6 units Insulin Glargine (Lantus) 25 unit SC HS [facility] Last Admin: 09/22/18 21:29 Dose: 25 u Lactulose (Enulose) 20 gm PO Q12H [facility] Last Admin: 09/23/18 13:01 Dose: Not Given Lisinopril (Zestril) 2.5 mg PO DAILY [facility] Last Admin: 09/23/18 09:41 Dose: 2.5 mg Metolazone (Zaroxolyn) 10 mg PO DAILY [facility] Last Admin: 09/23/18 09:42 Dose: 10 mg Mirtazapine (Remeron) 15 mg PO [facility] Last Admin: 09/22/18 21:28 Dose: 15 mg Pantoprazole Sodium (Protonix Ec Tab) 40 mg PO BID [facility] Last Admin: 09/23/18 09:42 Dose: 40 mg Polyethylene Glycol (Miralax) 17 gm PO BID [facility] Last Admin: 09/23/18 09:45 Dose: Not Given Pregabalin (Lyrica) 75 mg PO DAILY [facility] Last Admin: 09/23/18 09:42 Dose: 75 mg Rosuvastatin Calcium (Crestor) 5 mg PO [facility] Last Admin: 09/22/18 21:29 Dose: 5 mg Sitagliptin Phosphate (Januvia) 50 mg PO DAILY [facility] Last Admin: 09/23/18 09:42 Dose: 50 mg - Labs Labs: 09/21/18 07:51 09/21/18 07:51 PT 12.2 SECONDS (9.7-12.2) 09/13/18 14:32 INR 1.1 09/13/18 14:32 APTT 34.0 SECONDS (21-34) 09/13/18 14:32 - Constitutional Appears: No Acute Distress - Head Exam Head Exam: NORMAL INSPECTION - Eye Exam Eye Exam: EOMI, PERRL - ENT Exam ENT Exam: Normal Oropharynx - Neck Exam Neck Exam: Normal Inspection - Respiratory Exam Respiratory Exam: Clear to Ausculation Bilateral, NORMAL BREATHING PATTERN - Cardiovascular Exam Cardiovascular Exam: REGULAR RHYTHM, +S1, +S2 - GI/Abdominal Exam GI & Abdominal Exam: Soft, Normal Bowel Sounds. absent: Tenderness - Extremities Exam Extremities Exam: Normal Capillary Refill. absent: Calf Tenderness, Pedal Edema - Neurological Exam Neurological Exam: Awake, Reflexes Normal - Psychiatric Exam Psychiatric exam: Normal Mood - Skin Skin Exam: Warm Assessment and Plan (1) Altered mental status Assessment & Plan: IMPROVING. SHOUTING WANTS TO GET OUT OF BED Status: Acute (2) UTI (urinary tract infection) Status: Acute (3) GI bleed Status: Acute (4) Diabetes mellitus type 2, uncontrolled Status: Acute (5) Abdominal pain determined by examination Status: Acute (6) Constipation Status: Acute - Assessment and Plan (Free Text) Plan: CONTINUE IV ABX-iv cefepime 1gm ivpb qd daily. , d/c iv abx in am. PER . LACTULOSE HELD THIS AM IN VIEW OF 4 LOOSE BMS. CASE DISCUSSED WITH STAFF/PM
[2018-09-23] MEDS: (Lantus) Insulin Glargine, Recombinant SC SCH (21:35)
[2018-09-24 08:16] LABS: BASO # 0.1 K/uL (0.0-0.2); BASO % 0.9 % (0.0-2.0); EOS # 0.5 K/uL (0.0-0.7); EOS % 6.3 % (0.0-4.0); HEMOGLOBIN 11.9 g/dL (11.0-16.0); LYMPH % 23.7 % (20.0-40.0); MEAN CELL VOLUME 87.6 fL (81.0-99.0); MEAN CORPUSCULAR HGB CONC 35.4 g/dL (33.0-37.0); MEAN PLATELET VOLUME 9.8 fL (7.2-11.7); MONO # 0.7 K/uL (0.0-0.8); MONO % 7.7 % (0.0-10.0); NEUT # 5.2 K/uL (1.8-7.0); NEUT % 61.4 % (50.0-75.0); NRBC % 0.1 % (0.0-2.0); RBC 3.85 Mil/uL (3.80-5.20); WHITE BLOOD COUNT 8.5 K/uL (4.8-10.8)
[2018-09-24] MEDS: (Novolog) Insulin Aspart, Recombinant 100 u/ml 10 ml vial SC SCH ×6 (08:24→21:56)
[2018-09-24 08:31] LABS: BLOOD UREA NITROGEN 18 mg/dL (7-17); GFR NON-AFRICAN AMERICAN 60
[2018-09-24] MEDS: Pantoprazole 40 mg EC Tab PO SCH ×3 (09:20→17:39)
[2018-09-24] MEDS: POLYETHYLENE GLYCOL 3350 17 GM/Dose PACKET PO SCH ×2 (09:20→17:28)
[2018-09-24] MEDS: metOLazone 5 MG TAB PO SCH (09:28)
--- NOTE | 2018-09-24 12:25 | CP.PCM.PN ---
Subjective - Date & Time of Evaluation Date of Evaluation: 09/24/18 Time of Evaluation: 12:24 - Subjective Subjective: ALERT AND CONFUSED PERIODS OF AGITATION NO ABD PAIN VS STABLE ABD SOFT , NO PAIN LUNGS RONCHI CONT PRESENT MANAGEMENT Objective - Vital Signs/Intake and Output Vital Signs (last 24 hours): Temp Pulse Resp BP Pulse Ox 98 F 80 20 149/74 96 09/24/18 08:27 09/24/18 09:19 09/24/18 08:27 09/24/18 09:19 09/24/18 08:27 Intake and Output: 09/24/18 09/24/18 11:59 23:59 Intake Total 900 Output Total 1000 Balance -100 - Medications Medications: Current Medications Acetaminophen (Tylenol 325mg Tab) 325 mg PO Q4H PRN PRN Reason: Pain, Mild (1-3) Last Admin: 09/22/18 20:25 Dose: 325 mg Carbidopa/Levodopa (Sinemet) 1 tab PO BID [facility] Last Admin: 09/24/18 09:20 Dose: 1 [facility] Last Admin: 09/24/18 08:45 Dose: 4 mg Heparin Sodium (Porcine) (Heparin) 5,000 units SC Q12H [facility] Last Admin: 09/24/18 09:20 Dose: 5,000 units Cefepime HCl 1 gm/ Dextrose 50 mls @ 100 mls/hr IVPB Q24H [facility]; Protocol Last Admin: 09/23/18 16:36 Dose: 100 mls/hr Insulin Aspart (Novolog) 0 unit SC ACHS [facility]; Protocol Last Admin: 09/24/18 08:24 Dose: 4 units Insulin Glargine (Lantus) 25 unit SC [facility] Last Admin: 09/23/18 21:35 Dose: 25 u Lactulose (Enulose) 20 gm PO Q12H [facility] Last Admin: 09/24/18 00:57 Dose: Not Given Lisinopril (Zestril) 2.5 mg PO DAILY [facility] Last Admin: 09/24/18 09:20 Dose: 2.5 mg Metolazone (Zaroxolyn) 10 mg PO DAILY [facility] Last Admin: 09/24/18 09:28 Dose: 10 mg Mirtazapine (Remeron) 15 mg PO [facility] Last Admin: 09/23/18 21:35 Dose: 15 mg Pantoprazole Sodium (Protonix Ec Tab) 40 mg PO BID [facility] Last Admin: 09/24/18 09:20 Dose: 40 mg Polyethylene Glycol (Miralax) 17 gm PO BID [facility] Last Admin: 09/24/18 09:20 Dose: 17 gm Pregabalin (Lyrica) 75 mg PO DAILY [facility] Last Admin: 09/24/18 09:20 Dose: 75 mg Rosuvastatin Calcium (Crestor) 5 mg PO HS [facility] Last Admin: 09/23/18 21:35 Dose: 5 mg Sitagliptin Phosphate (Januvia) 50 mg PO DAILY [facility] Last Admin: 09/24/18 09:20 Dose: 50 mg - Labs Labs: 09/24/18 07:55 09/24/18 07:55 PT 12.2 SECONDS (9.7-12.2) 09/13/18 14:32 INR 1.1 09/13/18 14:32 APTT 34.0 SECONDS (21-34) 09/13/18 14:32 Assessment and Plan (1) GI bleed Status: Acute (2) Altered mental status Status: Acute (3) Diabetes mellitus Status: Acute
--- NOTE | 2018-09-24 13:09 | CP.PCM.PN ---
Subjective - Date & Time of Evaluation Date of Evaluation: 09/24/18 Time of Evaluation: 13:09 - Subjective Subjective: AFEBRILE MORE AWAKE , c/o suprapubic pain +VE FOLYS MOVING HER BOWELS . ALL CULTURES -VE. PLAN DC IV CEFEPIME. 09/17/18 PT HAS FOLYS CATHETHER FOR INCOMPLETE EMPYTING BLADDER ? NEUROGENIC BLADDER VS /BLADDER MALIGNANCY. AWAITING RECOMENDATIONS Objective - Vital Signs/Intake and Output Vital Signs (last 24 hours): Temp Pulse Resp BP Pulse Ox 98 F 80 20 149/74 96 09/24/18 08:27 09/24/18 09:19 09/24/18 08:27 09/24/18 09:19 09/24/18 08:27 Intake and Output: 09/24/18 09/24/18 06:59 18:59 Intake Total 2150 Output Total 1900 Balance 250 - Medications Medications: Current Medications Acetaminophen (Tylenol 325mg Tab) 325 mg PO Q4H PRN PRN Reason: Pain, Mild (1-3) Last Admin: 09/22/18 20:25 Dose: 325 mg Carbidopa/Levodopa (Sinemet) 1 tab PO BID [facility] Last Admin: 09/24/18 09:20 Dose: 1 tab Glimepiride (Amaryl) 4 mg PO BIDCC [facility] Last Admin: 09/24/18 08:45 Dose: 4 mg Heparin Sodium (Porcine) (Heparin) 5,000 units SC Q12H [facility] Last Admin: 09/24/18 09:20 Dose: 5,000 units Cefepime HCl 1 gm/ Dextrose 50 mls @ 100 mls/hr IVPB Q24H [facility]; Protocol Last Admin: 09/23/18 16:36 Dose: 100 mls/hr Insulin Aspart (Novolog) 0 unit SC ACHS [facility]; Protocol Last Admin: 09/24/18 08:24 Dose: 4 units Insulin Glargine (Lantus) 25 unit SC HS [facility] Last Admin: 09/23/18 21:35 Dose: 25 u Lactulose (Enulose) 20 gm PO Q12H [facility] Last Admin: 09/24/18 00:57 Dose: Not Given Lisinopril (Zestril) 2.5 mg PO DAILY [facility] Last Admin: 09/24/18 09:20 Dose: 2.5 mg Metolazone (Zaroxolyn) 10 mg PO DAILY [facility] Last Admin: 09/24/18 09:28 Dose: 10 mg Mirtazapine (Remeron) 15 mg PO HS [facility] Last Admin: 09/23/18 21:35 Dose: 15 mg Pantoprazole Sodium (Protonix Ec Tab) 40 mg PO BID [facility] Last Admin: 09/24/18 09:20 Dose: 40 mg Polyethylene Glycol (Miralax) 17 gm PO BID [facility] Last Admin: 09/24/18 09:20 Dose: 17 gm Pregabalin (Lyrica) 75 mg PO DAILY [facility] Last Admin: 09/24/18 09:20 Dose: 75 mg Rosuvastatin Calcium (Crestor) 5 mg PO HS [facility] Last Admin: 09/23/18 21:35 Dose: 5 mg Sitagliptin Phosphate (Januvia) 50 mg PO DAILY [facility] Last Admin: 09/24/18 09:20 Dose: 50 mg - Labs Labs: 09/24/18 07:55 09/24/18 07:55 PT 12.2 SECONDS (9.7-12.2) 09/13/18 14:32 INR 1.1 09/13/18 14:32 APTT 34.0 SECONDS (21-34) 09/13/18 14:32 - Constitutional Appears: No Acute Distress, Confused - Head Exam Head Exam: NORMAL INSPECTION - Eye Exam Eye Exam: EOMI, PERRL Additional comments: LEGALLY BLIND. - ENT Exam ENT Exam: Normal Oropharynx - Neck Exam Neck Exam: Normal Inspection - Respiratory Exam Respiratory Exam: Clear to Ausculation Bilateral, NORMAL BREATHING PATTERN - Cardiovascular Exam Cardiovascular Exam: REGULAR RHYTHM, +S1, +S2 - GI/Abdominal Exam GI & Abdominal Exam: Soft, Tenderness (suprapubic tenderness on deep palpation.), Normal Bowel Sounds - Extremities Exam Extremities Exam: Normal Capillary Refill. absent: Calf Tenderness, Pedal Edema - Neurological Exam Neurological Exam: Altered, Awake - Psychiatric Exam Psychiatric exam: Normal Affect - Skin Skin Exam: Normal Color, Warm Assessment and Plan (1) Altered mental status Status: Acute (2) UTI (urinary tract infection) Status: Acute (3) GI bleed Status: Acute (4) Diabetes mellitus type 2, uncontrolled Status: Acute (5) Abdominal pain determined by examination Status: Acute (6) Constipation Status: Acute - Assessment and Plan (Free Text) Plan: DC IV CEFEPIME. 09/17/18- 09/24/18 PT HAS FOLYS CATHETHER FOR INCOMPLETE EMPYTING BLADDER ? NEUROGENIC BLADDER VS /BLADDER MALIGNANCY. AWAITING RECOMENDATIONS. case discussed w staff.
[2018-09-24] MEDS: (Lantus) Insulin Glargine, Recombinant SC SCH (21:59)
[2018-09-25] MEDS: (Novolog) Insulin Aspart, Recombinant 100 u/ml 10 ml vial SC SCH ×4 (08:21→22:04)
[2018-09-25] MEDS: Pantoprazole 40 mg EC Tab PO SCH ×2 (09:15→17:38)
[2018-09-25] MEDS: POLYETHYLENE GLYCOL 3350 17 GM/Dose PACKET PO SCH ×2 (09:16→20:08)
[2018-09-25] MEDS: metOLazone 5 MG TAB PO SCH (09:17)
--- NOTE | 2018-09-25 11:59 | CP.PCM.PN ---
Subjective - Date & Time of Evaluation Date of Evaluation: 09/25/18 Time of Evaluation: 11:57 - Subjective Subjective: PT. HAD MOSTLY SUPRA PUBIC ABD PAIN LAST PM A/W 1 VOMITING ABD SOFT , TENDERNESS SUPR PUBIC WILL RECONSIDER CYSTOSCOPY AFEBRILE NO GI BLEEDING Objective - Vital Signs/Intake and Output Vital Signs (last 24 hours): Temp Pulse Resp BP Pulse Ox 97.9 F 67 20 153/64 H 95 09/25/18 08:30 09/25/18 08:30 09/25/18 08:30 09/25/18 08:30 09/25/18 08:30 Intake and Output: 09/24/18 09/25/18 23:59 11:59 Intake Total 240 Output Total 1250 300 Balance -1010 -300 - Medications Medications: Current Medications Acetaminophen (Tylenol 325mg Tab) 325 mg PO Q4H PRN PRN Reason: Pain, Mild (1-3) Last Admin: 09/22/18 20:25 Dose: 325 mg Carbidopa/Levodopa (Sinemet) 1 tab PO BID [facility] Last Admin: 09/25/18 09:17 Dose: 1 [facility] Last Admin: 09/25/18 08:21 Dose: 4 mg Heparin Sodium (Porcine) (Heparin) 5,000 units SC Q12H [facility] Last Admin: 09/25/18 09:16 Dose: 5,000 units Insulin Aspart (Novolog) 0 unit SC [facility]; Protocol Last Admin: 09/25/18 08:21 Dose: 4 units Insulin Glargine (Lantus) 25 unit SC [facility] Last Admin: 09/24/18 21:59 Dose: 25 u Lactulose (Enulose) 20 gm PO Q12H [facility] Last Admin: 09/25/18 01:54 Dose: Not Given Lisinopril (Zestril) 2.5 mg PO DAILY [facility] Last Admin: 09/25/18 09:15 Dose: 2.5 mg Metolazone (Zaroxolyn) 10 mg PO DAILY [facility] Last Admin: 09/25/18 09:17 Dose: 10 mg Mirtazapine (Remeron) 15 mg PO [facility] Last Admin: 09/24/18 21:56 Dose: Not Given Pantoprazole Sodium (Protonix Ec Tab) 40 mg PO BID [facility] Last Admin: 09/25/18 09:15 Dose: 40 mg Polyethylene Glycol (Miralax) 17 gm PO BID [facility] Last Admin: 09/25/18 09:16 Dose: Not Given Pregabalin (Lyrica) 75 mg PO DAILY [facility] Last Admin: 09/25/18 09:15 Dose: 75 mg Rosuvastatin Calcium (Crestor) 5 mg PO HS [facility] Last Admin: 09/24/18 21:57 Dose: Not Given Sitagliptin Phosphate (Januvia) 50 mg PO DAILY [facility] Last Admin: 09/25/18 09:15 Dose: 50 mg - Labs Labs: 09/24/18 07:55 09/24/18 07:55 PT 12.2 SECONDS (9.7-12.2) 09/13/18 14:32 INR 1.1 09/13/18 14:32 APTT 34.0 SECONDS (21-34) 09/13/18 14:32 Assessment and Plan (1) GI bleed Status: Acute (2) Altered mental status Status: Acute (3) Diabetes mellitus Status: Acute
--- NOTE | 2018-09-25 12:36 | CP.PCM.PN ---
Subjective - Date & Time of Evaluation Date of Evaluation: 09/25/18 Time of Evaluation: 12:36 - Subjective Subjective: AFEBRILE, RESTING AROUSABLE. EVENTS NOTED. +VE LOWER ABDOMINAL PAIN AND 1 EPISODE OF VOMITINGLAST EVENING. +VE FOLYS NO GI BLEEDING. LABS REVIEWED Objective - Vital Signs/Intake and Output Vital Signs (last 24 hours): Temp Pulse Resp BP Pulse Ox 97.9 F 67 20 153/64 H 95 09/25/18 08:30 09/25/18 08:30 09/25/18 08:30 09/25/18 08:30 09/25/18 08:30 Intake and Output: 09/25/18 09/25/18 06:59 18:59 Intake Total 240 Output Total 550 Balance -310 - Medications Medications: Current Medications Acetaminophen (Tylenol 325mg Tab) 325 mg PO Q4H PRN PRN Reason: Pain, Mild (1-3) Last Admin: 09/22/18 20:25 Dose: 325 mg Carbidopa/Levodopa (Sinemet) 1 tab PO BID [facility] Last Admin: 09/25/18 09:17 Dose: 1 [facility]) [facility] Last Admin: 09/25/18 08:21 Dose: 4 mg Heparin Sodium (Porcine) (Heparin) 5,000 units SC Q12H [facility] Last Admin: 09/25/18 09:16 Dose: 5,000 units Insulin Aspart (Novolog) 0 unit SC [facility]; Protocol Last Admin: 09/25/18 08:21 Dose: 4 units Insulin Glargine (Lantus) 25 unit SC [facility] Last Admin: 09/24/18 21:59 Dose: 25 u Lactulose (Enulose) 20 gm PO Q12H [facility] Last Admin: 09/25/18 01:54 Dose: Not Given Lisinopril (Zestril) 2.5 mg PO DAILY [facility] Last Admin: 09/25/18 09:15 Dose: 2.5 mg Metolazone (Zaroxolyn) 10 mg PO DAILY [facility] Last Admin: 09/25/18 09:17 Dose: 10 mg Mirtazapine (Remeron) 15 mg PO [facility] Last Admin: 09/24/18 21:56 Dose: Not Given Pantoprazole Sodium (Protonix Ec Tab) 40 mg PO BID [facility] Last Admin: 09/25/18 09:15 Dose: 40 mg Polyethylene Glycol (Miralax) 17 gm PO BID [facility] Last Admin: 09/25/18 09:16 Dose: Not Given Pregabalin (Lyrica) 75 mg PO DAILY [facility] Last Admin: 09/25/18 09:15 Dose: 75 mg Rosuvastatin Calcium (Crestor) 5 mg PO HS [facility] Last Admin: 09/24/18 21:57 Dose: Not Given Sitagliptin Phosphate (Januvia) 50 mg PO DAILY [facility] Last Admin: 09/25/18 09:15 Dose: 50 mg - Labs Labs: 09/24/18 07:55 09/24/18 07:55 PT 12.2 SECONDS (9.7-12.2) 09/13/18 14:32 INR 1.1 09/13/18 14:32 APTT 34.0 SECONDS (21-34) 09/13/18 14:32 - Constitutional Appears: No Acute Distress - Head Exam Head Exam: NORMAL INSPECTION - Eye Exam Eye Exam: EOMI (LEGALLY BLIND.) - ENT Exam ENT Exam: Normal Oropharynx - Neck Exam Neck Exam: Normal Inspection - Respiratory Exam Respiratory Exam: Clear to Ausculation Bilateral, NORMAL BREATHING PATTERN - Cardiovascular Exam Cardiovascular Exam: REGULAR RHYTHM, +S1, +S2 - GI/Abdominal Exam GI & Abdominal Exam: Soft, Normal Bowel Sounds. absent: Tenderness - Extremities Exam Extremities Exam: Normal Capillary Refill. absent: Calf Tenderness, Pedal Edema - Neurological Exam Neurological Exam: Awake, Reflexes Normal - Psychiatric Exam Psychiatric exam: Normal Mood - Skin Skin Exam: Normal Color, Warm Assessment and Plan (1) Altered mental status Assessment & Plan: IMPROVED Status: Acute (2) UTI (urinary tract infection) Status: Acute (3) GI bleed Status: Acute (4) Diabetes mellitus type 2, uncontrolled Status: Acute (5) Abdominal pain determined by examination Status: Acute (6) Constipation Status: Acute - Assessment and Plan (Free Text) Plan: DC IV CEFEPIME. 09/17/18- 09/24/18 PT HAS FOLYS CATHETHER FOR INCOMPLETE EMPYTING BLADDER ? NEUROGENIC BLADDER VS / BLADDER MALIGNANCY. AWAITING RECOMENDATIONS. case discussed w staff.
[2018-09-25] MEDS: (Lantus) Insulin Glargine, Recombinant SC SCH (21:58)
[2018-09-26 07:56] LABS: BASO # 0.1 K/uL (0.0-0.2); BASO % 1.4 % (0.0-2.0); EOS # 0.6 K/uL (0.0-0.7); EOS % 8.3 % (0.0-4.0); HEMOGLOBIN 12.9 g/dL (11.0-16.0); LYMPH # 1.8 K/uL (1.0-4.3); LYMPH % 25.4 % (20.0-40.0); MEAN CELL VOLUME 88.8 fL (81.0-99.0); MEAN CORPUSCULAR HEMOGLOBIN 30.5 pg (27.0-31.0); MEAN CORPUSCULAR HGB CONC 34.4 g/dL (33.0-37.0); MEAN PLATELET VOLUME 9.6 fL (7.2-11.7); MONO # 0.4 K/uL (0.0-0.8); MONO % 5.9 % (0.0-10.0); NEUT # 4.3 K/uL (1.8-7.0); RBC 4.24 Mil/uL (3.80-5.20); RED CELL DISTRIBUTION WIDTH 14.3 % (11.5-14.5); WHITE BLOOD COUNT 7.2 K/uL (4.8-10.8)
[2018-09-26] MEDS: (Novolog) Insulin Aspart, Recombinant 100 u/ml 10 ml vial SC SCH ×3 (08:10→21:37)
[2018-09-26 08:51] LABS: ALBUMIN 3.3 g/dL (3.5-5.0); ALT/SGPT < 6 U/L (9-52); AST/SGOT 32 U/L (14-36); BLOOD UREA NITROGEN 24 mg/dL (7-17); CALCIUM 8.9 mg/dl (8.6-10.4); GFR NON-AFRICAN AMERICAN 36
[2018-09-26] MEDS: Pantoprazole 40 mg EC Tab PO SCH ×2 (10:57→17:28)
[2018-09-26] MEDS: POLYETHYLENE GLYCOL 3350 17 GM/Dose PACKET PO SCH ×2 (10:57→17:28)
[2018-09-26] MEDS: metOLazone 5 MG TAB PO SCH (11:00)
--- NOTE | 2018-09-26 11:46 | CP.PCM.PN ---
Subjective - Date & Time of Evaluation Date of Evaluation: 09/26/18 Time of Evaluation: 11:45 - Subjective Subjective: MOST OF TIME SLEEPING CONFUSED , CAN NOT HOLD CONVERSATION ABD SOFT , NON TENDER D/W UROLOGY FOR CYSTO BEFORE DISCHARGE Objective - Vital Signs/Intake and Output Vital Signs (last 24 hours): Temp Pulse Resp BP Pulse Ox 97.4 F L 68 20 153/72 H 95 09/26/18 07:10 09/26/18 07:10 09/26/18 07:10 09/26/18 07:10 09/26/18 07:10 Intake and Output: 09/25/18 09/26/18 23:59 11:59 Intake Total 300 Output Total 250 Balance 50 - Medications Medications: Current Medications Acetaminophen (Tylenol 325mg Tab) 325 mg PO Q4H PRN PRN Reason: Pain, Mild (1-3) Last Admin: 09/22/18 20:25 Dose: 325 mg Carbidopa/Levodopa (Sinemet) 1 tab PO BID [facility] Last Admin: 09/26/18 10:57 Dose: 1 [facility] Last Admin: 09/26/18 08:07 Dose: 4 mg Insulin Aspart (Novolog) 0 unit SC [facility]; Protocol Last Admin: 09/26/18 08:10 Dose: 4 units Insulin Glargine (Lantus) 25 unit SC [facility] Last Admin: 09/25/18 21:58 Dose: 25 u Lactulose (Enulose) 20 gm PO Q12H [facility] Last Admin: 09/26/18 01:25 Dose: Not Given Lisinopril (Zestril) 2.5 mg PO DAILY [facility] Last Admin: 09/26/18 10:57 Dose: 2.5 mg Metolazone (Zaroxolyn) 10 mg PO DAILY [facility] Last Admin: 09/26/18 11:00 Dose: 10 mg Mirtazapine (Remeron) 15 mg PO [facility] Last Admin: 09/25/18 21:58 Dose: 15 mg Pantoprazole Sodium (Protonix Ec Tab) 40 mg PO BID [facility] Last Admin: 09/26/18 10:57 Dose: 40 mg Polyethylene Glycol (Miralax) 17 gm PO BID [facility] Last Admin: 09/26/18 10:57 Dose: Not Given Pregabalin (Lyrica) 75 mg PO DAILY [facility] Last Admin: 09/26/18 10:57 Dose: 75 mg Rosuvastatin Calcium (Crestor) 5 mg PO HS [facility] Last Admin: 09/25/18 22:00 Dose: 5 mg Sitagliptin Phosphate (Januvia) 50 mg PO DAILY [facility] Last Admin: 09/26/18 10:57 Dose: 50 mg - Labs Labs: 09/26/18 07:50 09/26/18 07:50 PT 12.2 SECONDS (9.7-12.2) 09/13/18 14:32 INR 1.1 09/13/18 14:32 APTT 34.0 SECONDS (21-34) 09/13/18 14:32 Assessment and Plan (1) GI bleed Status: Acute (2) Altered mental status Status: Acute (3) Diabetes mellitus Status: Acute
--- NOTE | 2018-09-26 13:11 | CP.PCM.PN ---
Subjective - Date & Time of Evaluation Date of Evaluation: 09/26/18 Time of Evaluation: 13:11 - Subjective Subjective: AFEBRILE, AWAKE/ CONFUSED INTERMITTENTLY. NO NEW EVENTS OVERNIGHT. +VE FOLYS OFF ABX . PER ? TRIAL OF VOIDING VS CYSTOSCOPY Objective - Vital Signs/Intake and Output Vital Signs (last 24 hours): Temp Pulse Resp BP Pulse Ox 97.4 F L 68 20 153/72 H 95 09/26/18 07:10 09/26/18 07:10 09/26/18 07:10 09/26/18 07:10 09/26/18 07:10 - Medications Medications: Current Medications Acetaminophen (Tylenol 325mg Tab) 325 mg PO Q4H PRN PRN Reason: Pain, Mild (1-3) Last Admin: 09/22/18 20:25 Dose: 325 mg Carbidopa/Levodopa (Sinemet) 1 tab PO BID [facility] Last Admin: 09/26/18 10:57 Dose: 1 tab [facility] Last Admin: 09/26/18 08:07 Dose: 4 mg Insulin Aspart (Novolog) 0 unit SC [facility]; Protocol Last Admin: 09/26/18 08:10 Dose: 4 units Insulin Glargine (Lantus) 25 unit SC [facility] Last Admin: 09/25/18 21:58 Dose: 25 u Lactulose (Enulose) 20 gm PO Q12H [facility] Last Admin: 09/26/18 01:25 Dose: Not Given Lisinopril (Zestril) 2.5 mg PO DAILY [facility] Last Admin: 09/26/18 10:57 Dose: 2.5 mg Metolazone (Zaroxolyn) 10 mg PO DAILY [facility] Last Admin: 09/26/18 11:00 Dose: 10 mg Mirtazapine (Remeron) 15 mg PO [facility] Last Admin: 09/25/18 21:58 Dose: 15 mg Pantoprazole Sodium (Protonix Ec Tab) 40 mg PO BID [facility] Last Admin: 09/26/18 10:57 Dose: 40 mg Polyethylene Glycol (Miralax) 17 gm PO BID [facility] Last Admin: 09/26/18 10:57 Dose: Not Given Pregabalin (Lyrica) 75 mg PO DAILY [facility] Last Admin: 09/26/18 10:57 Dose: 75 mg Rosuvastatin Calcium (Crestor) 5 mg PO HS [facility] Last Admin: 09/25/18 22:00 Dose: 5 mg Sitagliptin Phosphate (Januvia) 50 mg PO DAILY [facility] Last Admin: 09/26/18 10:57 Dose: 50 mg - Labs Labs: 09/26/18 07:50 09/26/18 07:50 PT 12.2 SECONDS (9.7-12.2) 09/13/18 14:32 INR 1.1 09/13/18 14:32 APTT 34.0 SECONDS (21-34) 09/13/18 14:32 - Constitutional Appears: No Acute Distress, Confused - Head Exam Head Exam: NORMAL INSPECTION - Eye Exam Eye Exam: EOMI, PERRL - ENT Exam ENT Exam: Normal Oropharynx - Neck Exam Neck Exam: Normal Inspection - Respiratory Exam Respiratory Exam: Clear to Ausculation Bilateral, NORMAL BREATHING PATTERN - Cardiovascular Exam Cardiovascular Exam: REGULAR RHYTHM, +S1, +S2 - GI/Abdominal Exam GI & Abdominal Exam: Soft, Normal Bowel Sounds. absent: Distended, Tenderness - Extremities Exam Extremities Exam: Normal Capillary Refill. absent: Calf Tenderness, Pedal Edema - Back Exam Back Exam: absent: CVA tenderness (L), CVA tenderness (R) - Neurological Exam Neurological Exam: Altered, Awake, Reflexes Normal - Psychiatric Exam Psychiatric exam: Flat Affect - Skin Skin Exam: Warm Assessment and Plan (1) Altered mental status Status: Acute (2) UTI (urinary tract infection) Status: Acute (3) GI bleed Status: Acute (4) Diabetes mellitus type 2, uncontrolled Status: Acute (5) Abdominal pain determined by examination Status: Acute (6) Constipation Status: Acute - Assessment and Plan (Free Text) Plan: DC IV CEFEPIME. 09/17/18- 09/24/18 PT HAS FOLYS CATHETHER FOR INCOMPLETE EMPYTING BLADDER ? NEUROGENIC BLADDER VS /BLADDER MALIGNANCY. AWAITING RECOMENDATIONS. CASE DISCUSSED WITH STAFF/PMD.
[2018-09-26] MEDS: (Lantus) Insulin Glargine, Recombinant SC SCH (21:59)
[2018-09-27] MEDS: (Novolog) Insulin Aspart, Recombinant 100 u/ml 10 ml vial SC SCH ×4 (08:45→22:11)
[2018-09-27] MEDS: Pantoprazole 40 mg EC Tab PO SCH ×2 (10:32→18:02)
[2018-09-27] MEDS: POLYETHYLENE GLYCOL 3350 17 GM/Dose PACKET PO SCH ×2 (10:33→17:27)
[2018-09-27] MEDS: metOLazone 5 MG TAB PO SCH (10:35)
--- NOTE | 2018-09-27 11:19 | CP.PCM.PN ---
Subjective - Date & Time of Evaluation Date of Evaluation: 09/27/18 Time of Evaluation: 11:19 - Subjective Subjective: MOST OF TIME SLEEPING CONFUSED , CAN NOT HOLD CONVERSATION ABD SOFT , NON TENDER D/W UROLOGY FOR CYSTO BEFORE DISCHARGE Objective - Vital Signs/Intake and Output Vital Signs (last 24 hours): Temp Pulse Resp BP Pulse Ox 98.3 F 61 20 164/60 H 96 09/27/18 08:00 09/27/18 08:00 09/27/18 08:00 09/27/18 08:00 09/27/18 08:00 Intake and Output: 09/26/18 09/27/18 23:59 11:59 Intake Total 850 0 Output Total 950 550 Balance -100 -550 - Medications Medications: Current Medications Acetaminophen (Tylenol 325mg Tab) 325 mg PO Q4H PRN PRN Reason: Pain, Mild (1-3) Last Admin: 09/22/18 20:25 Dose: 325 mg Carbidopa/Levodopa (Sinemet) 1 tab PO BID [facility] Last Admin: 09/27/18 10:32 Dose: 1 tab [facility] Last Admin: 09/27/18 08:45 Dose: 4 mg Insulin Aspart (Novolog) 0 unit SC [facility]; Protocol Last Admin: 09/27/18 08:45 Dose: 2 units Insulin Glargine (Lantus) 25 unit SC [facility] Last Admin: 09/26/18 21:59 Dose: 25 u Lactulose (Enulose) 20 gm PO Q12H [facility] Last Admin: 09/27/18 01:45 Dose: Not Given Lisinopril (Zestril) 2.5 mg PO DAILY [facility] Last Admin: 09/27/18 10:32 Dose: 2.5 mg Metolazone (Zaroxolyn) 10 mg PO DAILY [facility] Last Admin: 09/27/18 10:35 Dose: 10 mg Mirtazapine (Remeron) 15 mg PO [facility] Last Admin: 09/26/18 21:59 Dose: 15 mg Pantoprazole Sodium (Protonix Ec Tab) 40 mg PO BID [facility] Last Admin: 09/27/18 10:32 Dose: 40 mg Polyethylene Glycol (Miralax) 17 gm PO BID [facility] Last Admin: 09/27/18 10:33 Dose: Not Given Pregabalin (Lyrica) 75 mg PO DAILY [facility] Last Admin: 09/27/18 10:32 Dose: 75 mg Rosuvastatin Calcium (Crestor) 5 mg PO [facility] Last Admin: 09/26/18 21:59 Dose: 5 mg Sitagliptin Phosphate (Januvia) 50 mg PO DAILY [facility] Last Admin: 09/27/18 10:32 Dose: 50 mg - Labs Labs: 09/26/18 07:50 09/26/18 07:50 PT 12.2 SECONDS (9.7-12.2) 09/13/18 14:32 INR 1.1 09/13/18 14:32 APTT 34.0 SECONDS (21-34) 09/13/18 14:32 Assessment and Plan (1) GI bleed Status: Acute (2) Altered mental status Status: Acute (3) Diabetes mellitus Status: Acute
[2018-09-27] MEDS: (Lantus) Insulin Glargine, Recombinant SC SCH (22:10)
--- NOTE | 2018-09-27 22:31 | CP.PCM.PN ---
Subjective - Date & Time of Evaluation Date of Evaluation: 09/27/18 Time of Evaluation: 22:31 - Subjective Subjective: AFEBRILE VSS AWAKE/ CONFUSED INTERMITTENTLY. NO NEW EVENTS OVERNIGHT. +VE FOLYS OFF ABX . PER ? TRIAL OF VOIDING VS CYSTOSCOPY Objective - Vital Signs/Intake and Output Vital Signs (last 24 hours): Temp Pulse Resp BP Pulse Ox 98.3 F 61 20 164/60 H 96 09/27/18 08:00 09/27/18 08:00 09/27/18 08:00 09/27/18 08:00 09/27/18 08:00 Intake and Output: 09/27/18 09/28/18 18:59 06:59 Intake Total 1200 Output Total 700 Balance 500 - Medications Medications: Current Medications Acetaminophen (Tylenol 325mg Tab) 325 mg PO Q4H PRN PRN Reason: Pain, Mild (1-3) Last Admin: 09/22/18 20:25 Dose: 325 mg Carbidopa/Levodopa (Sinemet) 1 tab PO BID [facility] Last Admin: 09/27/18 18:02 Dose: 1 [facility] Last Admin: 09/27/18 18:02 Dose: 4 mg Insulin Aspart (Novolog) 0 unit SC [facility]; Protocol Last Admin: 09/27/18 22:11 Dose: 2 units Insulin Glargine (Lantus) 25 unit SC [facility] Last Admin: 09/27/18 22:10 Dose: 25 u Lactulose (Enulose) 20 gm PO Q12H [facility] Last Admin: 09/27/18 13:29 Dose: Not Given Lisinopril (Zestril) 2.5 mg PO DAILY [facility] Last Admin: 09/27/18 10:32 Dose: 2.5 mg Metolazone (Zaroxolyn) 10 mg PO DAILY [facility] Last Admin: 09/27/18 10:35 Dose: 10 mg Mirtazapine (Remeron) 15 mg PO [facility] Last Admin: 09/27/18 22:11 Dose: 15 mg Pantoprazole Sodium (Protonix Ec Tab) 40 mg PO BID [facility] Last Admin: 09/27/18 18:02 Dose: 40 mg Polyethylene Glycol (Miralax) 17 gm PO BID [facility] Last Admin: 09/27/18 17:27 Dose: Not Given Pregabalin (Lyrica) 75 mg PO DAILY [facility] Last Admin: 09/27/18 10:32 Dose: 75 mg Rosuvastatin Calcium (Crestor) 5 mg PO HS [facility] Last Admin: 09/27/18 22:11 Dose: 5 mg Sitagliptin Phosphate (Januvia) 50 mg PO DAILY [facility] Last Admin: 09/27/18 10:32 Dose: 50 mg - Labs Labs: 09/26/18 07:50 09/26/18 07:50 PT 12.2 SECONDS (9.7-12.2) 09/13/18 14:32 INR 1.1 09/13/18 14:32 APTT 34.0 SECONDS (21-34) 09/13/18 14:32 - Constitutional Appears: No Acute Distress - Eye Exam Eye Exam: EOMI, PERRL - ENT Exam ENT Exam: Normal Oropharynx - Neck Exam Neck Exam: Normal Inspection - Respiratory Exam Respiratory Exam: Decreased Breath Sounds, NORMAL BREATHING PATTERN - Cardiovascular Exam Cardiovascular Exam: REGULAR RHYTHM, +S1, +S2 - GI/Abdominal Exam GI & Abdominal Exam: Soft, Normal Bowel Sounds. absent: Tenderness - Extremities Exam Extremities Exam: Normal Capillary Refill. absent: Calf Tenderness, Pedal Edema - Neurological Exam Neurological Exam: Awake, Oriented x3, Reflexes Normal - Psychiatric Exam Psychiatric exam: Normal Mood - Skin Skin Exam: Normal Color, Warm Assessment and Plan (1) Altered mental status Status: Acute (2) UTI (urinary tract infection) Status: Acute (3) GI bleed Status: Acute (4) Diabetes mellitus type 2, uncontrolled Status: Acute (5) Abdominal pain determined by examination Status: Acute (6) Constipation Status: Acute - Assessment and Plan (Free Text) Plan: OFF IV ANTIBIOTICS. PT HAS FOLYS CATHETHER FOR INCOMPLETE EMPYTING BLADDER ? NEUROGENIC BLADDER VS /BLADDER MALIGNANCY. WATCH FEVER CURVE AWAITING RECOMENDATIONS. CASE DISCUSSED WITH STAFF/PMD.
[2018-09-28] MEDS: (Novolog) Insulin Aspart, Recombinant 100 u/ml 10 ml vial SC SCH ×4 (07:26→21:35)
[2018-09-28] MEDS ORDERED: cefTRIAXone 1 gm 1 GM/100 ML BAG IVPB ONE (07:36)
[2018-09-28] MEDS ORDERED: Lidocaine 2% Jelly (Uro-Jet) ONE (07:36)
[2018-09-28] MEDS ORDERED: Iohexol 240 (50 ml) ONE (07:36)
[2018-09-28] MEDS ORDERED: Iohexol 240 200 ML ONE (09:08)
[2018-09-28] MEDS ORDERED: Propofol 10 mg/ml Inj (20 ML) ONE (09:10)
[2018-09-28] MEDS: Pantoprazole 40 mg EC Tab PO SCH ×2 (10:19→17:57)
[2018-09-28] MEDS: POLYETHYLENE GLYCOL 3350 17 GM/Dose PACKET PO SCH ×2 (10:21→17:58)
[2018-09-28] MEDS: metOLazone 5 MG TAB PO SCH (10:22)
--- NOTE | 2018-09-28 10:34 | PCM.URO ---
Urology Progress Note - General General: No Complaints, Tolerating Diet - Subjective Abdominal Pain: No Flank Pain: No Nausea: No Voiding Well: No (catheter in place) Dsypnea: No Chest Pain: No Fever & Chills: No - Objective Lab Studies: Reviewed Lab Results Last 24 Hours: Laboratory Results - last 24 hr 09/27/18 09/27/18 09/27/18 12:05 16:49 20:48 POC Glucose (mg/dL) 308 H 393 H 333 H 09/28/18 09/28/18 02:07 06:13 POC Glucose (mg/dL) 324 H 271 H Intake & Output: Intake & Output 09/27/18 09/28/18 09/28/18 18:59 06:59 18:59 Intake Total 1200 200 Output Total 700 50 Balance 500 150 Intake: IV 200 Oral 1200 Output: Urine 700 50 Urethral (Trejo) 700 Other: # Bowel Movements 2 Vital Signs: Vital Signs - 24 hr 09/28/18 09/28/18 09/28/18 00:00 00:22 09:31 Temperature 98.2 F 97.1 F L Pulse Rate 77 89 Respiratory 20 16 Rate Blood Pressure 169/69 H 150/55 L O2 Sat by Pulse 96 94 L 100 Oximetry 09/28/18 09/28/18 09:45 10:00 Temperature 97.3 F L Pulse Rate 87 91 H Respiratory 13 25 H Rate Blood Pressure 139/54 L 140/51 L O2 Sat by Pulse 99 97 Oximetry - Physical Exam Abdominal Exam: Soft, Non-Tender, Non-Distended Back: No CVA Tenderness Urinary Catheter Draining Well: Yes Urine Color: Clear, Yellow - Plan Additional Information: IMP: stable at present. indwelling catheter. P: will schedule for cystoscopy, as requested - Date & Time of Note Date: 09/27/18 Time: 10:25
--- NOTE | 2018-09-28 10:37 | PCM.SURG1 ---
Surgeon's Initial Post Op Note - Surgeon's Notes Surgeon: Nani Gomez [employer] Teacher: none Type of Anesthesia: IV Sedation Pre-Operative Diagnosis: UTI. Retention Operative Findings: same. cystitis. trabec bladder, diverticulum Post-Operative Diagnosis: same Operation Performed: cystogram. modified cystometrogram. cystoscopy. EUA Specimen/Specimens Removed: none Estimated Blood Loss: EBL {In ML}: 0 Blood Products Given: N/A Date of Surgery/Procedure: 09/28/18 Time of Surgery/Procedure: 09:50
--- NOTE | 2018-09-28 11:31 | CP.PCM.PN ---
Subjective - Date & Time of Evaluation Date of Evaluation: 09/28/18 Time of Evaluation: 11:30 - Subjective Subjective: S/P CYSTO WAIT FOR OFFICIAL REPORT CONFUSED , MENTAL STATUS SAME P/E REMAINS SAME OFF AB Objective - Vital Signs/Intake and Output Vital Signs (last 24 hours): Temp Pulse Resp BP Pulse Ox 97.3 F L 91 H 25 H 140/51 L 97 09/28/18 10:00 09/28/18 10:00 09/28/18 10:00 09/28/18 10:00 09/28/18 10:00 Intake and Output: 09/27/18 09/28/18 23:59 11:59 Intake Total 1200 200 Output Total 700 50 Balance 500 150 - Medications Medications: Current Medications Acetaminophen (Tylenol 325mg Tab) 325 mg PO Q4H PRN PRN Reason: Pain, Mild (1-3) Last Admin: 09/22/18 20:25 Dose: 325 mg Carbidopa/Levodopa (Sinemet) 1 tab PO BID [facility] Last Admin: 09/28/18 10:19 Dose: 1 [facility] Last Admin: 09/28/18 10:20 Dose: 4 mg Insulin Aspart (Novolog) 0 unit SC [facility]; Protocol Last Admin: 09/28/18 07:26 Dose: Not Given Insulin Glargine (Lantus) 25 unit SC [facility] Last Admin: 09/27/18 22:10 Dose: 25 u Lactulose (Enulose) 20 gm PO Q12H [facility] Last Admin: 09/28/18 01:37 Dose: Not Given Lisinopril (Zestril) 2.5 mg PO DAILY [facility] Last Admin: 09/28/18 10:18 Dose: 2.5 mg Metolazone (Zaroxolyn) 10 mg PO DAILY [facility] Last Admin: 09/28/18 10:22 Dose: 10 mg Mirtazapine (Remeron) 15 mg PO [facility] Last Admin: 09/27/18 22:11 Dose: 15 mg Pantoprazole Sodium (Protonix Ec Tab) 40 mg PO BID [facility] Last Admin: 09/28/18 10:19 Dose: 40 mg Polyethylene Glycol (Miralax) 17 gm PO BID [facility] Last Admin: 09/28/18 10:21 Dose: Not Given Pregabalin (Lyrica) 75 mg PO DAILY [facility] Last Admin: 09/28/18 10:24 Dose: 75 mg Rosuvastatin Calcium (Crestor) 5 mg PO HS [facility] Last Admin: 09/27/18 22:11 Dose: 5 mg Sitagliptin Phosphate (Januvia) 50 mg PO DAILY [facility] Last Admin: 09/28/18 10:19 Dose: 50 mg - Labs Labs: 09/26/18 07:50 09/26/18 07:50 PT 12.2 SECONDS (9.7-12.2) 09/13/18 14:32 INR 1.1 09/13/18 14:32 APTT 34.0 SECONDS (21-34) 09/13/18 14:32 Assessment and Plan (1) GI bleed Status: Acute (2) Altered mental status Status: Acute (3) Diabetes mellitus Status: Acute
--- NOTE | 2018-09-28 13:29 | RAD ---
Date of service: 09/28/2018 PROCEDURE: Intraoperative Fluoroscopy. HISTORY: UTI FINDINGS: Fluoroscopic assistance was provided for cystogram. Please refer to the operative report from Dr. RAO, WEINER. Limited assessment of the urinary bladder: Bladder wall trabeculation, small bladder diverticula. No visible defects. No evidence of reflux.
--- NOTE | 2018-09-28 13:45 | RAD ---
Date of service: 09/28/2018 HISTORY: UTI COMPARISON: Comparison made with CT scan abdomen pelvis 09/18/2018. TECHNIQUE: 1 view obtained. FINDINGS: BOWEL: Nonobstructive/nonspecific bowel gas pattern. No gross free intraperitoneal air seen on this limited supine view of the abdomen. BONES: Normal. OTHER FINDINGS: Small calcification along the right superior pelvic inlet region could represent calcified uterine fibroid. IMPRESSION: No evidence of acute mechanical bowel obstruction
--- NOTE | 2018-09-28 14:42 | CP.PCM.PN ---
Subjective - Date & Time of Evaluation Date of Evaluation: 09/28/18 Time of Evaluation: 14:41 - Subjective Subjective: AFEBRILE VSS AWAKE/ CONFUSED INTERMITTENTLY. S/P CYSTOSCOPY, CYSTOMETROGRAM FINDINGS NOTED. NO SPECIMEN OBTAINED Objective - Vital Signs/Intake and Output Vital Signs (last 24 hours): Temp Pulse Resp BP Pulse Ox 97.3 F L 91 H 25 H 140/51 L 97 09/28/18 10:00 09/28/18 10:00 09/28/18 10:00 09/28/18 10:00 09/28/18 10:00 Intake and Output: 09/28/18 09/28/18 06:59 18:59 Intake Total 200 Output Total 50 Balance 150 - Medications Medications: Current Medications Acetaminophen (Tylenol 325mg Tab) 325 mg PO Q4H PRN PRN Reason: Pain, Mild (1-3) Last Admin: 09/22/18 20:25 Dose: 325 mg Carbidopa/Levodopa (Sinemet) 1 tab PO BID [facility] Last Admin: 09/28/18 10:19 Dose: 1 [facility] Last Admin: 09/28/18 10:20 Dose: 4 mg Insulin Aspart (Novolog) 0 unit SC [facility]; Protocol Last Admin: 09/28/18 12:55 Dose: 8 units Insulin Glargine (Lantus) 25 unit SC [facility] Last Admin: 09/27/18 22:10 Dose: 25 u Lactulose (Enulose) 20 gm PO Q12H [facility] Last Admin: 09/28/18 13:00 Dose: Not Given Lisinopril (Zestril) 2.5 mg PO DAILY [facility] Last Admin: 09/28/18 10:18 Dose: 2.5 mg Metolazone (Zaroxolyn) 10 mg PO DAILY [facility] Last Admin: 09/28/18 10:22 Dose: 10 mg Mirtazapine (Remeron) 15 mg PO [facility] Last Admin: 09/27/18 22:11 Dose: 15 mg Pantoprazole Sodium (Protonix Ec Tab) 40 mg PO BID [facility] Last Admin: 09/28/18 10:19 Dose: 40 mg Polyethylene Glycol (Miralax) 17 gm PO BID [facility] Last Admin: 09/28/18 10:21 Dose: Not Given Pregabalin (Lyrica) 75 mg PO DAILY [facility] Last Admin: 09/28/18 10:24 Dose: 75 mg Rosuvastatin Calcium (Crestor) 5 mg PO HS [facility] Last Admin: 09/27/18 22:11 Dose: 5 mg Sitagliptin Phosphate (Januvia) 50 mg PO DAILY [facility] Last Admin: 09/28/18 10:19 Dose: 50 mg - Labs Labs: 09/26/18 07:50 09/26/18 07:50 PT 12.2 SECONDS (9.7-12.2) 09/13/18 14:32 INR 1.1 09/13/18 14:32 APTT 34.0 SECONDS (21-34) 09/13/18 14:32 - Constitutional Appears: No Acute Distress, Confused - Head Exam Head Exam: NORMAL INSPECTION - Eye Exam Eye Exam: EOMI, PERRL - ENT Exam ENT Exam: Normal Oropharynx - Neck Exam Neck Exam: Normal Inspection - Respiratory Exam Respiratory Exam: Clear to Ausculation Bilateral, NORMAL BREATHING PATTERN - Cardiovascular Exam Cardiovascular Exam: REGULAR RHYTHM, +S1, +S2 - GI/Abdominal Exam GI & Abdominal Exam: Soft, Normal Bowel Sounds. absent: Tenderness - Extremities Exam Extremities Exam: Normal Capillary Refill. absent: Calf Tenderness, Pedal Edema - Neurological Exam Neurological Exam: Awake - Psychiatric Exam Psychiatric exam: Flat Affect - Skin Skin Exam: Warm Assessment and Plan (1) Altered mental status Status: Acute (2) UTI (urinary tract infection) Status: Acute (3) GI bleed Status: Acute (4) Diabetes mellitus type 2, uncontrolled Status: Acute (5) Abdominal pain determined by examination Status: Acute (6) Constipation Status: Acute - Assessment and Plan (Free Text) Plan: OFF IV ANTIBIOTICS. PT HAS FOLYS CATHETHER . PER .
[2018-09-28] MEDS: (Lantus) Insulin Glargine, Recombinant SC SCH (21:35)
[2018-09-29] MEDS: (Novolog) Insulin Aspart, Recombinant 100 u/ml 10 ml vial SC SCH ×3 (08:07→17:29)
[2018-09-29] MEDS: metOLazone 5 MG TAB PO SCH (10:31)
[2018-09-29] MEDS: POLYETHYLENE GLYCOL 3350 17 GM/Dose PACKET PO SCH ×2 (10:31→17:18)
[2018-09-29] MEDS: Pantoprazole 40 mg EC Tab PO SCH (10:31)
--- NOTE | 2018-09-29 11:55 | CP.PCM.PN ---
Subjective - Date & Time of Evaluation Date of Evaluation: 09/29/18 Time of Evaluation: 11:54 - Subjective Subjective: S/P CYSTO WAIT FOR OFFICIAL REPORT CONFUSED , MENTAL STATUS SAME P/E REMAINS SAME OFF AB Objective - Vital Signs/Intake and Output Vital Signs (last 24 hours): Temp Pulse Resp BP Pulse Ox 97.7 F 59 L 18 144/72 95 09/29/18 07:10 09/29/18 07:10 09/29/18 07:10 09/29/18 07:10 09/29/18 07:10 Intake and Output: 09/28/18 09/29/18 23:59 11:59 Intake Total 400 Output Total 400 400 Balance 0 -400 - Medications Medications: Current Medications Acetaminophen (Tylenol 325mg Tab) 325 mg PO Q4H PRN PRN Reason: Pain, Mild (1-3) Last Admin: 09/22/18 20:25 Dose: 325 mg Carbidopa/Levodopa (Sinemet) 1 tab PO BID [facility] Last Admin: 09/29/18 10:32 Dose: 1 [facility] Last Admin: 09/29/18 07:45 Dose: 4 mg Insulin Aspart (Novolog) 0 unit SC [facility]; Protocol Last Admin: 09/29/18 08:07 Dose: 4 units Insulin Glargine (Lantus) 25 unit SC [facility] Last Admin: 09/28/18 21:35 Dose: 25 u Lactulose (Enulose) 20 gm PO Q12H [facility] Last Admin: 09/29/18 01:23 Dose: Not Given Lisinopril (Zestril) 2.5 mg PO DAILY [facility] Last Admin: 09/29/18 10:32 Dose: 2.5 mg Metolazone (Zaroxolyn) 10 mg PO DAILY [facility] Last Admin: 09/29/18 10:31 Dose: 10 mg Mirtazapine (Remeron) 15 mg PO [facility] Last Admin: 09/28/18 21:35 Dose: 15 mg Pantoprazole Sodium (Protonix Ec Tab) 40 mg PO BID [facility] Last Admin: 09/29/18 10:31 Dose: 40 mg Polyethylene Glycol (Miralax) 17 gm PO BID [facility] Last Admin: 09/29/18 10:31 Dose: 17 gm Pregabalin (Lyrica) 75 mg PO DAILY [facility] Last Admin: 09/29/18 10:31 Dose: 75 mg Rosuvastatin Calcium (Crestor) 5 mg PO HS [facility] Last Admin: 09/28/18 21:35 Dose: 5 mg Sitagliptin Phosphate (Januvia) 50 mg PO DAILY [facility] Last Admin: 09/29/18 10:31 Dose: 50 mg - Labs Labs: 09/26/18 07:50 09/26/18 07:50 PT 12.2 SECONDS (9.7-12.2) 09/13/18 14:32 INR 1.1 09/13/18 14:32 APTT 34.0 SECONDS (21-34) 09/13/18 14:32 Assessment and Plan (1) GI bleed Status: Acute (2) Altered mental status Status: Acute (3) Diabetes mellitus Status: Acute
[2018-09-29] MEDS ORDERED: Pantoprazole 40 mg EC Tab PO SCH (15:53)
[2018-09-29] MEDS ORDERED: metOLazone 5 MG TAB PO SCH (15:53)
[2018-09-29 16:46] VITALS: BP 145/60; PULSE 87; RESP 20; TEMP 98.3; O2SAT 94
--- NOTE | 2018-09-30 05:21 | OP ---
PROCEDURE DATE: 09/28/2018 UROLOGY OPERATIVE REPORT PREOPERATIVE DIAGNOSES: Urinary retention. Urinary tract infection. POSTOPERATIVE DIAGNOSES: Urinary retention. Urinary tract infection. Cystitis. PROCEDURES: Cystometrogram. Cystogram. Cystoscopy. Anorectal examination under anesthesia. OPERATING SURGEON: Li Gomez MD DESCRIPTION OF PROCEDURE: Cystometrogram was performed as follows. The patient was in the supine position. Saline was instilled per urethra at a filling rate of 50 mL per minute. The cystometrogram unit was working properly. The patient was questioned and observed regarding her sensation during filling. The height of the filling fluid was observed. FINDINGS ON CYSTOGRAM: There was no detrusor instability. The patient tolerated a volume of 250 mL. She felt uncomfortable at volume of 300 mL. There was no detrusor contraction. Iodinated contrast dye was instilled via urethra. The radiographs were obtained via fluoroscopy in PA and oblique views. Cystogram demonstrated no evidence of filling defect or obstruction. There were no intrinsic or extrinsic filling defect within the bladder. There was no vesicoureteral reflux. There was moderate bladder trabeculation. The patient was then placed in lithotomy position. Genitalia prepped and draped sterilely. Anesthesia was provided by the anesthesiologist. A 22-Kinyarwanda cystoscope sheath was introduced with an obturator. Urine was drained. The bladder was inspected with 30-degree and 70-degree lenses. FINDINGS: There was diffuse moderate cystitis. There was moderate bladder trabeculation. There were no focal lesions within the bladder. There was no bladder tumor. There was no bladder stone. The ureteral orifices could not be seen due to the inflammation in the bladder. The bladder was reinspected with 70-degree lens and confirmed the above findings. The cystoscope sheath removed. Trejo catheter was inserted. Bladder drainage was clear. Exam under anesthesia/bimanual examination was performed. There was no abnormal pelvic mass fixation or induration. The patient tolerated the procedure without complication. Li Gomez MD cc: Edna Boo MD
--- NOTE | 2018-09-30 11:09 | CP.PCM.DIS ---
Provider - Provider Date of Admission: 09/13/18 17:28 Attending physician: Edna Boo MD Consults: 09/13/18 23:01 Nursing Referral for Wound Care Routine Comment: Physician Instructions: Reason For Exam: dietary screen Social Work Referral Routine Comment: lorraine Physician Instructions: Reason For Exam: residential 09/14/18 17:16 Wound Care [Nursing Referral for Wound Care] Routine Comment: Physician Instructions: Reason For Exam: redness around perinal area. 09/16/18 10:17 Infectious Disease Consult Routine Comment: Consulting Provider: Natalie Augustin Consulting Physician: Natalie Augustin Reason for Consult: UTI 09/19/18 10:32 Urology Consult Routine Comment: Consulting Provider: Li Gomez Consulting Physician: Li Gomez Reason for Consult: abnormal bladder U/S 09/21/18 12:58 Endocrinology Consult Routine Comment: Consistently high blood sugars not managed w/ meds Consulting Provider: Karlee Stauffer Consulting Physician: Karlee Stauffer Reason for Consult: Consistently high blood sugars not managed w/ meds Time Spent in preparation of Discharge (in minutes): 35 Diagnosis - Discharge Diagnosis (1) GI bleed Status: Acute (2) Altered mental status Status: Acute (3) Diabetes mellitus Status: Acute Hospital Course - Lab Results Lab Results: Micro Results 09/13/18 21:10 Blood Blood Culture - Final NO GROWTH AFTER 5 DAYS 09/13/18 21:10 Blood Gram Stain - Final TEST NOT PERFORMED 09/13/18 20:40 Blood Blood Culture - Final NO GROWTH AFTER 5 DAYS 09/13/18 20:40 Blood Gram Stain - Final TEST NOT PERFORMED 09/16/18 21:43 Urine,Catheterized Urine Culture - Final <10,000 CFU/ML. MULTIPLE SPECIES. PROBABLE CONTAMINATION. 09/13/18 17:03 Urine Random Urine Culture - Final 50-100,000 CFU/ML. MULTIPLE SPECIES. SUGGEST REPEAT SPECIMEN. Most Recent Lab Values WBC 7.2 K/uL (4.8-10.8) 09/26/18 07:50 RBC 4.24 Mil/uL (3.80-5.20) 09/26/18 07:50 Hgb 12.9 g/dL (11.0-16.0) 09/26/18 07:50 Hct 37.6 % (34.0-47.0) 09/26/18 07:50 MCV 88.8 fL (81.0-99.0) 09/26/18 07:50 MCH 30.5 pg (27.0-31.0) 09/26/18 07:50 MCHC 34.4 g/dL (33.0-37.0) 09/26/18 07:50 RDW 14.3 % (11.5-14.5) 09/26/18 07:50 Plt Count 216 K/uL (130-400) 09/26/18 07:50 MPV 9.6 fL (7.2-11.7) 09/26/18 07:50 Neut % (Auto) 59.0 % (50.0-75.0) 09/26/18 07:50 Lymph % (Auto) 25.4 % (20.0-40.0) 09/26/18 07:50 [place] % (Auto) 5.9 % (0.0-10.0) 09/26/18 07:50 Eos % (Auto) 8.3 % (0.0-4.0) H 09/26/18 07:50 Baso % (Auto) 1.4 % (0.0-2.0) 09/26/18 07:50 Neut # (Auto) 4.3 K/uL (1.8-7.0) 09/26/18 07:50 Lymph # (Auto) 1.8 K/uL (1.0-4.3) 09/26/18 07:50 [place] # (Auto) 0.4 K/uL (0.0-0.8) 09/26/18 07:50 Eos # (Auto) 0.6 K/uL (0.0-0.7) 09/26/18 07:50 Baso # (Auto) 0.1 K/uL (0.0-0.2) 09/26/18 07:50 PT 12.2 SECONDS (9.7-12.2) 09/13/18 14:32 INR 1.1 09/13/18 14:32 APTT 34.0 SECONDS (21-34) 09/13/18 14:32 Sodium 139 mmol/L (132-148) 09/26/18 07:50 Potassium 4.3 mmol/L (3.6-5.2) 09/26/18 07:50 Chloride 102 mmol/L (98-107) 09/26/18 07:50 Carbon Dioxide 29 mmol/L (22-30) 09/26/18 07:50 Anion Gap 12 (10-20) 09/26/18 07:50 BUN 24 mg/dL (7-17) H 09/26/18 07:50 Creatinine 1.4 mg/dL (0.7-1.2) H 09/26/18 07:50 Est GFR ( Amer) 44 09/26/18 07:50 Est GFR (Non-Af Amer) 36 09/26/18 07:50 POC Glucose (mg/dL) 297 mg/dL (65-110) H 09/29/18 20:25 Random Glucose 246 mg/dL (65-105) H 09/26/18 07:50 Calcium 8.9 mg/dl (8.6-10.4) 09/26/18 07:50 Total Bilirubin 0.3 mg/dL (0.2-1.3) 09/26/18 07:50 AST 32 U/L (14-36) 09/26/18 07:50 ALT < 6 U/L (9-52) L D 09/26/18 07:50 Alkaline Phosphatase 67 U/L (38-126) 09/26/18 07:50 Total Protein 6.6 g/dL (6.3-8.3) 09/26/18 07:50 Albumin 3.3 g/dL (3.5-5.0) L 09/26/18 07:50 Globulin 3.3 gm/dL (2.2-3.9) 09/26/18 07:50 Albumin/Globulin Ratio 1.0 (1.0-2.1) 09/26/18 07:50 Urine Color Yellow (YELLOW) 09/16/18 21:43 Urine Clarity Hazy (Clear) 09/16/18 21:43 Urine pH 6.0 (5.0-8.0) 09/16/18 21:43 Ur Specific [place] 1.008 (1.003-1.030) 09/16/18 21:43 Urine Protein 1+ mg/dL (NEGATIVE) H 09/16/18 21:43 Urine Glucose (UA) 3+ mg/dL (Normal) H 09/16/18 21:43 Urine Ketones Negative mg/dL (NEGATIVE) 09/16/18 21:43 Urine Blood 1+ (NEGATIVE) H 09/16/18 21:43 Urine Nitrate Negative (NEGATIVE) 09/16/18 21:43 Urine Bilirubin Negative (NEGATIVE) 09/16/18 21:43 Urine Urobilinogen Normal mg/dL (0.2-1.0) 09/16/18 21:43 Ur Leukocyte Esterase 3+ [place]/uL (Negative) H 09/16/18 21:43 Urine WBC (Auto) 505 /hpf (0-5) H 09/16/18 21:43 Urine RBC (Auto) 9 /hpf (0-3) H 09/16/18 21:43 Urine WBC Clumps (Auto) Many /hpf (NONE) H 09/16/18 21:43 Urine Bacteria Occ (<OCC) H 09/16/18 21:43 - Hospital Course Hospital Course: PT. TRANSFERRED FROM REHAB AFTER COFFEE GROUND EMESIS PT HAS PERIODS OF CONFUSION AND EXACT DETAILS NOT AVAILABLE THE NURSES IN REHAB NOTICED COFFEE GROUND VOMITUS ON THE BED SHEET . IT WAS MODERATE AMOUNT PT WAS RECENTLY ADMITTED WITH HYPOGLYCEMIA AND CONTINUED TO HAVE CONFUSION WITH NO CLEAR CUT ETIOLOGY H/O COPD T2 DM EGDSHOWED GASTRITIS AND RESPONDED WITH MEDS PT ALSO HAD UTI AND LATER CYSTOSCOPY WITH NO SP. ABNORMALITY PT RESPONDED TO IV AB REF BACK TO REHAB Discharge Exam - Head Exam Head Exam: NORMAL INSPECTION Discharge Plan - Follow Up Plan Condition: STABLE Disposition: REHAB FACILITY/REHAB UNIT Instructions: Low Cholesterol, Saturated Fat, and Trans Fat Diet , Dehydration, Adult (DC), Urinary Tract Infection, Adult (DC), Gastrointestinal Bleeding (DC) Additional Instructions: Follow up with Dr. Boo in 2 weeks Follow up with Dr. Gomez in 2 weeks Trejo care as protocol Medications as ordered Physical Therapy as tolerated Discuss with patient and family at bedside who agree and verbalized to discharge pt to [facility] Please bring pt to emergency room if symptoms worsen or return Referrals: Asael Martinez MD [Staff Provider] - Edna Boo MD [Staff Provider] -
== END 2018-09-29 21:27 | DRG 378 ==
LOC: C.ER 13:49 → C.9E 17:28 → C.5S 18:36
PROVIDERS: ADMIT Internal Medicine Cardiovascular Disease; ATTEND Internal Medicine Cardiovascular Disease
PROC: 0DJ08ZZ Inspection of Upper Intestinal Tract, Via Natural or Artificial Opening Endoscopic (ICD-10-PCS; principal; 2018-09-15 13:12)
PROC: 4A0 Measurement and Monitoring, Physiological Systems, Measurement (ICD-10-PCS; 2018-09-28)
PROC: 0TJB8ZZ Inspection of Bladder, Via Natural or Artificial Opening Endoscopic (ICD-10-PCS; 2018-09-28 09:15)
DX: K92.0 Hematemesis (principal); K22.10 Ulcer of esophagus without bleeding; K29.80 Duodenitis without bleeding; K29.70 Gastritis, unspecified, without bleeding; E86.0 Dehydration; N30.90 Cystitis, unspecified without hematuria; E11.65 Type 2 diabetes mellitus with hyperglycemia; K83.8 Other specified diseases of biliary tract; N32.89 Other specified disorders of bladder; N32.3 Diverticulum of bladder; R33.8 Other retention of urine; I10 Essential (primary) hypertension; J44.9 Chronic obstructive pulmonary disease, unspecified; G20 Parkinson's disease; F02.80 Dementia in other diseases classified elsewhere, unspecified severity, without behavioral disturbance, psychotic disturbance, mood disturbance, and anxiety; K76.0 Fatty (change of) liver, not elsewhere classified; K59.00 Constipation, unspecified; R41.82 Altered mental status, unspecified; H54.8 Legal blindness, as defined in USA; Z86.73 Personal history of transient ischemic attack (TIA), and cerebral infarction without residual deficits; Z79.82 Long term (current) use of aspirin; Z79.02 Long term (current) use of antithrombotics/antiplatelets; Z79.4 Long term (current) use of insulin; Z87.19 Personal history of other diseases of the digestive system